=== PATIENT | male | born 1950 | race Caucasian/White ===

== ENCOUNTER 2016-05-22 19:35 | Inpatient (IN) | payer MEDICARE, MEDICAID ==
[~2016-05-22] VITALS: Ht 177.8 cm; Wt 96.6 kg
[~2016-05-22 19:35] MED LIST: ALBUTEROL8GMHFA PO; ASC500 PO; CIPR-198 PO; COU25 PO; COU5 PO; FEXO180T PO; MTP50TCR PO; MULT-1007 PO; NYST1POW29 MC; POTA20TA35 PO; TIOT18CA INH; TORS20TA PO; [UNRECOGNIZED DRUG - CODE] INH; [UNRECOGNIZED DRUG - CODE] PO
[2016-05-22 19:39] VITALS: BP 130/66; PULSE 149; RESP 27; O2SAT 94
--- NOTE | 2016-05-22 19:49 | ED.REPORT ---
HPI-General Illness Date of Service May 22, 2016 ED Provider: Joby Mcpherson MD Pt is a 65 y.o. male who presents to the ED via EMS from [facility] for increased agitation and confusion. Pt also presents with diarrhea. When pt is asked about HPI he responds with yes to every question and his nurse notes that he had previously responded with no to the exact same questions. Pt is currently on Coumadin. Pt is a poor historian due to mental status. Nursing Notes Stated Complaint: WEAKNESS,AGITATION Chief Complaint: General Complaint Nursing Notes Reviewed: Yes Allergies: Coded Allergies: No Known Allergies (Unverified , 05/21/15) Scheduled Albuterol-Expunged Drug, Do Not Renew! (Albuterol-Expunged Drug, Do Not Renew!) 90 Mcg Puff 2 PUFF PO Q4HP Ascorbic Acid-Expunged Drug, Do Not Renew! (Vitamin C-Expunged Drug, Do Not Renew!) 500 Mg Tablet 500 MG PO DAILY Ciprofloxacin Hcl (Ciprofloxacin 250 MG Tab) 500 Mg Tab 500 MG PO BID Fexofenadine-Expunged Drug, Do Not Renew! (Fexofenadine-Expunged Drug, Do Not Renew!) 180 Mg Tablet 180 MG PO DAILY Flutic/Salmet-Expunged Drug, Do Not Renew! (Advair 100/50-Expunged Drug, Do Not Renew!) 100 Mcg Puff 1 PUFF INH BID RINSE MOUTH AFTER USE Metolazone (Zaroxolyn) 2.5 Mg Tablet 2.5 MG PO every other day Metoprolol Suc-Expunged Drug, Do Not Renew! (Metoprolol Suc-Expunged Drug, Do Not Renew!) 50 Mg Tber 50 MG PO DAILY Tiotropium Br-Expunged Drug, Do Not Renew! (Spiriva-Expunged Drug, Do Not Renew! ) 18 Mcg/Puff Pack 1 PUFF INH DAILY INHALE 1 CAPSULE Torsemide-Expunged Drug, Do Not Renew! (Torsemide-Expunged Drug, Do Not Renew!) 20 Mg Tablet 40 MG PO DAILY Warfarin Inactive Drug Do Not Use (Coumadin Inactive Drug Do Not Use) 5 Mg Tablet 5 MG PO 17 1700 (5 PM) DAILY Warfarin Inactive Drug Do Not Use (Coumadin Inactive Drug Do Not Use) 2.5 Mg Tablet 2.5 MG PO 17 1700 (5 PM) DAILY Miscellaneous Medications Multivitamin (Multi-Vitamin Daily) 1 Each Tablet 1 EACH PO Nystatin (Nystatin) 1 Each Powder.ea. 1 EACH MC POTASSIUM CHL-Expunged Drug, Do Not Renew! (Q-OPZ-Dnoljbpw Drug, Do Not Renew!) 20 Meq Tab.er.prt 20 MEQ PO General Time Seen by MD: 19:45 Transferred From: [facility] Chief Complaint Altered mental status Hx Obtained From: EMS Unable to Obtain Hx: Patient condition, Mental status Arrived By: Ambulance Sudden in Onset?: No Onset Occurred: Onset unknown Recent Healthcare: No recent doctor visit, No recent hospitalization Past Medical History Past Medical History Chronic venous stasis changes. Sees wound clinic regularly for chronic wounds on his LLE. Emphysema (per pt) Smoking History Unknown if Ever Smoker Social History Other Social History: Lives in assisted Ambulatory Status Wheelchair Review of Systems Unable to Obtain ROS Patient condition, Mental status Full Review of Systems GI: Reports: Diarrhea Neurologic: Reports: Confusion Psychiatric: Reports: Agitation Complete sys rev & neg: except as marked. Physical Exam Vital Signs Vital Signs Date Time Temp Pulse Resp B/P Pulse Ox O2 Delivery O2 Flow Rate FiO2 05/22/16 21:34 120 26 71/23 98 Room Air 05/22/16 19:39 36.6 149 27 130/66 94 Room Air Initial VS: Reviewed Head / Eyes: Atraumatic, Normocephalic Abdomen / GI: Soft, Non-tender, No guarding, No rebound, No distention Skin: Warm General/Constitutional: Awake Behavior: Positive: Agitated Appearance / Presentation: Positive: Obese Pt is a poor historian. Upon examination he only responds with yes or no. Respiratory / Chest: Atraumatic, Breath sounds NL, Breath sounds = bilat, No respiratory distress Heart Rate / Rhythm: Positive: Tachycardia Afib with RVR Lower Extremity / Pelvis / MS: Non-tender Chronic lower extremity ulcers, bilaterally Mental Status: Positive: Confused Interpretation & Diagnostics Lab Results Interpretation Result Diagram: 05/22/16200905/22/16 2010 Test 05/22/16 20:10 05/22/16 20:14 05/22/16 21:29 White Blood Count 18.2th/mm3 (3.8-10.1) Red Blood Count 5.39mil/mm3 (4.40-5.80) Hemoglobin 17.6g/dL (13.8-17.2) Hematocrit 54.4% (41.0-50.0) Mean Corpuscular Volume 100.9fL (81-100) Mean Corpuscular Hemoglobin 32.7pg (27.0-35.0) Mean Corpuscular Hemoglobin Concent 32.4% (32.0-37.0) Red Cell Distribution Width 15.0% (12.3-15.4) Platelet Count 215bil/L (150-400) Neutrophils (%) (Auto) 78.3% (40-74) Lymphocytes (%) (Auto) 11.4% (14-46) Monocytes (%) (Auto) 8.8% (4-12) Eosinophils (%) (Auto) 0.2% (0-5) Basophils (%) (Auto) 0.6% (0-3) Prothrombin Time 39.4sec (8.1-12.5) Prothromb Time International Ratio 3.59ratio Activated Partial Thromboplast Time 40.2sec (22.8-33.0) D-Dimer < 0.5mg/L (<0.50) Sodium Level 145mEq/L (134-144) Potassium Level 3.9mEq/L (3.5-5.2) Chloride Level 97mEq/L (97-108) Carbon Dioxide Level 26mmol/L (18-29) Blood Urea Nitrogen 43mg/dL (8-27) Creatinine 2.00mg/dL (0.76-1.27) Estimat Glomerular Filtration Rate 36mL/min (>59) Glucose Level 118mg/dL (60-99) Lactic Acid Level 5.2mmol/L (0.4-2.0) Calcium Level 10.2mg/dL (8.5-10.1) Magnesium Level 2.2mg/dL (1.6-2.6) Total Bilirubin 1.4mg/dL (0.0-1.2) Aspartate Amino Transf (AST/SGOT) 55U/L (0-50) Alanine Aminotransferase (ALT/SGPT) 49U/L (0-44) Alkaline Phosphatase 83U/L (25-160) Troponin T 0.119ug/L (0.0-0.011) Pro-B-Type Natriuretic Peptide 3205pg/mL (0-376) Total Protein 8.0g/dL (6.4-8.4) Albumin 4.0g/dL (3.4-5.0) Hold Urine Received (Received) Point of Care Testing: Urinalysis abnormal, Troponin elevated General Lab Results Interp 2: Lactate level elevated ECG Interpretation Time: 19:51 Interpreted by: ED physician Rhythm / Conduction: Atrial fib with RVR (rate of 162) CT Chest Interpretation IMPRESSION: Mildly reduced inspiratory volume, no acute disease. Dictated by: Miller Machado M.D. on 05/22/2016 at 21:08 Approved by: Miller Machado M.D. on 05/22/2016 at 21:08 Procedures Central Line Placement Central Line Placement Note: Right ultrasound guided IJ Time: 22:15 Procedure Performed by: ED physician Consent / Setup / Site Prep: Informed consent provided, Time-out performed, Oxygen administered, Pulse oximeter applied, conveyor monitor applied, Hand hygiene observed, Standard surgical scrub, Max barrier precaution, Sterile drapes applied, Position Trendelenburg Local Anesthesia: Lidocaine 1% Side / Location / Ultrasound: Internal jugular right, Ultrasound assisted Post-Procedure / Complications: Dressing placed, Condition improved, Tolerated procedure well, Patient stable Re-Eval/Medical Decision Med Decision/Clinical Course 65-year-old male history of dementia, atrial fibrillation at [facility] assisted living setting for weakness. History is very difficult to obtain given patient unable to answer questions. On arrival his blood pressures with maps in the 40s. Heart rate atrial fibrillation 140s to 180s. Urine consistent with UTI. Lactate is 5.2. Troponins 0.1. Patient was started on Zosyn for urinary source. Blood cultures sent prior to antibiotics. I placed a right ultrasound-guided IJ central line as above. Patient was discussed with cardiology who recommended trending troponins and starting esmolol and phenylephrine drip for hypotension and atrial fibrillation rvr. Patient is full code per [facility]. Admitted to ICU. Critical care time billed as below. Source of Hx: Old records Time of Eval: 20:09 Re-Evaluation/Progress Note: Pt rechecked. Physical exam completed. Time of Eval: 22:15 Re-Evaluation/Progress Note: Pt rechecked. Central line placement, pt tolerated procedure well. Consultation #1: Referral / Consult Name: Nichole Pineda MD Consulted With: Cardiology Call Returned at: 21:43 Note: Consulted with Dr. Pineda. Recommends esmolol and phenylephrine drip. Consultation #2: Referral / Consult Name: Vinay Houser MD Consulted With: Hospitalist Call Returned at: 21:53 Supervisor Webbing: Accepts admit Note: Discussed pt condition and consult with Dr. Pineda. Accepts admit. Counseled Regarding: Diagnosis, Lab results, Need for follow-up, When/why to return to ED Discharge & Departure Primary Impression: Sepsis Additional Impressions: UTI (urinary tract infection) Diarrhea Elevated troponin Disposition: ADMITTED TO HOSPITAL Discharge Condition All VS Reviewed: Yes Condition: Stable Referrals: Heidi Gonzales MD (PCP) Crit Care Except Billable Proc Time Spent: 105-134 minutes Services Performed: Patient management by me, Time spent at bedside, Reviewing test results, Reviewing imaging, Discussing patient care, Documentation in record Scribe Attestation Portions of this note were transcribed by Teofilo Crowe. I, Dr. Mcpherson personally performed the history, physical exam and medical decision-making; I reviewed and confirmed the accuracy of the information in the transcribed note. Signed by: Jessica Taylor, 05/22/16 and [id number]. copies to: Heidi Gonzales MD, Ben M MD May 22, 2016 19:49 TEOFILO CROWE May 22, 2016 19:53
[2016-05-22] MEDS ORDERED: 0.9% Sodium Chloride 1,000 ML IV ONE ×2 (19:58→21:33)
[2016-05-22] MEDS ORDERED: Diltiazem 5 mg/mL 5 mL Inj IVPUSH ONE (20:00)
[2016-05-22] MEDS ORDERED: MeTOProlol 1 mg/mL 5 mL Inj IVPUSH PRN (20:05)
[2016-05-22] MEDS ORDERED: Esmolol 2,500 mg/250 mL NS 2,500,000 MCG in IV Premix 1 EACH IV SCH (20:15)
[2016-05-22 20:38] LABS: BASOPHILS % (AUTO) 0.6 % (0-3)
[2016-05-22 20:41] LABS: EOSINOPHILS % (AUTO) 0.2 % (0-5); MONOCYTES % (AUTO) 8.8 % (4-12); Mean Corpuscular Hemoglobin 32.7 pg (27.0-35.0); Mean Corpuscular Volume 100.9 fL (81-100); NEUTROPHILS % (AUTO) 78.3 % (40-74); Platelet Count 215 bil/L (150-400)
[2016-05-22 20:43] LABS: D-DIMER < 0.5 mg/L (<0.50); INR 3.59 ratio
[2016-05-22 21:01] LABS: Magnesium 2.2 mg/dL (1.6-2.6)
[2016-05-22 21:04] LABS: TROPONIN T 0.119 ug/L (0.0-0.011)
--- NOTE | 2016-05-22 21:10 | DRSVH ---
PROCEDURE: X-RAY CHEST ONE VIEW, PORTABLE ([id number]) INDICATIONS: tachycardia TECHNIQUE: One view of the chest was acquired. COMPARISON: None. FINDINGS: Surgical changes and devices: None. Lungs and pleura: No pleural effusions or pneumothorax. Lungs are clear. Mediastinum: Mediastinal contours appear normal. Heart size is normal. Bones and chest wall: No suspicious bony lesions. Overlying soft tissues appear unremarkable. IMPRESSION: Mildly reduced inspiratory volume, no acute disease. Dictated by: Miller Machado M.D. on 05/22/2016 at 21:08 Approved by: Miller Machado M.D. on 05/22/2016 at 21:08
[2016-05-22 21:34] VITALS: BP 71/23; PULSE 120; RESP 26; O2SAT 98
[2016-05-22] MEDS: Esmolol 2,500 mg/250 mL NS 2,500,000 MCG in IV Premix 1 EACH IV SCH (21:34)
[2016-05-22] MEDS ORDERED: Piperacillin-Tazo 3.375 Gm Inj 3.375 GM in Dextrose 5% Minibag Plus 50 ML IV ONE (21:35)
[2016-05-22 22:25] VITALS: BP 79/61; PULSE 129; RESP 31; O2SAT 92
[2016-05-22] MEDS ORDERED: 0.9% Sodium Chloride 1,000 ML IV SCH (22:39)
[2016-05-22] MEDS ORDERED: Alum-Mag Hydrox-Simeth 30 mL Suspension PO PRN (22:40)
[2016-05-22] MEDS ORDERED: Polyethylene Glycol (PEG) 17 Gm Powder PO PRN (22:40)
[2016-05-22] MEDS ORDERED: Ondansetron 2 mg/mL 2 mL Inj IVPUSH PRN (22:40)
--- NOTE | 2016-05-22 23:50 | PCM.HPMED ---
Subjective Date of Service May 22, 2016 Primary Provider: Admitting Physician: Vinay Houser MD Primary Care Physician: Heidi Gonzales MD Attending Physician: Vinay Houser MD Admit Status: From the Emergency Department, Critical Care Chief Complaint: agitation and confusion History of Present Illness: Patient is a 65 y.o. male with history significant for atrial fibrillation anticoagulated on warfarin, and dementia, who presents to the ED via EMS from [facility] for increased agitation and confusion. Patient also presents with diarrhea. In the ED, when patient is asked about HPI he responds with yes to every question and his nurse notes that he had previously responded with no to the exact same questions. Patient is a poor historian due to mental status. In the ED, patient septic with HR149, RR27, WBC 18.2. Lactic acid 4.0. Labs significant for BUN 43, creatinine 2.00, BNP 3205. Central line placed in ED. Patient admitted for further evaluation and treatment. Review of Systems: unable to be obtained due to confusion Allergies Coded Allergies: No Known Allergies (Unverified , 05/21/15) Home Medications Albuterol-Expunged Drug, Do Not Renew! (Albuterol-Expunged Drug, Do Not Renew!) 90 Mcg Puff 2 PUFF PO Q4HP Ascorbic Acid-Expunged Drug, Do Not Renew! (Vitamin C-Expunged Drug, Do Not Renew!) 500 Mg Tablet 500 MG PO DAILY Ciprofloxacin Hcl (Ciprofloxacin 250 MG Tab) 500 Mg Tab 500 MG PO BID Fexofenadine-Expunged Drug, Do Not Renew! (Fexofenadine-Expunged Drug, Do Not Renew!) 180 Mg Tablet 180 MG PO DAILY Flutic/Salmet-Expunged Drug, Do Not Renew! (Advair 100/50-Expunged Drug, Do Not Renew!) 100 Mcg Puff 1 PUFF INH BID RINSE MOUTH AFTER USE Metolazone (Zaroxolyn) 2.5 Mg Tablet 2.5 MG PO every other day Metoprolol Suc-Expunged Drug, Do Not Renew! (Metoprolol Suc-Expunged Drug, Do Not Renew!) 50 Mg Tber 50 MG PO DAILY Tiotropium Br-Expunged Drug, Do Not Renew! (Spiriva-Expunged Drug, Do Not Renew! ) 18 Mcg/Puff Pack 1 PUFF INH DAILY INHALE 1 CAPSULE Torsemide-Expunged Drug, Do Not Renew! (Torsemide-Expunged Drug, Do Not Renew!) 20 Mg Tablet 40 MG PO DAILY Warfarin Inactive Drug Do Not Use (Coumadin Inactive Drug Do Not Use) 5 Mg Tablet 5 MG PO 17 1700 (5 PM) DAILY Warfarin Inactive Drug Do Not Use (Coumadin Inactive Drug Do Not Use) 2.5 Mg Tablet 2.5 MG PO 17 1700 (5 PM) DAILY Miscellaneous Medications Multivitamin (Multi-Vitamin Daily) 1 Each Tablet 1 EACH PO Nystatin (Nystatin) 1 Each Powder.ea. 1 EACH MC POTASSIUM CHL-Expunged Drug, Do Not Renew! (X-EGC-Ffgnisfq Drug, Do Not Renew!) 20 Meq Tab.er.prt 20 MEQ PO PMH Chronic venous stasis changes - Sees wound clinic regularly for chronic wounds on his LLE. Atrial fibrillation with RVR on coumadin CHF COPD Neurofibromatosis Emphysema (per patient) Social History Smoking Status: Unknown if Ever Smoker Living Arrangement: Assisted Living ([place]) Exam Vital Signs Vital Sign - Last Date Time Temp Pulse Resp B/P Pulse Ox O2 Delivery O2 Flow Rate FiO2 05/22/16 22:25 129 31 79/61 92 Room Air 05/22/16 19:39 36.6 Exam GEN: Awake, not oriented to place or time. In mild distress. HEENT: NC/AT, EOMI, pupils sluggish to react, sclera anicteric, dry mucous membranes, poor dentition, malocclusion CV: Irregular irregular Lungs: CTAB, No use of accessory muscles noted ABD: Soft, obese, non-tender, hyperactive bowel tones Skin: Significant chronic bilateral lower leg venous stasis, Diffused nodular growth mostly on face and upper chest, back and arms, with one fluid filled fluctuant growth on left elbow [id number] cm appears to not be actively infected. One nodular growth on upper left back with ecchymosis slightly bleeding. normal skin turgor EXT: chronic appearing wounds with significant lower leg and feet venous stasis , cyanotic lower legs and feet, no apparent edema Psych: confused Lab and Diagnostics Result Diagram: 05/22/16200905/22/162009 X-Rays, CTs and MRIs Date of Service: 05/22/161957 PROCEDURE: X-RAY CHEST ONE VIEW, PORTABLE ([id number]) IMPRESSION: Mildly reduced inspiratory volume, no acute disease. Dictated by: Miller Machado M.D. on 05/22/2016 at 21:08 12-lead ECG Time: 19:51 Interpreted by: ED physician Rhythm / Conduction: Atrial fib with RVR (rate of 162) Assessment & Plan Patient is a 65 y.o. male poor historian, with history significant for atrial fibrillation anticoagulated on warfarin, CHF, COPD, and dementia, who presents to the ED from [facility] for increased agitation and confusion. Associated symptom of diarrhea. Severe Sepsis (WBC18.2, HR 149, RR27) with lactic acidosis (4.0) secondary to UTI - UA positive for UTI, UCx pending - Central line placed in ED - IVF - Repeat lactic acid till normal - BCx pending - Zosyn started in ED, Vancomycin added (qualify for Healthcare associated infection) UTI - UCx pending - Zosyn and Vanco as above Acute kidney injury - IVF as above - BMP in am Diarrhea, present on admission. Ongoing. - Stool PCR pending Chronic Atrial fibrillation with Rapid Ventricular response - telemetry - continue Coumadin for anticoagulation - esmolol and phenylephrine drip for hypotension and atrial fibrillation started per cardiology: Dr. Pineda Chronic CHF - BNP 3205 - home medications Torsemide and Metolazone held - strict I/O - standing weights if possible COPD - home medications albuterol, Advair, and Spiriva Elevated troponin levels - most likely due to demand ischemia - will continue to trend Chronic venous insufficiency - continue to monitor no active lesion identified on physical exam - wound care consult placed Neurofibromatosis, stable. - continue to monitor Chronic conditions: Dysphasia Depression Dementia Hx of MRSA - Acetaminophen as needed for mild pain/fever/headache - Bowel regimen as needed - Antiemetic as needed Patient admitted under inpatient status with expected length of stay > 2 midnights for severity of present symptoms, complexities of treatment plan and risk for adverse event DVT: on coumadin GI: not indicated CODE: FULL per [place] records GI Prophylaxis: Not indicated VTE Prophylaxis: Theraputic Anticoag with Warfarin Resuscitation Status: CPR: Attempt Resuscitation Time spent 1 hour critical care time spend Attending Statement The patient was seen and examined together with Dr. Webb on 05/22 and I agree with the history, exam and plan as outlined in the note above. Veto Webb DO May 22, 2016 22:31 Vinay Houser MD May 23, 2016 01:36 Veto Webb DO May 22, 2016 22:31 Vinay Houser MD May 23, 2016 01:36
[2016-05-22 23:56] VITALS: BP 85/51; PULSE 130; RESP 25; O2SAT 96
[2016-05-23] VITALS (9 sets, daily range): BP systolic 80–120; BP diastolic 49–84; PULSE 82–122; RESP 18–29; O2SAT 94–97
[2016-05-23] MEDS: Phenylephrine Inj 20,000 MCG in 0.9% Sodium Chloride 250 ML IV SCH ×5 (00:13→09:49)
[2016-05-23] MEDS: Esmolol 2,500 mg/250 mL NS 2,500,000 MCG in IV Premix 1 EACH IV SCH ×4 (00:27→17:47)
[2016-05-23] MEDS: Sodium Chloride LOK Flush 10 mL Syringe IVFLUSH SCH ×3 (00:28→16:37)
[2016-05-23 01:00] LABS: APPEARANCE,URINE CLOUDY (CLEAR,HAZY); COLOR,URINE DARK YELLOW (YELLOW); OCCULT BLOOD,URINE MODERATE (NEGATIVE); PH,URINE 8.5 (5.0-8.0)
[2016-05-23 01:01] LABS: UROBILINOGEN,URINE 2 mg/dL (NORMAL)
--- NOTE | 2016-05-23 02:06 | NUR ---
Admit Arrive from ER 2330. Alert, disoriented, restless. Picking at covers and lines. Inconsistent answers. Denies pain, nausea. Yes to mild dyspnea. Burnett in place. Tele Afib, 120-130s. SBP 80s when keeping arm still. Phenylephrine started and esmolol.
--- NOTE | 2016-05-23 04:49 | PCM.PHAPRO ---
Progress agitation and confusion VANCOMYCIN DOSING PER PHARMACY Indication: Empiric coverage, Hx of MRSA Trough goal: 10-15 mcg/mL Labs: SCr: 2.00 CrCl: 46 WBC: 18.2 Culture: Pending Other abx: zosyn Plan: - With current SCr, avoiding loading dose - Will give vancomycin 1250 mg IV q24 - Will drawn an early trough on 05/25/16 @ 0230 Anne Ignacio PharmD May 23, 2016 04:49
[2016-05-23 05:10] LABS: Mean Corpuscular Hemoglobin 32.4 pg (27.0-35.0); Mean Corpuscular Volume 101.6 fL (81-100); Platelet Count 175 bil/L (150-400)
[2016-05-23 05:41] LABS: BASOPHILS % (AUTO) 0 % (0-3); EOSINOPHILS % (AUTO) 0 % (0-5); MONOCYTES % (AUTO) 8 % (4-12); NEUTROPHILS % (AUTO) 78 % (40-74)
--- NOTE | 2016-05-23 06:45 | NUR ---
Dr Webb updated on phenylephrine at 3.5mcg (250ml+/hr) and SBP low 80s, DBP 40-50s, MAP > 60. Adjusting esmolol drip slowly down by 5mcg and HR remaining in the 90s, Afib. CVP 4-5. L arm BP better than R. Questioning if PVD affecting BP, CVP readings....525ml cloudy lida UOP. Pt drowsy, disoriented, impulsive. Moving BUEs frequently which also interferes w/ BP accuracy. Low K+ and K/mg repletion order will be placed by Dr Webb along w/ a MRSA cx which has been sent. Currently pt asleep for first time.
[2016-05-23] MEDS: Albuterol 2.5 mg/3 mL Inhalation Solution NEB SCH ×5 (07:00→23:00)
[2016-05-23] MEDS: Piperacillin-Tazo 3.375 Gm Inj 3.375 GM in Dextrose 5% Minibag Plus 50 ML IV SCH ×2 (08:29→20:51)
--- NOTE | 2016-05-23 08:50 | DRSVH ---
PROCEDURE: X-RAY CHEST ONE VIEW, PORTABLE ([id number]) INDICATIONS: CENTRAL LINE PLACEMENT TECHNIQUE: One view of the chest was acquired. COMPARISON: [facility], CR, XR CHEST 1VW (PORTABLE), 05/22/2016, 20:16. FINDINGS: Surgical changes and devices: Right IJ CVL is in place tip projected on a mid to lower SVC. Lungs and pleura: No pleural effusions or pneumothorax. Lungs are clear, interstitium is prominent. Mediastinum: Mediastinal contours appear normal. Heart size is normal. Bones and chest wall: No suspicious bony lesions. Overlying soft tissues appear unremarkable. IMPRESSION: 1. Placement right IJ CVL. 2. Prominence of the interstitium and mild early developing pulmonary edema or atypical pneumonia can not be excluded. Recommend clinical correlation. Dictated by: Kyle DAHL Interpreted: Ilda Moulton MD on 05/23/2016 at 8:48 Transcribed by: KOSTAS on 05/23/2016 at 8:49 Approved by: Ilda Moulton M.D. on 05/24/2016 at 16:18
[2016-05-23 09:07] LABS: INR 3.36 ratio
[2016-05-23] MEDS ORDERED: 0.9% Sodium Chloride 1,000 ML IV ONE (09:25)
[2016-05-23] MEDS ORDERED: 0.9% Sodium Chloride 1,000 ML IV SCH (09:25)
[2016-05-23] MEDS: Tiotropium 18mcg/Cap 5 Capsule Inhaler Kit INHALATION SCH (09:44)
[2016-05-23] MEDS: Vancomycin Dose per Pharmacist XX SCH ×2 (09:44)
[2016-05-23] MEDS: Fluticasone-Salmeterol 100-50 Inhaler INHALATION SCH ×3 (09:45→20:44)
[2016-05-23] MEDS: Norepineph 8,000 mCg/250 mL NS 8,000 MCG in IV Premix 1 EACH IV PRN ×3 (11:08→20:24)
--- NOTE | 2016-05-23 11:18 | CONS ---
[address] [address] CONSULTATION REPORT PATIENT: KELLY MELENDREZ : 1950 MR#: [id number] ADMIT: 05/22/2016 JOB ID: [id number] DATE OF SERVICE: 05/23/2016 INFECTIOUS DISEASE CONSULTATION: I thank Dr. Derrick Bullock for this timely consult. REASON FOR CONSULTATION: Septic shock. HISTORY OF PRESENT ILLNESS: The patient is a 65-year-old gentleman with neurofibromatosis. For the past several years, he has been living at a assisted facility in [place] because of a variety of problems including refractory bilateral lower extremity venous stasis ulcers, immobility, CHF and COPD. He has also been noted to have an evolving early dementia. He is usually wheelchair bound, but gets around a bit apparently at the assisted facility, and in talking with him today, the team has learned that he does not have a Burnett catheter routinely at that location. In reviewing the notes from the hospital here, he has not really been an inpatient at [facility] though he has been seen dozens of times in our wound management clinic over the last five years for refractory ulcerations of both lower extremities, which in the past months actually seem to be a bit better according to the notes. The patient was in his usual state of compensated health with the mobility issues and early dementia as noted at [facility] when he developed a fairly abrupt onset of change in mental status with confusion. He was also noted at that time to have some diarrheal stools and he was brought to the emergency department for evaluation. At that time, he was found to be confused with acute renal injury and a very elevated lactate. His first blood pressure in the ED was actually reasonable but within just an hour or so he became frankly hypotensive and was diagnosed with probable septic shock and admitted to the ICU where he has remained since yesterday evening. He has required extraordinarily high doses of a single vasopressor agent but has still not required even supplemental oxygen. He has required esmolol for a very rapid AFib and carries a previous history of AFib. The patient was discussed in great detail in the ICU rounds as well as in person with Dr. Bullock as well as the ICU nurse. As a historian he is not of much value this morning. The patient will open his eyes and answer questions but for the first several minutes we spoke to him all questions were answered yes whether they made any sense or not. He then started answering no and then later started repeating over and over that he was fine. He is clearly not oriented and his answers to questions are so unreliable that there is essentially no history. At one point he did say though that he is not short of breath. PAST MEDICAL HISTORY: 1. Early dementia. 2. Neurofibromatosis. 3. History of hydrocephalus documented by MRI scan. 4. Recurrent bilateral venous ulcers of the lower extremities which in the past have cultured MRSA, Pseudomonas aeruginosa and Klebsiella. 5. History of organic heart disease with CHF and atrial fibrillation. 6. COPD. 7. Obesity. 8. Immobility. SOCIAL HISTORY: The patient has lived at the assisted facility for at least five years that we can document in the records. He was reported in earlier notes to be a nondrinker, nonsmoker though we cannot asked him today, but it would be my assumption that continues since he lives in a assisted. He has not been apparently and has no children according to some earlier notes when he was more lucid in the [facility]. FAMILY HISTORY: Notable for coronary disease as well as hypertension and those are also from earlier notes in the [facility]. REVIEW OF SYSTEMS: Is not possible today as the patient is only giving one-word answers which do not seem to correlate with the questions. PHYSICAL EXAMINATION: Reveals an elderly gentleman lying supine in an ICU bed. His eyes are open and he tracks but is somewhat resistant to the exam and does not answer questions in a meaningful way. He would at most be oriented x1. His skin is obviously covered with small lesions typical of neurofibromatosis and these basically cover the surface of his body but are especially concentrated over the torso and the proximal extremities. His current temperature is 36.4. Pulse in the 90s and appears to be in AFib with periods perhaps of sinus rhythm interspersed. He is breathing in the low 20s, and saturating well on room air surprisingly. He is requiring high doses of phenylephrine to maintain a blood pressure of 85 systolic. Examination of the head reveals no evidence of trauma. His head has multiple neurofibromatosis lesions as well. His eyes are without scleral icterus or conjunctivitis. He is able to track appropriately. His nose appears normal. His oral cavity was difficult to examine as he refuses to open his mouth but I do not see anything on his anterior tongue and his lips appear normal. His neck is supple. His lungs are relatively clear though he does not inspire deeply when asked to, but perhaps there are diminished breath sounds at the bases but not much. Cardiac tones have periods of regularity and periods of irregularity. No significant murmur is heard. The abdomen is soft and nontender without organomegaly or ascites. The patient has a Burnett catheter which is newly placed. He does not have suprapubic tenderness. Does not have femoral adenopathy. The skin, as mentioned, is covered with probably thousands of neurofibromatosis, nodular lesions about 0.5 cm each. On the lower extremities, there are extensive venous stasis changes with almost a purplish hue between the knees and the ankles. These were carefully examined and there are no open lesions. He has significant edema of the lower extremities bilaterally, and especially involving the feet. Pulses in the feet are diminished and there are weak dorsal pedal pulses but no posterior tibial pulses. Capillary refill is very poor. His legs are stiff and almost contractured in that they cannot seem to flex or extend which may have something to do with his wheelchair bound status and being nonambulatory for long periods of time. The patient will not cooperate with a full neurologic examination. In rolling the patient over, he does not have any lesions on his back or back side except there is about a 2-3 cm violaceous shallow ulcer present between the scapulae. This does not appear terribly infected in terms of surrounding erythema but there is a foul odor suggesting anaerobic infection. LABORATORIES: Include white count 19,000 with left shift. Creatinine 1.62. Last night in the ED though it was 2 so it has improved a bit. LFTs are normal. Lactic acid was 5.2 when he hit the ED last night. It is now 1.5. Albumin is 3.2. Urinalysis packed with white blood cells. Few red cells are noted. Urine culture is growing a gram-negative milton. A MRSA screen is pending. Blood cultures negative so far and a stool multiplex PCR negative. Chest x-rays are actually read as clear. IMPRESSION: This unfortunate gentleman with underlying neurofibromatosis, dementia, chronic venous ulcers, coronary disease and COPD now presents with septic shock and confusion. Associated with his septic shock and confusion, there is some renal insufficiency and there was a metabolic acidosis which has already been corrected. Somewhat surprisingly, the patient has not required any supplemental oxygen and continues to have urine output. The most likely source of the sepsis, of course, is his urinary tract infection given that he has a heavy pyuria and is already growing gram-negative rods. He is also at risk obviously for skin and soft tissue related sepsis and he has well documented in his chart many positive cultures from lower extremity ulcers. At this point, I do not see any lower extremity ulcers but he does have the single ulcerated violaceous lesion between his scapulae, which may be infected and by the odor of it, if it is infected, likely involves some anaerobes. There is no evidence whatsoever for pneumonia and I think meningitis would be highly unlikely as well. RECOMMENDATIONS: 1. I agree with continuing the Zosyn that was initiated in the ED. Because of the remote possibility of a resistant gram-negative milton, I think it is prudent to add Cipro. In reviewing his prior records, almost all the gram-negative rods he has ever grown are sensitive to Cipro and I think that would be a reasonable addition overnight until we have clarity. In addition, I would drop the vanco he is receiving at this point, as the combination of vanco and Zosyn is known to be nephrotoxic, and instead substitute daptomycin as a safer and aircraft cabin cleaner agent in this situation. 2. Will discontinue the vanc. 3 Will start daptomycin 6 mg/kg q.24 hours. 4. Will start Cipro 400 IV q.12 hours. 5. We await the final cultures from the urine as well as the blood. 6 This case discussed extensively during ICU rounds. 7 Will continue to closely follow this patient with you. MINDY
[2016-05-23] MEDS ORDERED: 0.9% Sodium Chloride 250 ML ONE (11:26)
--- NOTE | 2016-05-23 11:27 | NUR ---
NUTRITION ASSESSMENT ASSESS: 65 YO male admitted w/ severe sepsis, UTI and JENNIFER. Pt had diarrhea present upon admission. Per notes, pt has dementia and is not an accurate historian. Currently NPO x 1 day. PMHX: Chronic venous stasis changes, Afib, CHF, COPD, Neurofibromatosis, Emphysema (per pt) LABS: Reviewed. Na 148, K 3.4, BUN 43, Public Relations Account Executive 1.62, Gluc 147, Troponin T 0.063, Alb 3.2 MEDS: Reviewed. GI: No BMs noted - diarrhea at admit. SKIN: Marco 15 - current [facility] pt w/ peripheral venous stasis ulcers on bilateral legs CURRENT WT: 96.2 kg BMI: 30.4 kg/m2 IBW: 75.4 kg DIET: NPO x 1 day EST. NEEDS: BMI 30-40, Wounds Kcals: 9887-3988 kcal/day (22-25 kcal/kg BW) Pro: 95-115 g/day (1.0-1.2 g/kg BW) Fluid: 2200 ml/day (~1 ml/kcal/day) NUTRITION DIAGNOSIS: 1.) Inadequate oral intake related to decreased ability to consume sufficient energy as evidenced by current NPO status. NUTRITION INTERVENTION: 1.) Due to history of dysphagia, recommend S/T evaluation when medically appropriate. MONITOR / EVAL: Diet advancement, labs, medications, GI, POC. Will continue to monitor pt per high nutritional risk guidelines. Addendum: 05/23/16 at [address] I have read and agree with above student documentation. Pretty Zuniga
[2016-05-23] MEDS: Ciprofloxacin Inj 400 MG in IV Premix 1 EACH IV SCH ×2 (11:37→20:43)
[2016-05-23] MEDS: DAPTOmycin Inj 600 MG in 0.9% Sodium Chloride 50 ML IV SCH (12:52)
--- NOTE | 2016-05-23 13:59 | PCM.PNMED ---
Subjective Date of Service May 23, 2016 Subjective The patient is very somnolent. He can be a aroused but can really not answer any specific questions. ROS and subjective are not obtainable. Exam Vital Signs Vital Sign - Last Date Time Temp Pulse Resp B/P Pulse Ox O2 Delivery O2 Flow Rate FiO2 05/23/16 12:40 94 18 97 Room Air 05/23/16 12:16 36.1 80/49 Intake and Output 05/22/16 05/22/16 05/23/16 Cumulative From/Thru 15:00 23:00 07:00 05/22/16 19:39 - 05/23/16 06:12 Intake Total 2000 ml 2000 ml Balance 2000 ml 2000 ml Intake IV Total 2000 ml 2000 ml Exam Patient is somnolent. He appears comfortable. He minimally arousable. Neck is supple Lungs are clear with normal left and right. Heart is regular without murmur gallop or rub. Abdomen soft. Extremities over for multiple neurofibromas several excoriations and bleeding. No obvious areas of infection. He has a large fibroma on the left elbow. He also has multiple fibromas in his back which are bleeding somewhat necrotic but not clearly infected. IVs and Medications Medications Reviewed: Medications were reviewed in detail Lab and Diagnostics Result Diagram: 05/23/16 0505 05/23/16 0505 X-Rays, CTs and MRIs Date of Service: 05/22/161957 PROCEDURE: X-RAY CHEST ONE VIEW, PORTABLE ([id number]) IMPRESSION: Mildly reduced inspiratory volume, no acute disease. Dictated by: Miller Machado M.D. on 05/22/2016 at 21:08 12-lead ECG Time: 19:51 Interpreted by: ED physician Rhythm / Conduction: Atrial fib with RVR (rate of 162) Assessment & Plan Patient is a 65 y.o. male poor historian, with history significant for atrial fibrillation anticoagulated on warfarin, CHF, COPD, and dementia, who presents to the ED from [facility] for increased agitation and confusion. Associated symptom of diarrhea. 1. Severe Sepsis (WBC18.2, HR 149, RR27) with lactic acidosis (4.0) secondary to UTI - UA positive for UTI, UCx pending - Central line placed in ED - IVF - Repeat lactic acid till normal - BCx pending - Zosyn started in ED, Vancomycin added (qualify for Healthcare associated infection) Septic shock has been treated with Cresencio-Synephrine. Will substitute norepinephrine and fluid resuscitated with 2 L of saline. Discussed with Dr. Blue and will substitute daptomycin for vancomycin given his chronic kidney disease. We will also add Cipro. He has had evidence of GNR septicemia. He does have a previous history of Pseudomonas and Klebsiella on his leg ulcers. 2. Pyelonephritis. - UCx pending - Zosyn and Vanco as above 3. Acute kidney injury - IVF as above - BMP in am, stop vancomycin and use daptomycin. Fluid resuscitation. Avoidance of nephrotoxic agents. 4. Diarrhea, present on admission. Ongoing. - Stool PCR pending 5. Chronic Atrial fibrillation with Rapid Ventricular response - telemetry - continue Coumadin for anticoagulation - esmolol and phenylephrine drip for hypotension and atrial fibrillation started per cardiology: Dr. Pineda was curbside. This point he cannot tolerate esmolol will stop this and will try norepinephrine. We will see how his rate control proceeds. His heart rate has been under 100 since this morning. 6. Chronic CHF - BNP 3205 - home medications Torsemide and Metolazone held - strict I/O - standing weights if possible. On chronic Coumadin, continue per pharmacy. 7. COPD, stable. POA - home medications albuterol, Advair, and Spiriva 8. Elevated troponin levels - most likely due to demand ischemia - will continue to trend Chronic venous insufficiency - continue to monitor no active lesion identified on physical exam - wound care consult placed Neurofibromatosis, stable. - continue to monitor Dysphasia Depression Dementia Hx of MRSA, chronic leg ulcers. Wound consultation. Contact isolation. - Acetaminophen as needed for mild pain/fever/headache - Bowel regimen as needed - Antiemetic as needed Patient admitted under inpatient status with expected length of stay > 2 midnights for severity of present symptoms, complexities of treatment plan and risk for adverse event DVT: on coumadin GI: not indicated CODE: FULL per [facility] records Pain Evaluation: Adequate Pain Control GI Prophylaxis: Not indicated VTE Prophylaxis: Theraputic Anticoag with Warfarin VTE Mechanical Devices: Intermittant Pneumatic CD Resuscitation Status: CPR: Attempt Resuscitation Derrick Bullock MD May 23, 2016 13:59
--- NOTE | 2016-05-23 14:19 | PCM.PHAPRO ---
Progress agitation and confusion Warfarin Dosing Indication: AFib Home dose 2.5mg/d C-V Score: 2 HASBLED: 1 Recent dosing: Admit dx: Sepsis RPh AK GSF Date May 23-May 24-May 25-May 26-May 27-May 28-May 29-May 30-Apr INR 3.59 3.36 INR change -0.23 Warf Dose HELD 0.5mg DI review rev a/ Mildly elevated INR on admit ? 2/2 sepsis or mild decompensation of HF p/ Small dose today to prevent rapid INR descent William Howard Pharm D May 23, 2016 14:19
[2016-05-23] MEDS ORDERED: Sodium Chloride LOK Flush 10 mL Syringe IVFLUSH PRN (14:55)
[2016-05-23] MEDS ORDERED: KCl 40 mEq/100 mL (CENTRAL) 40 MEQ in IV Premix 1 EACH IV ONE (15:15)
--- NOTE | 2016-05-23 19:59 | NUR ---
Mentation/Pain/Afib/Hypotension: Patient continues to be oriented to self only, restless and became very agitated this afternoon. Pt reported 8/10 generalized pain. MD was notified and ordered. Morphine 1-2mg Q1h. Morphine 1mg was administered and patient reported reassessed pain at 8/10. Patient was repositioned for comfort. Tele: Afib 802-90's with PVC's, Esmolol gtt @ 65mcg/kg/hr infusing, BP readings are difficult to assess due to patient being restless, agitated and combative at times MAP maintaining above 65, Norepinephrine gtt 0.4mcg/kg/min infusing.
[2016-05-24] VITALS (9 sets, daily range): BP systolic 94–142; BP diastolic 4–76; PULSE 84–119; RESP 17–26; O2SAT 93–100
[2016-05-24] MEDS: Sodium Chloride LOK Flush 10 mL Syringe IVFLUSH SCH ×4 (00:24→23:11)
[2016-05-24] MEDS: Norepineph 8,000 mCg/250 mL NS 8,000 MCG in IV Premix 1 EACH IV PRN ×2 (00:58→06:45)
[2016-05-24] MEDS: Esmolol 2,500 mg/250 mL NS 2,500,000 MCG in IV Premix 1 EACH IV SCH ×3 (01:37→23:10)
[2016-05-24 04:25] LABS: BASOPHILS % (AUTO) 0.7 % (0-3); EOSINOPHILS % (AUTO) 1.4 % (0-5); MONOCYTES % (AUTO) 10.1 % (4-12); Mean Corpuscular Hemoglobin 32.7 pg (27.0-35.0); Mean Corpuscular Volume 102.4 fL (81-100); NEUTROPHILS % (AUTO) 68.8 % (40-74); Platelet Count 152 bil/L (150-400)
[2016-05-24] MEDS: Albuterol 2.5 mg/3 mL Inhalation Solution NEB SCH ×2 (04:26→08:14)
[2016-05-24 04:45] LABS: INR 4.35 ratio
--- NOTE | 2016-05-24 06:11 | NUR ---
P: hypotension and A fib RVR I: levophed and esmolol drips E: Levophed titrate from 0.4mcg to 0.2mcg, SBP 90s, DBP 60s, MAP 65+. Esmolol titrate from 65mcg down to 30mcg, HR 80-90s, occasional 100s. CVP 8-9. UOP 70ml+/hr, lida w/ mucus shreds. Pt alert w/ less agitation. Does not like care given. c/o " I hurt", when ask where, "I itch". Restraints apply as pt very restless start of shift. Protect CVL and rodriguez. Pt sleeping for longer periods of time than prior night.
[2016-05-24] MEDS ORDERED: KCl 40 mEq/100 mL Premix (K 3 - 3.7 & Creat < 2) IV ONE ×2 (06:15→19:50)
--- NOTE | 2016-05-24 07:23 | PCM.PHAPRO ---
Progress agitation and confusion Warfarin Dosing Indication: AFib Home dose 2.5mg/d C-V Score: 2 HASBLED: 1 Recent dosing: Admit dx: Sepsis RPh AK GSF gs Date May 23-May 24-May 25-May 26-May 27-May 28-May 29-May 30-Apr INR 3.59 3.36 4.35 INR change -0.23 +.99 Warf Dose HELD 0.5mg HOLD DI review rev rev a/ Mildly elevated INR on admit ? 2/2 sepsis or mild decompensation of HF p/ Hold dose William Howard S Pharm D May 24, 2016 07:22
[2016-05-24] MEDS: Tiotropium 18mcg/Cap 5 Capsule Inhaler Kit INHALATION SCH (08:41)
[2016-05-24] MEDS: Piperacillin-Tazo 3.375 Gm Inj 3.375 GM in Dextrose 5% Minibag Plus 50 ML IV SCH ×2 (08:41→23:10)
[2016-05-24] MEDS: Fluticasone-Salmeterol 100-50 Inhaler INHALATION SCH ×2 (08:41→19:56)
[2016-05-24] MEDS: Ciprofloxacin Inj 400 MG in IV Premix 1 EACH IV SCH ×2 (08:41→19:57)
[2016-05-24] MEDS: DAPTOmycin Inj 600 MG in 0.9% Sodium Chloride 50 ML IV SCH (09:16)
--- NOTE | 2016-05-24 09:47 | NUR ---
Evaluation completed. Please go to "Notes" then click on "Assessments and Notes" (bottom left corner of screen). Then select appropriate discipline tab on top of screen.
[2016-05-24] MEDS ORDERED: Albuterol 2.5 mg/3 mL Inhalation Solution NEB PRN (11:00)
--- NOTE | 2016-05-24 12:02 | PCM.PNMED ---
Subjective Date of Service May 24, 2016 Subjective He feels better today. He is still somewhat somnolent. Slow. He denies any pain or shortness of breath.In the hospital. Exam Vital Signs Vital Sign - Last Date Time Temp Pulse Resp B/P Pulse Ox O2 Delivery O2 Flow Rate FiO2 05/24/16 11:01 36.7 108 24 142/4 98 Room Air Intake and Output 05/23/16 05/23/16 05/24/16 Cumulative From/Thru 15:00 23:00 07:00 05/22/16 19:39 - 05/24/16 05:32 Intake Total 3618 ml 1161 ml 6779 ml Output Total 1300 ml 900 ml 2200 ml Balance 2318 ml 261 ml 4579 ml Intake Oral 0 ml 0 ml IV Total 3618 ml 1161 ml 6779 ml Output Urine Total 1300 ml 900 ml 2200 ml # Bowel Movements 0 0 0 Exam Alert and oriented 2, place and person. No distress. Slow slurred speech. Anicteric sclera Neck supple. Lungs are clear normal effort and right heart is regularly irregular without murmur gallop or rub. Abdomen is soft Extremities are free of edema. Patient has numerous neurofibromas over his entire body including one fibroma which is very large and the left elbow. Both lower extremities are wrapped by wound today. He has some necrosis and 2 fibromas on his back. There is no redness of the skin. IVs and Medications Medications Reviewed: Medications were reviewed in detail Lab and Diagnostics Result Diagram: 05/24/165 05/24/16414 X-Rays, CTs and MRIs Date of Service: 05/22/161957 PROCEDURE: X-RAY CHEST ONE VIEW, PORTABLE ([id number]) IMPRESSION: Mildly reduced inspiratory volume, no acute disease. Dictated by: Miller Machado M.D. on 05/22/2016 at 21:08 12-lead ECG Time: 19:51 Interpreted by: ED physician Rhythm / Conduction: Atrial fib with RVR (rate of 162) Assessment & Plan Patient is a 65 y.o. male poor historian, with history significant for atrial fibrillation anticoagulated on warfarin, CHF, COPD, and dementia, who presents to the ED from [facility] for increased agitation and confusion. Associated symptom of diarrhea. Severe Sepsis (WBC18.2, HR 149, RR27) with lactic acidosis (4.0) secondary to UTI. Culture is currently indicating GNR in the urine with ID pending. - UA positive for UTI, UCx pending - Central line placed in ED - IVF - Repeat lactic acid did normalize. - BCx pending chemistries are negative currently. - Zosyn started in ED, daptomycin and Cipro were added by infectious disease. UTI - UCx pending Patient was initially on a Cresencio-Synephrine drip which was converted to norepinephrine. He has done well with this and this is currently being weaned. He was fluid resuscitated with saline rather aggressively yesterday and is maintaining a map over 65. Acute kidney injury, POA. This is improving with fluid resuscitation. - IVF as above - BMP every am Diarrhea, present on admission. Resolved. - Stool PCR negative Chronic Atrial fibrillation with Rapid Ventricular response - telemetry - continue Coumadin for anticoagulation - esmolol drip continues for rate control. When the patient is more lucid well again oral medications and wean the drip. Chronic CHF, POA. Unclear what ventricular function is. - BNP 3205 - home medications Torsemide and Metolazone held - strict I/O - standing weights if possible Will obtain 2-D echo to assess LV function. COPD, chronic. POA. Compensated. - home medications albuterol, Advair, and Spiriva Elevated troponin levels - most likely due to demand ischemia - will continue to trend He is progressively hypernatremic. We will supplement with D5W today to correct his water deficit. Chronic venous insufficiency - continue to monitor no active lesion identified on physical exam - wound care consult placed Neurofibromatosis, stable. - continue to monitor Chronic conditions: Dysphasia Depression Dementia Hx of MRSA, Klebsiella, and Pseudomonas on leg ulcers in the past. - Acetaminophen as needed for mild pain/fever/headache - Bowel regimen as needed - Antiemetic as needed Patient admitted under inpatient status with expected length of stay > 2 midnights for severity of present symptoms, complexities of treatment plan and risk for adverse event DVT: on coumadin GI: not indicated CODE: FULL [facility] records Pain Evaluation: Adequate Pain Control GI Prophylaxis: Not indicated VTE Prophylaxis: Theraputic Anticoag with Warfarin VTE Mechanical Devices: Intermittant Pneumatic CD Resuscitation Status: CPR: Attempt Resuscitation Time spent 35 minutes Derrick Bullock MD May 24, 2016 12:02
[2016-05-24] MEDS: Dextrose 5% 1,000 ML IV SCH (14:12)
--- NOTE | 2016-05-24 14:54 | NUR ---
spiritual care: routine pt known to order manager from [facility]. Pt a bit confused, agitated, repeated "i can always use help" several times.
--- NOTE | 2016-05-24 17:32 | DRSVH ---
[facility] [address] [place] [address] Echocardiogram Report Name: KELLY MELENDREZ MStudy Date : 05/24/2016 Height: 70 in Hospital Exam Location: [facility] Weight: 215 lb Gender: Male BSA: 2.2 m2 : 1950 Age: 65 yrs Reason For Study: HYPOTENSION Ordering Physician: HOSPITALIST [facility] Performed By: Adis Joseph Referring Physician: THELMA PENA Interpretation Summary 1. Normal left ventricular size, wall thickness with preserved LV systolic function and an estimated EF of 65 to 70% 2. Grossly normal right ventricular size and systolic function. 3. Mild to moderate aortic stenosis Procedure: A two-dimensional transthoracic echocardiogram with color flow and Doppler was performed. The study quality was technically difficult. A contrast injection of Definity was performed to improve assessment of LV function. There is no prior echocardiogram noted for this patient. Per ICU nurse, a reliable b/p could not be obtained. The patient was in atrial fibrillation with rapid ventricular response during the exam with a heart rate exceeding 100 bpm. Left Ventricle: The left ventricle is normal in size. Proximal septal thickening is noted. The LVOT diameter is 2.4 cm. The LVOT velocity is 0.8 m/s. Left ventricular wall thickness is at the upper limits of normal. The ejection fraction is estimated to be 65-70%. Even with definity contrast, identification of subtle wall motion abnormalities is difficult. Possible basal inferior/inferoseptal hypokinesis. Diastolic function could not be accurately assessed due to atrial fibrillation. Right Ventricle: The right ventricle grossly appears normal in size with probable normal systolic function. Atria: The left atrium is not well visualized. Right atrium not well visualized. No color doppler evidence for an ASD. Mitral Valve: The mitral valve leaflets appear mildly thickened, but open well. There is trace mitral regurgitation. Aortic Valve: The aortic valve is moderately calcified. The aortic valve is trileaflet. The peak aortic velocity is 2.3 m/sec. The aortic valve mean gradient is 12 mmHg. There is mild to moderate aortic stenosis. There is trace aortic regurgitation. Tricuspid Valve: The tricuspid valve is not well visualized, but is grossly normal. Pulmonary artery pressures cannot be estimated because of the lack of a measurable TR jet velocity. Pulmonic Valve: The pulmonic valve is not well visualized. Great Vessels: The aortic root is normal size. The ascending aorta could not be visualized. The IVC is dilated (diameter is greater than 2.1 cm) yet it collapses greater than 50% with a sniff. This suggests a right atrial pressure of 8 mm Hg. Pericardium/ Pleura There is no pericardial effusion. There is no pleural effusion. MMode/2D Measurements & Calculations LVIDd: 4.5 cm LA A4 area LVOT diam LV coleman. diameter/BSA LVIDs: 3.6 cm (cm/m^2): 2.1 FS: 20.0 % Ao root diam IVSd: 1.1 cm IVC diam LVPWd: 0.91 cm : 2.8 cm LV sys. diameter/BSA (cm/m^2): 1.7 Doppler Measurements & Calculations Ao V2 max MV E max kevin Med Peak E' Kevin Ao V2 mean : 233.3 cm/sec : 86.0 cm/sec : 165.9 cm/sec Ao max PG E/E' med: 14.3 Ao V2 VTI : 21.8 mmHg Lat Peak E' Kevin Ao mean PG : 12.4 mmHg E/E' lat: 10.5 LOLIS(V,D): 1.6 cm2 LVOT Max Kevin E/e' average : 82.0 cm/sec LOLIS(I,D): 1.7 cm sev ratio LV V1 max PG LOLIS indexed to BSA (cm^2/m^2): 0.80 LV V1 VTI: 13.8 cm Reading Physician:05:31 PM
--- NOTE | 2016-05-24 17:47 | NUR ---
Social Work Note: Initial Assessment Data& Assessment: EMR reviewed. SW met with pt at bedside to discuss discharge planning, SW role explained. Magdaleno Mendez is a 65 year old male admitted on 05/22/2016 for sepsis, UTI, diarrhea and elevated troponin. Pt has Medicare and [facility] supplemental insurance coverage. Pt sees Hipolito Gonzales MD for primary care. Pt lives at [facility] as a longterm care pt. Pt asked SW what year it was, pt is not oriented to place or time. SW spoke with [facility] play back operator for baseline information. Pt is a wheelchair at baseline with ruth lift transfers. Pt receives assistance with all ADL's accept for feeding. [facility] does not have any DPOA paperwork on file. Pt does not have LT insurance. Pt has brother Selwyn Mendez listed with phone number [phone], however this phone number seems to not be in service any longer. SW found a number listed for a Florence Lopez, however this was pt prior CM and she has not spoken with or worked with pt since pt began living at [facility] two years ago, she confirmed she does not have another number to reach pt brother. [facility] also does not have another number to reach pt brother. SW to continue efforts to try and locate pt family. SW to continue to follow. Plan: Pt is not ready for discharge at this time and remains critically ill. Anticipated return back to [facility] as a longterm care pt when pt is medically ready. SW to continue efforts to try and locate pt family. SW to continue to follow. KANDIS Alvarado Addendum: 05/24/16 at 1753 by KONG MILLS Amended: Links added.
--- NOTE | 2016-05-24 18:48 | NUR ---
P: Hemodynamics, Respiratory, Neuro. I,E: Pt was on norepi this am, but this was turned off at approx 1130hrs when I was getting readings of 150's sys. Since that time I have been having difficulty obtaining accurate BP's. Pt is alert and conversive, using call light, although he is disoriented to time and place. At times I will get readings in the 200's sys and then 2 mins later a sys of 70. I have changed the cuff placing multiple times without a change. is aware. I getting more consistent readings from the portable BP machine and those have been in the 120's sys. UOP was 1000cc this shift. Pt RR is at 20-24 and sats are high 90's currently 99% on room air. Pt is restless, and pulling at things, and has soft restraints on to protect his lines.
[2016-05-25] VITALS (7 sets, daily range): BP systolic 86–106; BP diastolic 9–80; PULSE 100–114; RESP 4–26; O2SAT 96–99
[2016-05-25] MEDS ORDERED: Vancomycin Serum Trough XX ONE (02:30)
[2016-05-25] MEDS: Esmolol 2,500 mg/250 mL NS 2,500,000 MCG in IV Premix 1 EACH IV SCH (03:26)
--- NOTE | 2016-05-25 05:15 | NUR ---
Cardiac/Resp/Mentation Patient HR 100-120's unable to get HR <100 with Esmolol gtt, Unable to get accurate BP, tried left and right FA and left upper arm, SBP ranged from 50-230 within a few minutes, patient alert and communicating with staff, saying "HI" when staff cam in room denied lightheadedness and dizziness, tremors in extremities, anxiety and stated he had generalized pain, Ativan and MS given with some relief, monitor would show BP 50/30 and then checked on other arm would read 200-140 a few minutes later, Esmolol titrated off to see what BP would read and patient is much calmer since gtt is off, HR 111 at this time, on RA and sats 98%, no resp distress or c/o SOB, will continue to monitor, no distress noted. Addendum: 05/25/16 at 0517 by BREANA TURPIN RN Amended: Links added.
[2016-05-25] MEDS: Dextrose 5% 1,000 ML IV SCH ×2 (05:20→15:01)
[2016-05-25 06:46] LABS: INR 3.29 ratio
[2016-05-25] MEDS: Fluticasone-Salmeterol 100-50 Inhaler INHALATION SCH ×2 (07:54→21:09)
[2016-05-25] MEDS: Tiotropium 18mcg/Cap 5 Capsule Inhaler Kit INHALATION SCH (07:54)
[2016-05-25] MEDS: Ciprofloxacin Inj 400 MG in IV Premix 1 EACH IV SCH (07:55)
[2016-05-25] MEDS: Piperacillin-Tazo 3.375 Gm Inj 3.375 GM in Dextrose 5% Minibag Plus 50 ML IV SCH (07:56)
[2016-05-25] MEDS: Sodium Chloride LOK Flush 10 mL Syringe IVFLUSH SCH ×2 (07:56→16:06)
[2016-05-25 07:58] LABS: Mean Corpuscular Hemoglobin 32.1 pg (27.0-35.0)
[2016-05-25] MEDS ORDERED: cefTRIAXone Inj 2 GM in IV Premix 1 EACH IV SCH (09:25)
--- NOTE | 2016-05-25 09:56 | PROG NOTE ---
[address] [address] PROGRESS NOTE PATIENT: KELLY MELENDREZ : 1950 MR#: [id number] ADMIT: 05/22/2016 JOB ID: [id number] DATE: 05/25/2016 INFECTIOUS DISEASE FOLLOWUP NOTE: REASON FOR FOLLOWUP: Complicated proteus urinary tract infection, associated with septic shock. INTERVAL HISTORY: Overnight, the patient has improved considerably. His vasopressor agents were just weaned off as of this morning and has been able to maintain his blood pressure without any additional support. Additionally, the patient is now improved with respect to his mental status and was able the eat some breakfast today. He is in an arousable mood this morning but basically denies fevers or chills. He states he is sleepy and would like to be left alone. He denies respiratory difficulty and states that he is both a bit tired and remains hungry despite having had breakfast earlier this morning. This case discussed at the bedside with the attending physician, as well as nursing staff. PHYSICAL EXAMINATION: Reveals an afebrile gentleman, temperature 36.5, pulse 103, respiratory rate 24, blood pressure 106/61. He is saturating well on room air. Eyes without conjunctivitis. Oral cavity benign appearing. Lungs relatively clear. Cardiac tones: Irregular rate and rhythm, with mild tachycardia to about 105. Abdomen soft and nontender. The patient continues to have the many neurofibromatosis lesions, which do not appear to be infected. LABORATORIES: Include white count which has completely normalized to 8100, platelet count has dropped to 115,000. Creatinine 1.12. LFT are normal except for a bilirubin, which has bumped to 1.6, albumin 2.6. Urinalysis packed with white cells, and the urine grew Proteus mirabilis, which is quite susceptible, except that it does have elevated MICs with respect to quinolones, which will likely not be reliable. In addition, it is resistant to nitrofurantoin but sensitive to all cephalosporins and ampicillin. IMAGING: No new imaging is available. IMPRESSION: This case is now coming into focus. It appears the patient suffered septic shock with mental status changes, associated with a complicated proteus urinary tract infection. We were concerned about the possibility of sepsis arising from a skin source such as his venous insufficiency related ulcers on his lower extremities but there is no evidence for that at this point, and we are left with the proteus from the urine as the cause. RECOMMENDATIONS: 1. Will go ahead and discontinue the daptomycin, Cipro and Zosyn he has been receiving. 2. Will substitute ceftriaxone 2 g once a day, with a probable transition to an oral cephalosporin or amoxicillin at the time of his discharge. 3. Will continue to watch this complex case with you.
--- NOTE | 2016-05-25 14:51 | PCM.PNMED ---
Subjective Date of Service May 25, 2016 Subjective Patient simply telling me "you are a fraud" so he does not have any complaints of chest pain, dyspnea, nausea and vomiting is not clear if she has any complaints. It is really not entirely clear to me whether he can make his needs known. What I can tell he is abstinent and does not want to participate in anything we have asked him to do this morning Exam Vital Signs Vital Sign - Last Date Time Temp Pulse Resp B/P Pulse Ox O2 Delivery O2 Flow Rate FiO2 05/25/16 12:12 36.8 102 26 93/9 99 Room Air Intake and Output 05/24/16 05/24/16 05/25/16 Cumulative From/Thru 15:00 23:00 07:00 05/22/16 19:39 - 05/25/16 05:05 Intake Total 1428 ml 1266 ml 9473 ml Output Total 1000 ml 400 ml 3600 ml Balance 428 ml 866 ml 5873 ml Intake Oral 340 ml 0 ml 340 ml IV Total 1088 ml 1266 ml 9133 ml Output Urine Total 1000 ml 400 ml 3600 ml # Bowel Movements 0 0 Exam Gen.- A+ responsive, no apparent distress. Eyes- open conjunctiva clear, pupils equal nonicteric Mouth- oral mucosa moist, no exudate ENT- ears normal, nose normal Neck- supple/trach midline CVS- RRR no murmur or gallop Lungs CTA GI- NABS/NT soft Musc- moving 4 no obvious deformity Neuro- cranial nerves II through XII intact to gross examination, nonfocal Skin- warm and dry, no rashes/patient is covered with neurofibromatosis lesions , one in particular his back looks almost like a necrotic skin tag Psych-unpleasant, uncooperative, obstinant, Lab and Diagnostics Result Diagram: 05/25/16 0550 05/25/16 0550 X-Rays, CTs and MRIs Date of Service: 05/22/161957 PROCEDURE: X-RAY CHEST ONE VIEW, PORTABLE ([id number]) IMPRESSION: Mildly reduced inspiratory volume, no acute disease. Dictated by: Miller Machado M.D. on 05/22/2016 at 21:08 12-lead ECG Time: 19:51 Interpreted by: ED physician Rhythm / Conduction: Atrial fib with RVR (rate of 162) Cardiac Echo Impressions 05/23 ECHO\\ Interpretation Summary 1. Normal left ventricular size, wall thickness with preserved LV systolic function and an estimated EF of 65 to 70% 2. Grossly normal right ventricular size and systolic function. 3. Mild to moderate aortic stenosis Assessment & Plan Patient is a 65 y.o. male admitted 05/22 poor historian, with history significant for atrial fibrillation anticoagulated on warfarin, CHF, COPD, and dementia, who presents to the ED from [facility] for increased agitation and confusion. Associated symptom of diarrhea. Severe Sepsis (WBC18.2, HR 149, RR27) with lactic acidosis (4.0) secondary to UTI. Is off pressors 05/25 Urine reveals ramos sensitive Proteus, patient does not appear septic at this time down grading to floor status. Central line placed in ED- IVF. Zosyn/Cipro/Dapto 05/22-05/25 d/c'd by ID, now on Rocephin thank you Dr. Mirza henning signed off.05/25 Acute kidney injury, POA. This is improving with fluid resuscitation. CR 1.12 05/25 Afib w/ RVR-rate control patient has great agsm-bi-ehid variation in blood pressure need to check manually, resume home medications continue warfarin per pharmacy Chronic CHF, POA. Unclear what ventricular function is. home medications Torsemide and Metolazone held due to JENNIFER 05/25, strict I/O, standing weights if possible. Echo WNL 05/23 COPD, chronic. POA. Compensated. home medications albuterol, Advair, and Spiriva Elevated troponin levels-- most likely due to demand ischemia follow-up in a.m. 05/26 hypernatremic. We will supplement with D5W today to correct his water deficit. Follow-up in a.m. 05/26 Chronic venous insufficiency- continue to monitor no active lesion identified on physical exam, wound care consult Neurofibromatosis, stable.- continue to monitor Back lesion in need of removal-it is an ischemic-looking skin tag. Needs a quick trim either with surgical scissors or scalpel and then cautery either electrical or silver nitrate as he is on warfarin and likely to bleed. Hx Dysphasia-stable no action Depression-stable no changes Dementia-stable no changes behavior has not been a major issue yet Hx of MRSA, Klebsiella, and Pseudomonas on leg ulcers in the past.-Continue isolation DVT: on coumadin GI: not indicated CODE: FULL per [place] records Medically complex patient high risk of complications being downgraded from ICU status, weaned off of esmolol/pressors which have been utilized to treat blood pressures that have been erratic/unreliably obtained from automatic cuffs. GI Prophylaxis: Not indicated VTE Prophylaxis: Theraputic Anticoag with Warfarin VTE Mechanical Devices: Intermittant Pneumatic CD Resuscitation Status: CPR: Attempt Resuscitation Woody Guan MD May 25, 2016 14:51 Neurofibromatosis, stable. - continue to monitor Chronic conditions: Dysphasia Depression Dementia Hx of MRSA, Klebsiella, and Pseudomonas on leg ulcers in the past. - Acetaminophen as needed for mild pain/fever/headache - Bowel regimen as needed - Antiemetic as needed Patient admitted under inpatient status with expected length of stay > 2 midnights for severity of present symptoms, complexities of treatment plan and risk for adverse event DVT: on coumadin GI: not indicated CODE: FULL [facility] records GI Prophylaxis: Not indicated VTE Prophylaxis: Theraputic Anticoag with Warfarin VTE Mechanical Devices: Intermittant Pneumatic CD Resuscitation Status: CPR: Attempt Resuscitation Woody Guan MD May 25, 2016 14:51
--- NOTE | 2016-05-25 14:58 | NUR ---
NUTRITION FOLLOW UP ASSESS: 65 YO male admitted w/ severe sepsis, UTI and JENNIFER. Per notes, pt is alert and oriented but remains confused and restless. ST evaluated pt 05/24, and advanced diet to pureed d/t confusion. ST plans to follow daily to assess advancing diet to baseline. PMHX: Chronic venous stasis changes, Afib, CHF, COPD, Neurofibromatosis, Emphysema (per pt) LABS: Reviewed. Na 151, Cl 115, Gluc 125, Alb 3.0 MEDS: Reviewed. Norepinephrine GI: No BMs noted - diarrhea at admit. SKIN: Marco 13 - current [facility] pt w/ peripheral venous stasis ulcers on bilateral legs CURRENT WT: 98.8 kg BMI: 31.3 kg/m2 IBW: 75.4 kg ADMIT WT: 96.2 kg DIET: Pureed w/ NTL diet adv per ST (05/24). No PO recorded yet. EST. NEEDS: BMI 30-40, Wounds Kcals: 2496-7897 kcal/day (22-25 kcal/kg BW) Pro: 95-115 g/day (1.0-1.2 g/kg BW) Fluid: 2200 ml/day (~1 ml/kcal/day) NUTRITION DIAGNOSIS: 1.) Inadequate oral intake related to decreased ability to consume sufficient energy as evidenced by current NPO status. --- IMPROVING. Diet advanced per ST 05/24 w/ no PO recorded yet. NUTRITION INTERVENTION: 1.) Will add supplements as needed. MONITOR / EVAL: Diet advancement, PO intake, labs, medications, GI, nutrition status, POC. Will continue to monitor pt per high nutritional risk guidelines. Addendum: 05/25/16 at [address] Student documentation reviewed and I agree with the above assessment. Guerrero Vail, MS, RDN, CD
--- NOTE | 2016-05-25 15:42 | NUR ---
P: Cardiac, Neuro, Nutrition I, E: Pt has been in A-fib in the 100's this shift. Esmolol was turned off on email administrator. BP is difficult to read on the monitor but has been checked manually today and is running 90-110's sys after norepi was titrated down and off this am. Pt remains confused to time, date and place but responds to questions and remembers he normally lives at [facility]. He is afebrile. He has denied pain today, but does grimace when we turn him, but then is able to rest. He has slept a lot today and this may be left over from his dose of ativan last night. He has taken his diet well today, although he does not like the puree'd food. He enjoys the fruit and then potatoes and gravy. I discussed this with student services rep and she agreed to put protein powder in the gravy to facilitate his protein intake. Pt is transferring to [facility] on remote tele this afternoon.
--- NOTE | 2016-05-25 16:00 | NUR ---
Restraints discontinued Pt is more awake and less restless, not picking at his lines as much this afternoon. Restraints discontinued.
--- NOTE | 2016-05-25 18:19 | NUR ---
Transfer Pt transferred to [facility] room 3009 from [facility] at approx 1450. Report received from EZEKIEL martino. Meds and belongings sent with patient. Pt awake and alert to self. Had large incontinent BM when moving to new bed. Pt cleaned and calmoseptine put on bottom. Burnett present and draining. D5 infusing at 80ml/hr through IJ. Bed alarm placed for pt safety. Frequent rounding in place.
[2016-05-26] VITALS (9 sets, daily range): BP systolic 87–132; BP diastolic 52–64; PULSE 70–107; RESP 22–26; O2SAT 88–97
[2016-05-26] MEDS: Sodium Chloride LOK Flush 10 mL Syringe IVFLUSH SCH ×3 (00:31→17:44)
--- NOTE | 2016-05-26 00:51 | NUR ---
VS Note sent to MD palacio VS. awaiting for further instructions, if any. Pt on 1L O2 via NC now. saturation 92%. pulse ox reading may be inaccurate d/t pts tremors. BP checked 2x by EZEKIEL. Addendum: 05/26/16 at 0053 by CHANG JON RN Amended: Links added. Addendum: 05/26/16 at [address] JON RN Dr Bruce called back, 5oomL NS bolus ordered. Administering now. Will recheck VS after completion. Addendum: 05/26/16 at 0143 by CHANG JON RN BP rechecked after bolus infusion = 90/60 R arm, manual cuff. Will continue with frequent rounding.
--- NOTE | 2016-05-26 01:11 | NUR ---
Pain/aggression Pt denied having pain. Appeared restless and moaning when trying to move his feet. Pt asked if in pain, denied again. Asked if he'd like morphine for this pain, pt replied with "yes". IV morphine administered. Pt appeared more restful and found to be sleeping. While providing cares with an aide, pt noted to be getting aggressive, refusing to be turned and later repositioned. Cares were completed, pt more compliant with male aide. Bed in low position, call light within reach.
[2016-05-26] MEDS ORDERED: 0.9% Sodium Chloride 500 ML ONE (01:15)
[2016-05-26] MEDS ORDERED: 0.9% Sodium Chloride 500 ML IV ONE (01:20)
[2016-05-26 06:31] LABS: INR 2.07 ratio
[2016-05-26] MEDS: Dextrose 5% 1,000 ML IV SCH ×2 (07:15→20:18)
[2016-05-26] MEDS: Fluticasone-Salmeterol 100-50 Inhaler INHALATION SCH ×2 (08:39→20:19)
[2016-05-26] MEDS: Tiotropium 18mcg/Cap 5 Capsule Inhaler Kit INHALATION SCH (08:39)
[2016-05-26] MEDS: cefTRIAXone Inj 2,000 MG in Dextrose 5% Minibag Plus 50 ML IV SCH (08:40)
[2016-05-26 08:47] LABS: EOSINOPHILS % (AUTO) 6.1 % (0-5); MONOCYTES % (AUTO) 8.2 % (4-12); Mean Corpuscular Hemoglobin 32.8 pg (27.0-35.0); Mean Corpuscular Volume 101.9 fL (81-100); NEUTROPHILS % (AUTO) 64.2 % (40-74); Platelet Count 109 bil/L (150-400)
[2016-05-26 09:10] LABS: Magnesium 1.6 mg/dL (1.6-2.6); Phosphorus 2.3 mg/dL (2.5-4.9)
--- NOTE | 2016-05-26 10:32 | NUR ---
NUTRITION FOLLOW UP ASSESS: 65 YO male admitted w/ severe sepsis, UTI and JENNIFER. Per notes, pt is alert and oriented but remains confused and restless. ST has placed pt on a Pureed diet + 1 dysphagia mechanical texture meat/protein item. ST has signed off as this is baseline. Per RN, pt does not like the pureed foods very much but he does like the pureed fruit and mashed potatoes PMHX: Chronic venous stasis changes, Afib, CHF, COPD, Neurofibromatosis, Emphysema (per pt) LABS: Reviewed. Na 149, Cl 116, Ca 8.3, T.bili 1.6, Alb 2.6 MEDS: Reviewed. Norepinephrine GI: BMx1 05/26 SKIN: Marco 13 - current Wound Clinic pt w/ peripheral venous stasis ulcers on bilateral legs CURRENT WT: 101.8 kg BMI: 32.2 kg/m2 IBW: 75.4 kg ADMIT WT: 96.2 kg DIET: Pureed w/ NTL diet + 1 dysphagia mechanical texture meat iteam, PO 50-100% x2 meals EST. NEEDS: BMI 30-40 Kcals: 6951-5820 kcal/day (22-25 kcal/kg BW) Pro: 95-115 g/day (1.0-1.2 g/kg BW) Fluid: 2200 ml/day (~1 ml/kcal/day) NUTRITION DIAGNOSIS: 1.) Inadequate oral intake related to decreased ability to consume sufficient energy as evidenced by current NPO status. --- IMPROVING. 2.) Chew/swallow difficulties related to AMS and ill fitting dentures as evidence by need for altered diet texture per ST NUTRITION INTERVENTION: 1.) Continue diet per ST 2.) Continue supplements of pureed fruit and mashed potatoes w/gravy mixed w/protein powder to help increase po intake and kcal/pro intake MONITOR / EVAL: PO intake, labs, medications, GI, nutrition status, POC. Will continue to monitor pt per high nutritional risk guidelines.
--- NOTE | 2016-05-26 10:47 | NUR ---
Social Work: Continued d/c planning Data: Pt is on day 4 of hospitalization. EMR reviewed, pt discussed in rounds. states pt will likely remain in hospital for at least 2 more days. ANATOMIC PATHOLOGY MANAGER called [facility] and spoke with Neyda who confirms they will accept pt back to their facility when he is ready for d/c. ANATOMIC PATHOLOGY MANAGER will continue to follow. Assessment: Pt from [facility]. Plan[facility] Gonzales to follow. Pt likely to discharge in 2 or more days. ANATOMIC PATHOLOGY MANAGER will continue to follow. KANDIS Gilbert
--- NOTE | 2016-05-26 12:07 | PCM.PNMED ---
Subjective Date of Service May 26, 2016 Subjective No overnight event, transfer from [facility] Esmolol and norepi drip stopped pt denied any pain, breathing comfortably Exam Vital Signs Vital Sign - Last Date Time Temp Pulse Resp B/P Pulse Ox O2 Delivery O2 Flow Rate FiO2 05/26/16 09:19 36.7 104 26 92/58 96 Room Air 05/26/16 04:32 2.00 Intake and Output 05/25/16 05/25/16 05/26/16 Cumulative From/Thru 15:00 23:00 07:00 05/22/16 19:39 - 05/26/16 06:28 Intake Total 2286 ml 743 ml 17779 ml Output Total 700 ml 4300 ml Balance 1586 ml 743 ml 8202 ml Intake Oral 636 ml 976 ml IV Total 1650 ml 743 ml 69873 ml Output Urine Total 700 ml 4300 ml # Bowel Movements 1 1 Exam Frail elderly male, AAO1 no JVD, MMM, no LAD RRR, nl s1, s2 no mrg CTAB, no w,c S,ND,NT,normoactive BS+ warm, no edema, pulses 2/2 IVs and Medications Medications Reviewed: Medications were reviewed in detail Lab and Diagnostics Result Diagram: 05/26/1630 05/26/16829 X-Rays, CTs and MRIs Date of Service: 05/22/161957 PROCEDURE: X-RAY CHEST ONE VIEW, PORTABLE ([id number]) IMPRESSION: Mildly reduced inspiratory volume, no acute disease. Dictated by: Miller Machado M.D. on 05/22/2016 at 21:08 12-lead ECG Time: 19:51 Interpreted by: ED physician Rhythm / Conduction: Atrial fib with RVR (rate of 162) Cardiac Echo Impressions 05/23 ECHO\ Interpretation Summary 1. Normal left ventricular size, wall thickness with preserved LV systolic function and an estimated EF of 65 to 70% 2. Grossly normal right ventricular size and systolic function. 3. Mild to moderate aortic stenosis Assessment & Plan Patient is a 65 y.o. male admitted 05/22 poor historian, with history significant for atrial fibrillation anticoagulated on warfarin, CHF, COPD, and dementia, who presents to the ED from [facility] for increased agitation and confusion. Associated symptom of diarrhea. acute, active Septic shock, (WBC18.2, HR 149, RR27) with lactic acidosis (4.0) secondary to UTI. Is off pressors 05/25 Urine reveals ramos sensitive Proteus, Central line placed in ED- IVF, Zosyn/Cipro/Dapto 05/22-05/25 d/c'd by ID, now on Rocephin as per Dr. Blue -Patient remained clinically and hemodynamically stable, remained afebrile, abx seemed appropriate, MAP 67-90 -MAP target>65, will try judicious bolus 250-500 if needed -continue Rocephin, appreciate ID input -keep CVC for now, if remains stable, then d/c tomorrow #Proteus UTI, POA, antibiotics as above #Afib w/ RVR, POA, s/p esmolol drip until 05/25, currently rate low 100s, -will resume BB when pt is more HD stable, likely metoprolol 12.5mg bid to tid for better control, then titrate up to home dose, hold SBP<100, HR<60 #Acute septic encephalopathy, POA, resolving with improvement of UTI, unclear baseline. -will monitor with frequent neuro checks, aggressive reorientation, chemical or physical restraints only if needed #JENNIFER, POA. This is improving with fluid resuscitation, monitor Cr, avoid renal toxin, renally adjust meds #hypernatremic. continue D5W, likely hypovolemic with dehydration, improved to 146, encourge oral hydration chronic, stable Chronic CHF, POA. Held home Torsemide and Metolazone held due to JENNIFER 05/25, strict I/O, standing weights if possible. Echo WNL 05/23 COPD, chronic. POA. Compensated. home medications albuterol, Advair, and Spiriva Elevated troponin levels-- most likely due to demand ischemia, trending down, no longer follow up unless pt develops active CP Chronic venous insufficiency- continue to monitor no active lesion identified on physical exam, wound care consult Neurofibromatosis, stable.- continue to monitor Back lesion in need of removal-it is an ischemic-looking skin tag. Needs a quick trim either with surgical scissors or scalpel and then cautery either electrical or silver nitrate as he is on warfarin and likely to bleed. Hx Dysphasia- advance diet as per s/s eval Depression-stable no changes Dementia-stable no changes behavior has not been a major issue yet Hx of MRSA, Klebsiella, and Pseudomonas on leg ulcers in the past.-Continue isolation DVT: on coumadin GI: not indicated CODE: FULL per [place] records Disposition: likely 2-3more days given initial severe clinical presentation, slow improvement, likely back to [place] [facility] Prophylaxis: Not indicated VTE Prophylaxis: Theraputic Anticoag with Warfarin VTE Mechanical Devices: Venous Foot Pump Resuscitation Status: CPR: Attempt Resuscitation Time spent 35 minutes Theo Rodriguez MD May 26, 2016 12:06
[2016-05-26 12:34] LABS: TROPONIN T 0.017 ug/L (0.0-0.011)
--- NOTE | 2016-05-26 16:10 | NUR ---
Wound Care Pt seen at bedside for take down of his leg wraps to assess effectiveness on his leg wounds. Left leg is without ulceration, right leg has 2 ulcers one is in pretibial area and is 2 cm x 2 cm x 0.2 cm the other is on the posterior calf and measures 2.5 cm x 2 cm x 0.2 cms. Neither ulceration tunnels or appears infected, cleaned these ulcers with saline and gauze to mechanically debride bioburden, then covered with 2 x 2 gauze, wrapped with kerlix and coban. Recommend these dressings be changed by nursing q 48 hours.
--- NOTE | 2016-05-26 18:12 | PROG NOTE ---
[address] [address] PROGRESS NOTE PATIENT: KELLY MELENDREZ : 1950 MR#: [id number] ADMIT: 05/22/2016 JOB ID: [id number] DATE: 05/26/2016 INFECTIOUS DISEASE FOLLOWUP NOTE: REASON FOR FOLLOWUP: Complicated Proteus urinary tract infection in a patient with underlying neurofibromatosis. INTERVAL HISTORY: The patient is improving steadily and has now been moved to a regular floor where he continues to make progress. Today he is more animated and interactive than he has been at any point during his hospital stay. He denies ongoing fevers or chills. Denies significant pulmonary complaints. He states he has no abdominal pain. No nausea, vomiting, or diarrhea. He has a Burnett catheter in place still, which he reports he has at the snf [facility], though we suspect that it is actually not correct. He states he is getting he is getting to eat though and is gradually feeling much better. PHYSICAL EXAMINATION: Temperature is currently 36.7, blood pressure 132/64, pulse 97, respiratory rate 22, he is saturating 97% at this point on just 1 L. He is alert and oriented today. Oral cavity negative. Lungs relatively clear. Abdomen soft and nontender. He still has a Burnett catheter present. His lower extremities have very impressive chronic venous stasis process which is darkly pigmented and looks very very chronic. There is no evidence for infection on the exposed left lower extremity while the right one is wrapped. LABORATORIES: Include a white count of 6300, platelet count 109 which is actually dropping a little bit as our therapy goes forward. His creatinine is 0.8, which is much much improved. LFTs normal. Procalcitonin down to 0.19. Micro studies include a urine culture which grew Proteus. It is resistant to tetracycline. It is also fairly resistant to Cipro and levofloxacin with an KERMIT of 1, so I would avoid these agents. IMPRESSION: This patient is doing well and I think he is getting close to the point where he could return to [place]. He clearly had septic shock due to a complicated Proteus urinary tract infection and has improved dramatically. At this point he is receiving only ceftriaxone, which I think is appropriate. RECOMMENDATIONS: 1. I would check and see whether this patient actually has a Burnett at the snf facility. If he does not, I would try and get it out, as it will remain a nidus for infection. 2. I would continue with ceftriaxone as long as he is here in the hospital. 3. When he is ready for discharge, which I suspect will be very soon, he could be sent out on cefuroxime 500 p.o. b.i.d. for perhaps one week to complete his total course of therapy. 4. ID will go ahead and sign off at this time as I see no active issues in this much improved gentleman.
--- NOTE | 2016-05-26 19:44 | NUR ---
assumed care/skin Received report from Melonie FALCON at 1140 and assumed care of pt. Via FELDT scale no s/sx of pain noted. Pt had XL soft BM today, skin cleansed and pt noted to have excoriation on buttocks, calmoseptine cream applied to excoriated areas. Pt also noted to have large skin tag on upper medial back reddened with dark discolored blister and draining sero-sang drainage, skin cleansed with NS and non-stick guaze telfa applied and covered with tegaderm. This RN called separator operator also as there were no documented notes about pt's lower legs wrapped. last trimmer came to assess pt's legs and rewrapped R leg and unwrapped left leg. elevating legs on pillows and floating heels, turn q2hrs. interlocking machine operator also would like MD to consult surgery re: skin tag on back, this RN notified hospitalist of pt's skin and separator operator's concern. Bed alarm for safety. Call light in reach. Care continues.
[2016-05-27] VITALS (10 sets, daily range): BP systolic 89–103; BP diastolic 57–67; PULSE 57–119; RESP 18–20; O2SAT 93–98
[2016-05-27] MEDS: Sodium Chloride LOK Flush 10 mL Syringe IVFLUSH SCH ×4 (01:27→21:15)
--- NOTE | 2016-05-27 02:51 | NUR ---
loose stools patient with 2 large loose stools this shift. incontinent. provided ata care, rodriguez cath care. patient tolerated. given emotional support
[2016-05-27] MEDS ORDERED: FEXO-106 PO (03:13)
[2016-05-27] MEDS ORDERED: TAMS0.4C98 PO (03:13)
[2016-05-27] MEDS ORDERED: ACLI400A2 IH (03:13)
[2016-05-27] MEDS ORDERED: MULT-1018 PO (03:13)
[2016-05-27] MEDS ORDERED: TORS20TA3 PO (03:13)
[2016-05-27] MEDS ORDERED: METO2.5T12 PO (03:13)
[2016-05-27] MEDS ORDERED: BUDE0.5A2 INHALATION (03:13)
[2016-05-27] MEDS ORDERED: SPIR25TA PO (03:13)
[2016-05-27] MEDS ORDERED: WARF6TAB6 PO (03:13)
[2016-05-27] MEDS ORDERED: VENL75CA PO (03:13)
[2016-05-27] MEDS ORDERED: DIGO125T73 PO (03:13)
[2016-05-27] MEDS ORDERED: POTA-64 PO (03:13)
[2016-05-27] MEDS ORDERED: ASCO500C6 PO (03:13)
--- NOTE | 2016-05-27 03:15 | NUR ---
med rec. revised. secondary to expunged medications used snf list for reference
[2016-05-27 04:10] LABS: INR 1.43 ratio
[2016-05-27] MEDS: Tiotropium 18mcg/Cap 5 Capsule Inhaler Kit INHALATION SCH (08:17)
[2016-05-27] MEDS: Fluticasone-Salmeterol 100-50 Inhaler INHALATION SCH ×2 (08:17→21:15)
[2016-05-27] MEDS: cefTRIAXone Inj 2,000 MG in Dextrose 5% Minibag Plus 50 ML IV SCH (08:17)
[2016-05-27 09:10] LABS: Mean Corpuscular Hemoglobin 31.9 pg (27.0-35.0); Mean Corpuscular Volume 99.7 fL (81-100)
[2016-05-27] MEDS: Dextrose 5% 1,000 ML IV SCH (12:06)
[2016-05-27] MEDS: Nystatin 100,000 Unit/mL 5 mL Suspension PO SCH ×3 (15:31→21:15)
--- NOTE | 2016-05-27 18:05 | PCM.PNMED ---
Subjective Date of Service May 27, 2016 Subjective Patient was examined at bedside today. Patient denies any chest pain, shortness of breath, nausea, vomiting, diarrhea. Patient currently only complains of lower extremity pain bilaterally reportedly unchanged from baseline. Exam Vital Signs Vital Sign - Last Date Time Temp Pulse Resp B/P Pulse Ox O2 Delivery O2 Flow Rate FiO2 05/27/16 15:20 36.6 97 18 103/67 96 Room Air 05/26/16 04:32 2.00 Intake and Output 05/26/16 05/26/16 05/27/16 Cumulative From/Thru 15:00 23:00 07:00 05/22/16 19:39 - 05/27/16 06:07 Intake Total 355 ml 1245 ml 660 ml 16661 ml Output Total 650 ml 1530 ml 1350 ml 7830 ml Balance -295 ml -285 ml -690 ml 6932 ml Intake Oral 355 ml 200 ml 0 ml 1531 ml IV Total 1045 ml 660 ml 69972 ml Output Urine Total 650 ml 1530 ml 1350 ml 7830 ml # Bowel Movements 1 2 4 Exam Physical Exam: GEN: Patient was awake, alert, responding appropriately to questions HEENT: PERRLA, EOMI, Neck soft supple, trachea midline, tongue or white plaques most likely consistent with oral thrush CV: +S1/S2, RRR, no murmurs auscultated Respiratory: CTAB, no wheezes, rales, rhonchi Skin: Multiple neurofibromatosis lesions throughout the head trunk and extremities GI: +bowel sounds x4, soft, compressible, non TTP EXT: Positive left elbow well circumscribed chronic in nature patient states that it has been present for many years and unchanged, bilateral lower extremities positive venous stasis, tender to palpation bilaterally positive edema Psych: mood and affect were agitated IVs and Medications Medications Reviewed: Medications were reviewed in detail Medications Current Medications Salmeterol Xinafoate/ Fluticasone 1 puff 1 puff BID INHALATION Last administered on 05/27/16 08:17; Admin Dose 1 PUFF; Start 05/25/16 at 20:30 Ceftriaxone Sodium/Dextrose/ Water 50 ml @ 100 mls/hr Q24 IV Last administered on 05/27/16 08:17; Admin Dose 100 MLS/HR; Start 05/26/16 at 08:30 Nystatin 500,000 unit PCHS PO Last administered on 05/27/16t 17:05; Admin Dose 500,000 UNIT; Start 05/27/16 at 13:00 Lab and Diagnostics Result Diagram: 05/27/16 0840 05/27/16 0840 X-Rays, CTs and MRIs Date of Service: 05/22/161957 PROCEDURE: X-RAY CHEST ONE VIEW, PORTABLE ([id number]) IMPRESSION: Mildly reduced inspiratory volume, no acute disease. Dictated by: Miller Machado M.D. on 05/22/2016 at 21:08 12-lead ECG Time: 19:51 Interpreted by: ED physician Rhythm / Conduction: Atrial fib with RVR (rate of 162) Cardiac Echo Impressions 05/23 ECHO\ Interpretation Summary 1. Normal left ventricular size, wall thickness with preserved LV systolic function and an estimated EF of 65 to 70% 2. Grossly normal right ventricular size and systolic function. 3. Mild to moderate aortic stenosis Assessment & Plan Patient is a 65 y.o. male admitted 05/22 poor historian, with history significant for atrial fibrillation anticoagulated on warfarin, CHF, COPD, and dementia, who presents to the ED from [facility] for increased agitation and confusion. Associated symptom of diarrhea. acute, active Septic shock, (WBC18.2, HR 149, RR27) with lactic acidosis (4.0) secondary to UTI. Is off pressors 05/25 Urine reveals ramos sensitive Proteus, Central line placed in ED- IVF, Zosyn/Cipro/Dapto 05/22-05/25 d/c'd by ID, now on Rocephin as per Dr. Blue -Patient remained clinically and hemodynamically stable, remained afebrile, abx seemed appropriate, -MAP target>65, will try judicious bolus 250-500 if needed -continue Rocephin, appreciate ID input #Proteus UTI, POA, -- Continue Rocephin #Afib w/ RVR, POA, s/p esmolol drip until 05/25, currently rate low 100s, -will resume BB when pt is more HD stable, likely metoprolol 12.5mg bid to tid for better control, then titrate up to home dose, hold SBP<100, HR<60 -Patient currently currently not hemodynamically stable as his blood pressure still remained low. Patient's heart rates are increasing will consider restarting metoprolol once patient's blood pressures become stable and non- hypotensive #Acute septic encephalopathy, POA, resolving with improvement of UTI, unclear baseline. -will monitor with frequent neuro checks, aggressive reorientation, chemical or physical restraints only if needed #JENNIFER, POA. This is improving with fluid resuscitation, monitor Cr, avoid renal toxin, renally adjust meds #hypernatremic. continue D5W, likely hypovolemic with dehydration, improved to 146, encourge oral hydration Oral thrush -Nystatin swish and swallow chronic, stable Chronic CHF, POA. Held home Torsemide and Metolazone held due to JENNIFER 05/25, strict I/O, standing weights if possible. Echo WNL 05/23 COPD, chronic. POA. Compensated. home medications albuterol, Advair, and Spiriva Elevated troponin levels-- most likely due to demand ischemia, trending down, no longer follow up unless pt develops active CP Chronic venous insufficiency- continue to monitor no active lesion identified on physical exam, wound care consult Neurofibromatosis, stable.- continue to monitor Back lesion in need of removal-it is an ischemic-looking skin tag. Needs a quick trim either with surgical scissors or scalpel and then cautery either electrical or silver nitrate as he is on warfarin and likely to bleed. Hx Dysphasia- advance diet as per s/s eval Depression-stable no changes Dementia-stable no changes behavior has not been a major issue yet Hx of MRSA, Klebsiella, and Pseudomonas on leg ulcers in the past.-Continue isolation DVT: on coumadin GI: not indicated CODE: FULL per [place] records Disposition: Patient is improving slowly, once patient is medically stable he will most likely return back to [place] [facility] Prophylaxis: Not indicated VTE Prophylaxis: Theraputic Anticoag with Warfarin VTE Mechanical Devices: Venous Foot Pump Resuscitation Status: CPR: Attempt Resuscitation Lucero Cabral DO May 27, 2016 18:05
--- NOTE | 2016-05-27 19:31 | NUR ---
shift report Pt alert to self, uses call light appropriately. On several occasions pt had screamed at female staff. When male staff present, pt is more compliant and willing to cooperate with cares. Pt denied pain then noticed to be moaning. asked if in pain, pt stated that everything hurt. Medicated with IV morphine. d/t venous stasis, R calf wrapped with coban, L side open to air. bilateral LE darker in color, skin intact and blanchable. Burnett patent, draining yellow/bloody urine with clots. Bed in low position, call light in reach.
[2016-05-28] VITALS (10 sets, daily range): BP systolic 96–129; BP diastolic 43–68; PULSE 64–124; RESP 18–20; O2SAT 93–98
[2016-05-28] MEDS: Dextrose 5% 1,000 ML IV SCH ×2 (02:19→14:40)
--- NOTE | 2016-05-28 03:02 | NUR ---
Telemetry Pt gets agitated at times during care. He has tendency to hit patient during turns. Oriented to self and place but forgetful at times. Telemetry Afib with HR in low 100s. Heart rate up to 130s with activity as reported by Asphalt Plant Operator. No c/o pain at this time. Turn q2h. Dressing on Right calf CDI.
[2016-05-28] MEDS: Sodium Chloride LOK Flush 10 mL Syringe IVFLUSH PRN ×2 (03:59→20:59)
[2016-05-28 05:21] LABS: Mean Corpuscular Hemoglobin 32.1 pg (27.0-35.0); Mean Corpuscular Volume 100.8 fL (81-100)
[2016-05-28 05:34] LABS: INR 1.16 ratio
--- NOTE | 2016-05-28 07:59 | PCM.PHAPRO ---
Progress agitation and confusion [place] [facility] RWP RTM DFF DFF -May 23-May 24-May 25-May 26-May 27-May 28-Apr 3.59 3.36 4.35 3.29 2.07 1.43 1.16 -0.23 0.99 -1.06 -1.22 -0.64 -0.27 HELD 0.5 HOLD HOLD 0.5 1 5 Updated med rec shows pt's SNF warfarin dose at 6.5 mg daily (not 2.5 mg daily) . Will increase dose to 5 mg today and monitor trend. Augustine Lombardi, PharmD Augustine Lombardi May 28, 2016 07:59
[2016-05-28] MEDS: Nystatin 100,000 Unit/mL 5 mL Suspension PO SCH ×6 (08:30→21:01)
[2016-05-28] MEDS: Tiotropium 18mcg/Cap 5 Capsule Inhaler Kit INHALATION SCH ×3 (08:30→16:02)
[2016-05-28] MEDS: Fluticasone-Salmeterol 100-50 Inhaler INHALATION SCH ×4 (08:30→20:55)
[2016-05-28] MEDS: cefTRIAXone Inj 2,000 MG in Dextrose 5% Minibag Plus 50 ML IV SCH (08:33)
[2016-05-28] MEDS: Sodium Chloride LOK Flush 10 mL Syringe IVFLUSH SCH ×2 (08:33→14:40)
--- NOTE | 2016-05-28 09:04 | NUR ---
ARIANE signed. KANDIS Proctor
[2016-05-28] MEDS ORDERED: Furosemide 10 mg/mL 2 mL Inj IVPUSH ONE (11:50)
--- NOTE | 2016-05-28 14:06 | NUR ---
Social Work-readiness for discharge: Data: EMR reviewed. Pt is on day 6 of hospitalization for sepsis per H&P. Pt will likely require 1-2 more days of hospitalization [facility] agreeable to accept pt back when medically stable. Paperwork in the chart. SW will continue to follow. Assessment: Pt from [facility]. Plan: Pt to discharge back to [facility]-technician terminal and repeater Care with Dr. Gonzales to follow. Paperwork in the chart. SW will continue to follow. KANDIS Proctor
--- NOTE | 2016-05-28 16:05 | PCM.PNMED ---
Subjective Date of Service May 28, 2016 Subjective Patient was examined at bedside today. Patient denies any chest pain, shortness of breath, nausea, vomiting, diarrhea. Exam Vital Signs Vital Sign - Last Date Time Temp Pulse Resp B/P Pulse Ox O2 Delivery O2 Flow Rate FiO2 05/28/16 13:42 36.4 99 20 106/66 98 Nasal Cannula 2.00 Intake and Output 05/27/16 05/27/16 05/28/16 Cumulative From/Thru 15:00 23:00 07:00 05/22/16 19:39 - 05/28/16 05:13 Intake Total 483 ml 1106 ml 823 ml 78295 ml Output Total 1350 ml 1700 ml 43823 ml Balance 483 ml -244 ml -877 ml 6294 ml Intake Oral 736 ml 0 ml 2267 ml IV Total 483 ml 370 ml 823 ml 05386 ml Output Urine Total 1350 ml 1700 ml 34800 ml # Bowel Movements 1 5 Exam Physical Exam: GEN: Patient was awake, alert, responding appropriately to questions HEENT: PERRLA, EOMI, Neck soft supple, trachea midline, tongue or white plaques most likely consistent with oral thrush CV: +S1/S2, irregular, systolic murmurs auscultated Respiratory: CTAB, no wheezes, rales, rhonchi Skin: Multiple neurofibromatosis lesions throughout the head trunk and extremities, multiple scaling lesions in the bilateral lateral lower extremities GI: +bowel sounds x4, soft, compressible, non TTP EXT: Positive left elbow well circumscribed chronic in nature patient states that it has been present for many years and unchanged, bilateral lower extremities positive venous stasis, tender to palpation bilaterally positive edema improved from yesterday Psych: mood and affect were agitated IVs and Medications Medications Reviewed: Medications were reviewed in detail Medications Current Medications Nystatin 500,000 unit PCHS PO Last administered on 05/27/16t 21:15; Admin Dose 500,000 UNIT; Start 05/27/16 at 13:00 Lab and Diagnostics Result Diagram: 05/28/16 0505 05/28/16 0505 X-Rays, CTs and MRIs Date of Service: 05/22/161957 PROCEDURE: X-RAY CHEST ONE VIEW, PORTABLE ([id number]) IMPRESSION: Mildly reduced inspiratory volume, no acute disease. Dictated by: Miller Machado M.D. on 05/22/2016 at 21:08 12-lead ECG Time: 19:51 Interpreted by: ED physician Rhythm / Conduction: Atrial fib with RVR (rate of 162) Cardiac Echo Impressions 05/23 ECHO\ Interpretation Summary 1. Normal left ventricular size, wall thickness with preserved LV systolic function and an estimated EF of 65 to 70% 2. Grossly normal right ventricular size and systolic function. 3. Mild to moderate aortic stenosis Assessment & Plan Patient is a 65 y.o. male admitted 05/22 poor historian, with history significant for atrial fibrillation anticoagulated on warfarin, CHF, COPD, and dementia, who presents to the ED from [facility] for increased agitation and confusion. Associated symptom of diarrhea. acute, active Septic shock, (WBC18.2, HR 149, RR27) with lactic acidosis (4.0) secondary to UTI. Is off pressors 05/25 Urine reveals ramos sensitive Proteus, Central line placed in ED- IVF, Zosyn/Cipro/Dapto 05/22-05/25 d/c'd by ID, now on Rocephin as per Dr. Blue -Patient remained clinically and hemodynamically stable, remained afebrile, abx seemed appropriate, -MAP target>65, will try judicious bolus as needed -continue Rocephin, appreciate ID input #Proteus UTI, POA, -- Continue Rocephin #Afib w/ RVR, POA, s/p esmolol drip until 05/25, currently rate low 100s, -will resume BB when pt is more HD stable, likely metoprolol 12.5mg bid to tid for better control, then titrate up to home dose, hold SBP<100, HR<60 -Patient currently currently not hemodynamically stable as his blood pressure still remained low. Patient's heart rates are increasing will consider restarting metoprolol once patient's blood pressures become stable and non- hypotensive #Acute septic encephalopathy, POA, resolving with improvement of UTI, unclear baseline. -will monitor with frequent neuro checks, aggressive reorientation, chemical or physical restraints only if needed #JENNIFER, POA. This is improving with fluid resuscitation, monitor Cr, avoid renal toxin, renally adjust meds #hypernatremic. continue D5W, likely hypovolemic with dehydration, improved to 146, encourge oral hydration Oral thrush -Nystatin swish and swallow chronic, stable Chronic CHF, POA. Held home Torsemide and Metolazone held due to JENNIFER 05/25, strict I/O, standing weights if possible. Echo WNL 05/23 COPD, chronic. POA. Compensated. home medications albuterol, Advair, and Spiriva Elevated troponin levels-- most likely due to demand ischemia, trending down, no longer follow up unless pt develops active CP Chronic venous insufficiency- continue to monitor no active lesion identified on physical exam, wound care consult Neurofibromatosis, stable.- continue to monitor Back lesion in need of removal-it is an ischemic-looking skin tag. Needs a quick trim either with surgical scissors or scalpel and then cautery either electrical or silver nitrate as he is on warfarin and likely to bleed. Hx Dysphasia- advance diet as per s/s eval Depression-stable no changes Dementia-stable no changes behavior has not been a major issue yet Hx of MRSA, Klebsiella, and Pseudomonas on leg ulcers in the past.-Continue isolation DVT: on coumadin GI: not indicated CODE: FULL per [place] records Disposition: Patient is clinically improving however his blood pressure still seems to be running hypotensive. The patient is being bolused with fluids daily in order to maintain current blood pressures. Patient's heart rate is currently 99 which has been stable for the patient. We will continue to monitor the patient with daily weights to ensure the patient is not being fluid overloaded. Once patient's blood pressures are stable the patient should be able to be discharged back to [place]. We will continue to monitor. GI Prophylaxis: Not indicated VTE Prophylaxis: Theraputic Anticoag with Warfarin VTE Mechanical Devices: Venous Foot Pump Resuscitation Status: CPR: Attempt Resuscitation Lucero Cabral DO May 28, 2016 16:05
--- NOTE | 2016-05-28 16:57 | NUR ---
Activity and Burnett Q2 Turns in place at this time. Pain in legs with turning. Morphine admin prior activity PRN. Burnett placed on admission, d/cd per provider order. Incontinent of urine. Frequent brief changing.
--- NOTE | 2016-05-28 18:36 | NUR ---
Ashleyeanor Pt exhibiting grossly unpleasant behavior. Negatively shouting "No" "I can't" "That hurts" "I tried that". Reinforced teaching on why things are done and responses are just repeated and mocking. Declining anything that is offered.
[2016-05-29] VITALS (8 sets, daily range): BP systolic 100–107; BP diastolic 61–70; PULSE 99–106; RESP 18; O2SAT 96–98
[2016-05-29] MEDS: Sodium Chloride LOK Flush 10 mL Syringe IVFLUSH SCH ×4 (01:18→17:09)
[2016-05-29] MEDS: Dextrose 5% 1,000 ML IV SCH ×2 (01:18→12:13)
[2016-05-29 05:28] LABS: Mean Corpuscular Hemoglobin 34.4 pg (27.0-35.0); Mean Corpuscular Volume 99.4 fL (81-100)
[2016-05-29 05:51] LABS: INR 1.25 ratio
--- NOTE | 2016-05-29 06:35 | NUR ---
NOC/BP/Pain Pt complains of hurting everywhere around his body. Pt is alert only to self and has been refusing care. BP has been running on 100 SBP and has been stable. Telemetry A-fib per monitor gopi. Hourly rounding done, q2 turns provided and call light within reach. Will continue to monitor.
[2016-05-29] MEDS: Fluticasone-Salmeterol 100-50 Inhaler INHALATION SCH ×2 (07:51→21:22)
[2016-05-29] MEDS: cefTRIAXone Inj 2,000 MG in Dextrose 5% Minibag Plus 50 ML IV SCH (07:51)
[2016-05-29] MEDS: Tiotropium 18mcg/Cap 5 Capsule Inhaler Kit INHALATION SCH (07:52)
[2016-05-29] MEDS: Nystatin 100,000 Unit/mL 5 mL Suspension PO SCH ×4 (07:53→21:22)
[2016-05-29] MEDS ORDERED: Calcium GLUCO 10% (Gm) 1 Gm/10 mL 50 mL Inj IV ONE (08:05)
[2016-05-29] MEDS ORDERED: Calcium GLUCOnate 10% 1 Gm/50 mL NS IV ONE ×2 (08:20)
--- NOTE | 2016-05-29 10:29 | PCM.PHAPRO ---
Progress agitation and confusion DATE May 28-May 29-Apr INR 1.43 1.16 1.25 CHANGE -0.64 -0.27 0.09 DOSE 1 5 5 Akil Florentino May 29, 2016 10:29
--- NOTE | 2016-05-29 16:03 | NUR ---
Activity Frequent turning and changing. PRN Morphine prior to activity. Pt more agreeable with care and dressing change on RLE performed.
--- NOTE | 2016-05-29 18:04 | PCM.PNMED ---
Subjective Date of Service May 29, 2016 Subjective Patient was examined at bedside today. Patient denies any chest pain, shortness of breath, nausea, vomiting, diarrhea. Patient only complains of lower extremity leg pain which is his baseline. Exam Vital Signs Vital Sign - Last Date Time Temp Pulse Resp B/P Pulse Ox O2 Delivery O2 Flow Rate FiO2 05/29/16 11:49 36.2 106 18 101/61 98 Room Air 05/28/16 13:42 2.00 Intake and Output 05/28/16 05/28/16 05/29/16 Cumulative From/Thru 15:00 23:00 07:00 05/22/16 19:39 - 05/29/16 06:27 Intake Total 1989 ml 1071 ml 11118 ml Output Total 600 ml 02555 ml Balance 1389 ml 1071 ml 8754 ml Intake Oral 800 ml 0 ml 3067 ml IV Total 1189 ml 1071 ml 45456 ml Output Urine Total 600 ml 85781 ml # Voids 1 3 4 # Bowel Movements 5 Exam GEN: Patient was awake, alert, responding appropriately to questions HEENT: PERRLA, EOMI, Neck soft supple, trachea midline, tongue or white plaques most likely consistent with oral thrush CV: +S1/S2, irregular, systolic murmurs auscultated Respiratory: CTAB, no wheezes, rales, rhonchi Skin: Multiple neurofibromatosis lesions throughout the head trunk and extremities, multiple scaling lesions in the bilateral lateral lower extremities GI: +bowel sounds x4, soft, compressible, non TTP EXT: Positive left elbow well circumscribed chronic in nature patient states that it has been present for many years and unchanged, bilateral lower extremities positive venous stasis, tender to palpation bilaterally positive edema improved from yesterday Psych: mood and affect were appropriate IVs and Medications Medications Reviewed: Medications were reviewed in detail Medications Current Medications Calcium Carbonate 500 mg TIDWM PO Last administered on 05/29/16t 17:40; Admin Dose 500 MG; Start 05/29/16 at 12:00 Lab and Diagnostics Result Diagram: 05/29/16 0505 05/29/16 0615 X-Rays, CTs and MRIs Date of Service: 05/22/161957 PROCEDURE: X-RAY CHEST ONE VIEW, PORTABLE ([id number]) IMPRESSION: Mildly reduced inspiratory volume, no acute disease. Dictated by: Miller Machado M.D. on 05/22/2016 at 21:08 12-lead ECG Time: 19:51 Interpreted by: ED physician Rhythm / Conduction: Atrial fib with RVR (rate of 162) Cardiac Echo Impressions 05/23 ECHO\ Interpretation Summary 1. Normal left ventricular size, wall thickness with preserved LV systolic function and an estimated EF of 65 to 70% 2. Grossly normal right ventricular size and systolic function. 3. Mild to moderate aortic stenosis Assessment & Plan Patient is a 65 y.o. male admitted 05/22 poor historian, with history significant for atrial fibrillation anticoagulated on warfarin, CHF, COPD, and dementia, who presents to the ED from [facility] for increased agitation and confusion. Associated symptom of diarrhea. acute, active Septic shock, (WBC18.2, HR 149, RR27) with lactic acidosis (4.0) secondary to UTI. Is off pressors 05/25 Urine reveals ramos sensitive Proteus, Central line placed in ED- IVF, Zosyn/Cipro/Dapto 05/22-05/25 d/c'd by ID, now on Rocephin as per Dr. Blue -Patient remained clinically and hemodynamically stable, remained afebrile, abx seemed appropriate, -MAP target>65, will try judicious bolus as needed -continue Rocephin, appreciate ID input Proteus UTI, POA, - Continue Rocephin Afib w/ RVR, POA, s/p esmolol drip until 05/25, currently rate low 100s, -will resume BB when pt is more HD stable, likely metoprolol 12.5mg bid to tid for better control, then titrate up to home dose, hold SBP<100, HR<60 -Patient currently currently not hemodynamically stable as his blood pressure still remained low. Patient's heart rates are increasing will consider restarting metoprolol once patient's blood pressures become stable and non- hypotensive -Patient has hypotension seems to be resolving/stabilizing Acute septic encephalopathy -Currently improved patient seems to be back to his baseline mentation -UTI was treated -will monitor with frequent neuro checks, aggressive reorientation, chemical or physical restraints only if needed AK I -Improved with fluid resuscitation - We will continue to monitor and avoid renally toxic medications Hypernatremia (resolving) -D5W has been stopped -Patient's sodium today was 144 -We will continue to monitor Hypocalcemia -Patient's calcium was 6.4 today -Calcium carbonate 3 times a day -We will continue to monitor Oral thrush -Nystatin swish and swallow chronic, stable Chronic CHF, POA. Held home Torsemide and Metolazone held due to JENNIFER 05/25, strict I/O, standing weights if possible. Echo WNL 05/23 COPD, chronic. POA. Compensated. home medications albuterol, Advair, and Spiriva Elevated troponin levels-- most likely due to demand ischemia, trending down, no longer follow up unless pt develops active CP Chronic venous insufficiency- continue to monitor no active lesion identified on physical exam, wound care consult Neurofibromatosis, stable.- continue to monitor Back lesion in need of removal-it is an ischemic-looking skin tag. Needs a quick trim either with surgical scissors or scalpel and then cautery either electrical or silver nitrate as he is on warfarin and likely to bleed. Hx Dysphasia- advance diet as per s/s eval Depression-stable no changes Dementia-stable no changes behavior has not been a major issue yet Hx of MRSA, Klebsiella, and Pseudomonas on leg ulcers in the past.-Continue isolation DVT: on coumadin GI: not indicated CODE: FULL per [facility] records Disposition: The patient seems to be improving. His hypotension seems to be stabilizing once we are able to stabilize his blood pressure and possibly restart his metoprolol he should be ready for discharge back to [facility]. GI Prophylaxis: Not indicated VTE Prophylaxis: Theraputic Anticoag with Warfarin VTE Mechanical Devices: Venous Foot Pump Resuscitation Status: CPR: Attempt Resuscitation Lucero Cabral DO May 29, 2016 18:04
[2016-05-30] VITALS (8 sets, daily range): BP systolic 92–112; BP diastolic 58–73; PULSE 106–128; RESP 18–22; O2SAT 93–96
--- NOTE | 2016-05-30 05:20 | NUR ---
NOC/Pain/Activity Pt denies chest pain, but states that he's hurting all over. Administered PRN morphine for comfort and no complaints after. Denies SOB and is currently on RA. Brief change and q2 turning to prevent pressure ulcer. AM labs drawn on pt's IJ 3 Lumen picc. Bed alarm on, bed is in lowest position. Will continue to monitor.
[2016-05-30 05:52] LABS: Mean Corpuscular Volume 100.3 fL (81-100)
[2016-05-30 06:02] LABS: INR 1.38 ratio
[2016-05-30] MEDS: Nystatin 100,000 Unit/mL 5 mL Suspension PO SCH ×4 (08:44→22:44)
[2016-05-30] MEDS: cefTRIAXone Inj 2,000 MG in Dextrose 5% Minibag Plus 50 ML IV SCH (08:44)
[2016-05-30] MEDS: Fluticasone-Salmeterol 100-50 Inhaler INHALATION SCH ×2 (08:45→22:45)
[2016-05-30] MEDS: Tiotropium 18mcg/Cap 5 Capsule Inhaler Kit INHALATION SCH (08:45)
[2016-05-30] MEDS: Sodium Chloride LOK Flush 10 mL Syringe IVFLUSH SCH ×3 (08:46→23:47)
[2016-05-30] MEDS ORDERED: Magnesium Sulf 2 Gm/50mL Water 2 GM in IV Premix 1 EACH IV ONE (09:07)
--- NOTE | 2016-05-30 13:42 | PCM.PHAPRO ---
Progress agitation and confusion WARFARIN MANAGEMENT PER PHARMACY AK GSF gsf RWP RTM DFF DFF RTM DFF -May 23-May 24-May 25-May 26-May 27-May 28-May 29-May 30-Apr 3.59 3.36 4.35 3.29 2.07 1.43 1.16 1.25 1.38 -0.23 0.99 -1.06 -1.22 -0.64 -0.27 0.09 0.13 HELD 0.5 HOLD HOLD 0.5 1 5 5 5 Sub-therapeutic INR with prior held doses. Will give warfarin 5 mg tonight. If trend is not significant, will increase the dose tomorrow. Pharmacy will continue to monitor. Augustine Lombardi, PharmD Augustine Lombardi May 30, 2016 13:42
--- NOTE | 2016-05-30 15:05 | NUR ---
refusing vitals pt is refusing the [employer] when asked to check vitals. pt states that it hurts.
--- NOTE | 2016-05-30 15:42 | NUR ---
NUTRITION FOLLOW UP ASSESS: 65 YO male admitted w/ severe sepsis, UTI and JENNIFER. ST has placed pt on a Pureed diet + 1 dysphagia mechanical texture meat/protein item. Per RN, pt does not like the pureed foods very much but he does like the pureed fruit and mashed potatoes. Pt with poor to fair po intake with pt usually eating 25-50% of meals. PMHX: Chronic venous stasis changes, Afib, CHF, COPD, Neurofibromatosis, Emphysema (per pt) LABS: Reviewed. Cr .59, Ca 8.0, Mg 1.4, Alb 2.7. MEDS: Reviewed. GI: BM x 2 (05/29) SKIN: Marco 13 - current [facility] pt w/ peripheral venous stasis ulcers on bilateral legs CURRENT WT: 99.2 kg IBW: 75.4 kg ADMIT WT: 96.2 kg DIET: Pureed w/ NTL diet + 1 dysphagia mechanical texture meat item, PO 25-50% EST. NEEDS (BMI 30-40): Kcals: 0522-3585 kcal/day (22-25 kcal/kg BW) Pro: 95-115 g/day (1.0-1.2 g/kg BW) Fluid: 2200 ml/day (~1 ml/kcal/day) NUTRITION DIAGNOSIS: 1.) Inadequate oral intake related to decreased ability to consume sufficient energy as evidenced by PO intake of 25-50% most meals--PERSISTS. 2.) Chew/swallow difficulties related to AMS and ill fitting dentures as evidence by need for altered diet texture per ST. NUTRITION INTERVENTION: 1.) Continue diet per ST recommendation. 2.) Continue supplements of pureed fruit and mashed potatoes w/gravy mixed w/protein powder to help increase po intake and kcal/pro intake 3) Will add NT ensure all trays. MONITOR / EVAL: PO intake, labs, medications, GI, nutrition status, POC. Continue to monitor per high nutritional risk guidelines.
--- NOTE | 2016-05-30 15:43 | PCM.PNMED ---
Subjective Date of Service May 30, 2016 Subjective Patient was examined at bedside today. Patient denies any chest pain, shortness of breath, nausea, vomiting, diarrhea. Patient only complains of lower extremity pain chronic in nature. Exam Vital Signs Vital Sign - Last Date Time Temp Pulse Resp B/P Pulse Ox O2 Delivery O2 Flow Rate FiO2 05/30/16 11:10 36.3 108 18 112/73 93 Room Air 05/28/16 13:42 2.00 Intake and Output 05/29/16 05/29/16 05/30/16 Cumulative From/Thru 15:00 23:00 07:00 05/22/16 19:39 - 05/30/16 06:55 Intake Total 2635 ml 209 ml 50846 ml Output Total 3 ml 83416 ml Balance 2632 ml 209 ml 24784 ml Intake Oral 1516 ml 0 ml 4583 ml IV Total 1119 ml 209 ml 71190 ml Output Urine Total 3 ml 26432 ml # Voids 3 7 # Bowel Movements 2 7 Exam GEN: Patient was awake, alert, responding appropriately to questions HEENT: PERRLA, EOMI, Neck soft supple, trachea midline, tongue or white plaques most likely consistent with oral thrush CV: +S1/S2, irregular, systolic murmurs auscultated Respiratory: CTAB, no wheezes, rales, rhonchi Skin: Multiple neurofibromatosis lesions throughout the head trunk and extremities, multiple scaling lesions in the bilateral lateral lower extremities GI: +bowel sounds x4, soft, compressible, non TTP EXT: Positive left elbow well circumscribed chronic in nature patient states that it has been present for many years and unchanged, bilateral lower extremities positive venous stasis, tender to palpation bilaterally positive edema improved from yesterday Psych: mood and affect were appropriate IVs and Medications Medications Reviewed: Medications were reviewed in detail Medications Current Medications Calcium Carbonate 500 mg TIDWM PO Last administered on 05/30/16t 11:53; Admin Dose 500 MG; Start 05/29/16 at 12:00 Lab and Diagnostics Result Diagram: 05/30/16 0455 05/30/16 0455 X-Rays, CTs and MRIs Date of Service: 05/22/161957 PROCEDURE: X-RAY CHEST ONE VIEW, PORTABLE ([id number]) IMPRESSION: Mildly reduced inspiratory volume, no acute disease. Dictated by: Miller Machado M.D. on 05/22/2016 at 21:08 12-lead ECG Time: 19:51 Interpreted by: ED physician Rhythm / Conduction: Atrial fib with RVR (rate of 162) Cardiac Echo Impressions 05/23 ECHO\ Interpretation Summary 1. Normal left ventricular size, wall thickness with preserved LV systolic function and an estimated EF of 65 to 70% 2. Grossly normal right ventricular size and systolic function. 3. Mild to moderate aortic stenosis Assessment & Plan Patient is a 65 y.o. male admitted 05/22 poor historian, with history significant for atrial fibrillation anticoagulated on warfarin, CHF, COPD, and dementia, who presents to the ED from [facility] for increased agitation and confusion. Associated symptom of diarrhea. acute, active Septic shock, (WBC18.2, HR 149, RR27) with lactic acidosis (4.0) secondary to UTI. Is off pressors 05/25 Urine reveals ramos sensitive Proteus, Central line placed in ED- IVF, Zosyn/Cipro/Dapto 05/22-05/25 d/c'd by ID, now on Rocephin as per Dr. Blue -Patient remained clinically and hemodynamically stable, remained afebrile, abx seemed appropriate, -MAP target>65, will try judicious bolus as needed -continue Rocephin, upon discharge continue cefuroxime 500 p.o. b.i.d for 1 week as per ID recommendations Proteus UTI, POA, - Continue Rocephin Afib w/ RVR, POA, s/p esmolol drip until 05/25, currently rate low 100s, -will resume BB when pt is more HD stable, likely metoprolol 12.5mg bid to tid for better control, then titrate up to home dose, hold SBP<100, HR<60 -Patient currently currently not hemodynamically stable as his blood pressure still remained low. Patient's heart rates are increasing will consider restarting metoprolol once patient's blood pressures become stable and non- hypotensive -Patient has hypotension seems to be resolving/stabilizing Acute septic encephalopathy -Currently improved patient seems to be back to his baseline mentation -UTI was treated -will monitor with frequent neuro checks, aggressive reorientation, chemical or physical restraints only if needed AK I -Improved with fluid resuscitation - We will continue to monitor and avoid renally toxic medications Hypernatremia (resolving) -D5W has been stopped -Patient's sodium was 144 yesterday and 141 today -We will continue to monitor Hypocalcemia -Patient's calcium was 6.4 yesterday and today at 8.0 -Calcium carbonate 3 times a day -We will continue to monitor Hypomagnesemia -Patient's magnesium was 1.4 today replete today with 2 g Oral thrush -Nystatin swish and swallow chronic, stable Chronic CHF, POA. Held home Torsemide and Metolazone held due to JENNIFER 05/25, strict I/O, standing weights if possible. Echo WNL 05/23 COPD, chronic. POA. Compensated. home medications albuterol, Advair, and Spiriva Elevated troponin levels-- most likely due to demand ischemia, trending down, no longer follow up unless pt develops active CP Chronic venous insufficiency- continue to monitor no active lesion identified on physical exam, wound care consult Neurofibromatosis, stable.- continue to monitor Back lesion in need of removal-it is an ischemic-looking skin tag. Needs a quick trim either with surgical scissors or scalpel and then cautery either electrical or silver nitrate as he is on warfarin and likely to bleed. Hx Dysphasia- advance diet as per s/s eval Depression-stable no changes Dementia-stable no changes behavior has not been a major issue yet Hx of MRSA, Klebsiella, and Pseudomonas on leg ulcers in the past.-Continue isolation DVT: on coumadin GI: not indicated CODE: FULL per [facility] records Disposition: The patient seems to be improving. The patient's hypotension is currently resolving. We will most likely restart his metoprolol tomorrow. If the patient is stable tomorrow then we will consider discharge back to [facility]. GI Prophylaxis: Not indicated VTE Prophylaxis: Theraputic Anticoag with Warfarin VTE Mechanical Devices: Venous Foot Pump Resuscitation Status: CPR: Attempt Resuscitation Time spent Greater than 35 minutes Lucero Cabral DO May 30, 2016 15:43
[2016-05-31 00:30] VITALS: BP 113/67; PULSE 84; RESP 20; O2SAT 100
[2016-05-31 04:47] VITALS: BP 107/63; PULSE 103; RESP 18; O2SAT 96
--- NOTE | 2016-05-31 05:15 | NUR ---
NOC BP Trends Pt is alert to self. Would complain of hurting everywhere. Administered PRN Morphine. q2 turns provided. Pt denies chest pain, sob, n/v or abd discomfort. SBP trends on 100's. Currently on telemetry running on [employer] per monitor gopi. Will continue to monitor.
[2016-05-31 05:50] LABS: Mean Corpuscular Hemoglobin 32.3 pg (27.0-35.0)
[2016-05-31 06:02] LABS: INR 1.39 ratio
[2016-05-31] MEDS: cefTRIAXone Inj 2,000 MG in Dextrose 5% Minibag Plus 50 ML IV SCH (08:18)
[2016-05-31] MEDS: Tiotropium 18mcg/Cap 5 Capsule Inhaler Kit INHALATION SCH (08:19)
[2016-05-31] MEDS: Nystatin 100,000 Unit/mL 5 mL Suspension PO SCH ×4 (08:19→20:40)
[2016-05-31] MEDS: Fluticasone-Salmeterol 100-50 Inhaler INHALATION SCH ×2 (08:19→20:41)
--- NOTE | 2016-05-31 09:10 | NUR ---
pt continues to refuse vitals
[2016-05-31] MEDS: Sodium Chloride LOK Flush 10 mL Syringe IVFLUSH SCH ×2 (09:18→15:41)
--- NOTE | 2016-05-31 11:10 | NUR ---
Social Work-readiness for discharge: Data:EMR Reviewed. Pt is on day 9 of hospitalization for sepsis per H&P. Pt is not medically stable, but anticipates tomorrow. SW followed up with pt and he is agreeable to return to [facility] at discharge. AUBREE called and spoke with Sabi Burroughs, admissions at [facility] [phone] and provided update. Sabi states they are ready to accept pt back when medically stable. Paperwork in the chart. SW will continue to follow. 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 Plan:Pt to discharge back to [facility] when medically stable with Dr. Gonzales to follow. Paperwork in the chart. SW will continue to follow. KANDIS Proctor
[2016-05-31 12:22] VITALS: BP 103/59; PULSE 93; RESP 21; O2SAT 95
--- NOTE | 2016-05-31 13:15 | NUR ---
pain pt continues to complain of leg pain 01/07 2mg morphine given will re-assess in 30 minutes
--- NOTE | 2016-05-31 13:31 | PCM.PNMED ---
Subjective Date of Service May 31, 2016 Subjective Patient was examined at bedside today. Patient denies any chest pain, shortness of breath, nausea, vomiting, diarrhea. Patient complained of lower extremity pain chronic in nature. Patient is extremely Ornery today. Exam Vital Signs Vital Sign - Last Date Time Temp Pulse Resp B/P Pulse Ox O2 Delivery O2 Flow Rate FiO2 05/31/16 12:22 36.6 93 21 103/59 95 Room Air 05/28/16 13:42 2.00 Intake and Output 05/30/16 05/30/16 05/31/16 Cumulative From/Thru 15:00 23:00 07:00 05/22/16 19:39 - 05/31/16 06:01 Intake Total 1006 ml 134 ml 36877 ml Output Total 88081 ml Balance 1006 ml 134 ml 50195 ml Intake Oral 826 ml 0 ml 5409 ml IV Total 180 ml 134 ml 94606 ml Output Urine Total 50676 ml # Voids 1 2 10 # Bowel Movements 7 Exam Physical Exam: GEN: Patient was awake, alert, responding appropriately to questions HEENT: PERRLA, EOMI, Neck soft supple, trachea midline, oral thrush improved from yesterday CV: +S1/S2, tachycardia, no murmurs auscultated Respiratory: CTAB, no wheezes, rales, rhonchi GI: +bowel sounds x4, soft, compressible, non TTP Skin: Multiple neurofibroma skin tag lesions throughout the body EXT: Bilateral lower extremity edema, chronic venous stasis, with multiple scaly lesions, tender unchanged from baseline Neuro: CN II-XII grossly intact Psych: mood and affect were appropriate IVs and Medications Medications Reviewed: Medications were reviewed in detail Medications Current Medications Metoprolol Tartrate 12.5 mg BID PO Last administered on 05/31/16t 09:18; Admin Dose 12.5 MG; Start 05/31/16 at 08:30 Lab and Diagnostics Result Diagram: 05/31/1644905/31/16449 X-Rays, CTs and MRIs Date of Service: 05/22/161957 PROCEDURE: X-RAY CHEST ONE VIEW, PORTABLE ([id number]) IMPRESSION: Mildly reduced inspiratory volume, no acute disease. Dictated by: Miller Machado M.D. on 05/22/2016 at 21:08 12-lead ECG Time: 19:51 Interpreted by: ED physician Rhythm / Conduction: Atrial fib with RVR (rate of 162) Cardiac Echo Impressions 05/23 ECHO\ Interpretation Summary 1. Normal left ventricular size, wall thickness with preserved LV systolic function and an estimated EF of 65 to 70% 2. Grossly normal right ventricular size and systolic function. 3. Mild to moderate aortic stenosis Assessment & Plan Patient is a 65 y.o. male admitted 05/22 poor historian, with history significant for atrial fibrillation anticoagulated on warfarin, CHF, COPD, and dementia, who presents to the ED from [facility] for increased agitation and confusion. Associated symptom of diarrhea. acute, active Septic shock, (WBC18.2, HR 149, RR27) with lactic acidosis (4.0) secondary to UTI. Is off pressors 05/25 Urine reveals ramos sensitive Proteus, Central line placed in ED- IVF, Zosyn/Cipro/Dapto 05/22-05/25 d/c'd by ID, now on Rocephin as per Dr. Blue -Patient remained clinically and hemodynamically stable, remained afebrile, abx seemed appropriate, -MAP target>65, will try judicious bolus as needed -continue Rocephin, upon discharge continue cefuroxime 500 p.o. b.i.d for 1 week as per ID recommendations Proteus UTI, POA, - Continue Rocephin Afib w/ RVR, POA, s/p esmolol drip until 05/25, currently rate low 100s, -Start metoprolol 12.5mg bid for better control, then titrate up to home dose, hold if SBP<100, HR<60 -Patient currently hemodynamically stable -Patient's hypotension seems to be stabilized Acute septic encephalopathy -Patient currently back to baseline mentation -UTI was treated -will monitor with frequent neuro checks, aggressive reorientation, chemical or physical restraints only if needed AK I -Improved with fluid resuscitation - We will continue to monitor and avoid renally toxic medications Hypernatremia (resolved) -D5W has been stopped -Patient's sodium was 141 yesterday and 142 today -We will continue to monitor Hypocalcemia (resolving) -Patient's calcium was 8.0 yesterday and today at 8.0 stabilizing -Continue Calcium carbonate 3 times a day -We will continue to monitor Hypomagnesemia -Patient's magnesium was 1.4 yesterday replete today with 2 g -Recheck tomorrow Oral thrush -Nystatin swish and swallow chronic, stable Chronic CHF, POA. Held home Torsemide and Metolazone held due to JENNIFER 05/25, strict I/O, standing weights if possible. Echo WNL 05/23 COPD, chronic. POA. Compensated. home medications albuterol, Advair, and Spiriva Elevated troponin levels-- most likely due to demand ischemia, trending down, no longer follow up unless pt develops active CP Chronic venous insufficiency- continue to monitor no active lesion identified on physical exam, wound care consult Neurofibromatosis, stable.- continue to monitor Back lesion in need of removal-it is an ischemic-looking skin tag. Needs a quick trim either with surgical scissors or scalpel and then cautery either electrical or silver nitrate as he is on warfarin and likely to bleed. Hx Dysphasia- advance diet as per s/s eval Depression-stable no changes Dementia-stable no changes behavior has not been a major issue yet Hx of MRSA, Klebsiella, and Pseudomonas on leg ulcers in the past.-Continue isolation DVT: on coumadin GI: not indicated CODE: FULL per [facility] records Disposition: The patient seems to be improving. The patient's hypotension seems to be stabilized patient was started on his metoprolol 12.5 mg twice a day. If the patient remains stable he will be discharged back to [facility] tomorrow. GI Prophylaxis: Not indicated VTE Prophylaxis: Theraputic Anticoag with Warfarin VTE Mechanical Devices: Venous Foot Pump Resuscitation Status: CPR: Attempt Resuscitation Time spent Greater than 35 minutes Lucero Cabral DO May 31, 2016 13:30
--- NOTE | 2016-05-31 15:49 | NUR ---
pain pt continues to complain of severe leg pain. medication given and repositioned.
[2016-05-31 16:49] VITALS: PULSE 119
[2016-05-31 16:50] VITALS: BP 97/63; PULSE 107; RESP 19; O2SAT 94
[2016-05-31] MEDS ORDERED: Warfarin 5 MG, Warfarin 2.5 MG PO ONE ×2 (17:00)
[2016-05-31 20:07] VITALS: BP 100/61; PULSE 105; RESP 22; O2SAT 95
[2016-06-01] VITALS (8 sets, daily range): BP systolic 103–114; BP diastolic 64–73; PULSE 93–133; RESP 20–22; O2SAT 96–98
[2016-06-01] MEDS: Sodium Chloride LOK Flush 10 mL Syringe IVFLUSH SCH ×3 (00:30→16:30)
[2016-06-01 06:16] LABS: Mean Corpuscular Hemoglobin 32.1 pg (27.0-35.0); Mean Corpuscular Volume 99.7 fL (81-100)
[2016-06-01 06:27] LABS: Magnesium 2.1 mg/dL (1.6-2.6)
[2016-06-01 06:31] LABS: INR 2.47 ratio
[2016-06-01] MEDS: Fluticasone-Salmeterol 100-50 Inhaler INHALATION SCH ×2 (07:57→21:13)
[2016-06-01] MEDS: Tiotropium 18mcg/Cap 5 Capsule Inhaler Kit INHALATION SCH (07:57)
[2016-06-01] MEDS: Nystatin 100,000 Unit/mL 5 mL Suspension PO SCH ×4 (07:57→21:13)
[2016-06-01] MEDS: cefTRIAXone Inj 2,000 MG in Dextrose 5% Minibag Plus 50 ML IV SCH (07:58)
--- NOTE | 2016-06-01 14:36 | PCM.PNMED ---
Subjective Date of Service Jun 01, 2016 Subjective Patient was examined at bedside today. Patient denies any chest pain, shortness of breath, nausea, vomiting, diarrhea. Patient also complains of lower extremity pain. Patient was not as agitated and coronary as she usually is and was more cooperative with today's exam. Exam Vital Signs Vital Sign - Last Date Time Temp Pulse Resp B/P Pulse Ox O2 Delivery O2 Flow Rate FiO2 06/01/16 13:22 36.2 93 22 103/68 98 Room Air 05/28/16 13:42 2.00 Intake and Output 05/31/16 05/31/16 06/01/16 Cumulative From/Thru 15:00 23:00 07:00 05/22/16 19:39 - 05/31/16 18:23 Intake Total 0 ml 06548 ml Output Total 28511 ml Balance 0 ml 61022 ml Intake Oral 0 ml 5409 ml IV Total 65223 ml Output Urine Total 32641 ml # Voids 3 13 # Bowel Movements 7 Exam Physical Exam: GEN: Patient was awake, alert, responding appropriately to questions HEENT: PERRLA, EOMI, Neck soft supple, trachea midline, nomocephalic/atraumatic CV: +S1/S2, RRR, no murmurs auscultated Respiratory: CTAB, no wheezes, rales, rhonchi GI: +bowel sounds x4, soft, compressible, non TTP EXT: no c/c/e Neuro: CN II-XII grossly intact Psych: mood and affect were appropriate IVs and Medications Medications Reviewed: Medications were reviewed in detail Medications Current Medications Metoprolol Tartrate 12.5 mg BID PO Last administered on 06/01/16 07:57; Admin Dose 12.5 MG; Start 05/31/16 at 08:30 Benzonatate 100 mg TID PRN PO Last administered on 05/31/16 20:51; Admin Dose 100 MG; Start 05/31/16 at 13:35 Lab and Diagnostics Result Diagram: 06/01/1640 06/01/1640 X-Rays, CTs and MRIs Date of Service: 05/22/161957 PROCEDURE: X-RAY CHEST ONE VIEW, PORTABLE ([id number]) IMPRESSION: Mildly reduced inspiratory volume, no acute disease. Dictated by: Miller Machado M.D. on 05/22/2016 at 21:08 12-lead ECG Time: 19:51 Interpreted by: ED physician Rhythm / Conduction: Atrial fib with RVR (rate of 162) Cardiac Echo Impressions 05/23 ECHO\ Interpretation Summary 1. Normal left ventricular size, wall thickness with preserved LV systolic function and an estimated EF of 65 to 70% 2. Grossly normal right ventricular size and systolic function. 3. Mild to moderate aortic stenosis Assessment & Plan Patient is a 65 y.o. male admitted 05/22 poor historian, with history significant for atrial fibrillation anticoagulated on warfarin, CHF, COPD, and dementia, who presents to the ED from [facility] for increased agitation and confusion. Associated symptom of diarrhea. acute, active Septic shock, (WBC18.2, HR 149, RR27) with lactic acidosis (4.0) secondary to UTI. Is off pressors 05/25 Urine reveals ramos sensitive Proteus, Central line placed in ED- IVF, Zosyn/Cipro/Dapto 05/22-05/25 d/c'd by ID, now on Rocephin as per Dr. Blue -Patient remained clinically and hemodynamically stable, remained afebrile, abx seemed appropriate, -MAP target>65, will try judicious bolus as needed -continue Rocephin, upon discharge continue cefuroxime 500 p.o. b.i.d for 1 week as per ID recommendations Proteus UTI, POA, - Continue Rocephin Afib w/ RVR, POA, s/p esmolol drip until 05/25, currently rate low 100s, -change medication to metoprolol 25mg in the morning 12.5mg at night for better control, then titrate up to home dose, hold if SBP<100, HR<60 -Patient currently hemodynamically stable -Patient's hypotension seems to be stabilized Acute septic encephalopathy -Patient currently back to baseline mentation -UTI was treated -will monitor with frequent neuro checks, aggressive reorientation, chemical or physical restraints only if needed AK I -Improved with fluid resuscitation - We will continue to monitor and avoid renally toxic medications Hypernatremia (resolved) -D5W has been stopped -Patient's sodium was 141 yesterday and 142 today -We will continue to monitor Hypocalcemia (resolving) -Patient's calcium was 8.0 yesterday and today at 8.0 stabilizing -Continue Calcium carbonate 3 times a day -We will continue to monitor Hypomagnesemia -Patient's magnesium was 1.4 yesterday replete today with 2 g -Recheck tomorrow Oral thrush -Nystatin swish and swallow chronic, stable Chronic CHF, POA. Held home Torsemide and Metolazone held due to JENNIFER 05/25, strict I/O, standing weights if possible. Echo WNL 05/23 COPD, chronic. POA. Compensated. home medications albuterol, Advair, and Spiriva Elevated troponin levels-- most likely due to demand ischemia, trending down, no longer follow up unless pt develops active CP Chronic venous insufficiency- continue to monitor no active lesion identified on physical exam, wound care consult Neurofibromatosis, stable.- continue to monitor Back lesion in need of removal-it is an ischemic-looking skin tag. Needs a quick trim either with surgical scissors or scalpel and then cautery either electrical or silver nitrate as he is on warfarin and likely to bleed. Hx Dysphasia- advance diet as per s/s eval Depression-stable no changes Dementia-stable no changes behavior has not been a major issue yet Hx of MRSA, Klebsiella, and Pseudomonas on leg ulcers in the past.-Continue isolation DVT: on coumadin GI: not indicated CODE: FULL per [facility] records Disposition: The plan was to discharge the patient back to [facility] today. However the patient heart rate started to increase. The patient is currently stable on his his 12.5 mg of metoprolol twice a day. Patient had a second dose of metoprolol today and we will continue to monitor his blood pressures. The patient may need to be changed to a 25 mg dose of metoprolol in the morning and 12.5 mg in the evening. We will continue to monitor the patient today and hopefully he will be discharged back to his [facility] tomorrow. GI Prophylaxis: Not indicated VTE Prophylaxis: Theraputic Anticoag with Warfarin VTE Mechanical Devices: Venous Foot Pump Resuscitation Status: CPR: Attempt Resuscitation Lucero Cabral DO Jun 01, 2016 14:31
--- NOTE | 2016-06-01 18:03 | NUR ---
Wound Care Pt seen for re-evaluation of leg ulcers and dressing change, today pt presents with abrasion on dorsum of his left foot 3 cm x 2 cm x 0.1 cm, cleaned with saline and redressed with adhesive foam and wrapped entire leg with kerlix and loki wrap for edema control. Right leg, pt still has 3 small ulcers at the pretibial area 2 cm in diameter at the medial calf 1.5 cm in maryanne and lateral calf 2 cm in diameter, all ulcers cleaned with saline moist gauze and covered with mepilex and then wrapped with kerlix and then coban. Recommend these dressings be changed q 48 hrs by nursing.. Expect pt to be discharged to SNF tomorrow, same dressing regiment recommended there.
--- NOTE | 2016-06-01 18:40 | NUR ---
pt removed IV IV intact and sitting on the floor pt states that he "is not enjoying the IV and it hurts"
[2016-06-02] VITALS (12 sets, daily range): BP systolic 96–127; BP diastolic 61–74; PULSE 106–130; RESP 16–28; O2SAT 96–99
[2016-06-02] MEDS: Sodium Chloride LOK Flush 10 mL Syringe IVFLUSH SCH ×3 (01:09→18:21)
[2016-06-02] MEDS ORDERED: MeTOProlol 1 mg/mL 5 mL Inj IVPUSH ONE (02:30)
[2016-06-02] MEDS ORDERED: MeTOProlol 1 mg/mL 5 mL Inj IV ONE (04:05)
--- NOTE | 2016-06-02 06:15 | NUR ---
A-fib RVR A-fib RVR HR 100s-130,SOB. MD Willams notified at: 2237: no order given. 0125: Tele ordered and applied. 0215: Order:Metoprol 5mg IV,up to 2 doses. HR down to 110s after [address] st dose given. 0416:2nd dose hold per due to BP down to 96/64. Dr. Willams said call her if HR>120 sustain. Currently a-fib 110s.
[2016-06-02 06:28] LABS: INR 2.32 ratio
[2016-06-02] MEDS: Tiotropium 18mcg/Cap 5 Capsule Inhaler Kit INHALATION SCH (08:30)
[2016-06-02] MEDS: Fluticasone-Salmeterol 100-50 Inhaler INHALATION SCH ×2 (08:30→21:09)
[2016-06-02] MEDS: cefTRIAXone Inj 2,000 MG in Dextrose 5% Minibag Plus 50 ML IV SCH (09:15)
--- NOTE | 2016-06-02 09:15 | NUR ---
Behavior/medication Pt was reluctant to respond to questions regarding initial assessment. Pt refused inhalers, was given PO HTN medication. Pt attempted to decline, was instructed by this RN the MD was very insistent medication was given due to tachycardia. Inquired if pt wanted to take PO tums, pt very agreeable. Once medication was in mouth, pt spit medication back at this RN. Pt was advised that behavior was not acceptable and if he does not want to take his medication he can politely decline. to which the pt responded "okay"' Frequent rounding in place, will continue to monitor,
[2016-06-02] MEDS: Nystatin 100,000 Unit/mL 5 mL Suspension PO SCH ×5 (09:19→21:09)
--- NOTE | 2016-06-02 13:50 | NUR ---
NUTRITION FOLLOW UP ASSESS: 65 YO male admitted w/ severe sepsis, UTI and JENNIFER. Pt continues on a Pureed diet + 1 dysphagia mechanical texture meat/protein item. Per RN, pt does not like pureed foods very much but he does like the pureed fruit and mashed potatoes. PO intake ~25-50% of meals. Mentation varies. PMHX: Chronic venous stasis changes, Afib, CHF, COPD, Neurofibromatosis, Emphysema (per pt) LABS: Reviewed. Cr .67, Ca 8.3, Alb 2.7 MEDS: Reviewed. GI: BM x 2 (2/3) SKIN: Marco 13 - current [facility] pt w/ peripheral venous stasis ulcers on bilateral legs CURRENT WT: 98.5 kg, BMI 31.3kg/m2 IBW: 75.4 kg ADMIT WT: 96.2 kg DIET: Pureed w/ NTL diet + 1 dysphagia mechanical texture meat item, PO 25-50% EST. NEEDS (BMI 30-40): Kcals: 9728-7476 kcal/day (22-25 kcal/kg BW) Pro: 95-115 g/day (1.0-1.2 g/kg BW) Fluid: 2200 ml/day (~1 ml/kcal/day) NUTRITION DIAGNOSIS: 1.) Inadequate oral intake related to decreased ability to consume sufficient energy as evidenced by PO intake of 25-50% most meals--PERSISTS. 2.) Chew/swallow difficulties related to AMS and ill fitting dentures as evidence by need for altered diet texture per ST.--PERSISTS NUTRITION INTERVENTION: 1.) Continue diet per ST recommendation. 2.) Continue supplements of pureed fruit and mashed potatoes w/gravy mixed w/protein powder to help increase po intake and kcal/pro intake and NT Ensure. MONITOR / EVAL: PO intake, labs, medications, GI, nutrition status, POC. Continue to monitor per high nutritional risk guidelines.
--- NOTE | 2016-06-02 15:25 | PCM.PNMED ---
Subjective Date of Service Jun 02, 2016 Subjective Patient was examined at bedside today. Patient denies any chest pain, shortness of breath, nausea, vomiting, diarrhea. Patient only complains of lower extremity leg pain which is chronic. Exam Vital Signs Vital Sign - Last Date Time Temp Pulse Resp B/P Pulse Ox O2 Delivery O2 Flow Rate FiO2 06/02/16 14:23 116 16 96 Nasal Cannula 2.00 06/02/16 13:31 36.9 117/65 Intake and Output 06/01/16 06/01/16 06/02/16 Cumulative From/Thru 15:00 23:00 07:00 05/22/16 19:39 - 06/02/16 06:24 Intake Total 200 ml 200 ml 0 ml 34968 ml Output Total 72748 ml Balance 200 ml 200 ml 0 ml 25670 ml Intake Oral 200 ml 200 ml 0 ml 5809 ml IV Total 08037 ml Output Urine Total 73538 ml # Voids 2 3 4 22 # Bowel Movements 2 9 Exam GEN: Patient was awake, alert, responding appropriately to questions HEENT: PERRLA, EOMI, Neck soft supple, trachea midline, nomocephalic/atraumatic CV: +S1/S2, tachycardia, no murmurs auscultated Respiratory: CTAB, no wheezes, rales, rhonchi GI: +bowel sounds x4, soft, compressible, non TTP Skin: Multiple neurofibromatosis lesions EXT: significant edema in the lower extremities with venous stasis lesions, and scaling lesions in the lower extremities currently wrapped dressings are clean dry and intact Neuro: CN II-XII grossly intact Psych: mood and affect were agitated IVs and Medications Medications Reviewed: Medications were reviewed in detail Medications Current Medications Metoprolol Tartrate 12.5 mg DAILYWD PO; Start 06/02/16 at 17:30; Stop 06/02/16 at 17:30; Status DC Metoprolol Tartrate 25 mg MORNING PO Last administered on 06/02/16t 09:18; Admin Dose 25 MG; Start 06/02/16 at 08:30; Stop 06/02/16 at 14:32; Status DC Metoprolol Tartrate 25 mg BID PO; Start 06/02/16 at 20:30 Lab and Diagnostics Result Diagram: 06/01/16 0540 06/01/16 0540 X-Rays, CTs and MRIs Date of Service: 05/22/161957 PROCEDURE: X-RAY CHEST ONE VIEW, PORTABLE ([id number]) IMPRESSION: Mildly reduced inspiratory volume, no acute disease. Dictated by: Miller Machado M.D. on 05/22/2016 at 21:08 12-lead ECG Time: 19:51 Interpreted by: ED physician Rhythm / Conduction: Atrial fib with RVR (rate of 162) Cardiac Echo Impressions 05/23 ECHO\ Interpretation Summary 1. Normal left ventricular size, wall thickness with preserved LV systolic function and an estimated EF of 65 to 70% 2. Grossly normal right ventricular size and systolic function. 3. Mild to moderate aortic stenosis Assessment & Plan Patient is a 65 y.o. male admitted 05/22 poor historian, with history significant for atrial fibrillation anticoagulated on warfarin, CHF, COPD, and dementia, who presents to the ED from [facility] for increased agitation and confusion. Associated symptom of diarrhea. acute, active Septic shock, (WBC18.2, HR 149, RR27) with lactic acidosis (4.0) secondary to UTI. Is off pressors 05/25 Urine reveals ramos sensitive Proteus, Central line placed in ED- IVF, Zosyn/Cipro/Dapto 05/22-05/25 d/c'd by ID, now on Rocephin as per Dr. Blue -Patient remained clinically and hemodynamically stable, remained afebrile, abx seemed appropriate, -MAP target>65, will try judicious bolus as needed -continue Rocephin, upon discharge continue cefuroxime 500 p.o. b.i.d for 1 week as per ID recommendations Proteus UTI, POA, - Continue Rocephin Afib w/ RVR, POA, s/p esmolol drip until 05/25, currently rate low 100s, -Patient has been titrated up to his home dose of 12.5 mg of metoprolol twice a day however the patient still remains tachycardia. We will increase the patient 's medication of metoprolol to 25 mg twice a day for better rate control hold if SBP<100, HR<60 -Patient currently hemodynamically stable -Patient's hypotension seems to be stabilized -Consult cardiology Acute septic encephalopathy -Patient currently back to baseline mentation -UTI was treated -will monitor with frequent neuro checks, aggressive reorientation, chemical or physical restraints only if needed AK I -Improved with fluid resuscitation - We will continue to monitor and avoid renally toxic medications Hypernatremia (resolved) -D5W has been stopped -Patient's sodium was 141 yesterday and 142 today -We will continue to monitor Hypocalcemia (resolving) -Patient's calcium was 8.0 yesterday and today at 8.0 stabilizing -Continue Calcium carbonate 3 times a day -We will continue to monitor Hypomagnesemia -Patient's magnesium was 1.4 yesterday replete today with 2 g -Recheck tomorrow Oral thrush -Nystatin swish and swallow chronic, stable Chronic CHF, POA. Held home Torsemide and Metolazone held due to JENNIFER 05/25, strict I/O, standing weights if possible. Echo WNL 05/23 COPD, chronic. POA. Compensated. home medications albuterol, Advair, and Spiriva Elevated troponin levels-- most likely due to demand ischemia, trending down, no longer follow up unless pt develops active CP Chronic venous insufficiency- continue to monitor no active lesion identified on physical exam, wound care consult Neurofibromatosis, stable.- continue to monitor Back lesion in need of removal-it is an ischemic-looking skin tag. Needs a quick trim either with surgical scissors or scalpel and then cautery either electrical or silver nitrate as he is on warfarin and likely to bleed. Hx Dysphasia- advance diet as per s/s eval Depression-stable no changes Dementia-stable no changes behavior has not been a major issue yet Hx of MRSA, Klebsiella, and Pseudomonas on leg ulcers in the past.-Continue isolation DVT: on coumadin GI: not indicated CODE: FULL per [facility] records Disposition: The plan was to discharge the patient back to [facility] today. However the patient heart rate started to increase and the patient went into A. fib with RVR overnight. Patient was given 1 dose of metoprolol IV 5 mg and seemed to respond well. The patient remains to be tachycardic. Patient's medications have been changed to metoprolol 25 mg twice a day however the patient does tend to run hypotensive we will continue to monitor this. Cardiology has been consulted to give their input on this particular patient. The patient's heart rates are stable the patient can return to [facility]. GI Prophylaxis: Not indicated VTE Prophylaxis: Theraputic Anticoag with Warfarin VTE Mechanical Devices: Intermittant Pneumatic CD, Venous Foot Pump Resuscitation Status: CPR: Attempt Resuscitation Time spent Greater than 35 minutes Lucero Cabral DO Jun 02, 2016 15:25
--- NOTE | 2016-06-02 19:08 | CONS ---
[address] [address] CONSULTATION REPORT PATIENT: KELLY MELENDREZ : 1950 MR#: [id number] ADMIT: 05/22/2016 JOB ID: [id number] DATE OF SERVICE: 06/02/2016 CARDIOLOGY CONSULTATION: CHIEF COMPLAINT: Atrial fibrillation with rapid ventricular response. REQUESTING PHYSICIAN: Consultation was requested by Dr. Cabral. CHIEF COMPLAINT: Tachycardia. HISTORY OF PRESENT ILLNESS: The patient is a 65-year-old man with chronic AFIB who was admitted to [facility] May 22 for agitation and confusion as well as diarrhea. On admission he met criteria for sepsis and septic shock. The source of sepsis was attributed to urinary tract infection in the setting of heavy pyuria and gram-negative rods. He completed a course of Zosyn and ciprofloxacin. His urine culture showed Proteus mirabilis and blood culture was negative x2. His current medications included ceftriaxone, warfarin dosed by pharmacy, metoprolol tartrate 25 mg twice a day. The patient has no complaints at this time. PAST MEDICAL HISTORY: 1. Chronic AFIB treated with oral anticoagulation and rate control. 2. Neurofibromatosis. 3. Emphysema. 4. Venous stasis change. SOCIAL HISTORY: He lives in [place]. He is a lifetime nonsmoker. FAMILY HISTORY: No family history of coronary artery disease, but he has some family members with AFIB. REVIEW OF SYSTEMS: He denies any bright red blood per rectum, hematuria, or shortness of breath; otherwise, a 10-point review of systems is negative. PHYSICAL EXAMINATION: Vital signs: Temperature 36.9, his most recent. He has not had a fever in the past five days. Blood pressure 96/64 up to 127/71, pulse 112 up to 130 beats per minute. He is satting 99% on 2 liters. I's and O's today are not available for review, and I's and O's have not been recorded yesterday. His weight on the built-in bed scale is 98.9 kg and it is down 1.6 kg since May 28. PHYSICAL EXAMINATION: Very pleasant, well-nourished man in no apparent distress. Eyes: No scleral icterus. Heart: Normal S1, S2. Irregularly irregular. No murmurs. Lungs: Clear to auscultation anteriorly. Abdomen: Soft, positive bowel sounds. No hepatosplenomegaly. Extremities: With bilateral venous stasis change. Nodular growths on the face and upper back. Fluid-filled fluctuant growth on the left elbow. Upper back with ecchymosis. LABORATORIES: Telemetry reviewed. He is in atrial fibrillation. Labs showed that white count is down from 18,000 to 7,000. Platelet count is up from 121 to 201. Creatinine 0.7. Calcium is a bit low, with ionized calcium low at 1.16. Transaminases are normal. Magnesium most recently 2.1. INR is 2.3. ASSESSMENT AND PLAN: This is a 65-year-old man with chronic atrial fibrillation. He is just on sub par rate control which is why he is tachycardiac. He has already been treated for 12 days for urinary tract infection. He no longer has evidence of sepsis. I agree with warfarin. I think it is reasonable to increase his metoprolol tartrate from 25 mg twice a day to 50 mg twice a day and see how he does. I think he is very close to being discharged. Thank you for the opportunity to evaluate him. MINDY
[2016-06-03] VITALS (7 sets, daily range): BP systolic 96–106; BP diastolic 61–81; PULSE 64–118; RESP 20–22; O2SAT 93–96
[2016-06-03] MEDS: Sodium Chloride LOK Flush 10 mL Syringe IVFLUSH SCH ×3 (00:21→15:40)
--- NOTE | 2016-06-03 05:59 | NUR ---
Behavior Patient was compliant with medications at HS. With every brief change, patient was resistant and weakly combative with swatting his arms at staff, sometimes swearing. Attempted to reorient patient, but he did not seem to pay attention. Repeated questions and demands, like "How big is the pot?" and "Give me padding!" which we figured out was an additional blanket. Patient seemed frustrated when we could not understand his communication. Medicated three times overnight with 1mg Morphine for generalized pain, seemed to be effective. Bed alarm is on with no attempts to get up, patient turned about Q4 as tolerated and with brief changes. Intentional rounding in place.
[2016-06-03 06:23] LABS: INR 2.78 ratio
--- NOTE | 2016-06-03 07:41 | PCM.PHAPRO ---
Progress Date of Service: Jun 03, 2016 Warfarin dosing A/ INR is therapeutic at 2.78 today, but increased sharply from yesterday. P/ Giving a reduced dose of 2mg today to avoid reaching supratherapeutic INRs. Jose De Jesus Osorio Jun 03, 2016 07:41
[2016-06-03] MEDS: Tiotropium 18mcg/Cap 5 Capsule Inhaler Kit INHALATION SCH (08:30)
[2016-06-03] MEDS: Nystatin 100,000 Unit/mL 5 mL Suspension PO SCH ×4 (08:30→22:00)
[2016-06-03] MEDS: Fluticasone-Salmeterol 100-50 Inhaler INHALATION SCH ×2 (08:30→21:40)
--- NOTE | 2016-06-03 09:22 | NUR ---
ARIANE signed 9:09AM KANDIS Gilbert
--- NOTE | 2016-06-03 10:00 | NUR ---
Meds Pt spitting out medications this AM, refusing to do inhalers or Nystatin stating, "No, don't do that, don't do it, don't do it."
--- NOTE | 2016-06-03 10:33 | NUR ---
Social Work: Readiness for d/c Data: Pt is on day 12 of hospitalization. EMR reviewed, pt discussed in rounds. states pt likely to be ready for d/c tomorrow, pending his response to cardiology medication. FINANCIAL SERVICES AUDITOR called [facility] and notified them that pt will likely d/c tomorrow. FINANCIAL SERVICES AUDITOR will continue to follow. Assessment: Pt who is independent at baseline. Plan: Pt will d/c back to [facility] when medically stable, likely tomorrow. FINANCIAL SERVICES AUDITOR will continue to follow. KANDIS Gilbert
--- NOTE | 2016-06-03 13:42 | PCM.PNMED ---
Subjective Date of Service Jun 03, 2016 Subjective Patient was examined at bedside today. Patient denies any chest pain, shortness of breath, nausea, vomiting, diarrhea. Patient only complains of lower extremity pain chronic. Exam Vital Signs Vital Sign - Last Date Time Temp Pulse Resp B/P Pulse Ox O2 Delivery O2 Flow Rate FiO2 06/03/16 10:31 106 06/03/16 09:27 36.4 20 96/61 96 Nasal Cannula 2.00 Intake and Output 06/02/16 06/02/16 06/03/16 Cumulative From/Thru 15:00 23:00 07:00 05/22/16 19:39 - 06/03/16 06:21 Intake Total 240 ml 0 ml 79954 ml Output Total 96418 ml Balance 240 ml 0 ml 62828 ml Intake Oral 240 ml 0 ml 6049 ml IV Total 01923 ml Output Urine Total 60031 ml # Voids 2 3 27 # Bowel Movements 9 Exam GEN: Patient was awake, alert, responding appropriately to questions HEENT: PERRLA, EOMI, Neck soft supple, trachea midline, nomocephalic/atraumatic CV: tachycardia, irregular, no murmurs auscultated Respiratory: CTAB, no wheezes, rales, rhonchi GI: +bowel sounds x4, soft, compressible, non TTP Skin: Multiple neurofibromatosis lesions EXT: significant edema in the lower extremities with venous stasis lesions, and scaling lesions in the lower extremities currently wrapped dressings are clean dry and intact Neuro: CN II-XII grossly intact Psych: mood and affect were appropriate IVs and Medications Medications Reviewed: Medications were reviewed in detail Medications Current Medications Metoprolol Tartrate 12.5 mg DAILYWD PO; Start 06/02/16 at 17:30; Stop 06/02/16 at 17:30; Status DC Metoprolol Tartrate 25 mg MORNING PO Last administered on 06/02/16 09:18; Admin Dose 25 MG; Start 06/02/16 at 08:30; Stop 06/02/16 at 14:32; Status DC Metoprolol Tartrate 25 mg BID PO; Start 06/02/16 at 20:30; Stop 06/02/16 at 20:30 ; Status DC Metoprolol Tartrate 50 mg BID PO Last administered on 06/03/16 09:15; Admin Dose 50 MG; Start 06/02/16 at 20:30 Lab and Diagnostics Result Diagram: 06/01/16 0540 06/01/16 0540 X-Rays, CTs and MRIs Date of Service: 05/22/161957 PROCEDURE: X-RAY CHEST ONE VIEW, PORTABLE ([id number]) IMPRESSION: Mildly reduced inspiratory volume, no acute disease. Dictated by: Miller Machado M.D. on 05/22/2016 at 21:08 12-lead ECG Time: 19:51 Interpreted by: ED physician Rhythm / Conduction: Atrial fib with RVR (rate of 162) Cardiac Echo Impressions 05/23 ECHO\ Interpretation Summary 1. Normal left ventricular size, wall thickness with preserved LV systolic function and an estimated EF of 65 to 70% 2. Grossly normal right ventricular size and systolic function. 3. Mild to moderate aortic stenosis Assessment & Plan Patient is a 65 y.o. male admitted 05/22 poor historian, with history significant for atrial fibrillation anticoagulated on warfarin, CHF, COPD, and dementia, who presents to the ED from [facility] for increased agitation and confusion. Associated symptom of diarrhea. acute, active Septic shock, (WBC18.2, HR 149, RR27) with lactic acidosis (4.0) secondary to UTI. Is off pressors 05/25 Urine reveals ramos sensitive Proteus, Central line placed in ED- IVF, Zosyn/Cipro/Dapto 05/22-05/25 d/c'd by ID, Rocephin until 06/05 in order to complete a full 10 day course of antibiotics -Patient remained clinically and hemodynamically stable, remained afebrile, abx seemed appropriate, -MAP target>65, will try judicious bolus as needed -continue Rocephin, upon discharge continue cefuroxime 500 p.o. b.i.d in order to complete the full 10 day course of antibiotics as per ID Proteus UTI, POA, -Continue Rocephin daily until 06/05/2016 Afib w/ RVR, POA, s/p esmolol drip until 05/25, currently rate low 100s, -Patient's metoprolol was increased from 25 mg twice a day to 50 mg twice a day per cardiology for better rate control hold if SBP<100, HR<60 -Patient currently hemodynamically stable -Patient's hypotension seems to be stabilized -Consult cardiology Acute septic encephalopathy -Patient currently back to baseline mentation -UTI treated -will monitor with frequent neuro checks, aggressive reorientation, chemical or physical restraints only if needed AK I -Improved with fluid resuscitation - We will continue to monitor and avoid renally toxic medications Hypernatremia (resolved) -D5W has been stopped -Patient's sodium was 141 yesterday and 142 today -We will continue to monitor Hypocalcemia (resolving) -Patient's calcium was 8.0 yesterday and today at 8.0 stabilizing -Continue Calcium carbonate 3 times a day -We will continue to monitor Hypomagnesemia -Patient's magnesium was 1.4 yesterday replete today with 2 g -Recheck tomorrow Oral thrush -Nystatin swish and swallow chronic, stable Chronic CHF, POA. Held home Torsemide and Metolazone held due to JENNIFER 05/25, strict I/O, standing weights if possible. Echo WNL 05/23 COPD, chronic. POA. Compensated. home medications albuterol, Advair, and Spiriva Elevated troponin levels-- most likely due to demand ischemia, trending down, no longer follow up unless pt develops active CP Chronic venous insufficiency- continue to monitor no active lesion identified on physical exam, wound care consult Neurofibromatosis, stable.- continue to monitor Back lesion in need of removal-it is an ischemic-looking skin tag. Needs a quick trim either with surgical scissors or scalpel and then cautery either electrical or silver nitrate as he is on warfarin and likely to bleed. Hx Dysphasia- advance diet as per s/s eval Depression-stable no changes Dementia-stable no changes behavior has not been a major issue yet Hx of MRSA, Klebsiella, and Pseudomonas on leg ulcers in the past.-Continue isolation DVT: on coumadin GI: not indicated CODE: FULL per [place] records Disposition: The plan was to discharge the patient back to [place] once the patient's heart rate has been controlled. Cardiology has seen the patient and increased his metoprolol from 25 mg twice a day to 50 mg twice a day. The patient does have a tendency to run hypotensive however his blood pressures have been stable. The patient has had a blood pressure with systolics in the 90s however the patient has remained asymptomatic and easily rebounds to a higher blood pressure. Once the patient's heart rates are under controlled the patient is stable to be discharged back to [place]. The patient presented with sepsis secondary to a UTI. The patient was seen and started on Cipro and daptomycin for infection. Infectious disease was consulted and stated that the patient only needs to be on Rocephin 2 g daily. On 05/26/2016 the patient was placed on Rocephin and seemed to respond well to this antibiotic. The patient was then downgraded from [facility] status. The patient remained stable however his blood pressures have been running low therefore they did not restart his metoprolol 12.5 mg twice a day for his history of A. fib secondary to his hypotension. The patient seems to be chronically running hypotensive and his total 0.5 mg twice a day dose was restarted. The patient then started going into A. fib with RVR and responded well to a one-time dose of 5 mg IV of Lopressor. The patient was then increased to 25 mg twice a day but his pressures remained uncontrolled. Cardiology was consulted and felt that the patient's blood pressure can handle another increase of 50 mg of metoprolol twice a day. At this time we are monitoring the patient's heart rate and once they are stable the patient can be discharged back to [place]. The patient should be on an antibiotic course until 06/06/2016. GI Prophylaxis: Not indicated VTE Prophylaxis: Theraputic Anticoag with Warfarin VTE Mechanical Devices: Intermittant Pneumatic CD, Venous Foot Pump Resuscitation Status: CPR: Attempt Resuscitation Lucero Cabral DO Jun 03, 2016 13:42
[2016-06-03] MEDS ORDERED: 0.9% Sodium Chloride 250 ML ONE (15:25)
[2016-06-03] MEDS: cefTRIAXone Inj 2,000 MG in Dextrose 5% Minibag Plus 50 ML IV SCH (15:28)
--- NOTE | 2016-06-03 18:02 | NUR ---
Meds/behavior/drsg Pt continues to spit out medications despite reapproach and education re: meds/purpose. Pt stating, "Get that shit out of my face!" and attempting to push staff away. Pt resistant with positioning, refusing basic care attempted by staff. Drsgs to R LE changed per order. LLE also cleansed, lotioned and new wraps placed. Pt tolerated well. Currently resting, bed in lowest, locked position and call light in reach.
[2016-06-04] VITALS (11 sets, daily range): BP systolic 97–115; BP diastolic 62–82; PULSE 81–135; RESP 20–24; O2SAT 94–98
[2016-06-04] MEDS: Sodium Chloride LOK Flush 10 mL Syringe IVFLUSH SCH ×3 (00:30→17:19)
--- NOTE | 2016-06-04 03:01 | NUR ---
Blood pressure Patient's 2100 and 0100 SBP's 97. HS dose of Metoprolol held for SBP<100. Heart rate 110's per lisa franco. Continuing to monitor. Addendum: 06/04/16 at 0532 by KAREN HENLEY RN master hearth technician reported at about 0345 that HR is trending up, now 130-140's, A-fib. BP at this time, 107/62. MD monge, new order received for OT IV Metoprolol, 5 mg. Administered, HR decreased to 100-110's.
[2016-06-04] MEDS ORDERED: MeTOProlol 1 mg/mL 5 mL Inj IVPUSH ONE (04:25)
[2016-06-04 06:11] LABS: INR 2.04 ratio
--- NOTE | 2016-06-04 08:00 | PCM.PHAPRO ---
Progress Date of Service: Jun 04, 2016 Warfarin dosing A/ INR is therapeutic at 2.04, but dropped from yesterday (2.78) P/ Give 5mg of warfarin today and follow. Jose De Jesus Osorio Jun 04, 2016 08:00
[2016-06-04] MEDS: Fluticasone-Salmeterol 100-50 Inhaler INHALATION SCH ×2 (08:09→20:30)
[2016-06-04] MEDS: Nystatin 100,000 Unit/mL 5 mL Suspension PO SCH ×4 (08:10→21:47)
[2016-06-04] MEDS: Tiotropium 18mcg/Cap 5 Capsule Inhaler Kit INHALATION SCH (08:10)
[2016-06-04] MEDS: cefTRIAXone Inj 2,000 MG in Dextrose 5% Minibag Plus 50 ML IV SCH (12:30)
--- NOTE | 2016-06-04 15:14 | PCM.PNMED ---
Subjective Date of Service Jun 04, 2016 Subjective reports some upper abd pain with cough. otherwise denies any other new issues/ complaints Exam Vital Signs Vital Sign - Last Date Time Temp Pulse Resp B/P Pulse Ox O2 Delivery O2 Flow Rate FiO2 06/04/16 13:36 36.9 110 24 110/63 94 Nasal Cannula 2.00 Intake and Output 06/03/16 06/03/16 06/04/16 Cumulative From/Thru 15:00 23:00 07:00 05/22/16 19:39 - 06/04/16 06:39 Intake Total 1072 ml 0 ml 50780 ml Output Total 41921 ml Balance 1072 ml 0 ml 87590 ml Intake Oral 1072 ml 0 ml 7121 ml IV Total 62447 ml Output Urine Total 52208 ml # Voids 2 2 31 # Bowel Movements 0 0 9 Exam GEN: Patient was awake, alert, responding appropriately to questions HEENT: PERRLA, EOMI, Neck soft supple, trachea midline CV: tachycardia, irregular, no murmurs auscultated Respiratory: CTAB, no wheezes, rales, rhonchi GI: +bowel sounds x4, soft, compressible, non TTP Skin: Multiple neurofibromatosis lesions EXT: significant edema in the lower extremities with venous stasis lesions, and scaling lesions in the lower extremities currently wrapped dressings are clean dry and intact Neuro: CN II-XII grossly intact Psych: mood and affect were appropriate IVs and Medications Medications Reviewed: Medications were reviewed in detail Lab and Diagnostics Result Diagram: 06/01/16 0540 06/01/1640 X-Rays, CTs and MRIs Date of Service: 05/22/161957 PROCEDURE: X-RAY CHEST ONE VIEW, PORTABLE ([id number]) IMPRESSION: Mildly reduced inspiratory volume, no acute disease. Dictated by: Miller Machado M.D. on 05/22/2016 at 21:08 12-lead ECG Time: 19:51 Interpreted by: ED physician Rhythm / Conduction: Atrial fib with RVR (rate of 162) Cardiac Echo Impressions 05/23 ECHO\ Interpretation Summary 1. Normal left ventricular size, wall thickness with preserved LV systolic function and an estimated EF of 65 to 70% 2. Grossly normal right ventricular size and systolic function. 3. Mild to moderate aortic stenosis Assessment & Plan 65 y.o. male admitted 05/22 poor historian, with history significant for atrial fibrillation anticoagulated on warfarin, CHF, COPD, and dementia, who presents to the ED from [facility] for increased agitation and confusion. Associated symptom of diarrhea. # Acute septic shock, (WBC18.2, HR 149, RR27) with lactic acidosis (4.0) secondary to UTI. poa. clinically resolving - off pressors 05/25 - Urine reveals ramos sensitive Proteus, - Central line placed in ED- IVF, Zosyn/Cipro/Dapto 05/22-05/25 d/c'd by ID, Rocephin until 06/05/2016 in order to complete a full 10 day course of antibiotics - upon discharge continue cefuroxime 500 p.o. b.i.d in order to complete the full 10 day course of antibiotics as per ID # Acute Proteus UTI. present on admission. - Continue Rocephin daily until 06/05/2016 # Afib w/ RVR, POA, s/p esmolol drip until 05/25, currently rate better controlled - appreciate cardiology consult. will f/u w/ recs - Patient's metoprolol was increased from 25 mg twice a day to 50 mg twice a day per cardiology (hold if SBP<100, HR<60) - c/w Digoxin per cardiology recs - Patient's hypotension seems to be stabilized - c/w Coumadin and f/u daily INR # Acute septic encephalopathy - Patient currently back to baseline mentation # Acute kidney injury, present on admission - Resolved with IVF - avoid renally toxic medications # Acute Hypernatremia. poa - Resolved # Acute Hypocalcemia. poa (resolving) - Calcium carbonate - We will continue to monitor # Acute Hypomagnesemia. - Resolved # Oral thrush - c/w Nystatin swish and swallow (started on 05/27) # Chronic diastolic CHF, POA. - Home Torsemide and Metolazone held due to JENNIFER 05/25, - strict I/O - Echo WNL 05/23 - Resume home diuretic when ready for d/c # COPD, chronic. stable. - home medications albuterol, Advair, and Spiriva # Elevated troponin levels - most likely due to demand ischemia from presenting sepsis - Echo unremarkable - no further workup for now # Chronic venous insufficiency - continue to monitor and f/u w/ wound care consult # Neurofibromatosis, chronic. stable. # Back lesion in need of removal - further f/u as outpatient # Hx Dysphasia - diet as per s/s eval # Depression -stable no changes # Dementia -stable no changes behavior has not been a major issue yet # Hx of MRSA, Klebsiella, and Pseudomonas on leg ulcers in the past. -Continue isolation Dispo: [place] back to [place] once heart rate has been controlled. GI Prophylaxis: Not indicated VTE Prophylaxis: Theraputic Anticoag with Warfarin VTE Mechanical Devices: Intermittant Pneumatic CD, Venous Foot Pump Resuscitation Status: CPR: Attempt Resuscitation Time spent 35 min Rakan Weems Jun 04, 2016 15:14
--- NOTE | 2016-06-04 17:43 | NUR ---
HR Per athletic monitor, Pt's HR back up to 120-130's, afib. Pt denies any CP/discomfort at this time. BP 124/80, HR 123. cookpaged with above information.
--- NOTE | 2016-06-04 19:21 | NUR ---
Meds Pt compliant with meds this AM. For noon and dinnertime meds, pt refused Nystatin PO and Tums, spitting them out.
[2016-06-05] VITALS (9 sets, daily range): BP systolic 99–115; BP diastolic 65–78; PULSE 101–135; RESP 20–24; O2SAT 94–98
[2016-06-05] MEDS: Sodium Chloride LOK Flush 10 mL Syringe IVFLUSH SCH ×3 (00:30→17:15)
--- NOTE | 2016-06-05 05:09 | NUR ---
Med Refusal / Pulse Pt refused evening meds, BP was 98/65 so metoprolol would've been held anyways. Around 0300 pt became more agitated, nurse monitoring informed me that pulse was in 130s-150s. Given morphine for pain, pt calmed down and rate back to baseline 110s.
[2016-06-05] MEDS: Fluticasone-Salmeterol 100-50 Inhaler INHALATION SCH ×2 (10:48→20:30)
[2016-06-05] MEDS: Nystatin 100,000 Unit/mL 5 mL Suspension PO SCH ×4 (10:49→22:00)
[2016-06-05] MEDS: Tiotropium 18mcg/Cap 5 Capsule Inhaler Kit INHALATION SCH (10:49)
--- NOTE | 2016-06-05 11:02 | NUR ---
Med refusal Pt refused Tums but accepted all other meds, after receiving meds refused any more care. Will continue to monitor. Addendum: 06/05/16 at 1338 by JEZ LAWS RN refused Nystmessi García, pt yelled, "I just want to sleep, leave me alone."
[2016-06-05 11:10] LABS: INR 1.76 ratio
[2016-06-05] MEDS: Sodium Chloride LOK Flush 10 mL Syringe IVFLUSH PRN (13:28)
[2016-06-05] MEDS: cefTRIAXone Inj 2,000 MG in Dextrose 5% Minibag Plus 50 ML IV SCH (13:28)
--- NOTE | 2016-06-05 14:40 | NUR ---
Wound Pt seen at bedside for revaluation of leg ulcers and dressing change. Dressings removed and legs washed with Hibiclens, hydrogen peroxide, betadine and H2O solution. Stasis wounds at legs are not improving, in fact left leg has gotten worse with ulceration forming at the left medial calf near the knee that measure 8 cm L x 8 cm W and is flush at this time, he now has 2 pretibial ulcers on the left that are both approx 2.5 cm L x 1.5 cm W x 0.1 cm D, dorsal foot ulcer on left is improved at 1.5 cm L x 1.5 cm W x 0.1 cm D. Right ant montague ulcer is improved at 1 cm L x 1 cm W x 0.1 cm D. Vaseline gauze was applied to all open areas, legs were then wrapped with Unna wraps and then loosely wrapped with loki wrap. Will recheck wounds and change dressings in 2 days.
--- NOTE | 2016-06-05 15:11 | PCM.PHAPRO ---
Progress Date of Service: Jun 05, 2016 Warfarin dosing A/ INR is subtherapeutic at 1.76. P/ Give warfarin dose of 5mg today. Jose De Jesus Osorio Jun 05, 2016 15:10
--- NOTE | 2016-06-05 15:23 | PCM.PNMED ---
Subjective Date of Service Jun 05, 2016 Subjective denies any pain or discomfort. Exam Vital Signs Vital Sign - Last Date Time Temp Pulse Resp B/P Pulse Ox O2 Delivery O2 Flow Rate FiO2 06/05/16 11:48 133 06/05/16 09:22 Supplement Oxygen 06/05/16 09:07 36.6 22 110/76 98 06/05/16 01:27 2.00 Intake and Output 06/04/16 06/04/16 06/05/16 Cumulative From/Thru 15:00 23:00 07:00 05/22/16 19:39 - 06/04/16 18:44 Intake Total 552 ml 38052 ml Output Total 60394 ml Balance 552 ml 84848 ml Intake Oral 472 ml 7593 ml IV Total 80 ml 98234 ml Output Urine Total 89519 ml # Voids 3 34 # Bowel Movements 9 Exam Full exam limited 2ndry to patient refusing to answer some questions and refusing to follow all commands and refusing part of the physical exam GEN: awake, alert HEENT: PERRLA, EOMI, Neck soft supple CV: tachycardia, irregular, no murmurs auscultated Respiratory: CTAB anteriorly. pt refuses to sit up or turn to his side GI: +bowel sounds x4, soft, compressible, non TTP Skin: Multiple neurofibromatosis lesions EXT: 1+ edema in the lower extremities bilaterally with venous stasis lesions, and scaling lesions in the lower extremities currently wrapped dressings are clean dry and intact Neuro: CN II-XII grossly intact Psych: appears somewhat agitated and is non-compliant with some of the questions and exam IVs and Medications Medications Reviewed: Medications were reviewed in detail Lab and Diagnostics Result Diagram: 06/01/16 0540 06/01/16 0540 X-Rays, CTs and MRIs Date of Service: 05/22/161957 PROCEDURE: X-RAY CHEST ONE VIEW, PORTABLE ([id number]) IMPRESSION: Mildly reduced inspiratory volume, no acute disease. Dictated by: Miller Machado M.D. on 05/22/2016 at 21:08 12-lead ECG Time: 19:51 Interpreted by: ED physician Rhythm / Conduction: Atrial fib with RVR (rate of 162) Cardiac Echo Impressions 05/23 ECHO\ Interpretation Summary 1. Normal left ventricular size, wall thickness with preserved LV systolic function and an estimated EF of 65 to 70% 2. Grossly normal right ventricular size and systolic function. 3. Mild to moderate aortic stenosis Assessment & Plan 65 y.o. male admitted 05/22 poor historian, with history significant for atrial fibrillation anticoagulated on warfarin, CHF, COPD, and dementia, who presents to the ED from [facility] for increased agitation and confusion. Associated symptom of diarrhea. # Acute septic shock, (WBC18.2, HR 149, RR27) with lactic acidosis (4.0) secondary to UTI. poa. clinically resolving - off pressors 05/25 - Urine reveals ramos sensitive Proteus, - Central line placed in ED- IVF, Zosyn/Cipro/Dapto 05/22-05/25 d/c'd by ID, Rocephin until 06/05/2016 in order to complete a full 10 day course of antibiotics # Acute Proteus UTI. present on admission. - Rocephin daily until 06/05/2016 # Afib w/ RVR, POA, s/p esmolol drip until 05/25, currently rate better controlled - appreciate cardiology consult. will f/u w/ recs - Patient's metoprolol was increased from 25 mg twice a day to 50 mg twice a day per cardiology - will increase Metoprolol to tid given ongoing RVR - c/w Digoxin per cardiology recs - Patient's hypotension seems to be stabilized - c/w Coumadin and f/u daily INR (currently subtherapeutic) # Acute septic encephalopathy - Patient currently back to baseline mentation # Acute kidney injury, present on admission - Resolved with IVF - avoid renally toxic medications # Acute Hypernatremia. poa - Resolved # Acute Hypocalcemia. poa (resolving) - Calcium carbonate - We will continue to monitor # Acute Hypomagnesemia. - Resolved # Oral thrush - c/w Nystatin swish and swallow (started on 05/27) # Chronic diastolic CHF, POA. - Home Torsemide and Metolazone held due to JENNIFER 05/25, - strict I/O - Echo WNL 05/23 - Resume home diuretic when ready for d/c # COPD, chronic. stable. - home medications albuterol, Advair, and Spiriva # Elevated troponin levels - most likely due to demand ischemia from presenting sepsis - Echo unremarkable - no further workup for now # Chronic venous insufficiency - continue to monitor and f/u w/ wound care consult # Neurofibromatosis, chronic. stable. # Back lesion in need of removal - further f/u as outpatient # Hx Dysphasia - diet as per s/s eval # Depression -stable no changes # Dementia -stable no changes behavior has not been a major issue yet # Hx of MRSA, Klebsiella, and Pseudomonas on leg ulcers in the past. -Continue isolation Dispo: [place] back to [place] once heart rate has been controlled. GI Prophylaxis: Not indicated VTE Prophylaxis: Theraputic Anticoag with Warfarin VTE Mechanical Devices: Intermittant Pneumatic CD, Venous Foot Pump Resuscitation Status: CPR: Attempt Resuscitation Time spent 30 min Rakan Weems Jun 05, 2016 15:23
--- NOTE | 2016-06-05 17:38 | NUR ---
MEDS Called pharmacy for Metoprolol 12.5 and warfarin, per pharmacy short handed r/t running code in progress.
--- NOTE | 2016-06-05 17:44 | NUR ---
Pain Pt c/o of 10 pain in jayda LE, given Morphine 2 mg IVP x 2, with good relief pt able to relax and get some sleep. Will continue to monitor pt.
--- NOTE | 2016-06-05 21:47 | NUR ---
MEDS Metoprolol held r/t BP 105/65, will continue to monitor pt.
[2016-06-06] MEDS: Sodium Chloride LOK Flush 10 mL Syringe IVFLUSH SCH ×2 (00:30→08:49)
[2016-06-06 01:10] VITALS: BP 108/68; PULSE 109; RESP 22; O2SAT 96
[2016-06-06 05:41] VITALS: BP 116/60; PULSE 104; RESP 20; O2SAT 97
[2016-06-06 06:29] LABS: Mean Corpuscular Hemoglobin 32.3 pg (27.0-35.0)
[2016-06-06 06:46] LABS: INR 1.79 ratio
--- NOTE | 2016-06-06 06:46 | NUR ---
Pain Pt complained of 8/10 pain in jayda LE. Administered Morphine 2 mg IVP x 2 during the night, effective. Will continue to monitor pt.
[2016-06-06] MEDS: Tiotropium 18mcg/Cap 5 Capsule Inhaler Kit INHALATION SCH (08:39)
[2016-06-06] MEDS: Nystatin 100,000 Unit/mL 5 mL Suspension PO SCH (08:39)
[2016-06-06] MEDS: Fluticasone-Salmeterol 100-50 Inhaler INHALATION SCH (08:39)
[2016-06-06 09:37] VITALS: BP 108/68; PULSE 69; RESP 20; O2SAT 100
[2016-06-06 10:58] VITALS: PULSE 98
[2016-06-06] MEDS ORDERED: METO50TA3 PO (11:37)
--- NOTE | 2016-06-06 12:03 | PCM.DIMED ---
Lucero Cabral DO 05/31/16 1621: Discharge Instructions Date of Service Jun 01, 2016 Dates of Hospitalization May 22, 2016 at 22:06 Discharge Diagnosis Discharge Diagnosis Septic Shock UTI secondary to proteus infection (resolved) Afib with RVR Acute septic encephalopathy (resolved) JENNIFER (resolved) Hypernatremia (Resolved) Hypocalcemia (resolving) Hypomagnesemia (resolved) Oral Thrush (resolving) Diet Other (Pureed diet ) Activity Other (Gradually increase back to your normal daily activities) Call your provider Fever or Chills, Shortness of breath, Bleeding, Vomitting, Excessive diarrhea Patient Instructions Follow-up Provider: Heidi Gonzales MD Follow-up with PCP in: 1 week (If an appointment has not been made then please call for an appointment) Follow-up in: 2 weeks Rakan Weems 06/06/16 1203: Lucero Cabral DO May 31, 2016 16:21 Rakan Weems Jun 06, 2016 12:03
--- NOTE | 2016-06-06 12:12 | PCM.DIMED ---
Discharge Instructions Date of Service Jun 06, 2016 Dates of Hospitalization May 22, 2016 at 22:06 Discharge Diagnosis Discharge Diagnosis # Acute septic shock, (WBC18.2, HR 149, RR27) with lactic acidosis (4.0) secondary to acute urinary tract infection (UTI). present on admission. Resolved. # Acute Proteus UTI. present on admission. Post treatment with antibiotics. # A-fib w/ RVR, present on admission. Rate controlled. # Chronic anticoagulation with Coumadin. - INR currently sub-therapeutic at 1.79 # Back lesion in need of removal - refusing further exam during this hospital and will need close followup with primary care provider as outpatient. # Acute septic encephalopathy. present on admission. Improved and back to baseline # Acute kidney injury, present on admission. Resolved with IV fluids. # Acute Hypernatremia. Present on admission. ongoing # Acute Hypocalcemia. present on admission. Improved # Acute Hypomagnesemia. - Resolved # Oral thrush. resolved. # Chronic diastolic CHF, present on admission. Stable. # COPD, chronic. stable. # Elevated troponin levels - most likely due to demand ischemia from presenting sepsis and amplified by acute kidney injury. - no chest pain reported - Echo cardiogram without wall motion abnormality. # Chronic venous insufficiency - continue to monitor and f/u w/ wound care consult # Neurofibromatosis, chronic. stable. # History of Dysphasia # Depression - stable no changes # Dementia - stable no changes behavior has not been a major issue # History of MRSA, Klebsiella, and Pseudomonas on leg ulcers in the past. Medication Instructions Check INR in 1-2 days and adjust Coumadin dose as needed (Goal INR 2-3) Primary care provider to titrate up Metoprolol or resume more diuretics as needed and as blood pressure tolerates. Diet Low fat, Low Sodium, Heart Healthy Activity Other (as tolerated and per physical therapy) Patient Instructions 1. Check INR in 1-2 days and adjust Coumadin dose as needed (Goal INR 2-3) 2. Followup with primary care provider as soon as possible to evaluate the lesion on the back 3. Primary care provider to titrate up Metoprolol or resume more diuretics as needed and as blood pressure tolerates. Follow-up plan 1. Followup with primary care provider (Dr. Gonzales) in 1-2 days Follow-up Provider: Heidi Gonzales MD, Masoud Jun 06, 2016 12:12
[2016-06-06 12:15] VITALS: PULSE 108
--- NOTE | 2016-06-06 13:01 | NUR ---
Faxed orders to [facility] and arranged BLS transport via [facility] for 1500. Updated RN and F[employer]IT[employer]ES CONSULTANT
--- NOTE | 2016-06-06 13:26 | NUR ---
Social Work-discharge: Data:EMR Reviewed. Pt is on day 15 of hospitalization for sepsis and UTI per H&P. Pt is medically stable for discharge. Pt resides at [facility] and is medically stable to discharge back there today. UR specialist and SW reviewed chart and feel that pt meets criteria to transport BLS. SW updated pt at bedside, no family to call. UR specialist arranged BLS for 1500. UR specialist faxed orders and created packet. UR specialist informed [facility] of discharge time. RN,UC,pt/family, and [facility] all updated and agreeable to plan. Assessment:Pt who resides at [facility]. Plan:Pt to discharge to [facility] today via BLS at 1500. RN,UC,pt/family, and [facility] all updated and agreeable to plan. KANDIS Proctor
--- NOTE | 2016-06-06 13:37 | PCM.PHAPRO ---
Progress Warfarin dosing WARFARIN MANAGEMENT [facility]ARMACY [facility] 30-May 2-May 3-May 4-May 5-b 6-b 7-Feb 1.38 1.39 2.47 2.32 2.78 2.04 1.7 1.79 0.13 0.01 1.08 -0.15 0.46 -0.74 -0.34 0.09 5 7.5 2 5 2 5 5 5 Will continue warfarin 5 mg this evening. MAy still be seeing effects of lower doses on 2/2 and 2/4. Will consider slight dose increase tomorrow if upward trend not significant. Pharmacy will continue to monitor. Augustine Lombardi, PharmD Augustine Lombardi Jun 06, 2016 13:37
--- NOTE | 2016-06-06 14:54 | PCM.DC.MED ---
Discharge Summary Date of Service Jun 06, 2016 Dates of Hospitalization Date of Hospital Admission May 22, 2016 at 22:06 Date of Discharge: Jun 06, 2016 Providers: Admitting Physician: Vinay Houser MD Primary Care Physician: Heidi Gonzales MD Attending Physician: Vinay Houser MD Diagnosis at Time of Discharge Diagnosis at Time of Discharge # Acute septic shock, (WBC18.2, HR 149, RR27) with lactic acidosis (4.0) secondary to acute urinary tract infection (UTI). present on admission. Resolved. # Acute Proteus UTI. present on admission. Post treatment with antibiotics. # A-fib w/ RVR, present on admission. Rate controlled. # Chronic anticoagulation with Coumadin. - INR currently sub-therapeutic at 1.79 # Back lesion in need of removal - refusing further exam during this hospital and will need close followup with primary care provider as outpatient. # Acute septic encephalopathy. present on admission. Improved and back to baseline # Acute kidney injury, present on admission. Resolved with IV fluids. # Acute Hypernatremia. Present on admission. ongoing # Acute Hypocalcemia. present on admission. Improved # Acute Hypomagnesemia. - Resolved # Oral thrush. resolved. # Chronic diastolic CHF, present on admission. Stable. # COPD, chronic. stable. # Elevated troponin levels - most likely due to demand ischemia from presenting sepsis and amplified by acute kidney injury. - no chest pain reported - Echo cardiogram without wall motion abnormality. # Chronic venous insufficiency - continue to monitor and f/u w/ wound care consult # Neurofibromatosis, chronic. stable. # History of Dysphasia # Depression - stable no changes # Dementia - stable no changes behavior has not been a major issue # History of MRSA, Klebsiella, and Pseudomonas on leg ulcers in the past. Consultations 1. Cardiology 2. ID Procedures XRay, CTs & MRIs Date of Service: 05/22/161957 PROCEDURE: X-RAY CHEST ONE VIEW, PORTABLE ([id number]) IMPRESSION: Mildly reduced inspiratory volume, no acute disease. Dictated by: Miller Machado M.D. on 05/22/2016 at 21:08 Cardiac Echo Impression Date of Service: 05/24/16 9213 Echocardiogram Report Interpretation Summary 1. Normal left ventricular size, wall thickness with preserved LV systolic function and an estimated EF of 65 to 70% 2. Grossly normal right ventricular size and systolic function. 3. Mild to moderate aortic stenosis Reading Physician:05:31 PM Brief History As noted in H &P by Dr. Webb: Patient is a 65 y.o. male with history significant for atrial fibrillation anticoagulated on warfarin, and dementia, who presents to the ED via EMS from [facility] for increased agitation and confusion. Patient also presents with diarrhea. In the ED, when patient is asked about HPI he responds with yes to every question and his nurse notes that he had previously responded with no to the exact same questions. Patient is a poor historian due to mental status. In the ED, patient septic with HR149, RR27, WBC 18.2. Lactic acid 4.0. Labs significant for BUN 43, creatinine 2.00, BNP 3205. Central line placed in ED. Patient admitted for further evaluation and treatment. Hospital Course # Acute septic shock, (WBC18.2, HR 149, RR27) with lactic acidosis (4.0) secondary to UTI. poa. clinically resolving - off pressors 05/25 - Urine reveals ramos sensitive Proteus, - Central line placed in ED- IVF, Zosyn/Cipro/Dapto 05/22-05/25 d/c'd by ID, Rocephin until 06/05/2016 in order to complete a full 10 day course of antibiotics # Acute Proteus UTI. present on admission. - Rocephin daily until 06/05/2016 # Afib w/ RVR, POA, s/p esmolol drip until 05/25, currently rate better controlled - appreciate cardiology consult. will f/u w/ recs - Patient's metoprolol was increased from 25 mg twice a day to 50 mg twice a day per cardiology - c/w Digoxin per cardiology recs - Patient's hypotension seems to be stabilized - c/w Coumadin and f/u daily INR (currently subtherapeutic) # Acute septic encephalopathy - Patient currently back to baseline mentation # Acute kidney injury, present on admission - Resolved with IVF - avoid renally toxic medications # Acute Hypernatremia. poa. improved but reoccurring # Acute Hypocalcemia. poa (resolving) - Calcium carbonate given during this hospital # Acute Hypomagnesemia. - Resolved # Oral thrush - treated with Nystatin swish and swallow # Chronic diastolic CHF, POA. - Home Torsemide and Metolazone held due to JENNIFER and hypotension on 05/25, - Echo WNL 05/23 - Resume some diuretic upon d/c. addition of further diuretics per PCP as outpatient as BP tolerates # COPD, chronic. stable. - home medications albuterol, Advair, and Spiriva # Elevated troponin levels - most likely due to demand ischemia from presenting sepsis - Echo unremarkable - no further workup for now # Chronic venous insufficiency - continue to monitor and f/u w/ wound care consult # Neurofibromatosis, chronic. stable. # Back lesion in need of removal - further f/u as outpatient - pt refused full exam of this during this hospital # Hx Dysphasia - diet as per s/s eval # Depression -stable no changes # Dementia -stable no changes behavior has not been a major issue yet # Hx of MRSA, Klebsiella, and Pseudomonas on leg ulcers in the past. -Continue isolation by day of d/c lungs CTA bilat. Exam Vital Signs (Last) Date Time Temp Pulse Resp B/P Pulse Ox O2 Delivery O2 Flow Rate FiO2 06/06/16 12:15 108 06/06/16 11:37 Supplement Oxygen 06/06/16 09:37 37.1 20 108/68 100 06/05/16 01:27 2.00 Test 05/22/16 20:10 05/22/16 20:14 05/22/16 21:29 05/22/16 23:29 Activated Partial Thromboplast Time 40.2sec (22.8-33.0) D-Dimer < 0.5mg/L (<0.50) Pro-B-Type Natriuretic Peptide 3205pg/mL (0-376) Hemoglobin A1c 5.3% (4.8-5.6) Hold Urine Received (Received) Urine Color Dark yellow (YELLOW) Urine Appearance Cloudy (CLEAR,HAZY) Urine pH 8.5 (5.0-8.0) Urine Specific [place] 1.015 (1.003-1.035) Urine Protein 30mg/dL (NEG,TRACE) Urine Glucose (UA) Negativemg/dL (NEGATIVE) Urine Ketones Negativemg/dL (NEGATIVE) Urine Occult Blood Moderate (NEGATIVE) Urine Nitrite Positive (NEGATIVE) Urine Bilirubin Negative (NEGATIVE) Urine Urobilinogen 2mg/dL (NORMAL) Urine Leukocyte Esterase Large (NEGATIVE) Urine RBC 3-10/hpf (0-2) Urine WBC Packed/hpf (0-5) Urine Epithelial Cells Few/hpf (NONE-MOD) Urine Crystals None seen (NONE SEEN) Urine Bacteria Many/hpf (NONE-FEW) Urine Hyaline Casts None/lpf (NONE) Urine Granular Casts None seen (NONE SEEN) Urine Waxy Casts None seen (NONE SEEN) Urine Red Blood Cell Casts None seen (NONE SEEN) Urine White Blood Cell Casts None seen (NONE SEEN) Urine Mucus Present (None Seen) Urine Trichomonas None seen (NONE SEEN) Urine Yeast None (NONE SEEN) Urinalysis Comment None Urine Culture Reflexed Indicated Test 05/23/16 03:20 05/23/16 05:05 05/26/16 08:30 05/26/16 12:52 Lactic Acid Level 1.5mmol/L (0.4-2.0) Band Neutrophils % 2% (1-5) Neutrophils (%) (Auto) 64.2% (40-74) Lymphocytes (%) (Auto) 20.2% (14-46) Monocytes (%) (Auto) 8.2% (4-12) Eosinophils (%) (Auto) 6.1% (0-5) Basophils (%) (Auto) 1.0% (0-3) Phosphorus Level 2.3mg/dL (2.5-4.9) Total Creatine Kinase 298U/L (21-232) Creatine Kinase MB 6.8ng/mL (0.0-10.4) Creatine Kinase MB % 2.3% (0.0-5.0) Troponin T 0.017ug/L (0.0-0.011) Procalcitonin 0.19ng/mL (See Comment) Hold [place] Top Tube Received (Received) Test 05/31/16 04:50 06/01/16 05:40 06/06/16 05:37 Total Bilirubin 0.6mg/dL (0.0-1.2) Aspartate Amino Transf (AST/SGOT) 18U/L (0-50) Alanine Aminotransferase (ALT/SGPT) 14U/L (0-44) Alkaline Phosphatase 82U/L (25-160) Total Protein 5.7g/dL (6.4-8.4) Albumin 2.7g/dL (3.4-5.0) Ionized Calcium 1.16mmol/L (1.17-1.32) Magnesium Level 2.1mg/dL (1.6-2.6) White Blood Count 7.3th/mm3 (3.8-10.1) Red Blood Count 3.99mil/mm3 (4.40-5.80) Hemoglobin 12.9g/dL (13.8-17.2) Hematocrit 39.9% (41.0-50.0) Mean Corpuscular Volume 100.0fL (81-100) Mean Corpuscular Hemoglobin 32.3pg (27.0-35.0) Mean Corpuscular Hemoglobin Concent 32.3% (32.0-37.0) Red Cell Distribution Width 13.9% (12.3-15.4) Platelet Count 229bil/L (150-400) Prothrombin Time 19.4sec (8.1-12.5) Prothromb Time International Ratio 1.79ratio Sodium Level 151mEq/L (134-144) Potassium Level 4.4mEq/L (3.5-5.2) Chloride Level 111mEq/L (97-108) Carbon Dioxide Level 29mmol/L (18-29) Blood Urea Nitrogen 16mg/dL (8-27) Creatinine 0.63mg/dL (0.76-1.27) Estimat Glomerular Filtration Rate 136mL/min (>59) Glucose Level 91mg/dL (60-99) Calcium Level 8.7mg/dL (8.5-10.1) Discharge Medications Discharge Medications Aclidinium [place] (Tudorza Pressair) 400 Mcg Aer.pow.ba 400 MCG IH DAILY ( Reported) Ascorbic Acid (Vitamin C) 500 Mg Capsule.er 500 MG PO DAILY (Reported) Budesonide Neb Soln (Budesonide Neb Soln) 0.5 Mg/2 Ml Neb 0.5 MG INHALATION DAILY (Reported) Digoxin (Digoxin) 125 Mcg Tablet 125 MCG PO DAILY (Reported) Fexofenadine (Fexofenadine) 180 Mg Tablet 180 MG PO DAILY (Reported) Metoprolol Tartrate (Metoprolol Tartrate) 50 Mg Tablet 50 MG PO BID Prescribed by: CHAVEZ AGUILAR MD Multivitamin (Multi Vitamin Daily) 1 Each Tablet 1 EACH PO DAILY (Reported) Tamsulosin (Flomax) 0.4 Mg Capsule 0.4 MG PO DAILY (Reported) Torsemide (Torsemide) 20 Mg Tablet 40 MG PO DAILY (Reported) Venlafaxine ER (Effexor XR) 75 Mg Capsule 75 MG PO DAILY (Reported) Warfarin Sodium (Warfarin Sodium) 6 Mg Tablet 6.5 MG PO DAILY (Reported) Additional med instructions Check INR in 1-2 days and adjust Coumadin dose as needed (Goal INR 2-3) Primary care provider to titrate up Metoprolol or resume more diuretics as needed and as blood pressure tolerates. Followup Plan Disposition: SNF Follow-up plan 1. Followup with primary care provider (Dr. Gonzales) in 1-2 days Discharge Diet: Low fat, Low Sodium, Heart Healthy Discharge Activity: Other (as tolerated and per physical therapy) Patient Instructions 1. Check INR in 1-2 days and adjust Coumadin dose as needed (Goal INR 2-3) 2. Followup with primary care provider as soon as possible to evaluate the lesion on the back 3. Primary care provider to titrate up Metoprolol or resume more diuretics as needed and as blood pressure tolerates. Follow-up Provider: Heidi Gonzales MD Time spent 35 min copies to: Heidi Gonzales MD, Masoud Jun 06, 2016 14:54
--- NOTE | 2016-06-06 15:10 | NUR ---
discharge ambulance here to transfer patient back to [facility] at 1500. saline lock dc'd per maycol king rn. tele dc'd. report called to [facility] per day reynaldo mccauley. patient dc'd in stable condition via emt's to [facility] at 1500.
== END 2016-06-06 14:49 | DRG 871 ==
LOC: SED 19:35 → CCU 22:06 → PCC 05-25 15:07 → MPC 05-25 16:32
PROVIDERS: ADMIT Hospitalist; ATTEND Hospitalist
PROC: 02HV33Z Insertion of Infusion Device into Superior Vena Cava, Percutaneous Approach (ICD-10-PCS; principal; 2016-05-22)
DX: A41.9 Sepsis, unspecified organism (principal); R65.21 Severe sepsis with septic shock; G93.41 Metabolic encephalopathy; E87.2 Acidosis; N39.0 Urinary tract infection, site not specified; B37.0 Candidal stomatitis; N17.9 Acute kidney failure, unspecified; E87.0 Hyperosmolality and hypernatremia; I50.32 Chronic diastolic (congestive) heart failure; I24.8 Other forms of acute ischemic heart disease; Q85.00 Neurofibromatosis, unspecified; I48.2 Chronic atrial fibrillation; Z79.01 Long term (current) use of anticoagulants; F03.90 Unspecified dementia, unspecified severity, without behavioral disturbance, psychotic disturbance, mood disturbance, and anxiety; R19.7 Diarrhea, unspecified; J44.9 Chronic obstructive pulmonary disease, unspecified; I87.2 Venous insufficiency (chronic) (peripheral); B96.4 Proteus (mirabilis) (morganii) as the cause of diseases classified elsewhere; Z86.14 Personal history of Methicillin resistant Staphylococcus aureus infection; E83.42 Hypomagnesemia

== ENCOUNTER 2016-06-14 20:26 | Inpatient (IN) | payer MEDICARE, MEDICAID ==
[~2016-06-14] VITALS: Ht 167.6 cm; Wt 101.1 kg
[~2016-06-14 20:26] MED LIST changes: +ACLI400A2 IH; -ALBUTEROL8GMHFA PO; -ASC500 PO; +ASCO500C6 PO; +BUDE0.5A2 INHALATION; -CIPR-198 PO; -COU25 PO; -COU5 PO; +DIGO125T73 PO; +FEXO-106 PO; -FEXO180T PO; +METO50TA3 PO; -MTP50TCR PO; -MULT-1007 PO; +MULT-1018 PO; -NYST1POW29 MC; -POTA20TA35 PO; +TAMS0.4C98 PO; -TIOT18CA INH; -TORS20TA PO; +TORS20TA3 PO; +VENL75CA PO; +WARF6TAB6 PO; -[UNRECOGNIZED DRUG - CODE] INH; -[UNRECOGNIZED DRUG - CODE] PO
[2016-06-14 20:48] VITALS: BP 112/79; PULSE 132; RESP 28; O2SAT 95
--- NOTE | 2016-06-14 21:05 | ED.REPORT ---
HPI-General Illness Date of Service Jun 14, 2016 ED Provider: MD Jamison This is a 65 year old male with a history of chronic venous stasis changes, septic shock, atrial fibrillation, anticoagulated on Coumadin, emphysema, nd chronic wounds to left lower extremity presenting to the emergency department via EMS from [facility] due to bleeding wound on upper back as reported by staff. In the ED, pt responds to interview with, "everything hurts. " Interview and history is limited to due patient condition. Recent admission from 05/22-06/06/2016 for AMS. Nursing Notes Stated Complaint: ELEVATED I&R Chief Complaint: General Complaint Nursing Notes Reviewed: Yes Allergies: Coded Allergies: No Known Allergies (Unverified , 06/14/16) Scheduled Aclidinium [place] (Tudorza Pressair) 400 Mcg Aer.pow.ba 400 MCG IH DAILY Ascorbic Acid (Vitamin C) 500 Mg Capsule.er 500 MG PO DAILY Budesonide Neb Soln (Budesonide Neb Soln) 0.5 Mg/2 Ml Neb 0.5 MG INHALATION DAILY Digoxin (Digoxin) 125 Mcg Tablet 125 MCG PO DAILY Fexofenadine (Fexofenadine) 180 Mg Tablet 180 MG PO DAILY Metoprolol Tartrate (Metoprolol Tartrate) 50 Mg Tablet 50 MG PO BID Multivitamin (Multi Vitamin Daily) 1 Each Tablet 1 EACH PO DAILY Nystatin (Nystatin) 100,000 Unit/1 Ml Oral.susp 100,000 UNIT PO TID Prednisone (PredniSONE) 20 Mg Tablet 20 MG PO BID Tamsulosin (Flomax) 0.4 Mg Capsule 0.4 MG PO DAILY Torsemide (Torsemide) 20 Mg Tablet 40 MG PO DAILY Venlafaxine ER (Effexor XR) 75 Mg Capsule 75 MG PO DAILY Warfarin Sodium (Warfarin Sodium) 6 Mg Tablet 6.5 MG PO DAILY Scheduled PRN Acetaminophen (Acetaminophen) 325 Mg Tablet 650 MG PO Q4H PRN PRN For Pain oxyCODONE (oxyCODONE) 5 Mg Tablet 5 MG PO Q4H PRN PRN For Pain General Time Seen by : 21:05 Chief Complaint Other Hx Obtained From: Patient Arrived By: Walk-in Severity: Current: Mild Pertinent Negative: Pt denies other symptoms Recent Healthcare: No recent doctor visit, No recent hospitalization Similar Sx Previous: No Past Medical History Past Medical History Chronic venous stasis changes. Sees wound clinic regularly for chronic wounds on his LLE. Emphysema (per pt) Smoking History Never Smoker Social History Other Social History: Lives in correction Ambulatory Status Wheelchair Review of Systems Unable to Obtain ROS Mental status Full Review of Systems Constitutional: Denies: Chills, Fever Skin: Reports Rash Physical Exam Vital Signs Vital Signs Date Time Temp Pulse Resp B/P Pulse Ox O2 Delivery O2 Flow Rate FiO2 06/14/16 22:58 125 28 87/47 99 Nasal Cannula 2 06/14/16 22:45 138 18 90/55 98 Nasal Cannula 2 06/14/16 22:29 145 18 98/57 98 Nasal Cannula 2 06/14/16 21:14 132 26 106/72 95 Nasal Cannula 2 06/14/16 20:48 37.0 132 28 112/79 95 Room Air Initial VS: Reviewed Head / Eyes: Atraumatic, Normocephalic, PERRL ENT: Mucous membranes moist, Conjunctiva normal, No scleral icterus Neck: Supple, Non-tender, Full range of motion Respiratory: Breath sounds normal, Clear to auscultation, No respiratory distress Abdomen / GI: Soft, Non-tender, No guarding, No rebound, No distention General/Constitutional: Awake Disoriented, unable to answer questions. Mouth: Positive: Mucous membranes dry Cardiovascular: No murmurs Heart Rate / Rhythm: Positive: Irregular rhythm Lower Extremity / Pelvis / MS: Neurologic intact Vaseline gauze on bilateral legs with multiple lesions and scabs that are erythematous, edematous, indurated, multiple brawny lesions Skin: Warm Bleeding wound on back, bleeding through pads Interpretation & Diagnostics Lab Results Interpretation Result Diagram: 06/14/16204406/14/162044 Test 06/14/16 20:43 06/14/16 20:45 06/14/16 21:19 06/14/16 22:04 Hold Blue Top Tube Received (Received) Hold Red Top Tube Received (Received) Hold [place] Top Tube Received (Received) White Blood Count 13.6th/mm3 (3.8-10.1) Red Blood Count 4.22mil/mm3 (4.40-5.80) Hemoglobin 13.3g/dL (13.8-17.2) Hematocrit 43.1% (41.0-50.0) Mean Corpuscular Volume 102.1fL (81-100) Mean Corpuscular Hemoglobin 31.5pg (27.0-35.0) Mean Corpuscular Hemoglobin Concent 30.9% (32.0-37.0) Red Cell Distribution Width 14.9% (12.3-15.4) Platelet Count 246bil/L (150-400) Neutrophils (%) (Auto) 72.3% (40-74) Lymphocytes (%) (Auto) 16.3% (14-46) Monocytes (%) (Auto) 9.6% (4-12) Eosinophils (%) (Auto) 1.0% (0-5) Basophils (%) (Auto) 0.4% (0-3) Prothrombin Time 108.4sec (8.1-12.5) Prothromb Time International Ratio 9.67ratio Sodium Level 152mEq/L (134-144) Potassium Level 4.8mEq/L (3.5-5.2) Chloride Level 106mEq/L (97-108) Carbon Dioxide Level 32mmol/L (18-29) Blood Urea Nitrogen 22mg/dL (8-27) Creatinine 0.98mg/dL (0.76-1.27) Estimat Glomerular Filtration Rate 82mL/min (>59) Glucose Level 115mg/dL (60-99) Calcium Level 8.6mg/dL (8.5-10.1) Magnesium Level 2.2mg/dL (1.6-2.6) Total Bilirubin 0.9mg/dL (0.0-1.2) Aspartate Amino Transf (AST/SGOT) 82U/L (0-50) Alanine Aminotransferase (ALT/SGPT) 32U/L (0-44) Alkaline Phosphatase 119U/L (25-160) Troponin T 0.117ug/L (0.0-0.011) Total Protein 7.2g/dL (6.4-8.4) Albumin 2.5g/dL (3.4-5.0) Procalcitonin 0.47ng/mL (0.00-0.08) Hold Purple Top Tube Received (Received) Hold [place] Top Tube Received (Received) Urine Color Dark yellow (YELLOW) Urine Appearance Hazy (CLEAR,HAZY) Urine pH 5.0 (5.0-8.0) Urine Specific [place] 1.015 (1.003-1.035) Urine Protein Negativemg/dL (NEG,TRACE) Urine Glucose (UA) Negativemg/dL (NEGATIVE) Urine Ketones Negativemg/dL (NEGATIVE) Urine Occult Blood Negative (NEGATIVE) Urine Nitrite Negative (NEGATIVE) Urine Bilirubin Negative (NEGATIVE) Urine Urobilinogen 1.0mg/dL (NORMAL) Urine Leukocyte Esterase Negative (NEGATIVE) Urine RBC 3-10/hpf (0-2) Urine WBC 0-5/hpf (0-5) Urine Epithelial Cells Moderate/hpf (NONE-MOD) Urine Crystals None seen (NONE SEEN) Urine Bacteria Few/hpf (NONE-FEW) Urine Hyaline Casts 5/20/lpf (NONE) Urine Granular Casts None seen (NONE SEEN) Urine Waxy Casts None seen (NONE SEEN) Urine Red Blood Cell Casts None seen (NONE SEEN) Urine White Blood Cell Casts None seen (NONE SEEN) Urine Mucus Present (None Seen) Urine Trichomonas None seen (NONE SEEN) Urine Yeast None (NONE SEEN) Urinalysis Comment None Urine Culture Reflexed Not indicated ECG Interpretation ECG Interpretation: A-fib at a rate of 141 Inferior infarct, old Time: 21:11 Interpreted by: ED physician X-Ray Chest Interpretation Chest Xray Interpretation: IMPRESSION: Bilateral pneumonia. Dictated by: Ninoska Caal M.D. on 06/14/2016 at 21:33 Approved by: Ninoska Caal M.D. on 06/14/2016 at 21:36 Re-Eval/Medical Decision Med Decision/Clinical Course 65-year-old man referred from [facility] with bleeding persistently from a skin lesion on his back. His INR proves to be 9.67. However, multiple other issues present as he arrives. He is completely encephalopathic and unable to give any history. He just states that he hurts everywhere. He is moderately tachycardic, dry, and appears potentially septic. He is x-ray of his chest shows patchy perihilar infiltrates bilaterally without shadow sign to indicate lobar infiltrate. Troponin is markedly elevated at 0.117, while previous determinations have been 0.014. EKG is nonacute. He is begun with Zosyn and vancomycin for presumptive aspiration pneumonia, and especially with background of colonization and infection with MRSA. Rule out protocol and consider cardiac echo to establish etiology of his troponin elevation. Phytonadione given IV for his prolonged INR. Transported now in guarded condition. Consultation : Referral / Consult Name: Pretty Villa MD Consulted With: Hospitalist Call Returned at: 23:30 Optical Element Coater: Accepts admit Counseled Regarding: Diagnosis, Lab results, Need for follow-up, Need for admission Discharge & Departure Primary Impression: Elevated troponin Additional Impressions: Pneumonia Pneumonia type: due to unspecified organism Laterality: bilateral Lung location: unspecified part of lung Qualified Code: J18.9 - Pneumonia, unspecified organism Sepsis Sepsis type: sepsis due to unspecified organism Qualified Code: A41.9 - Sepsis, unspecified organism Dehydration Disposition: ADMITTED TO HOSPITAL Discharge Condition All VS Reviewed: Yes Condition: Stable Referrals: Heidi Gonzales MD (PCP) Scribe Attestation Portions of this note were transcribed by Selena Alaniz. I, Dr. Swift personally performed the history, physical exam and medical decision-making; I reviewed and confirmed the accuracy of the information in the transcribed note. Signed by: ailyn King. 06/14/2016, 23:00. Lito Swift MD Jun 14, 2016 21:05 SELENA ALANIZ Jun 14, 2016 21:11
[2016-06-14 21:12] LABS: BASOPHILS % (AUTO) 0.4 % (0-3)
[2016-06-14 21:14] VITALS: BP 106/72; PULSE 132; RESP 26; O2SAT 95
[2016-06-14 21:14] LABS: MONOCYTES % (AUTO) 9.6 % (4-12); Mean Corpuscular Hemoglobin 31.5 pg (27.0-35.0); Mean Corpuscular Volume 102.1 fL (81-100); NEUTROPHILS % (AUTO) 72.3 % (40-74); Platelet Count 246 bil/L (150-400)
[2016-06-14] MEDS ORDERED: 0.9% Sodium Chloride 1,000 ML IV SCH (21:25)
[2016-06-14] MEDS ORDERED: oxyCODONE-Acetamin 5-325 mg Tablet PO ONE (21:25)
[2016-06-14 21:33] LABS: INR 9.67 ratio
[2016-06-14 21:37] LABS: Magnesium 2.2 mg/dL (1.6-2.6)
--- NOTE | 2016-06-14 21:38 | DRSVH ---
PROCEDURE: X-RAY CHEST ONE VIEW, PORTABLE ([id number]) INDICATIONS: possible sepsis TECHNIQUE: One view of the chest was acquired. COMPARISON: [facility], CR, XR CHEST 1VW (PORTABLE), 05/22/2016, 20:16. [facility], CR, XR CHEST 1VW (PORTABLE), 05/22/2016, 22:38. FINDINGS: Surgical changes and devices: None. Lungs and pleura: Bilateral perihilar infiltrates suspicious for pneumonia. No pleural effusions or pneumothorax. Mediastinum: Mediastinal contours appear normal. Heart size is normal. Bones and chest wall: No suspicious bony lesions. Overlying soft tissues appear unremarkable. IMPRESSION: Bilateral pneumonia. Dictated by: Ninoska Caal M.D. on 06/14/2016 at 21:33 Approved by: Ninoska Caal M.D. on 06/14/2016 at 21:36
[2016-06-14 21:42] LABS: TROPONIN T 0.117 ug/L (0.0-0.011)
[2016-06-14 22:11] LABS: APPEARANCE,URINE HAZY (CLEAR,HAZY); COLOR,URINE DARK YELLOW (YELLOW); OCCULT BLOOD,URINE NEGATIVE (NEGATIVE)
[2016-06-14 22:29] VITALS: BP 98/57; PULSE 145; RESP 18; O2SAT 98
[2016-06-14] MEDS ORDERED: Phytonadione (Adult) 10 MG in Dextrose 5%-Pha MIX 50 ML IV ONE (22:30)
[2016-06-14 22:45] VITALS: BP 90/55; PULSE 138; RESP 18; O2SAT 98
[2016-06-14] MEDS: 0.9% Sodium Chloride 1,000 ML IV SCH ×2 (22:53→23:45)
[2016-06-14 22:58] VITALS: BP 87/47; PULSE 125; RESP 28; O2SAT 99
[2016-06-14] MEDS ORDERED: Piperacillin-Tazo 3.375 Gm Inj 3.375 GM in Dextrose 5% Minibag Plus 50 ML IV ONE (23:30)
[2016-06-15] VITALS (8 sets, daily range): BP systolic 89–97; BP diastolic 43–64; PULSE 97–137; RESP 24–30; O2SAT 91–98
[2016-06-15] MEDS ORDERED: 0.9% Sodium Chloride 1,000 ML IV SCH (00:05)
[2016-06-15] MEDS ORDERED: Alum-Mag Hydrox-Simeth 30 mL Suspension PO PRN ×2 (00:05→01:20)
[2016-06-15] MEDS ORDERED: Ondansetron 2 mg/mL 2 mL Inj IVPUSH PRN ×2 (00:05→01:20)
[2016-06-15] MEDS ORDERED: NYST1000 PO (01:11)
[2016-06-15] MEDS ORDERED: OXYC5TAB72 PO (01:17)
[2016-06-15] MEDS ORDERED: ACET325T51 PO (01:17)
[2016-06-15] MEDS ORDERED: PRE20 PO (01:17)
[2016-06-15] MEDS ORDERED: Vancomycin Dose per Pharmacist XX SCH (01:20)
[2016-06-15] MEDS ORDERED: Polyethylene Glycol (PEG) 17 Gm Powder PO PRN (01:20)
[2016-06-15] MEDS ORDERED: 0.9% Sodium Chloride 1,000 ML IV ONE (01:30)
[2016-06-15] MEDS: 0.9% Sodium Chloride 1,000 ML IV SCH ×3 (01:30→13:14)
--- NOTE | 2016-06-15 02:28 | PCM.HPMED ---
Subjective Date of Service Jun 15, 2016 Primary Provider: Admitting Physician: Pretty Villa MD Primary Care Physician: Heidi Gonzales MD Attending Physician: Pretty Villa MD Chief Complaint: Elevated INR, bleeding wound on back History of Present Illness: This is a 65 Y/O M with a complex medical history of chronic venous stasis changes, septic shock, atrial fibrillation (anticoagulated on Coumadin), emphysema, chronic wounds to left lower extremity presenting to the emergency department via EMS from [facility] due to bleeding wound on upper back as reported by staff. In the ED, patient responded to interview with , "everything hurts." Interview and history is limited to due patient condition. Recent admission from 05/22-06/06/2016 for AMS. Vital signs in ED: Temperature 37.0, pulse 137, respiratory rate 28, blood pressure 90/57 with a low of 87/47, O2 97% on room air. Hemogram are blood cell count 13.6, hemoglobin 13.3, hematocrit 43.1, MCV 102.1 , neutrophil percent 72.3 Chemistry panel: Sodium 152, potassium 4.8, chloride 106, carbon dioxide 32H, BUN 22, creatinine 0.98, glucose 1:15, lactic acid 3.6, AST 82, troponin 0.117, albumin 2.7. PT/INR, 108.4/9.67 UA: Dark yellow, hazy, few bacteria, hyaline casts, mucus present area. Chest x-ray showed bilateral pneumonias Review of Systems: Review of systems was difficult given patient condition. Allergies Coded Allergies: No Known Allergies (Unverified , 06/14/16) Home Medications Aclidinium [place] (Tudorza Pressair) 400 Mcg Aer.pow.ba 400 MCG IH DAILY Ascorbic Acid (Vitamin C) 500 Mg Capsule.er 500 MG PO DAILY Budesonide Neb Soln (Budesonide Neb Soln) 0.5 Mg/2 Ml Neb 0.5 MG INHALATION DAILY Digoxin (Digoxin) 125 Mcg Tablet 125 MCG PO DAILY Fexofenadine (Fexofenadine) 180 Mg Tablet 180 MG PO DAILY Metoprolol Tartrate (Metoprolol Tartrate) 50 Mg Tablet 50 MG PO BID Multivitamin (Multi Vitamin Daily) 1 Each Tablet 1 EACH PO DAILY Tamsulosin (Flomax) 0.4 Mg Capsule 0.4 MG PO DAILY Torsemide (Torsemide) 20 Mg Tablet 40 MG PO DAILY Venlafaxine ER (Effexor XR) 75 Mg Capsule 75 MG PO DAILY Warfarin Sodium (Warfarin Sodium) 6 Mg Tablet 6.5 MG PO DAILY PMH Chronic venous stasis changes. Sees wound clinic regularly for chronic wounds on his LLE. Emphysema (per pt) Surgical History Limited history given patient condition Family History Limited history given patient condition Social History Hx Alcohol Use: No Hx Substance Use: No Smoking Status: Never Smoker Living Arrangement: Nursing Home Facility ([facility]) Exam Vital Signs Vital Sign - Last Date Time Temp Pulse Resp B/P Pulse Ox O2 Delivery O2 Flow Rate FiO2 06/15/16 00:09 137 26 90/57 97 Room Air 2 06/14/16 20:48 37.0 Intake and Output 06/14/16 06/14/16 06/15/16 Cumulative From/Thru 15:00 23:00 07:00 06/14/16 20:48 - 06/14/16 23:12 Intake Total 3000 ml 3000 ml Output Total 400 ml 400 ml Balance 3000 ml -400 ml 2600 ml Intake IV Total 3000 ml 3000 ml Output Urine Total 400 ml 400 ml Exam General: Patient was not alert to place or time, resting in bed with his eyes closed, responding to questions in 1 or 2 word sentences, complaining of pain, was uncooperative with physical exam and history is well given his condition HEENT: Head/face with multiple neurofibromas, otherwise nontraumatic, eyes equally round, noninjected, sclerae is yellow, neck nontender, no masses, oropharynx with white material on tongue. Lungs: Difficult to auscultate given patient's body habitus and his unwillingness to cooperate with the physical exam Heart: Irregular rate and rhythm consistent with A. fib, no murmur Abdomen: Massively obese, bowel sounds active, nontender, nondistended no rebound no guarding Genitourinary: Burnett catheter in place draining yellow urine Extremities: Lower extremities with severe skin maceration, multiple wounds and edema nonpitting, skin looks skinny below the knee bilaterally, lower extremity pulses were not palpable however extremities were warm to the touch. 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 Neurologic: Patient responds to questioning in 2-3 word sentences otherwise seems grossly neurologically intact Skin: Multiple neurofibromas scattered all over patient's skin, lower extremity legs with multiple wounds and macerated skin, as previously stated skin appears dusky, however does not appear to be erythematous. Psychiatric: Patient is uncooperative Lab and Diagnostics Result Diagram: 06/14/16204406/14/[id number] X-Rays, CTs and MRIs Date of Service: 06/14/162057 PROCEDURE: X-RAY CHEST ONE VIEW, PORTABLE ([id number]) INDICATIONS: possible sepsis TECHNIQUE: One view of the chest was acquired. COMPARISON: [facility], CR, XR CHEST 1VW (PORTABLE), 05/22/2016, 20: 16. [facility], CR, XR CHEST 1VW (PORTABLE), 05/22/2016, 22:38. FINDINGS: Surgical changes and devices: None. Lungs and pleura: Bilateral perihilar infiltrates suspicious for pneumonia. No pleural effusions or pneumothorax. Mediastinum: Mediastinal contours appear normal. Heart size is normal. Bones and chest wall: No suspicious bony lesions. Overlying soft tissues appear unremarkable. IMPRESSION: Bilateral pneumonia. Dictated by: Ninoska Caal M.D. on 06/14/2016 at 21:33 Approved by: Ninoska Caal M.D. on 06/14/2016 at 21:36 Assessment & Plan # Acute sepsis, present on admission, active - Likely source is leg wounds, patient has history of MRSA colonization on 05/25. As well as pseudomonal colonization on culture of wounds on 05/25/2015. - Patient was recently hospitalized in April 2016 and had urine culture that grew Proteus - Patient's MRSA swab in April 2016 was negative - Vital signs in ED: Temperature 37.0, pulse 137, respiratory rate 28, blood pressure 90/57 with a low of 87/47, O2 97% on room air. - Lactic acid 3.6 - Patient received 2 L bolus of IV saline in the ED, as well as 250mls/hr rate thereafter - Patient was still hypotensive on floor at 87/47 - We will start IV saline bolus 500 milliliters as blood pressure is still low - We will continues IV saline at 200 ml's per hour - Continue vancomycin pharmacy to dose - We will continue Zosyn - Blood cultures 2 ordered and pending - Contact precautions - Wound consult in the morning - Advised for infectious disease consult in the morning - MRSA swab # Active bleeding wound on back in the context of supratherapeutic INR, present on admission, active - INR is greater than 9 - We will hold warfarin - We will monitor serial INRs # Bilateral pneumonia (HCAP) as seen on chest x-ray, present on admission, active - Also possible source for sepsis - Continue IV antibiotics as stated previously # Acute leukocytosis, present on admission, active - Wbc's count 13.6, percent neutrophils 72.3 - Continue antibiotics as stated previously # Dehydration, present on admission, active - IV Fluids as stated above # Multiple lower extremity leg wounds, present on admission, active - Wound care to consult - Also possible source of sepsis - Patient had culture done on 125 6 - Continue IV antibiotics as stated above # Elevated troponin, present on admission, active - Troponin 0.117 - Likely related to demand secondary to hypertension and tachycardia - EKG now - We will trend troponin - Continuous cardiac monitoring with telemetry #Lactic acidosis, present on admission, active - Lactic acid 3.6 - IV fluids as above - Ordered and pending lactic acid's every 2H # Afib with RVR, present on admission, active - Patient has history of A. fib however I do not think this is RVR as patient is septic and is likely only tachycardic given his acute sepsis. - Patient is sleeping in bed - We will wait on treating his tachycardia given his current hypotensive state. - Patient on telemetry - Secondary to sepsis - Pulse 115 - Digoxin level # Hypertension, present remission, active - Likely secondary to sepsis - Patient received 2 L IV bolus in the ED - Continue IV fluids as above - Consider pressors if needed Chronic problems #A-fib - Continuous cardiac monitoring - We will order digoxin level - We will hold home metoprolol 50 mg twice a day now given hypotension - We will hold torsemide 40 mg daily # Urinary retention - We will hold tamsulosin 0.4 mg secondary to hypotension - Patient currently has Burnett placed #Chronic venous stasis changes. - Sees wound clinic regularly for chronic wounds on his LLE. - We will consult wound care #Emphysema #Neurofibromatosis, chronic stable #History of MRSA colonization - MRSA screen ordered and pending - Contact precautions #Chronic pain -Patient takes oxycodone 5 mg every 4 hours when necessary as outpatient -Patient received 2 X 5/325 mg Percocet in the ED # Depression - Patient takes venlafaxine, will continue this medication Disposition: Admitted to in patient service with expected length of stay greater than 2 days, secondary to severity of presenting symptoms, treatment plan, complexity of clinical work up, and risk of adverse events. CODE STATUS: Full code Contact information: DVT prophylaxis: Patient currently anticoagulated on warfarin, patient currently supratherapeutic therapeutic with INR of 9.6 Vital signs in ED: Temperature 37.0, pulse 137, respiratory rate 28, blood pressure 90/57 with a low of 87/47, O2 97% on room air. Hemogram are blood cell count 13.6, hemoglobin 13.3, hematocrit 43.1, MCV 102.1 , neutrophil percent 72.3 Chemistry panel: Sodium 152, potassium 4.8, chloride 106, carbon dioxide 32H, BUN 22, creatinine 0.98, glucose 1:15, lactic acid 3.6, AST 82, troponin 0.117, albumin 2.7. PT/INR, 108.4/9.67 UA: Dark yellow, hazy, few bacteria, hyaline casts, mucus present area Pain Evaluation: Pain not Controlled VTE Prophylaxis: Theraputic Anticoag with Warfarin (Super therapeutic INR) Resuscitation Status: CPR: Attempt Resuscitation Attending Statement Pt seen and examined by myself and agree with above plan. Olvin Suarez DO Jun 15, 2016 01:07 Pretty Villa MD Jun 15, 2016 06:25
[2016-06-15] MEDS ORDERED: Vancomycin Serum Trough XX ONE (02:50)
--- NOTE | 2016-06-15 03:07 | PCM.CONPHA ---
Subjective Date of Service: Jun 15, 2016 Requesting Provider: Olvin Suarez DO Elevated INR, bleeding wound on back Reason for Pharmacy Consult: Vancomycin Dosing Objective Vital Signs Date Time Temp Pulse Resp B/P Pulse Ox O2 Delivery O2 Flow Rate FiO2 06/15/16 01:46 Supplement Oxygen 06/15/16 00:34 38.1 115 28 89/55 92 Nasal Cannula 2.00 06/15/16 00:09 137 26 90/57 97 Room Air 2 06/14/16 22:58 125 28 87/47 99 Nasal Cannula 2 06/14/16 22:45 138 18 90/55 98 Nasal Cannula 2 06/14/16 22:29 145 18 98/57 98 Nasal Cannula 2 06/14/16 21:14 132 26 106/72 95 Nasal Cannula 2 06/14/16 20:48 37.0 132 28 112/79 95 Room Air Intake and Output 06/13/16 06/14/16 06/15/16 00:00 00:00 00:00 Intake Total 3000 ml Output Total 400 ml Balance 2600 ml Weight (Kilograms): 97.200 Height (Feet): 5 Height (Inches): 6.00 Test 06/14/16 20:43 06/14/16 20:45 06/14/16 21:19 06/14/16 22:04 Hold Blue Top Tube Received (Received) Hold Red Top Tube Received (Received) Hold Cardoza Top Tube Received (Received) White Blood Count 13.6th/mm3 (3.8-10.1) Red Blood Count 4.22mil/mm3 (4.40-5.80) Hemoglobin 13.3g/dL (13.8-17.2) Hematocrit 43.1% (41.0-50.0) Mean Corpuscular Volume 102.1fL (81-100) Mean Corpuscular Hemoglobin 31.5pg (27.0-35.0) Mean Corpuscular Hemoglobin Concent 30.9% (32.0-37.0) Red Cell Distribution Width 14.9% (12.3-15.4) Platelet Count 246bil/L (150-400) Neutrophils (%) (Auto) 72.3% (40-74) Lymphocytes (%) (Auto) 16.3% (14-46) Monocytes (%) (Auto) 9.6% (4-12) Eosinophils (%) (Auto) 1.0% (0-5) Basophils (%) (Auto) 0.4% (0-3) Prothrombin Time 108.4sec (8.1-12.5) Prothromb Time International Ratio 9.67ratio Sodium Level 152mEq/L (134-144) Potassium Level 4.8mEq/L (3.5-5.2) Chloride Level 106mEq/L (97-108) Carbon Dioxide Level 32mmol/L (18-29) Blood Urea Nitrogen 22mg/dL (8-27) Creatinine 0.98mg/dL (0.76-1.27) Estimat Glomerular Filtration Rate 82mL/min (>59) Glucose Level 115mg/dL (60-99) Calcium Level 8.6mg/dL (8.5-10.1) Magnesium Level 2.2mg/dL (1.6-2.6) Total Bilirubin 0.9mg/dL (0.0-1.2) Aspartate Amino Transf (AST/SGOT) 82U/L (0-50) Alanine Aminotransferase (ALT/SGPT) 32U/L (0-44) Alkaline Phosphatase 119U/L (25-160) Troponin T 0.117ug/L (0.0-0.011) Total Protein 7.2g/dL (6.4-8.4) Albumin 2.5g/dL (3.4-5.0) Procalcitonin 0.47ng/mL (0.00-0.08) Hold Purple Top Tube Received (Received) Hold [place] Top Tube Received (Received) Urine Color Dark yellow (YELLOW) Urine Appearance Hazy (CLEAR,HAZY) Urine pH 5.0 (5.0-8.0) Urine Specific [place] 1.015 (1.003-1.035) Urine Protein Negativemg/dL (NEG,TRACE) Urine Glucose (UA) Negativemg/dL (NEGATIVE) Urine Ketones Negativemg/dL (NEGATIVE) Urine Occult Blood Negative (NEGATIVE) Urine Nitrite Negative (NEGATIVE) Urine Bilirubin Negative (NEGATIVE) Urine Urobilinogen 1.0mg/dL (NORMAL) Urine Leukocyte Esterase Negative (NEGATIVE) Urine RBC 3-10/hpf (0-2) Urine WBC 0-5/hpf (0-5) Urine Epithelial Cells Moderate/hpf (NONE-MOD) Urine Crystals None seen (NONE SEEN) Urine Bacteria Few/hpf (NONE-FEW) Urine Hyaline Casts 5/20/lpf (NONE) Urine Granular Casts None seen (NONE SEEN) Urine Waxy Casts None seen (NONE SEEN) Urine Red Blood Cell Casts None seen (NONE SEEN) Urine White Blood Cell Casts None seen (NONE SEEN) Urine Mucus Present (None Seen) Urine Trichomonas None seen (NONE SEEN) Urine Yeast None (NONE SEEN) Urinalysis Comment None Urine Culture Reflexed Not indicated Assessment/Plan Assessment/Plan A: * Vancomycin dosing by pharmacy for 65 y/o man * The patient received a 1500 mg IV vancomycin dose in the ED * He is also being started on Zosyn * Estimated CrCl is 82 mL/min (Cockcroft & Gault using AdjBW) * Estimated vancomycin half-life and estimated Vd is 68 liters P: * Starting vancomycin 1500 mg IV every 12 hours * Target vancomycin trough range of 15 - 20 mcg/mL * Drawing a trough level prior to the fourth dose Thank you. Pharmacy will continue to follow. Danica Spain, PharmD Danica Spain Jun 15, 2016 03:07
--- NOTE | 2016-06-15 05:23 | NUR ---
Admission Pt arrived to room 3020 alert to self only, c/o pain, and refusing to cooperate with staff. Pts only form of communicating is to reply "No!" or "Why!" or "leave me alone!" when staff attempt to interact with PT. Pt was placed in p-500 KIM bed and has been turned side to side Q2 hours since arrival. Pressure ulcer protocol initiated. Dressing to bleeding open skin area on his upper back changed on arrival, was saturated with blood. Per Mds wishes pt was placed on contact precautions for Hx: or MRSA and nose was swabbed.
[2016-06-15 06:39] LABS: Mean Corpuscular Hemoglobin 30.8 pg (27.0-35.0); Mean Corpuscular Volume 103.1 fL (81-100)
[2016-06-15 07:11] LABS: Magnesium 1.9 mg/dL (1.6-2.6)
[2016-06-15 07:43] LABS: TROPONIN T 0.085 ug/L (0.0-0.011)
[2016-06-15] MEDS: Sodium Chloride LOK Flush 10 mL Syringe IVFLUSH SCH ×2 (07:55→16:30)
[2016-06-15] MEDS: Vancomycin Inj 1,500 MG in 0.9% Sodium Chloride 500 ML IV SCH ×2 (07:59→21:24)
[2016-06-15] MEDS: Venlafaxine XR 75 mg ER24 Capsule PO SCH (08:09)
--- NOTE | 2016-06-15 08:10 | NUR ---
AM meds AM PO meds held, pt not alert enough to safely take PO, answers only "too damn early" too all questions, will not open eyes,
[2016-06-15 08:27] LABS: INR 1.56 ratio
[2016-06-15] MEDS: Nystatin 100,000 Unit/mL 59 mL Suspension PO SCH ×2 (08:30→14:30)
[2016-06-15] MEDS: Budesonide 0.5 mg/2 mL Inhalation Solution INHALATION SCH (08:30)
[2016-06-15] MEDS: Piperacillin-Tazo 3.375 Gm Inj 3.375 GM in Dextrose 5% Minibag Plus 50 ML IV SCH ×2 (13:11→17:44)
--- NOTE | 2016-06-15 15:50 | NUR ---
NUTRITION ASSESSMENT: ASSESS: 65 YO male admitted with over anticoagulation and bleeding wound on back. Noted pt to be on a heart healthy diet right now, but pt was on a Pureed diet + 1 dysphagia mechanical texture meat/protein item on recent admit. RD spoke with MD regarding the diet issues and MD to make pt NPO and order an ST eval. Per past admit, pt does not like pureed foods very much. PMHX: Chronic venous stasis changes, Afib, CHF, COPD, Neurofibromatosis, Emphysema (per pt) LABS: Reviewed. Na 154, Ca 7.4, Alb 2.1 MEDS: Reviewed. GI: No BM reported yet. SKIN: Current Wound Clinic pt w/ peripheral venous stasis ulcers on bilateral legs CURRENT WT: 97.2 kg IBW: 75.4 kg DIET: Heart Healthy, No po intake reported, but pt will likely be NPO until ST eval has been completed. DIET PER PREVIOUS ADMIT: Pureed w/ NTL diet + 1 dysphagia mechanical texture meat item + pureed fruit + mashed potatoes with protein powder, + NT ensure. EST. NEEDS (BMI 30-40): Kcals: 6838-6795 kcal/day (22-25 kcal/kg BW) Pro: 95-115 g/day (1.0-1.2 g/kg BW) NUTRITION DIAGNOSIS: 1.) Likely chew/swallow difficulties related to ill fitting dentures as evidence by need for altered diet texture per ST. NUTRITION INTERVENTION: 1.) Diet adjustment per ST recommendation. 2.) Will add supplements if po intake is inadequate to meet pt est. needs. MONITOR / EVAL: PO intake, labs, ST eval, GI, nutrition status, POC. Continue to monitor per high nutritional risk guidelines.
--- NOTE | 2016-06-15 16:22 | NUR ---
Social Work: Initial Assessment Attempted Pt not appropriate for assessment. SAUSAGE CUTTER called Bree for information, no answer, SAUSAGE CUTTER left a message. SAUSAGE CUTTER will attempt again at a later time. KANDIS Gilbert
--- NOTE | 2016-06-15 17:25 | PCM.PNMED ---
Subjective Date of Service Jun 15, 2016 Subjective Patient refuses to answer any questions, patient responds 'go away" to every question. Able to obtain any kind of information the patient this morning Per nursing overnight patient was not cooperative with care and was minimally interactive. Exam Vital Signs Vital Sign - Last Date Time Temp Pulse Resp B/P Pulse Ox O2 Delivery O2 Flow Rate FiO2 06/15/16 11:21 37.2 115 26 95/62 96 Nasal Cannula 2.00 Intake and Output 06/14/16 06/14/16 06/15/16 Cumulative From/Thru 15:00 23:00 07:00 06/14/16 20:48 - 06/15/16 06:24 Intake Total 3000 ml 1516 ml 4516 ml Output Total 400 ml 400 ml Balance 3000 ml 1116 ml 4116 ml IV Total 3000 ml 1516 ml 4516 ml Output Urine Total 400 ml 400 ml Exam General: Extremely somnolent obese male lying supine in bed, appears older than stated age, Extremities: Diffuse nodules secondary to neurofibromatosis on face and entire body. Bilateral lower extremities with chronic venous stasis changes, and numerous wounds in various stages of healing. Patient is reported to have a wound on his back, but would not allow me to examine it. Psychiatric: Patient is somnolent and very agitated when woken. Patient refuses to answer any questions stating "A" to every question. Patient also swings arms when attempting physical exam. Full physical exam was not able to be completed secondary to the patient's mentation and agitation. IVs and Medications Medications Reviewed: Medications were reviewed in detail Lab and Diagnostics Result Diagram: 06/15/1662306/15/[id number] X-Rays, CTs and MRIs Date of Service: 06/14/162057 PROCEDURE: X-RAY CHEST ONE VIEW, PORTABLE ([id number]) INDICATIONS: possible sepsis TECHNIQUE: One view of the chest was acquired. COMPARISON: [facility], CR, XR CHEST 1VW (PORTABLE), 05/22/2016, 20: 16. [facility], CR, XR CHEST 1VW (PORTABLE), 05/22/2016, 22:38. FINDINGS: Surgical changes and devices: None. Lungs and pleura: Bilateral perihilar infiltrates suspicious for pneumonia. No pleural effusions or pneumothorax. Mediastinum: Mediastinal contours appear normal. Heart size is normal. Bones and chest wall: No suspicious bony lesions. Overlying soft tissues appear unremarkable. IMPRESSION: Bilateral pneumonia. Dictated by: Ninoska Caal M.D. on 06/14/2016 at 21:33 Approved by: Ninoska Caal M.D. on 06/14/2016 at 21:36 Assessment & Plan 1. Severe sepsis, present on admission, ongoing -Sepsis is likely secondary to numerous wounds on the legs or back. -Severe sepsis met due to tachycardia 137, tachypnea 28, lactic acid 3.6, hypotension 87/47 -MRSA screen ordered today, patient has history of MRSA colonization -If MRSA screen is negative we will discontinue the vancomycin -Currently treating with vancomycin and Zosyn and azithromycin -Blood cultures pending -Infectious disease to be consulted 2. Multiple lower extremity wounds with chronic venous stasis changes and back wound, present on admission, ongoing -Wound care has been consulted, and are assisting with the care -These wounds at the possible source of sepsis -No culture of wounds have been taken at this time -Continue IV antibiotics as above 3. Health care associated pneumonia, present on admission -CXR demonstrated bilateral perihilar infiltrates suspicious for pneumonia -Antibiotics as above -Chest x-ray to be repeated in the morning -We will continue to monitor pro-calcitonin 4. Supratherapeutic INR with active bleeding, present on admission, improving -On admission INR greater than 9, currently INR 1.56 -Patient is currently on warfarin secondary to chronic atrial fibrillation -When appropriate to restart Coumadin, we will have pharmacy assist with dosing -And to monitor for sources of bleeding -Daily labs 5. Acute hypernatremia, present on admission, ongoing -Starting patient on 05/01 NS at 100 mils per hour -We will recheck labs in a.m. -Patient continues to be hyponatremic will calculate free water deficit, and start patient on D5W 6.Dehydration, present on admission, active - IV Fluids as stated above -Patient not taking appropriate oral intake at this time 7.Elevated troponin of unknown significance, present on admission, active - Troponin 0.117 on admission -Likely secondary to chronic kidney disease - Trending troponins, however expect them to be elevated - Continuous cardiac monitoring with telemetry 8. Afib with RVR, present on admission, active - Up all IV 2.5 mg every 8, will hold if heart rate is less than 70 - Patient on telemetry -Digoxin converted to IV format given patient's somnolence and inability to take by mouth meds 9. Hypotension, present on admission, ongoing -Patient received fluids in the ER -1/2 NS at 100 mils per hour maintenance -Bolus and S as needed -Continue to monitor Chronic issues Urinary retention -Burnett in place Emphysema Neurofibromatosis, chronic stable History of MRSA colonization Chronic pain -Patient takes oxycodone 5 mg every 4 hours when necessary as outpatient -Patient received 2 X 5/325 mg Percocet in the ED Depression - Patient takes venlafaxine, will continue this medication Disposition: Admitted to in patient service with expected length of stay greater than 2 days, secondary to severity of presenting symptoms, treatment plan, complexity of clinical work up, and risk of adverse events. CODE STATUS: Full code VTE Prophylaxis: Theraputic Anticoag with Warfarin (Super therapeutic INR) Resuscitation Status: CPR: Attempt Resuscitation Melissa Mcmahon DO Jun 15, 2016 17:25
--- NOTE | 2016-06-15 18:14 | NUR ---
Wound PUP received, pt with multiple skin issues and pressure injuries. 65 yo male admitted from [place] [facility] with sepsis. Pt presents with an unstageable PU (POA) on his right medial heel measuring 6 cm L x 5 cm W. Stage 2 at sacrum 2 cm L x 2 cm W x 0.1 cm D(POA). Also an abrasion at his right buttock 2 cm L x 2 cm W x 0.1 cm D. Recommend adhesive sacral dressing at sacral PU, no dressing needed at heel on right but heel boot is placed, pt is on a P 500 bed. Right montague ulcer 4 cm L x 2 cm W x 0.2 cm D. Left ant montague distal 2cm x 2cm, proximal 3 cm x 2 cm. Leg ulcers cleaned with saline and gauze redressed with Vaseline gauze, kerlix wrap and spandage. 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 Dressings can be changed by nursing q 48 hrs.
[2016-06-15] MEDS ORDERED: 0.9% Sodium Chloride 100 ML ONE (18:43)
[2016-06-15] MEDS: MeTOProlol 1 mg/mL 5 mL Inj IVPUSH SCH (18:44)
[2016-06-15] MEDS: Nystatin 100,000 Unit/mL 5 mL Suspension PO SCH (20:46)
[2016-06-15] MEDS: Acetaminophen IV 1,000 MG in IV Premix 1 EACH IV PRN (20:47)
[2016-06-16] VITALS (9 sets, daily range): BP systolic 81–102; BP diastolic 46–58; PULSE 87–101; RESP 20–28; O2SAT 93–99
[2016-06-16] MEDS: MeTOProlol 1 mg/mL 5 mL Inj IVPUSH SCH ×3 (00:30→16:30)
[2016-06-16] MEDS: Piperacillin-Tazo 3.375 Gm Inj 3.375 GM in Dextrose 5% Minibag Plus 50 ML IV SCH ×3 (01:53→16:51)
[2016-06-16] MEDS: Sodium Chloride LOK Flush 10 mL Syringe IVFLUSH SCH ×3 (01:53→16:51)
--- NOTE | 2016-06-16 02:45 | NUR ---
Dressing Change Dressing changed on patients upper back between his shoulders. Spot was irrigated with 5mLs of normal saline. Serosanguineous drainage present on old dressing, but was not currently draining. ABD pad applied over weeping spot. Patient moaned during dressing change. Will continue to monitor for drainage and patients comfort.
[2016-06-16 07:06] LABS: EOSINOPHILS % (AUTO) 6.5 % (0-5); MONOCYTES % (AUTO) 9.4 % (4-12); Mean Corpuscular Hemoglobin 30.6 pg (27.0-35.0); Mean Corpuscular Volume 104.6 fL (81-100); NEUTROPHILS % (AUTO) 70.5 % (40-74); Platelet Count 169 bil/L (150-400)
[2016-06-16] MEDS ORDERED: Vancomycin Serum Trough XX ONE (08:00)
[2016-06-16] MEDS: Venlafaxine XR 75 mg ER24 Capsule PO SCH (08:30)
[2016-06-16] MEDS: Nystatin 100,000 Unit/mL 5 mL Suspension PO SCH ×3 (08:30→20:27)
[2016-06-16] MEDS: Vancomycin Inj 1,500 MG in 0.9% Sodium Chloride 500 ML IV SCH (08:30)
[2016-06-16] MEDS: Budesonide 0.5 mg/2 mL Inhalation Solution INHALATION SCH (08:30)
[2016-06-16] MEDS: Azithromycin Inj 500 MG in Dextrose 5% w/Vial Mate 250 ML IV SCH (08:34)
[2016-06-16] MEDS: Digoxin 0.25 mg/mL 2 mL Inj IV SCH (08:39)
[2016-06-16 09:22] LABS: INR 1.18 ratio
[2016-06-16] MEDS: Dextrose 5% 1,000 ML IV SCH ×2 (10:01→20:27)
[2016-06-16] MEDS ORDERED: Potassium Chloride 20 mEq SR Tablet PO SCH (11:00)
--- NOTE | 2016-06-16 11:12 | DRSVH ---
PROCEDURE: X-RAY CHEST ONE VIEW, PORTABLE ([id number]) INDICATIONS: SHORTNESS OF BREATH TECHNIQUE: One view of the chest was acquired. COMPARISON: [facility], CR, XR CHEST 1VW (PORTABLE), 06/14/2016, 20:55. FINDINGS: Surgical changes and devices: None. Lungs and pleura: Bilateral interstitial opacities redemonstrated with perihilar predominance. There also is been interval increase in airspace opacity within the left lung base. No pleural effusion o r pneumothorax. Mediastinum: Mediastinal contours appear normal. Heart size is normal. Bones and chest wall: No suspicious bony lesions. Overlying soft tissues appear unremarkable. IMPRESSION: Mild edema and/or pneumonia involving the perihilum bilaterally as well as new density wi thin the left lung base. Recommend clinical correlation. Dictated by: Kyle DAHL Interpreted: Lianne Irene MD on 06/16/2016 at 11:10 Transcribed by: JJ on 06/16/2016 at 11:12 Approved by: Lianne Irene M.D. on 06/16/2016 at 16:06
[2016-06-16] MEDS: Acetaminophen IV 1,000 MG in IV Premix 1 EACH IV PRN (12:23)
--- NOTE | 2016-06-16 12:31 | PCM.CONPHA ---
Assessment/Plan Assessment/Plan ANTICOAGULATION MANAGEMENT BY PHARMACY -INDICATION: AFIB -HOME DOSE: 6.5 MG? -CONCURRENT ANTICOAGULATION: NONE -CRCL: 74.7 ML/MIN -COAG TRENDS: -May 1.18 -[id number] SCORE: 3 PLAN: UNSURE WHAT HOME DOSE IS PATIENT REPORTED 6.5 MG BUT HE CAME IN WITH AN INR OF OVER 9 ORIGINALLY WHICH WAS A POSSIBLE LAB ERROR BC 10 HOURS LATER HIS INR WAS 1.596. WILL GIVE A OT DOSE TONIGHT OF 5 MG AND CONTINUE TO FOLLOW AND DOSE BASED ON SUBSEQUENT INRS. Pharmacy appreciates consult and will continue to monitor. THANKS! Marcy Bermudez PharmD Jun 16, 2016 12:31
--- NOTE | 2016-06-16 13:40 | NUR ---
Evaluation completed. Please go to "Notes" then click on "Assessments and Notes" (bottom left corner of screen). Then select appropriate discipline tab on top of screen.
--- NOTE | 2016-06-16 14:04 | NUR ---
NUTRITION FOLLOW-UP: ASSESS: 65 YO male admitted with over anticoagulation and bleeding wound on back. ST has placed pt on Pureed diet + 1 dysphagia mechanical texture meat/protein item, which is what pt was receiving during last admit. Per RN, pt is refusing all care. Pt has refused all meals so far but this may have also been related to pt receiving normal texture foods. PMHX: Chronic venous stasis changes, Afib, CHF, COPD, Neurofibromatosis, Emphysema (per pt) LABS: Reviewed. Na 145, K 3.2, Cl 114, Contract Forester 1.29, Ca 7.1, Alb 1.9 MEDS: Reviewed. GI: BMx2 06/15 SKIN: Stg 2 PU on Sacrum, unstageable PU on heel, rt shoulder wound CURRENT WT: 99.9 kg, BMI 35.5kg/m2 IBW: 64.5kg, admit wt: 97.2kg DIET: Pureed w/ NTL diet + 1 dysphagia mechanical texture meat item + pureed fruit + mashed potatoes with protein powder, + NT ensure. EST. NEEDS (BMI, wounds) Kcals: 8979-0411 kcal/day (22-25 kcal/kg BW) Pro: 100-115 g/day (1.5-1.8 g/kg IBW) NUTRITION DIAGNOSIS: 1.) Chew/swallow difficulties related weakness,ill fitting dentures and mentation as evidence by history of needing altered diet texture per ST. 2.) Increased nutrient needs related to increased demand for healing as evidence by pt with multiple wounds. 3.) Inadequate oral intake related to refusal of care/mentation as evidence by pt refusing all meals x1 day NUTRITION INTERVENTION: 1.) Diet adjustment per ST recommendation. 2.) Will add pureed fruit on all trays and mashed potatoes w/gravy mixed w/protein powder on L&D as pt seemed to like this during last admit MONITOR / EVAL: PO intake, labs, ST, GI, nutrition status, POC. Continue to monitor per high nutritional risk guidelines.
[2016-06-16] MEDS ORDERED: MeTOProlol 1 mg/mL 5 mL Inj IVPUSH ONE (14:30)
[2016-06-16] MEDS ORDERED: Potassium Chloride 20 mEq SR Tablet PO ONE (14:30)
[2016-06-16] MEDS ORDERED: 0.9% Sodium Chloride 250 ML ONE (16:45)
--- NOTE | 2016-06-16 17:35 | NUR ---
Student Nurse Shift Note Patient taken off contact precautions after MRSA nasal swab came back negative. Patient was uncooperative with care in the morning, refusing to turn, take oral medications, or answer questions. Patient received IV Acetaminophen (Tylenol) 1,000mg at 1223 for pain and was subsequently calmer and more cooperative with staff. Patient's K+ was 3.3 this morning so he received 40mEq Potassium Chloride supplement. Taking oral medications crushed with applesauce or pudding per speech therapy. Patient continues to have difficulty answering questions, often responding with "not yet" to yes or no questions. Patient A-Fib 96bpm per monitor worker at 1730. Metoprolol was held throughout the day; patient has been hypotensive.Dressings on lower extremities are CDI. Right heel boot in place. Patient remains unalert, confused, and slightly agitated. Bed low and locked, call light within reach.
--- NOTE | 2016-06-16 17:57 | NUR ---
Shift: Student assessments/charting observed and reviewed. MAP 50s-60s all day, MD aware. INR WNL, Warfarin given per orders. Pt refusing care for most of shift, did allow repositioning three times. Care ongoing.
--- NOTE | 2016-06-16 21:15 | PCM.PNMED ---
Subjective Date of Service Jun 16, 2016 Subjective Patient is more responsive this morning. He reports that his back and his legs are hurting. Pt also reports that he is not feeling well today. Pt reports that he is hungry. Pt denies any shortness of breath or chest pain. Was able to speak with Kiya SULLIVAN at [facility], who reports patient is at his baseline mentation. She states he is slightly more agitated in the hospital , but reports he generally spends his days in bed. Exam Vital Signs Vital Sign - Last Date Time Temp Pulse Resp B/P Pulse Ox O2 Delivery O2 Flow Rate FiO2 06/16/16 20:45 36.7 95 28 102/57 99 Room Air 06/15/16 17:10 2.00 Intake and Output 06/15/16 06/15/16 06/16/16 Cumulative From/Thru 15:00 23:00 07:00 06/14/16 20:48 - 06/16/16 06:28 Intake Total 0 ml 0 ml 2915 ml 7431 ml Output Total 1100 ml 600 ml 250 ml 2350 ml Balance -1100 ml -600 ml 2665 ml 5081 ml Intake Oral 0 ml 0 ml 0 ml 0 ml IV Total 2915 ml 7431 ml Output Urine Total 1100 ml 600 ml 250 ml 2350 ml # Bowel Movements 0 0 0 Exam General: Extremely somnolent obese male lying supine in bed, appears older than stated age, Neck: Supple with full range of motion. Cardiovascular: Regular rate and rhythm with no murmurs, rubs, or gallops appreciated Pulmonary: Clear to auscultation bilaterally with no crackles, wheezes, or rhonchi. Normal respiratory effort with no use of accessory muscles. Abdomen: Bowel tones present. Soft, nontender, nondistended. Extremities: Diffuse nodules secondary to neurofibromatosis on face and entire body. Bilateral lower extremities with chronic venous stasis changes, and numerous wounds in various stages of healing. Psychiatric: Patient is more interactive this morning, and is willing to answer questions. Pt is still quite somnolent, but seems more aware this morning. IVs and Medications Medications Reviewed: Medications were reviewed in detail Lab and Diagnostics Result Diagram: 06/16/1662806/16/16628 X-Rays, CTs and MRIs Date of Service: 06/14/162057 PROCEDURE: X-RAY CHEST ONE VIEW, PORTABLE ([id number]) INDICATIONS: possible sepsis TECHNIQUE: One view of the chest was acquired. COMPARISON: [facility], CR, XR CHEST 1VW (PORTABLE), 05/22/2016, 20: 16. [facility], CR, XR CHEST 1VW (PORTABLE), 05/22/2016, 22:38. FINDINGS: Surgical changes and devices: None. Lungs and pleura: Bilateral perihilar infiltrates suspicious for pneumonia. No pleural effusions or pneumothorax. Mediastinum: Mediastinal contours appear normal. Heart size is normal. Bones and chest wall: No suspicious bony lesions. Overlying soft tissues appear unremarkable. IMPRESSION: Bilateral pneumonia. Dictated by: Ninoska Caal M.D. on 06/14/2016 at 21:33 Approved by: Ninoska Caal M.D. on 06/14/2016 at 21:36 Assessment & Plan 1. Severe sepsis, present on admission, ongoing -Sepsis is likely secondary to numerous wounds on the legs or back. -Severe sepsis was met due to tachycardia 137, tachypnea 28, lactic acid 3.6, hypotension 87/47 -MRSA screen negative -Discontinue the vancomycin -Currently treating with Zosyn and azithromycin -Blood cultures with no growth to date 2. Multiple lower extremity wounds with chronic venous stasis changes and back wound, present on admission, ongoing -Wound care has been consulted, and are assisting with the care -These wounds are the possible source of sepsis -No culture of wounds have been taken at this time -Continue IV antibiotics as above 3. Health care associated pneumonia, present on admission -CXR demonstrated bilateral perihilar infiltrates suspicious for pneumonia -Antibiotics as above -Chest x-ray to be repeated in the morning -Procalcitonin repeated today was 0.46 4. Supratherapeutic INR with active bleeding, present on admission, improving -On admission INR greater than 9, currently INR 1.56 -Patient is currently on warfarin secondary to chronic atrial fibrillation -Pharmacy to assist with dosing of warfarin -Daily labs 5. Acute hypernatremia, present on admission, ongoing -Calculated free water deficit to be 6.4L, and rate to be 213mls/hr of D5W for 30 hours -Per attending physician recommendation, pt started on D5w at rate of 100mls/hr -We will recheck labs in a.m. 6.Dehydration, present on admission, active - IV Fluids as stated above -Patient not taking appropriate oral intake at this time 7. Poor oral intake. chronic, ongoing -Per Kiya SULLIVAN at [facility], pt does not eat much at baseline -Speech thereapy has been consulted, and we appreciate thier time in assessing what is safe for patient. 8.Elevated troponin of unknown significance, present on admission, active - Troponin 0.117 on admission -Likely secondary to chronic kidney disease - Trending troponins, however expect them to be elevated - Continuous cardiac monitoring with telemetry 9. Afib with RVR, present on admission, active - Up all IV 2.5 mg every 8, will hold if heart rate is less than 70 - Patient on telemetry -Digoxin converted to IV format given patient's somnolence and inability to take by mouth meds 10. Hypotension, present on admission, ongoing -Patient received fluids in the ER -1/2 NS at 100 mils per hour maintenance -Bolus and S as needed -Continue to monitor 11. Non-compliance with care -Will discuss with patient what is wishes are regarding care -May consult Palliative Care to assist in discussing code status and general goals of care with patient, given his repeat hospitalizations, and continued worsening overall. Chronic issues 12Urinary retention -Burnett in place 13Emphysema 14Neurofibromatosis, chronic stable 15History of MRSA colonization 16Chronic pain -Patient takes oxycodone 5 mg every 4 hours when necessary as outpatient -Patient received 2 X 5/325 mg Percocet in the ED 17Depression - Patient takes venlafaxine, will continue this medication Disposition: Admitted to in patient service with expected length of stay greater than 2 days, secondary to severity of presenting symptoms, treatment plan, complexity of clinical work up, and risk of adverse events. CODE STATUS: Full code VTE Prophylaxis: Theraputic Anticoag with Warfarin (Super therapeutic INR) Resuscitation Status: CPR: Attempt Resuscitation Attending Statement The patient was seen and examined together with Dr. Mcmahon on 06-16-16 and I agree with the history, exam and plan as outlined in the note above. Melissa Mcmahon DO Jun 16, 2016 21:15 Taylor Chase MD Jun 17, 2016 08:31
[2016-06-17] VITALS (9 sets, daily range): BP systolic 79–97; BP diastolic 39–67; PULSE 83–104; RESP 14–28; O2SAT 93–97
[2016-06-17] MEDS: MeTOProlol 1 mg/mL 5 mL Inj IVPUSH SCH ×3 (00:30→16:30)
[2016-06-17] MEDS: Sodium Chloride LOK Flush 10 mL Syringe IVFLUSH SCH ×3 (00:30→16:30)
[2016-06-17] MEDS: Piperacillin-Tazo 3.375 Gm Inj 3.375 GM in Dextrose 5% Minibag Plus 50 ML IV SCH ×3 (00:54→16:46)
[2016-06-17] MEDS: Dextrose 5% 1,000 ML IV SCH ×2 (05:48→14:59)
--- NOTE | 2016-06-17 06:28 | NUR ---
LOW BP BP very low this night. SUP[employer]Y [employer] MANAGER automatic cuff reading 70s over 39. Retaken with manual cuff and was 98/56. HR averaging low 90s when asleep and low 100s when awake. On ped monitor in room. Pt won't admit that he is in pain until he is REALLY hurting. Gave oxycodone once with tylenol as pt very uncomfortable and pt asleep all night since then.
[2016-06-17 08:30] LABS: INR 1.2 ratio
[2016-06-17] MEDS: Budesonide 0.5 mg/2 mL Inhalation Solution INHALATION SCH (08:30)
[2016-06-17] MEDS: Azithromycin Inj 500 MG in Dextrose 5% w/Vial Mate 250 ML IV SCH (08:42)
--- NOTE | 2016-06-17 08:50 | DRSVH ---
PROCEDURE: X-RAY CHEST ONE VIEW, PORTABLE ([id number]) INDICATIONS: pna TECHNIQUE: One view of the chest was acquired. COMPARISON: [facility], CR, XR CHEST 1VW (PORTABLE), 06/16/2016, 10:32. FINDINGS: Surgical changes and devices: None. Lungs and pleura: There is a persistent appearance of bilateral patchy opacities most prominent in th e left base and retrocardiac region. Mediastinum: Mediastinal contours appear normal. Heart size is normal. Bones and chest wall: No suspicious bony lesions. Overlying soft tissues appear unremarkable. IMPRESSION: Unchanged appearance of pulmonary opacities as above suggestive of pneumonia. Underlying areas of edema cannot be excluded. Dictated by: Lianne Irene M.D. on 06/17/2016 at 8:48 Approved by: Lianne Irene M.D. on 06/17/2016 at 8:48
--- NOTE | 2016-06-17 09:00 | NUR ---
Social Work: Initial Assessment Data: Pt is a 65 y/o male admitted for over anticoagulation, bleeding from [place]. Pt's PCP is Dr Gonzales, pt's insurance is Medicare with [facility] supp. EMR reviewed. Readmit score is 4, high. Pt not appropriate for assessment as he has dementia. Pt is a LTC pt at [facility]. PHD INTERN spoke with [facility] who states that pt does not have an AD or DPOA, they are working on guardianship for him. Neither Izabela's or PHD INTERN have had success contact brother listed as NOK. Pt has no stairs, uses a wheelchair at baseline, does not drive, has no hx of HH, no LTC insurance or VA benefits, and is not a caregiver. PHD INTERN confirmed with [facility] that they plan to accept pt back at d/c, but they need notice as soon as possible. PHD INTERN let them know that yesterday the MD estimated Sunday, but PHD INTERN will update them if anything is different. PHD INTERN will continue to follow. Assessment: Pt with dementia at baseline. Plan: Pt will d/c back to [facility] via BLS when medically stable for d/c. PHD INTERN will continue to follow. KANDIS Gilbert Addendum: 06/17/16 at 0904 by DANITA IRVING SS Amended: Links added.
--- NOTE | 2016-06-17 09:11 | PCM.PHAPRO ---
Progress Date of Service: Jun 17, 2016 Requesting Provider: Melissa Mcmahon DO Elevated INR, bleeding wound on back INR GOAL 2-3 INR today 1.2 continue 5mg [facility] Jun 17, 2016 09:11
[2016-06-17 09:34] LABS: BASOPHILS % (AUTO) 1.1 % (0-3); EOSINOPHILS % (AUTO) 7.9 % (0-5); MONOCYTES % (AUTO) 7.1 % (4-12); Mean Corpuscular Volume 102.1 fL (81-100); NEUTROPHILS % (AUTO) 66.6 % (40-74); Platelet Count 201 bil/L (150-400)
[2016-06-17] MEDS: Venlafaxine XR 75 mg ER24 Capsule PO SCH (10:29)
[2016-06-17] MEDS: Nystatin 100,000 Unit/mL 5 mL Suspension PO SCH ×3 (10:29→21:33)
[2016-06-17] MEDS: Digoxin 0.25 mg/mL 2 mL Inj IV SCH (10:33)
[2016-06-17] MEDS ORDERED: Potassium Phos (mEq) Inj 40 MEQ in Dextrose 5% 500 ML IV ONE (11:40)
--- NOTE | 2016-06-17 13:05 | PCM.PNMED ---
Subjective Date of Service Jun 17, 2016 Subjective This morning patient reports that he is doing well. He states that he continues to have pain in his back and in his legs. Patient denies any chest pain, shortness of breath, nausea, vomiting or diarrhea. Patient reports that he is tired of being in the hospital. Discussed CODE STATUS with patient and he states that he would like compressions and cardioversion but no intubation. Patient also reports that he does not have a DPOA, and states that he is his own decision maker. Exam Vital Signs Vital Sign - Last Date Time Temp Pulse Resp B/P Pulse Ox O2 Delivery O2 Flow Rate FiO2 06/17/16 10:33 86 06/17/16 10:05 20 93 Room Air 06/17/16 09:50 36.7 93/57 06/15/16 17:10 2.00 Intake and Output 06/16/16 06/16/16 06/17/16 Cumulative From/Thru 14:59 22:59 06:59 06/14/16 20:48 - 06/17/16 06:31 Intake Total 1599 ml 666 ml 9696 ml Output Total 700 ml 500 ml 3550 ml Balance 899 ml 166 ml 6146 ml Intake Oral 0 ml 0 ml 0 ml IV Total 1579 ml 666 ml 9676 ml Tube Irrigant 20 ml 20 ml Output Urine Total 700 ml 500 ml 3550 ml # Bowel Movements 0 0 Exam General: Obese male lying supine in bed, appears older than stated age, appropriately interactive and alert Neck: Supple with full range of motion. Cardiovascular: Regular rate and rhythm with no murmurs, rubs, or gallops appreciated Pulmonary: Clear to auscultation bilaterally with no crackles, wheezes, or rhonchi. Normal respiratory effort with no use of accessory muscles. Abdomen: Bowel tones present. Soft, nontender, nondistended. Extremities: Diffuse nodules secondary to neurofibromatosis on face and entire body. Bilateral lower extremities with chronic venous stasis changes, and numerous wounds in various stages of healing. Psychiatric: Patient answering questions appropriately. Discussed his noncompliance with care, and his desire for full treatment. Patient is not interested in hospice and informs us he has been on hospice previously. IVs and Medications IV Fluids D5W Medications Reviewed: Medications were reviewed in detail Lab and Diagnostics Result Diagram: 06/17/[id number]/17/16924 X-Rays, CTs and MRIs Date of Service: 06/14/162057 PROCEDURE: X-RAY CHEST ONE VIEW, PORTABLE ([id number]) INDICATIONS: possible sepsis TECHNIQUE: One view of the chest was acquired. COMPARISON: [facility], CR, XR CHEST 1VW (PORTABLE), 05/22/2016, 20: 16. [facility], CR, XR CHEST 1VW (PORTABLE), 05/22/2016, 22:38. FINDINGS: Surgical changes and devices: None. Lungs and pleura: Bilateral perihilar infiltrates suspicious for pneumonia. No pleural effusions or pneumothorax. Mediastinum: Mediastinal contours appear normal. Heart size is normal. Bones and chest wall: No suspicious bony lesions. Overlying soft tissues appear unremarkable. IMPRESSION: Bilateral pneumonia. Dictated by: Ninoska Caal M.D. on 06/14/2016 at 21:33 Approved by: Ninoska Caal M.D. on 06/14/2016 at 21:36 PROCEDURE: X-RAY CHEST ONE VIEW, PORTABLE ([id number]) INDICATIONS: SHORTNESS OF BREATH TECHNIQUE: One view of the chest was acquired. COMPARISON: [facility], CR, XR CHEST 1VW (PORTABLE), 06/14/2016, 20: 55. FINDINGS: Surgical changes and devices: None. Lungs and pleura: Bilateral interstitial opacities redemonstrated with perihilar predominance. There also is been interval increase in airspace opacity within the left lung base. No pleural effusion or pneumothorax. Mediastinum: Mediastinal contours appear normal. Heart size is normal. Bones and chest wall: No suspicious bony lesions. Overlying soft tissues appear unremarkable. IMPRESSION: Mild edema and/or pneumonia involving the perihilum bilaterally as well as new density within the left lung base. Recommend clinical correlation. Dictated by: Kyle To Kenneth Interpreted: Lianne Irene MD on 06/16/2016 at 11: 10 Transcribed by: JJ on 06/16/2016 at 11:12 Approved by: Lianne Irene M.D. on 06/16/2016 at 16:06 PROCEDURE: X-RAY CHEST ONE VIEW, PORTABLE ([id number]) INDICATIONS: pna TECHNIQUE: One view of the chest was acquired. COMPARISON: [facility], CR, XR CHEST 1VW (PORTABLE), 06/16/2016, 10: 32. FINDINGS: Surgical changes and devices: None. Lungs and pleura: There is a persistent appearance of bilateral patchy opacities most prominent in the left base and retrocardiac region. Mediastinum: Mediastinal contours appear normal. Heart size is normal. Bones and chest wall: No suspicious bony lesions. Overlying soft tissues appear unremarkable. IMPRESSION: Unchanged appearance of pulmonary opacities as above suggestive of pneumonia. Underlying areas of edema cannot be excluded. Dictated by: Lianne Irene M.D. on 06/17/2016 at 8:48 Approved by: Lianne Irene M.D. on 06/17/2016 at 8:48 Assessment & Plan 1. Severe sepsis, present on admission, resolved -Sepsis was likely secondary to numerous wounds on the legs or back. -Severe sepsis was met due to tachycardia 137, tachypnea 28, lactic acid 3.6, hypotension 87/47 -MRSA screen negative -Currently treating with Zosyn and azithromycin -Blood cultures with no growth to date -White blood count has normalized 2. Multiple lower extremity wounds with chronic venous stasis changes and back wound, present on admission, ongoing -Wound care has been consulted, and are assisting with the care -These wounds are the possible source of sepsis -No culture of wounds have been taken at this time -Continue IV antibiotics as above 3. Health care associated pneumonia, present on admission, resolved -Patient has had multiple chest x-rays, most recent demonstrating "Unchanged appearance of pulmonary opacities as above suggestive of pneumonia. Underlying areas of edema cannot be excluded." -Patient has been afebrile after the first 24 hours of hospitalization -She does not currently have an elevated white count -Antibiotics as above -Chest x-ray to be repeated in the morning -Procalcitonin with no significant change 4. Supratherapeutic INR with active bleeding, present on admission, resolving -On admission INR greater than 9, currently INR 1.56 -Patient is currently on warfarin secondary to chronic atrial fibrillation -Pharmacy to assist with dosing of warfarin -Daily labs 5. Acute hypernatremia, present on admission, ongoing -Calculated free water deficit to be 6.4L, and rate to be 213mls/hr of D5W for 30 hours -Per attending physician recommendation, pt started on D5w at rate of 100mls/hr on 2/17/17. -Patient continues to be hyponatremic we will continue with D5W -We will recheck labs in a.m. 6. Acute hypo-kalemia, not present on admission, ongoing -We will provide patient with 40 mEq KCl IV -Patient will likely require daily by mouth potassium supplementation -We will recheck labs in a.m. 7.Dehydration likely secondary to sepsis, present on admission, resolved - IV Fluids as stated above -Patient not taking appropriate oral intake at this time 8. Poor oral intake. chronic, ongoing -Per Kiya SULLIVAN at [facility], pt does not eat much at baseline -Speech therapy evaluated the patient, and recommend "baseline diet of puree/ nectar with one dysphagia mechanical item per tray, meds in applesauce" -Continue to monitor for aspiration events 9.Elevated troponin of unknown significance, present on admission, active - Troponin 0.117 on admission -Likely secondary to chronic kidney disease - Trending troponins, however expect them to be elevated - Continuous cardiac monitoring with telemetry 10. Afib with RVR, present on admission, active - Up all IV 2.5 mg every 8, will hold if heart rate is less than 70 - Patient on telemetry -Digoxin converted to IV format given patient's somnolence and inability to take by mouth meds 11. Hypotension, present on admission, ongoing -Patient received fluids in the ER -1/2 NS at 100 mils per hour maintenance -Bolus and S as needed -Continue to monitor 12. Non-compliance with care -Will discuss with patient what is wishes are regarding care -May consult Palliative Care to assist in discussing code status and general goals of care with patient, given his repeat hospitalizations, and continued worsening overall. Chronic issues 13Urinary retention -Burnett in place 14Emphysema 15Neurofibromatosis, chronic stable 16History of MRSA colonization 17Chronic pain -Patient takes oxycodone 5 mg every 4 hours when necessary as outpatient -Patient received 2 X 5/325 mg Percocet in the ED 18Depression - Patient takes venlafaxine, will continue this medication Disposition: Admitted to in patient service with expected length of stay greater than 2 days, secondary to severity of presenting symptoms, treatment plan, complexity of clinical work up, and risk of adverse events. CODE STATUS: Compression and cardioversion okay. DO NOT INTUBATE VTE Prophylaxis: Theraputic Anticoag with Warfarin (Super therapeutic INR) Resuscitation Status: CPR: Attempt Resuscitation Attending Statement The patient was seen and examined together with Dr. Mcmahon on 06-17-16 and I agree with the history, exam and plan as outlined in the note above. Melissa Mcmahon DO Jun 17, 2016 13:05 Taylor Chase MD Jun 18, 2016 16:46
[2016-06-18] VITALS (10 sets, daily range): BP systolic 99–106; BP diastolic 56–72; PULSE 83–98; RESP 16–27; O2SAT 95–99
[2016-06-18] MEDS: MeTOProlol 1 mg/mL 5 mL Inj IVPUSH SCH ×2 (00:30→07:50)
[2016-06-18] MEDS: Sodium Chloride LOK Flush 10 mL Syringe IVFLUSH SCH ×3 (00:30→16:03)
[2016-06-18] MEDS: Piperacillin-Tazo 3.375 Gm Inj 3.375 GM in Dextrose 5% Minibag Plus 50 ML IV SCH ×4 (01:06→23:59)
[2016-06-18] MEDS: Dextrose 5% 1,000 ML IV SCH ×2 (01:07→06:38)
[2016-06-18 06:20] LABS: INR 1.55 ratio
[2016-06-18 06:40] LABS: BASOPHILS % (AUTO) 0.8 % (0-3); EOSINOPHILS % (AUTO) 6.4 % (0-5); MONOCYTES % (AUTO) 9.5 % (4-12); Mean Corpuscular Hemoglobin 30.8 pg (27.0-35.0); Mean Corpuscular Volume 100.3 fL (81-100); NEUTROPHILS % (AUTO) 61.4 % (40-74); Platelet Count 215 bil/L (150-400)
[2016-06-18] MEDS ORDERED: KCl 40 mEq/D5W 500 mL 40 MEQ in IV Premix 500 EACH IV ONE (06:55)
[2016-06-18] MEDS: Nystatin 100,000 Unit/mL 5 mL Suspension PO SCH ×3 (07:48→20:17)
[2016-06-18] MEDS: Venlafaxine XR 75 mg ER24 Capsule PO SCH (07:48)
[2016-06-18] MEDS: Azithromycin Inj 500 MG in Dextrose 5% w/Vial Mate 250 ML IV SCH (07:48)
[2016-06-18] MEDS: Digoxin 0.25 mg/mL 2 mL Inj IV SCH (07:52)
[2016-06-18] MEDS: Budesonide 0.5 mg/2 mL Inhalation Solution INHALATION SCH (08:30)
--- NOTE | 2016-06-18 08:35 | NUR ---
ARIANE signed KANDIS Gilbert
--- NOTE | 2016-06-18 09:14 | PCM.PHAPRO ---
Progress Date of Service: Jun 18, 2016 Requesting Provider: Melissa Mcmahon DO Elevated INR, bleeding wound on back inr goal 2-3 continue 5mg warfarin today [facility] Jun 18, 2016 09:14
--- NOTE | 2016-06-18 15:18 | PCM.PNMED ---
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 Hospital day #5. Overnight: There were no acute events. Telemetry overnight was atrial fibrillation, heart rate 80 to low 100's, with occasional PVCs. The patient is resting in bed comfortably and in no acute distress. He denies headache, cough, shortness of breath, chest pain, abdominal pain, nausea, vomiting, fever, chills, dysuria, diarrhea or constipation. He endorses lower extremity pain. He is voiding and eliminating without difficulty. He is bedbound. . Exam Vital Signs Vital Sign - Last Date Time Temp Pulse Resp B/P Pulse Ox O2 Delivery O2 Flow Rate FiO2 06/18/16 13:21 36.4 93 20 102/60 98 Room Air 06/15/16 17:10 2.00 Intake and Output 06/17/16 06/17/16 06/18/16 Cumulative From/Thru 15:00 23:00 07:00 06/14/16 20:48 - 06/18/16 06:12 Intake Total 2454 ml 1425 ml 50388 ml Output Total 1100 ml 2225 ml 6875 ml Balance 1354 ml -800 ml 6700 ml Intake Oral 708 ml 0 ml 708 ml IV Total 1746 ml 1425 ml 00216 ml Tube Irrigant 20 ml Output Urine Total 1100 ml 2225 ml 6875 ml # Bowel Movements 1 1 2 Exam General: Obese male lying in bed and in no acute distress, appears older than stated age, well-developed, well-nourished, appropriately interactive appropriately interactive and alert. HEENT: Normocephalic, atraumatic. External ears without defect. Pupils equal, round, and reactive to light. Anicteric sclerae, moist conjunctivae, and no lid lag. Oropharynx free of erythema and cobble stoning with moist mucosa. Neck: Supple with full range of motion. No jugular venous distension. No bruits. No lymphadenopathy or thyromegaly. Cardiovascular: Irregularly irregular rhythm without murmurs, rubs, or gallops appreciated Pulmonary: Clear to auscultation bilaterally with no crackles, wheezes, or rhonchi. Normal respiratory effort with no use of accessory muscles. Abdomen: Soft, nontender, nondistended, bowel sounds present. No hepatosplenomegaly or masses appreciated. Extremities: Diffuse nodules secondary to neurofibromatosis on face and entire body. Bilateral lower extremities with chronic venous stasis changes, and numerous wounds in various stages of healing. Skin: Normal temperature, turgor, and texture; no rash, ulcers, or subcutaneous nodules appreciated. Neurological: Cranial nerves grossly intact. Normal muscle strength, tone, and bulk. Reflexes, coordination, and sensory function within normal limits. No known gait impairment. Psychiatric: Normal mood and affect. Poor historian. Alert and oriented to person. . IVs and Medications Medications Reviewed: Medications were reviewed in detail Lab and Diagnostics Item Value Date Time Calcium Level 7.9 mg/dL L 06/18/16 0516 Total Bilirubin 0.5 mg/dL 06/18/16 0516 Aspartate Amino Transf (AST/SGOT) 29 U/L 06/18/16 0516 Alanine Aminotransferase (ALT/SGPT) 16 U/L 06/18/16 0516 Alkaline Phosphatase 89 U/L 06/18/16 0516 Total Protein 5.3 g/dL L 06/18/16 0516 Albumin 1.9 g/dL L 06/18/16 0516 Result Diagram: 06/18/16 0516 06/18/16 0516 Microbiology Blood cultures 2 show no growth after 2 days. MRSA screen negative. . X-Rays, CTs and MRIs X-RAY CHEST ONE VIEW, PORTABLE IMPRESSION: Bilateral pneumonia. Dictated by: Ninoska Caal M.D. on 06/14/2016 at 21:33 Approved by: Ninoska Caal M.D. on 06/14/2016 at 21:36 X-RAY CHEST ONE VIEW, PORTABLE IMPRESSION: Mild edema and/or pneumonia involving the perihilum bilaterally as well as new density within the left lung base. Recommend clinical correlation. Dictated by: Kyle DAHL Interpreted: Lianne Irene MD on 06/16/2016 at 11: 10 Transcribed by: JJ on 06/16/2016 at 11:12 Approved by: Lianne Irene M.D. on 06/16/2016 at 16:06 X-RAY CHEST ONE VIEW, PORTABLE IMPRESSION: Unchanged appearance of pulmonary opacities as above suggestive of pneumonia. Underlying areas of edema cannot be excluded. Dictated by: Lianne Irene M.D. on 06/17/2016 at 8:48 Approved by: Lianne Irene M.D. on 06/17/2016 at 8:48 . 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 Hospital day #5. 1. Health care associated pneumonia, present on admission. Resolving. - Patient has had multiple chest x-rays, most recent demonstrating unchanged appearance of pulmonary opacities suggestive of pneumonia with underlying areas of edema cannot be excluded, as above. - Patient has been afebrile after the first 24 hours of hospitalization. - No longer has a leukocytosis. - MRSA screen negative. - Blood cultures with no growth to date. - Continue azithromycin and Zosyn, day # 3 and 4 respectively. 2. Multiple lower extremity wounds with chronic venous stasis changes and back wound, present on admission. Ongoing. - Wound care has been consulted and are assisting with care. - Possible source of sepsis. - No culture of wounds have been taken at this time. - Continue to encourage PO intake of fluids. 3. Severe sepsis, present on admission. Resolved. - SIRS criteria met include: was met due to tachycardia 137, tachypnea 28, lactic acid 3.6, hypotension 87/47 with probable source multiple wounds and lower extremities. - Early goal-directed therapy mat including: IV fluid resuscitation and broad- spectrum antibiotics. 4. Acute coagulopathy with active bleeding, present on admission. Resolved. - Initial INR greater than 9. Currently INR 1.55. - Patient is currently on warfarin secondary to chronic atrial fibrillation. - Warfarin dosing per pharmacy. - Continue monitor INR daily. 5. Acute hypernatremia, present on admission. Resolving. - The patient had a calculated free water deficit of 6.4L during early part of hospitalization. - IV fluids discontinued once fluid resuscitated and thought to be taking in adequate PO fluids. - Continue to monitor daily. 6. Acute hypokalemia, not present on admission. Ongoing. - Ordered KCl 40 mEq IV. - Will start daily PO potassium supplementation with potassium chloride 20 mEq daily tomorrow. - Continue to monitor daily. 7. Dehydration likely secondary to sepsis, present on admission. Resolved. - IV fluids discontinued once fluid resuscitated and thought to be taking in adequate PO fluids. - Continue to encourage PO intake of fluids. 8. Poor oral intake, chronic. Stable. - Per Kiya SULLIVAN at [facility] the patient does not eat much at baseline. - Speech therapy evaluated the patient, and recommend "baseline diet of puree/ nectar with one dysphagia mechanical item per tray, meds in applesauce" - Continue to monitor for aspiration events. 9. Elevated troponin of unknown significance, present on admission. Stable. - Troponin 0.117 on admission. - Likely secondary to chronic kidney disease. - Trending troponins, however, expect them to be elevated. - Continue to monitor closely on telemetry. 10. Chronic atrial fibrillation with RVR, present on admission. Stable. - Discontinue metoprolol IV 2.5 mg every 8 hours. Restart her metoprolol tartrate 50 mg twice a day this afternoon. - Restarted by mouth digoxin 0.125 g daily. - Continue to monitor on telemetry. 11. Hypotension, present on admission. Stable. - Patient received fluids in the ER. IV fluids discontinued after adequate fluid resuscitation. - Continue to monitor PO intake and encourage fluid intake. 12. Non-compliance with care, chronic. - May consider Palliative Care consult to assist in discussing code status and general goals of care with patient, given his repeat hospitalizations, and continued worsening overall. 13. Urinary retention, chronic. - Burnett catheter in place. - Continue to monitor I's and O's. 14. Emphysema, chronic. - Continue Pulmicort 0.5 inhaled daily. 15. Neurofibromatosis, chronic. 16. Chronic pain with opiate habituation. - Continue oxycodone 5 mg every 4 hours as needed for pain. 17. Depression, chronic. - Continue venlafaxine. 18. History of MRSA colonization. PRN antiemetics: Zofran and Maalox. PRN bowel regimen: Senna and MiraLAX. PRN analgesics: Tylenol. Disposition: Likely to return to [facility] tomorrow depending upon clinical course. . VTE Prophylaxis: Theraputic Anticoag with Warfarin (Super therapeutic INR) Resuscitation Status: CPR: Attempt Resuscitation Attending Statement The patient was seen and examined together with Dr. Perez on 06-18-16 and I agree with the history, exam and plan as outlined in the note above. Suzanne Perez DO Jun 18, 2016 15:18 Taylor Chase MD Jun 19, 2016 07:45
[2016-06-18] MEDS ORDERED: 0.9% Sodium Chloride 250 ML ONE (15:25)
[2016-06-19] VITALS (7 sets, daily range): BP systolic 95–117; BP diastolic 54–65; PULSE 80–95; RESP 20–26; O2SAT 94–98
[2016-06-19] MEDS: Sodium Chloride LOK Flush 10 mL Syringe IVFLUSH SCH ×2 (00:19→08:06)
--- NOTE | 2016-06-19 05:26 | NUR ---
NOC/Turning and skin care Pt denies chest pain, sob, n/v or abd discomfort. Pt has been on PU protocol and on p500 KIM. q2 turning with 2 person assist provided. Right heel on foam boots. Currently on mp30 and running on Reduxio 86 per monitor gopi. Will continue to monitor.
[2016-06-19] MEDS ORDERED: 0.9% Sodium Chloride 250 ML ONE (07:21)
[2016-06-19] MEDS ORDERED: Potassium Chloride 20 mEq SR Tablet PO SCH (08:00)
[2016-06-19] MEDS: Azithromycin Inj 500 MG in Dextrose 5% w/Vial Mate 250 ML IV SCH (08:02)
[2016-06-19] MEDS: Piperacillin-Tazo 3.375 Gm Inj 3.375 GM in Dextrose 5% Minibag Plus 50 ML IV SCH (08:03)
[2016-06-19 08:04] LABS: Mean Corpuscular Hemoglobin 30.7 pg (27.0-35.0)
[2016-06-19] MEDS: Nystatin 100,000 Unit/mL 5 mL Suspension PO SCH ×2 (08:04→14:36)
[2016-06-19] MEDS: Venlafaxine XR 75 mg ER24 Capsule PO SCH (08:04)
[2016-06-19 08:08] LABS: BASOPHILS % (AUTO) 1.1 % (0-3); EOSINOPHILS % (AUTO) 6.4 % (0-5); MONOCYTES % (AUTO) 9.7 % (4-12); Mean Corpuscular Volume 101.2 fL (81-100); NEUTROPHILS % (AUTO) 62.2 % (40-74); Platelet Count 236 bil/L (150-400)
[2016-06-19 08:18] LABS: INR 2.27 ratio
[2016-06-19] MEDS: Budesonide 0.5 mg/2 mL Inhalation Solution INHALATION SCH (10:16)
--- NOTE | 2016-06-19 10:46 | NUR ---
Called and left message for [place] admissions that patient is planning to return today. [facility] needs approval from state for return waiting on update. Updated CHEMICAL EDUCATOR
--- NOTE | 2016-06-19 11:49 | PCM.PHAPRO ---
Progress Date of Service: Jun 19, 2016 Elevated INR, bleeding wound on back INR = 2.27, hgb/hct = 10.5/34.6. Pt continues on warfarin therapy for afib. INR has increased from 1.55 to 2.27 between yesterday and today. Will lower dose from 5mg, which the pt has received the past 3 days, to 2.5mg today. INRs are ordered. Pharmacy will continue to follow this patient's warfarin therapy. Ana Trujillo S PharmD Jun 19, 2016 11:49
--- NOTE | 2016-06-19 11:57 | DRSVH ---
PROCEDURE: X-RAY CHEST ONE VIEW, PORTABLE ([id number]) INDICATIONS: pna resolution assess TECHNIQUE: One view of the chest was acquired. COMPARISON: [facility], CR, XR CHEST 1VW (PORTABLE), 06/17/2016, 7:46. FINDINGS: Surgical changes and devices: None. Lungs and pleura: Interstitium is prominent and persistent bibasilar airspace opacities redemonstrate d. Mediastinum: Mediastinal contours appear normal. Heart size is normal. Bones and chest wall: No suspicious bony lesions. Overlying soft tissues appear unremarkable. IMPRESSION: Prominent interstitium redemonstrated as well as bibasilar airspace opacity consistent wi th atelectasis, pneumonia or areas of patchy pulmonary edema. Dictated by: Kyle DAHL Interpreted: Lianne Irene MD on 06/19/2016 at 11:56 Transcribed by: JJ on 06/19/2016 at 11:56 Approved by: Lianne Irene M.D. on 06/19/2016 at 16:35
--- NOTE | 2016-06-19 13:44 | PCM.DIMED ---
Nancy Pak DO 06/19/16 1344: Discharge Instructions Date of Service Jun 19, 2016 Dates of Hospitalization Jun 14, 2016 at 23:24 Discharge Diagnosis Discharge Diagnosis 1. Health care associated pneumonia, resolved 2. Multiple lower extremity wounds with chronic venous stasis changes and back wound, Stable 3. Severe sepsis, resolved 4. Acute coagulopathy with active bleeding, resolved 5. Acute hypernatremia, resolved 6. Acute hypokalemia,resolved 7. Dehydration likely secondary to sepsiss. resolved 8. Poor oral intake, stable 9. Elevated troponin of unknown significance, stable 10. Chronic atrial fibrillation with RVR, stable 11. Hypotension, stable 12. Non-compliance with care, ongoing 13. Urinary retention, stable 14. Emphysema, stable 15. Neurofibromatosis, stable 16. Chronic pain with opiate habituation, stable 17. Depression, stable 18. History of MRSA colonization, stable Medication Instructions Resume all home medications. No changes. Diet Heart Healthy, Renal Diet Activity Other (As tolerated per prior care at [facility]) Call your provider Fever or Chills, Shortness of breath, Chest pain, Weakness (unilateral) Patient Instructions Patient to discharge back to [facility] with Dr. Gonzales to follow. Will call the office. Follow-up Provider: Heidi Gonzales MD Follow-up with PCP in: 1 week Provider: Kiya Daley D Geoffrey MD 06/20/16 1638: Discharge Instructions Attending's Statement The patient was seen and examined together with Dr. Pak on 06-19-16 and I agree with the history, exam and plan as outlined in the note above. Nancy Pak DO Jun 19, 2016 13:44 Taylor Chase MD Jun 20, 2016 16:38
--- NOTE | 2016-06-19 13:48 | NUR ---
NUTRITION FOLLOW-UP ASSESS: 65 YO male admitted with over anticoagulation and bleeding wound on back. Pt has multiple chronic leg wounds, and is being followed by WC. ST has placed pt on Pureed diet + 1 dysphagia mechanical texture meat/protein item, which is what pt was receiving during last admit. Pt PO intake is improving. Pt stated willing to try Gelatein to increase protein and calorie intake. PMHX: Chronic venous stasis changes, Afib, CHF, COPD, Neurofibromatosis, Emphysema (per pt) LABS: Reviewed. Na 146, K 3.3, Cl 110, Vinyl Top Installer 0.66, Gluc 1.2, Ca 7.9, Alb 1.9, Procalcitonin 0.46 MEDS: Reviewed. Potassium Chloride, Sodium Chloride, Coumadin GI: BMx1 (06/18) SKIN: Marco 11 - Stg 2 PU on Sacrum, unstageable PU on heel, rt shoulder wound CURRENT WT: 101.1 kg, BMI 36.0 kg/m2 IBW: 64.5 kg, Admit Wt: 97.2 kg DIET: Pureed w/ NTL diet + 1 dysphagia mechanical texture meat item + pureed fruit + mashed potatoes with protein powder, + NT ensure. Ave. PO intake 45% EST. NEEDS (BMI, wounds) Kcals: 0434-7455 kcal/day (22-25 kcal/kg Admit BW) Pro: 95-115 g/day (1.5-1.8 g/kg IBW) NUTRITION DIAGNOSIS: 1.) Chew/swallow difficulties related weakness, ill-fitting dentures and mentation as evidence by history of needing altered diet texture per ST. ---PERSISTS PT CONTINUES ON PUREED DIET 2.) Increased nutrient needs related to increased demand for healing as evidence by pt with multiple wounds.---PERSISTS 3.) Inadequate oral intake related to refusal of care/mentation as evidence by pt refusing all meals x1 day.---IMPROVING W/ AVE PO INTAKE 45% NUTRITION INTERVENTION: 1.) Continue following diet adjustment per ST recommendation. 2.) Continue adding pureed fruit on all trays and mashed potatoes w/gravy mixed w/protein powder on L&D as pt seemed to like this during last admit. 3.) Add Gelatein Plus to L&D trays to help ensure adequate calorie and protein intake. MONITOR / EVAL: PO intake, labs, ST, GI, nutrition status, POC. Continue to monitor per high nutritional risk guidelines. Addendum: 06/19/16 at [address] Auxiliary student documentation reviewed. I agree with above documentation. Svetlana Abernathy, AXEL, CD
[2016-06-19] MEDS ORDERED: OXYC5TAB72 PO (13:49)
--- NOTE | 2016-06-19 14:09 | NUR ---
Faxed [facility] form for transportation to [facility] and asked for 1500 burr picker. Patient is returning to [place]. Updated PHARMACEUTICAL DETAILER and [place]
--- NOTE | 2016-06-19 14:11 | NUR ---
Social Work Discharge: Plan is SNF return to [facility] today. Patient demented and unable to participate in planning. [facility] attempted to contact emergency contact listed [place], , number is not a active number. Previous SW notes reflect that rehab center was working on guardianship on patient's behalf. [facility] faxed discharge paperwork to [place] and rep Sabi confirmed receipt of fax. UR specialist to coordinate transport via [facility] [employer] for picking tech at 3pm today. No other anticipated discharge needs at this time. [facility] will continue to follow PLAN: Return [facility] today at 3pm. [facility] will continue to follow Taylor MARQUIS Addendum: 06/19/16 at 1659 by KURTIS RAMIREZ SS [facility] coordinated transport via ambulance for picking tech at 510pm. Taylor MARQUIS
--- NOTE | 2016-06-19 17:58 | NUR ---
Discharge: Patient discharged to [facility] @ approx 1730. IV d/c'd intact, telemetry removed, network/telecom engineer notified. Report called to Ryan @ approx 1500. No personal belongings during admission. Packet sent with transport. Transport provided by [facility] via stretcher.
--- NOTE | 2016-06-19 19:49 | PCM.DC.MED ---
Discharge Summary Date of Service Jun 19, 2016 Dates of Hospitalization Date of Hospital Admission Jun 14, 2016 at 23:24 Date of Discharge: Jun 19, 2016 Providers: Admitting Physician: Pretty Villa MD Primary Care Physician: Heidi Gonzales MD Attending Physician: Pretty Villa MD Diagnosis at Time of Discharge Diagnosis at Time of Discharge 1. Health care associated pneumonia, resolved 2. Multiple lower extremity wounds with chronic venous stasis changes and back wound, Stable 3. Severe sepsis, resolved 4. Acute coagulopathy with active bleeding, resolved 5. Acute hypernatremia, resolved 6. Acute hypokalemia,resolved 7. Dehydration likely secondary to sepsiss. resolved 8. Poor oral intake, stable 9. Elevated troponin of unknown significance, stable 10. Chronic atrial fibrillation with RVR, stable 11. Hypotension, stable 12. Non-compliance with care, ongoing 13. Urinary retention, stable 14. Emphysema, stable 15. Neurofibromatosis, stable 16. Chronic pain with opiate habituation, stable 17. Depression, stable 18. History of MRSA colonization, stable Procedures XRay, CTs & MRIs X-RAY CHEST ONE VIEW, PORTABLE IMPRESSION: Bilateral pneumonia. Dictated by: Ninoska Caal M.D. on 06/14/2016 at 21:33 Approved by: Ninoska Caal M.D. on 06/14/2016 at 21:36 X-RAY CHEST ONE VIEW, PORTABLE IMPRESSION: Mild edema and/or pneumonia involving the perihilum bilaterally as well as new density within the left lung base. Recommend clinical correlation. Dictated by: Kyle To RRA Interpreted: Lianne Irene MD on 06/16/2016 at 11: 10 Transcribed by: JJ on 06/16/2016 at 11:12 Approved by: Lianne Irene M.D. on 06/16/2016 at 16:06 X-RAY CHEST ONE VIEW, PORTABLE IMPRESSION: Unchanged appearance of pulmonary opacities as above suggestive of pneumonia. Underlying areas of edema cannot be excluded. Dictated by: Lianne Irene M.D. on 06/17/2016 at 8:48 Approved by: Lianne Irene M.D. on 06/17/2016 at 8:48 Date of Service: 06/19/16 0902 X-RAY CHEST ONE VIEW, PORTABLE IMPRESSION: Prominent interstitium redemonstrated as well as bibasilar airspace opacity consistent with atelectasis, pneumonia or areas of patchy pulmonary edema. Dictated by: Kyle DAHL Interpreted: Lianne Irene MD on 06/19/2016 at 11: 56 . ECG 12 Lead ECG Interpretation: A-fib at a rate of 141 Inferior infarct, old Time: 21:11 Interpreted by: ED physician Brief History From Dr. Suarez's History and Physical dated 06/15/16: This is a 65 Y/O M with a complex medical history of chronic venous stasis changes, septic shock, atrial fibrillation (anticoagulated on Coumadin), emphysema, chronic wounds to left lower extremity presenting to the emergency department via EMS from [facility] due to bleeding wound on upper back as reported by staff. In the ED, patient responded to interview with , "everything hurts." Interview and history is limited to due patient condition. Recent admission from 05/22-06/06/2016 for AMS. Vital signs in ED: Temperature 37.0, pulse 137, respiratory rate 28, blood pressure 90/57 with a low of 87/47, O2 97% on room air. Hemogram are blood cell count 13.6, hemoglobin 13.3, hematocrit 43.1, MCV 102.1 , neutrophil percent 72.3 Chemistry panel: Sodium 152, potassium 4.8, chloride 106, carbon dioxide 32H, BUN 22, creatinine 0.98, glucose 1:15, lactic acid 3.6, AST 82, troponin 0.117, albumin 2.7. PT/INR, 108.4/9.67 UA: Dark yellow, hazy, few bacteria, hyaline casts, mucus present area. Chest x-ray showed bilateral pneumonias . Hospital Course Gary Mendez is a 65-year-old male who is a poor historian and has a past medical history significant for atrial fibrillation anticoagulated on warfarin, CHF, emphysema, dementia, and chronic wounds to the left lower extremity who presented to [facility] via EMS from [facility] due to bleeding wound on upper back and healthcare acquired pneumonia. Hospital day #5. 1. Health care associated pneumonia, present on admission. Resolved. - Patient has had multiple chest x-rays, most recent demonstrating unchanged appearance of pulmonary opacities suggestive of pneumonia with underlying areas of edema cannot be excluded, as above. - Patient has been afebrile after the first 24 hours of hospitalization. - No longer has a leukocytosis. - MRSA screen negative. - Blood cultures with no growth to date. - Had azithromycin and Zosyn, day # 3 and 4 respectively. Was not discharged on antibiotics. 2. Multiple lower extremity wounds with chronic venous stasis changes and back wound, present on admission. Ongoing. - Wound care assisted with care. - Possibly initially source of sepsis. - No culture of wounds have been taken at this time. - Encouraged PO intake of fluids. 3. Severe sepsis, present on admission. Resolved. - SIRS criteria met include: was met due to tachycardia 137, tachypnea 28, lactic acid 3.6, hypotension 87/47 with probable source multiple wounds and lower extremities. - Early goal-directed therapy including: IV fluid resuscitation and broad- spectrum antibiotics were utilized. 4. Acute coagulopathy with active bleeding, present on admission. Resolved. - Initial INR greater than 9. Currently INR 1.55. - Patient is currently on warfarin secondary to chronic atrial fibrillation. - Warfarin dosing per pharmacy. - Monitored INR daily. - Continue warfarin and monitoring in the outpatient setting. 5. Acute hypernatremia, present on admission. Resolving. - The patient had a calculated free water deficit of 6.4L during early part of hospitalization. - IV fluids discontinued once fluid resuscitated and thought to be taking in adequate PO fluids. - Continued to monitor daily. 6. Acute hypokalemia, not present on admission. Resolved. - KCl 40 mEq IV and PO potassium supplementation - Continued to monitor daily. 7. Dehydration likely secondary to sepsis, present on admission. Resolved. - IV fluids discontinued once fluid resuscitated and thought to be taking in adequate PO fluids. - Continued to encourage PO intake of fluids. 8. Poor oral intake, chronic. Stable. - Per Kiya SULLIVAN at [facility] the patient does not eat much at baseline. - Speech therapy evaluated the patient, and recommend "baseline diet of puree/ nectar with one dysphagia mechanical item per tray, meds in applesauce" - Continued to monitor for aspiration events (there were none). 9. Elevated troponin of unknown significance, present on admission. Stable. - Troponin 0.117 on admission. - Likely secondary to chronic kidney disease. - Trending troponins, however, expect them to be elevated. - Continued to monitor closely on telemetry. 10. Chronic atrial fibrillation with RVR, present on admission. Stable. - Discontinue metoprolol IV 2.5 mg every 8 hours. Restarted her metoprolol tartrate 50 mg twice a day - Restarted by mouth digoxin 0.125 g daily. - Continued to monitor on telemetry. 11. Hypotension, present on admission. Stable. - Patient received fluids in the ER. IV fluids discontinued after adequate fluid resuscitation. - Continued to monitor PO intake and encourage fluid intake. 12. Non-compliance with care, chronic. - Considered Palliative Care consult to assist in discussing code status and general goals of care with patient, given his repeat hospitalizations, and continued worsening overall. Did not consult after all. 13. Urinary retention, chronic. - Burnett catheter in place. - Continued to monitor I's and O's. 14. Emphysema, chronic. - Continued Pulmicort 0.5 inhaled daily. 15. Neurofibromatosis, chronic. 16. Chronic pain with opiate habituation. - Continued oxycodone 5 mg every 4 hours as needed for pain. 17. Depression, chronic. - Continued venlafaxine. 18. History of MRSA colonization. PRN antiemetics: Zofran and Maalox. PRN bowel regimen: Senna and MiraLAX. PRN analgesics: Tylenol. Exam Vital Signs (Last) Date Time Temp Pulse Resp B/P Pulse Ox O2 Delivery O2 Flow Rate FiO2 06/19/16 12:00 88 06/19/16 10:16 20 94 Room Air 06/19/16 09:39 36.1 100/63 06/15/16 17:10 2.00 Test 06/14/16 20:43 06/14/16 21:19 06/14/16 22:04 06/15/16 02:30 Hold Blue Top Tube Received (Received) Hold Red Top Tube Received (Received) Hold Purple Top Tube Received (Received) Hold [place] Top Tube Received (Received) Urine Color Dark yellow (YELLOW) Urine Appearance Hazy (CLEAR,HAZY) Urine pH 5.0 (5.0-8.0) Urine Specific Addis 1.015 (1.003-1.035) Urine Protein Negativemg/dL (NEG,TRACE) Urine Glucose (UA) Negativemg/dL (NEGATIVE) Urine Ketones Negativemg/dL (NEGATIVE) Urine Occult Blood Negative (NEGATIVE) Urine Nitrite Negative (NEGATIVE) Urine Bilirubin Negative (NEGATIVE) Urine Urobilinogen 1.0mg/dL (NORMAL) Urine Leukocyte Esterase Negative (NEGATIVE) Urine RBC 3-10/hpf (0-2) Urine WBC 0-5/hpf (0-5) Urine Epithelial Cells Moderate/hpf (NONE-MOD) Urine Crystals None seen (NONE SEEN) Urine Bacteria Few/hpf (NONE-FEW) Urine Hyaline Casts 09/16/lpf (NONE) Urine Granular Casts None seen (NONE SEEN) Urine Waxy Casts None seen (NONE SEEN) Urine Red Blood Cell Casts None seen (NONE SEEN) Urine White Blood Cell Casts None seen (NONE SEEN) Urine Mucus Present (None Seen) Urine Trichomonas None seen (NONE SEEN) Urine Yeast None (NONE SEEN) Urinalysis Comment None Urine Culture Reflexed Not indicated Lactic Acid Level 1.5mmol/L (0.4-2.0) Digoxin Level 0.4nG/mL (0.9-2.0) Test 06/15/16 06:24 06/15/16 17:35 06/16/16 08:40 06/19/16 07:40 Hemoglobin A1c 5.3% (4.8-5.6) Magnesium Level 1.9mg/dL (1.6-2.6) Hold Cardoza Top Tube Received (Received) Troponin T 0.061ug/L (0.0-0.011) Vancomycin Level Trough 22.1mcg/mL White Blood Count 8.5th/mm3 (3.8-10.1) Red Blood Count 3.42mil/mm3 (4.40-5.80) Hemoglobin 10.5g/dL (13.8-17.2) Hematocrit 34.6% (41.0-50.0) Mean Corpuscular Volume 101.2fL (81-100) Mean Corpuscular Hemoglobin 30.7pg (27.0-35.0) Mean Corpuscular Hemoglobin Concent 30.3% (32.0-37.0) Red Cell Distribution Width 14.3% (12.3-15.4) Platelet Count 236bil/L (150-400) Neutrophils (%) (Auto) 62.2% (40-74) Lymphocytes (%) (Auto) 19.4% (14-46) Monocytes (%) (Auto) 9.7% (4-12) Eosinophils (%) (Auto) 6.4% (0-5) Basophils (%) (Auto) 1.1% (0-3) Prothrombin Time 24.7sec (8.1-12.5) Prothromb Time International Ratio 2.27ratio Sodium Level 148mEq/L (134-144) Potassium Level 4.0mEq/L (3.5-5.2) Chloride Level 112mEq/L (97-108) Carbon Dioxide Level 26mmol/L (18-29) Blood Urea Nitrogen 6mg/dL (8-27) Creatinine 0.59mg/dL (0.76-1.27) Estimat Glomerular Filtration Rate 147mL/min (>59) Glucose Level 85mg/dL (60-99) Calcium Level 7.8mg/dL (8.5-10.1) Total Bilirubin 0.6mg/dL (0.0-1.2) Aspartate Amino Transf (AST/SGOT) 30U/L (0-50) Alanine Aminotransferase (ALT/SGPT) 17U/L (0-44) Alkaline Phosphatase 99U/L (25-160) Total Protein 4.8g/dL (6.4-8.4) Albumin 2.1g/dL (3.4-5.0) Procalcitonin 0.26ng/mL (0.00-0.08) Microbiology Results Blood cultures 2 show no growth after 2 days. MRSA screen negative. . Discharge Medications Discharge Medications Aclidinium [place] (Tudorza Pressair) 400 Mcg Aer.pow.ba 400 MCG IH DAILY ( Reported) Ascorbic Acid (Vitamin C) 500 Mg Capsule.er 500 MG PO DAILY (Reported) Budesonide Neb Soln (Budesonide Neb Soln) 0.5 Mg/2 Ml Neb 0.5 MG INHALATION DAILY (Reported) Digoxin (Digoxin) 125 Mcg Tablet 125 MCG PO DAILY (Reported) Fexofenadine (Fexofenadine) 180 Mg Tablet 180 MG PO DAILY (Reported) Metoprolol Tartrate (Metoprolol Tartrate) 50 Mg Tablet 50 MG PO BID Prescribed by: CHAVEZ AGUILAR MD Multivitamin (Multi Vitamin Daily) 1 Each Tablet 1 EACH PO DAILY (Reported) Nystatin (Nystatin) 100,000 Unit/1 Ml Oral.susp 100,000 UNIT PO TID (Reported) Tamsulosin (Flomax) 0.4 Mg Capsule 0.4 MG PO DAILY (Reported) Torsemide (Torsemide) 20 Mg Tablet 40 MG PO DAILY (Reported) Venlafaxine ER (Effexor XR) 75 Mg Capsule 75 MG PO DAILY (Reported) Warfarin Sodium (Warfarin Sodium) 6 Mg Tablet 6.5 MG PO DAILY (Reported) As needed Acetaminophen (Acetaminophen) 325 Mg Tablet 650 MG PO Q4H PRN PRN For Pain ( Reported) oxyCODONE (oxyCODONE) 5 Mg Tablet 5 MG PO Q4H PRN PRN For Pain Prescribed by: PAUL ZAMARRIPA DO Additional med instructions Resume all home medications. No changes. Followup Plan Disposition: To [facility] Follow-up plan I was able to call Dr. Gonzales's office and speak to the triage nurse, Nargis, regarding the patient's hospital course. She stated that she would pass the information to Dr. Gonzales. This note will be copied to both Dr. Gonzales and NATE Santos for their review. Discharge Diet: Heart Healthy, Renal Diet Discharge Activity: Other (As tolerated per prior care at [facility]) Patient Instructions Patient to discharge back to [facility] with Dr. Gonzales to follow. Will call the office. Follow-up Provider: Heidi Gonzales MD Follow-up with PCP in: 1 week Provider: Kiya Daley Follow-up in: 1 week Attending Statement The patient was seen and examined together with Dr. Zamarripa on 06-19-16 and I agree with the history, exam and plan as outlined in the note above. copies to: Kiya Daley; Heidi Gonzales MD, Janice M DO Jun 19, 2016 19:31 Taylor Chase MD Jun 20, 2016 16:39
== END 2016-06-19 17:45 | DRG 871 ==
LOC: SED 20:26 → MPC 23:24
PROVIDERS: ADMIT Specialist; ATTEND Specialist
DX: A41.9 Sepsis, unspecified organism (principal); J18.9 Pneumonia, unspecified organism; I24.8 Other forms of acute ischemic heart disease; E87.0 Hyperosmolality and hypernatremia; E87.2 Acidosis; F11.20 Opioid dependence, uncomplicated; L97.829 Non-pressure chronic ulcer of other part of left lower leg with unspecified severity; L97.819 Non-pressure chronic ulcer of other part of right lower leg with unspecified severity; D68.9 Coagulation defect, unspecified; Z79.01 Long term (current) use of anticoagulants; E86.0 Dehydration; Z86.14 Personal history of Methicillin resistant Staphylococcus aureus infection; G89.29 Other chronic pain; F32.9 Major depressive disorder, single episode, unspecified; I95.9 Hypotension, unspecified; Z91.19 Patient's noncompliance with other medical treatment and regimen; R33.9 Retention of urine, unspecified; E87.6 Hypokalemia; J43.9 Emphysema, unspecified; L89.152 Pressure ulcer of sacral region, stage 2; L89.610 Pressure ulcer of right heel, unstageable; R74.8 Abnormal levels of other serum enzymes; I48.2 Chronic atrial fibrillation; Q85.00 Neurofibromatosis, unspecified

== ENCOUNTER 2016-07-02 00:22 | Observation (INO) | payer MEDICARE, MEDICAID ==
[~2016-07-02] VITALS: Ht 170.2 cm; Wt 92.7 kg
[~2016-07-02 00:22] MED LIST changes: +ACET325T51 PO; +NYST1000 PO; +OXYC5TAB72 PO
--- NOTE | 2016-07-02 00:28 | ED.REPORT ---
HPI-Trauma Minor / Fall Date of Service Jul 02, 2016 ED Provider: Payam Cano MD History of Present Illness: Patient was declaired a standby trauma based on EMS report of declining mental status, head trauma, and anticoagulated status A demented 65 year old male with a history of CHF, COPD, dysphasia, HTN, and neurofibromatosis is presented to the ED from [facility] via EMS with AMS.Per EMS, the patient fell from his bed and hit his head. He has generalized pain. He was recently hospitalized for sepsis situation. He is currently taking Coumadin. Per retirement records, yesterday he was super therapeutic with INR 4.4. He was recently discharged from hospitalization. When asked, he does not remember what happened and repeats "I hope not." Patient mental status makes history intake difficult. Nursing Notes Stated Complaint: FALL FROM BED Nursing Notes Reviewed: Yes (Zazengo, Codenvy not reconciled) Allergies: Coded Allergies: No Known Allergies (Unverified , 06/14/16) Scheduled Aclidinium [place] (Tudorza Pressair) 400 Mcg Aer.pow.ba 400 MCG IH DAILY Ascorbic Acid (Vitamin C) 500 Mg Capsule.er 500 MG PO DAILY Budesonide Neb Soln (Budesonide Neb Soln) 0.5 Mg/2 Ml Neb 0.5 MG INHALATION DAILY Digoxin (Digoxin) 125 Mcg Tablet 125 MCG PO DAILY Fexofenadine (Fexofenadine) 180 Mg Tablet 180 MG PO DAILY Metoprolol Tartrate (Metoprolol Tartrate) 50 Mg Tablet 50 MG PO BID Multivitamin (Multi Vitamin Daily) 1 Each Tablet 1 EACH PO DAILY Nystatin (Nystatin) 100,000 Unit/1 Ml Oral.susp 100,000 UNIT PO TID Tamsulosin (Flomax) 0.4 Mg Capsule 0.4 MG PO DAILY Torsemide (Torsemide) 20 Mg Tablet 40 MG PO DAILY Venlafaxine ER (Effexor XR) 75 Mg Capsule 75 MG PO DAILY Warfarin Sodium (Warfarin Sodium) 6 Mg Tablet 6.5 MG PO DAILY Scheduled PRN Acetaminophen (Acetaminophen) 325 Mg Tablet 650 MG PO Q4H PRN PRN For Pain oxyCODONE (oxyCODONE) 5 Mg Tablet 5 MG PO Q4H PRN PRN For Pain General Time Seen by MD: 00:25 Chief Complaint Fall, Head injury, Other (Altered mental status) Hx Obtained From: EMS Unable to Obtain Hx: Mental status (Chronic, patient not-cooperative) Arrived By: Ambulance Onset Occurred: 1 - 4 hours ago Symptom Duration: Duration unknown Recent Healthcare: Recent doctor visit Similar Sx Previous: No Past Medical History Past Medical History Notes: Recent admission June 14-2016 for healthcare associated pneumonia and sepsis Notes from [facility] indicates patient was supratherapeutic with an INR 4.4 yesterday 06/30/2026 Past Medical History Chronic venous stasis changes. Sees wound clinic regularly for chronic wounds on his LLE. Emphysema (per pt) COPD HTN Dysphasia neurofibromatosis Neck atrial fibrillation, on warfarin She had noncompliance with care History of MRSA colonization Past Surgical History none per EMR Smoking History Never Smoker Social History Size at [facility], has a POLST form indicating limited interventions Alcohol Use: Denies alcohol use Other Social History: Lives in retirement Ambulatory Status Wheelchair Review of Systems Unable to Obtain ROS Mental status Physical Exam Initial Vital Signs See Trauma Flow Sheet Initial VS: Reviewed, Vital signs normal (Rate controlled Afib) General/Constitutional: Awake Alertness: Positive: Confused (+ Dementia, patient can not provide any hx. ) Appearance / Presentation: Positive: Obese Initial phone report was patient altered w/change from baseline, however at bedside report is that patient IS at baseline (and description from admit in recent weeks also matches) but that workforce staffing advisor were concerned patient *might* decline due to anticoagulated status Neck: Atraumatic No clinical signs of injury, but difficult to evaluate Head / Eyes: Normocephalic, PERRL, EOMI forehead contusion and nasal abrasion Head and skin covered with tubercles c/w neurofibromatosis ENT: Airway patent, Mucous membranes moist Dental / Gums: Positive: Decay extensive nose abrasion. Respiratory / Chest: Atraumatic, Breath sounds NL, Breath sounds = bilat, No respiratory distress, No rales, No rhonchi No signs of chest trauma evident Cardiovascular: Heart rate NL, Regular rhythm, Heart sounds NL, No gallop, No murmurs, No rubs Heart Rate / Rhythm: Positive: Irreg irregular rhythm (Rate controlled Afib) Abdomen: Atraumatic, No guarding, No rebound No signs of trauma to the abdomen evident clinically bruise on left arm. Multiple tubercles on skin, large one on L elbow Wrist / Hand: Atraumatic, Full range of motion contractions of the leg. Is in heel protectors. Chronic venous stasis change on the lower legs. allows ROM of hip without clinical signs of fx/dislocation Ankle / Foot: Atraumatic venous stasis Skin: Warm, Dry lots of tubercles from neurofibromatosis Moves upper extremities symmetrically. Refuses to follow commands (When asked to open eyes he says "no" and closes them tightly - but otherwise opens and looks around. Intermittantly hostile. Has no insight or judgement. No facial droops Contractures of LE limit LE eval Easily agitated (particularly with attempts to get him to lie flat and still for CT imaging) Abnormal Mood/Affect: Positive: Labile Abnormal Thinking / Perception: Positive: Insight abnormal, Judgment abnormal + Dementia Interpretation & Diagnostics Lab Results Interpretation Result Diagram: 07/02/1611407/02/165 Test 07/02/16 01:15 07/02/16 02:20 White Blood Count 11.2th/mm3 (3.8-10.1) Red Blood Count 3.97mil/mm3 (4.40-5.80) Hemoglobin 11.9g/dL (13.8-17.2) Hematocrit 38.5% (41.0-50.0) Mean Corpuscular Volume 97.0fL (81-100) Mean Corpuscular Hemoglobin 30.0pg (27.0-35.0) Mean Corpuscular Hemoglobin Concent 30.9% (32.0-37.0) Red Cell Distribution Width 15.3% (12.3-15.4) Platelet Count 283bil/L (150-400) Neutrophils (%) (Auto) 65.5% (40-74) Lymphocytes (%) (Auto) 19.6% (14-46) Monocytes (%) (Auto) 11.3% (4-12) Eosinophils (%) (Auto) 2.2% (0-5) Basophils (%) (Auto) 1.0% (0-3) Prothrombin Time 29.0sec (8.1-12.5) Prothromb Time International Ratio 2.66ratio Sodium Level 144mEq/L (134-144) Potassium Level 4.2mEq/L (3.5-5.2) Chloride Level 99mEq/L (97-108) Carbon Dioxide Level 32mmol/L (18-29) Blood Urea Nitrogen 24mg/dL (8-27) Creatinine 0.73mg/dL (0.76-1.27) Estimat Glomerular Filtration Rate 115mL/min (>59) Glucose Level 108mg/dL (60-99) Calcium Level 9.1mg/dL (8.5-10.1) Total Bilirubin 1.0mg/dL (0.0-1.2) Aspartate Amino Transf (AST/SGOT) 30U/L (0-50) Alanine Aminotransferase (ALT/SGPT) 16U/L (0-44) Alkaline Phosphatase 125U/L (25-160) Total Protein 7.3g/dL (6.4-8.4) Albumin 3.0g/dL (3.4-5.0) Hold Cardoza Top Tube Received (Received) Urine Color Dark yellow (YELLOW) Urine Appearance Hazy (CLEAR,HAZY) Urine pH 5.5 (5.0-8.0) Urine Specific [place] 1.015 (1.003-1.035) Urine Protein Negativemg/dL (NEG,TRACE) Urine Glucose (UA) Negativemg/dL (NEGATIVE) Urine Ketones Negativemg/dL (NEGATIVE) Urine Occult Blood Negative (NEGATIVE) Urine Nitrite Negative (NEGATIVE) Urine Bilirubin Negative (NEGATIVE) Urine Urobilinogen Normalmg/dL (NORMAL) Urine Leukocyte Esterase Negative (NEGATIVE) Urine RBC 0-2/hpf (0-2) Urine WBC 0-5/hpf (0-5) Urine Epithelial Cells Few/hpf (NONE-MOD) Urine Crystals Oxalic acid crystals (NONE Urine Bacteria Few/hpf (NONE-FEW) Urine Hyaline Casts Rare/lpf (NONE) Urine Granular Casts None seen (NONE SEEN) Urine Waxy Casts None seen (NONE SEEN) Urine Red Blood Cell Casts None seen (NONE SEEN) Urine White Blood Cell Casts None seen (NONE SEEN) Urine Mucus Present (None Seen) Urine Trichomonas None seen (NONE SEEN) Urine Yeast None (NONE SEEN) Urinalysis Comment None Urine Culture Reflexed Not indicated Lab Results Interpretation: CBC mild leukocytosis CMP normal INR therapeutic-down from supratherapeutic at 4.4 yesterday going to records from [facility] pending ECG Interpretation ECG Interpretation: Atrial fibrillation. Rate is 118. No interval change compared with June 15. No acute ischemic changes. Time: 01:57 Interpreted by: ED physician CT Head Interpretation CONCLUSION: Moderate atrophy and periventricular white matter changes. Prominent ventricles suggest central atrophy. No hemorrhage or other specific acute abnormality demonstrated. This report was transmitted to the emergecny room at 07/22/2016-0059 by River Morillo M.D. Interpretation / Wet Read by: Interpret - Radiologist CT C-Spine Interpretation CONCLUSION: No fracture or other specific acute abnormality. There are degenerative changes at the cervical thoracic junction. These may be related to old trauma. This report was transmitted to the emergency room at 07/02/[id number] by River Morillo M.D. Re-Eval/Medical Decision Med Decision/Clinical Course This is a 65-year-old demented patient resides at [facility] he was found on the floor, and had visible contusion to the forehead and abrasion to the nose , and so was sent into the ED for further evaluation. She has a history of atrial fibrillation and is on warfarin. Although been some discussion recent notes about stopping the warfarin, the patient is currently still anticoagulated adequately records had an INR yesterday was found to be supratherapeutic with an INR 4.4, so is warfarin was actually held today. Anticoagulated status, given his baseline mental status which is somewhat demented, nontender cooperative he is difficult to evaluate, and certainly at risk for intracranial hemorrhage-so sent in by EMS. Given the report of a somewhat altered mental status patient with a fall is anticoagulated on standby trauma was called, although it turns out the patient is at baseline altered mental status meaning he cannot give a history, is mildly agitated while really cooperate but he demonstrated no focality, and is often like this. Patient has covered with multiple tubercles, he does have a small contusion on his forehead and abrasion on his nose, as well as a small contusion on his left arm but does not have any other signs of external evident injury. He seems to have some contractures of the lower extremities, but no clinical findings of fracture or dislocation or evident. Patient was taken directly to CT scan on arrival, and I accompanied him there as he was awake, answering questions-but cannot give any useful history, and unfortunately as soon as we tried to lay him down and have him also for a CT scan, he became mildly combative, and required some chemical sedation with haloperidol to permit imaging to be obtained. Initial CT brain and CT C-spine were negative. I do not appreciate any visible signs of trauma to the chest or abdomen. Both the chest and abdomen are entirely nontender, the patient moves without evidence of discomfort, I am not finding indication for imaging of the chest and abdomen in this setting. All clinical features, no fall out of bed, concerning for the direct trauma to the head. Blood work demonstrated stool therapeutic INR 2.66. Hospital protocol protocol for normal head CT and an INR greater than 2, consultation with hospitalist service with a consideration for admission is indicated-and in this demented patient, who is hard to follow, this required chemical sedation, the plan is an observation admission, with repeat CT scan in the morning. If doing well at that point, discharge back to the SNF may be considered. The patient is rate controlled atrial fibrillation here. Initial dose of Haldol 5 mg IM, and then was able successfully get an IV and received additional 2.5mg and is settled down with this. I contacted the patient did endorse any specific complaints. The case has been discussed and the hospitalist. Source of Hx: Old records, EMS Re-Evaluation/Progress : Time of Eval: 01:30 Re-Evaluation/Progress Note: Rechecked patient and performed physical. Consultation : Referral / Consult Name: Aleshia Willams DO Call Returned at: 02:06 Pulley Maintainer: Agrees with eval, Agrees with plan, Accepts admit Note: Discussed patient case with Dr. Willams who accepts patient admit. Comorbidities: Anticoagulation therapy, Dementia, Disability Counseled Regarding: Need for admission Discharge & Departure Impression: Primary Impression: Blunt head trauma Encounter type: initial encounter Qualified Code: S09.8XXA - Other specified injuries of head, initial encounter Additional Impressions: Anticoagulated Fall from ground level Disposition: ADMITTED TO HOSPITAL Discharge Condition All VS Reviewed: Yes Condition: Stable Referrals: Heidi Gonzales MD (PCP) Jessica Attestation Portions of this note were transcribed by Kane Christopher. I, Dr. Cano personally performed the history, physical exam and medical decision-making; I reviewed and confirmed the accuracy of the information in the transcribed note. Signed by: Jessica Augustin, 07/02/2016and 0230. copies to: Heidi Gonzales MD, Matthew F MD Jul 02, 2016 00:28 Kane Christopher Jul 02, 2016 00:39
[2016-07-02] MEDS ORDERED: Haloperidol 5 mg/mL Inj IVPUSH ONE ×2 (00:40→01:15)
[2016-07-02] MEDS ORDERED: Haloperidol 5 mg/mL Inj ONE (00:41)
[2016-07-02 01:29] LABS: EOSINOPHILS % (AUTO) 2.2 % (0-5)
[2016-07-02 01:30] LABS: MONOCYTES % (AUTO) 11.3 % (4-12); NEUTROPHILS % (AUTO) 65.5 % (40-74)
[2016-07-02 01:47] LABS: Platelet Count 283 bil/L (150-400)
[2016-07-02 01:51] LABS: INR 2.66 ratio
[2016-07-02] MEDS ORDERED: Ondansetron 2 mg/mL 2 mL Inj IVPUSH PRN (02:10)
[2016-07-02] MEDS ORDERED: Alum-Mag Hydrox-Simeth 30 mL Suspension PO PRN (02:10)
[2016-07-02] MEDS ORDERED: Polyethylene Glycol (PEG) 17 Gm Powder PO PRN (02:10)
[2016-07-02 02:33] LABS: APPEARANCE,URINE HAZY (CLEAR,HAZY); COLOR,URINE DARK YELLOW (YELLOW); OCCULT BLOOD,URINE NEGATIVE (NEGATIVE); PH,URINE 5.5 (5.0-8.0); UROBILINOGEN,URINE NORMAL (NORMAL)
[2016-07-02 02:52] VITALS: BP 114/65; PULSE 78; RESP 20; O2SAT 97
[2016-07-02] MEDS ORDERED: WARF3TAB7 PO (03:53)
--- NOTE | 2016-07-02 05:08 | PCM.HPMED ---
Subjective Date of Service Jul 02, 2016 Primary Provider: Admitting Physician: Aleshia Willams DO Primary Care Physician: Heidi Gonzales MD Attending Physician: Aleshia Willams DO Chief Complaint: Unwitnessed fall History of Present Illness: Patient is a 65 year old male with a history of neurofibromatosis and dementia. He presented to [facility] on 07/02/16 after an unwitnessed fall out of bed. Patient unable to give any history at time of this H&P. History obtained from half-way notes, EMS report and ED notes. Patient is a resident at [facility]. He was found down by staff tonight with an abrasion on his forehead. As he is on coumadin there was a concern for bleeding into his brain. Questionable change in mental status as patient has dementia at baseline. PT/INR worksheet provided by [facility] shows INR 6.4 on 06/28/16 and INR 4.4 on 06/30/16. In the ED the patient was afebrile with a heart rate of 78, respiratory rate of 20, blood pressure 114/65, and O2 saturation of 97% on room air. Labs were remarkable for WBC 11.2, Hgb 11.9, INR 2.6. CT scan of the head and neck were done. Haldol was necessary for the patient to hold still during exam. Due to concerns of supratherapeutic INR and likely new head injury, patient admitted for additional observation. Review of Systems: Review of systems could not be done as the patient was not communicative at time of exam. Allergies Coded Allergies: No Known Allergies (Unverified , 06/14/16) Home Medications Per med rec from SNF: Tylenol 325 mg 1-2 tab PO Q4 PRN mild pain Tudorza 400 mcg 1 puff daily Ascorbic acid 500 mg daily Budesonide neb 0.5 mg/2mL daily Warfarin 3 mg daily Digoxin 125 mcg daily Fentanyl patch 12mcg Q3Days Fexofenadine 180 mg daily Imodium 2 mg Q8 PRN Metoprolol tartrate 50 mg BID Multivitamin daily Nystatin swish and swallow until 07/04/16 Oxycodone 5 mg Q4 PRN pain Tamsulosin 0.4 mg daily Torsemide 40 mg daily Venlafaxine 75 mg daily PMH Neurofibromatosis Hx of MRSA BPH Peripheral edema Chronic wound of left lower extremity Hypertension Hx of atrial fibrillation Depression COPD Surgical History Unable to illicit at this time Family History Unable to illicit at this time Social History Hx Alcohol Use: No Hx Substance Use: No Hx Tobacco Use: No Smoking Status: Never Smoker Living Arrangement: [facility] Facility Exam Vital Signs Vital Sign - Last Date Time Temp Pulse Resp B/P Pulse Ox O2 Delivery O2 Flow Rate FiO2 07/02/16 02:52 36.7 78 20 114/65 97 Room Air Exam Patient does not awaken during exam to verbal or tactile stimulus Head with mild abrasion on the forehead, tubercles of neurofibromatosis notable on the face Patient did not open eyes at all during exam Mucus membranes dry, no oral thrush observed but difficult to see back of mouth in uncooperative patient No cervical lymphadenopathy, neck supple, nontender No JVD noted Cardiac tones regular rate and rhythm with no murmur appreciated Lungs clear to auscultation bilaterally with adequate respiratory effort ( anteriorly) No abdominal tenderness, non-distended, normoactive bowel tones, soft Burnett absent Radial pulses normal and equivalent bilaterally, dorsalis pedis pulses difficult to appreciate bilaterally No cyanosis, clubbing; moderate pitting edema in bilateral lower extremities Covered chronic wound on left lower extremity, dressings CDI and not removed Neuro exam could not be done in uncooperative patient Lab and Diagnostics Result Diagram: 07/02/16 01107/02/16 011 X-Rays, CTs and MRIs CT head CONCLUSION: Moderate atrophy and periventricular white matter changes. Prominent ventricles suggest central atrophy. No hemorrhage or other specific acute abnormality demonstrated. [facility] radiologist: River Morillo MD 07/02/16 12:[address] cervical spine CONCLUSION: No fracture of other specific acute abnormality. There are degenerative changes at the cervical thoracic junction. These may be related to old trauma. [facility] radiologist: River Morillo MD 07/02/16 0148 Assessment & Plan Patient is a 65 year old male with a history of neurofibromatosis and dementia. He presented to [facility] on 07/02/16 after an unwitnessed fall out of bed and new head injury. INR supratherapeutic at 4.4 yesterday. Concern for possible bleeding in brain. Initial CT scan negative. Patient admitted for observation and repeat CT. 1. Fall from bed with head injury, acute, present on admission. - Concern for brain bleed with supratherapeutic INR and new head injury. - Repeat head CT w/o contrast at 12:30 PM. - Hold warfarin at this time. - If repeat CT scan normal, consider discharge back to [facility]. 2. COPD, chronic, presume stable. - Continue home meds: Tudorza 400 mcg daily, budesonide neb daily. 3. History of atrial fibrillation, chronic, presume stable. - Holding warfarin as above in #1. - Continue digoxin 125 mcg daily and metoprolol tartrate 50 mg BID. 4. 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 - Continue torsemide 40 mg daily. 5. Depression, chronic, presume stable. - Continue venlafaxine 75 mg daily. 6. Chronic pain, presume stable. - Patient uses fentanyl patch 12.5 mcg Q3days. If admitted longer than obs, re- order patch. 7. BPH, chronic, presume stable. - Continue tamsulosin 0.4 mg daily. 8. Oral thrush, acute, improving. - Continue nystatin swish and swallow until 07/04/16. 9. Chronic left lower extremity wound, presume stable. - Wound covered at time of admission. - Consider wound care consultation if patient remains admitted beyond obs. 10. Code status: - Could not discuss with patient. - POLST indicates limited interventions - NO INTUBATION - Antiemetic available PRN. - Bowel regimen available PRN. - Antacid available PRN. - Tylenol available PRN mild pain, fever. Patient admitted under observation status with expected length of stay less than 2 midnights for severity of present symptoms, complexities of treatment plan and risk for adverse events. VTE Prophylaxis Indicated: Contraindicated Resuscitation Status: Limited Interventions (No intubation) Attending Statement The patient was seen and examined together with house staff on 07/02/2016 and I agree with the history, exam and plan as outlined in the note above. Cate Christianson DO Jul 02, 2016 04:22 Aleshia Willams DO Jul 02, 2016 06:48
[2016-07-02 05:20] VITALS: PULSE 101
--- NOTE | 2016-07-02 05:58 | NUR ---
Admit Patient arrived to room at 0245 on a P500 bed. Patient had a fall at [facility]. Patient has dementia and he was not able to provide history or answer any questions. Patient not able to follow directions for care. Patient medications and care provided by [facility]. Patient has many skin issues and is being seen by wound care.
[2016-07-02 06:19] VITALS: BP 107/64; PULSE 60; RESP 18; O2SAT 91
--- NOTE | 2016-07-02 07:20 | DRSVH ---
PROCEDURE: CT BRAIN WITHOUT CONTRAST ([id number]) INDICATIONS: 65 year-old male with fall on Coumadin. TECHNIQUE: Noncontrast 4.5 mm thick angled axial sections acquired from the foramen magnum to the vertex, with c oronal reformats. COMPARISON: [facility], MR, BRAIN W/O CONTRAST, 12/15/2011, 12:25. FINDINGS: Image quality: Several images are degraded by patient motion. CSF spaces: Basal cisterns are patent. No extra-axial fluid collections. The ventricles remain sym metrically prominent in size and shape. Brain: No intracranial bleeds or masses. There are mild periventricular white matter chronic small vessel ischemic changes. Skull and face: Calvarium and visualized facial bones appear intact, without suspicious lesions. Sinuses: There is persistent asymmetric left maxillary sinus mucosal thickening. Other visualized sin uses and mastoids are clear. IMPRESSION: 1. No acute intracranial abnormalities after fall. 2. Chronic ventriculomegaly appears unchanged since 2011, and may represent central cerebral volume l oss, versus normal pressure hydrocephalus in the appropriate clinical setting. No significant discrepancy with preliminary [facility] report. Dictated by: Zain Adames M.D. on 07/02/2016 at 7:14 Approved by: Zain Adames M.D. on 07/02/2016 at 7:19
[2016-07-02] MEDS ORDERED: 0.9% Sodium Chloride 1,000 ML IV SCH (07:25)
--- NOTE | 2016-07-02 07:26 | DRSVH ---
PROCEDURE: CT CERVICAL SPINE WITHOUT CONTRAST ([id number]) INDICATIONS: 65 year-old male status post fall, on Coumadin. TECHNIQUE: Noncontrast 3 mm thick sections acquired from the skull base to the T6-T7 level. Sagittal and zabala l reformats were then constructed. For radiation dose reduction, the following was used: automated exposure control, adjustment of mA and/or kV according to patient size. COMPARISON: None. FINDINGS: Preliminary interpretation rendered by [facility]. Image quality: Excellent. Bones: No fractures or dislocations. There is moderate C6-C7 disc degeneration, with anterior and p osterior disc osteophyte complex. Visualized superior ribs are intact. Soft tissues: Prevertebral soft tissues are normal in thickness. No paravertebral hematomas. No ap ical pneumothoraces. IMPRESSION: No acute bony injuries of the cervical and upper thoracic spine. Moderate C6-C7 disc degeneration. No significant discrepancy with preliminary [facility] report. Dictated by: Zain Adames M.D. on 07/02/2016 at 7:19 Approved by: Zain Adames M.D. on 07/02/2016 at 7:25
[2016-07-02] MEDS ORDERED: Venlafaxine XR 75 mg ER24 Capsule PO SCH (08:30)
[2016-07-02] MEDS ORDERED: Tiotropium 18mcg/Cap 5 Capsule Inhaler Kit INHALATION SCH (08:30)
[2016-07-02] MEDS ORDERED: Budesonide 0.5 mg/2 mL Inhalation Solution INHALATION SCH (08:30)
[2016-07-02] MEDS ORDERED: FENT1PAT6 TRANSDERM (09:42)
[2016-07-02] MEDS ORDERED: AMIN30LI45 PO (09:44)
[2016-07-02 09:47] VITALS: BP 129/53; PULSE 91; RESP 22; O2SAT 91
[2016-07-02 09:58] LABS: INR 2.18 ratio
[2016-07-02 10:02] VITALS: PULSE 89
[2016-07-02] MEDS: Nystatin 100,000 Unit/mL 5 mL Suspension PO SCH ×2 (12:41→14:12)
--- NOTE | 2016-07-02 13:15 | DRSVH ---
PROCEDURE: CT BRAIN WITHOUT CONTRAST ([id number]) INDICATIONS: 65-year-old male status post ground level fall on Coumadin. TECHNIQUE: Noncontrast 4.5 mm thick angled axial sections acquired from the foramen magnum to the vertex, with c oronal reformats. COMPARISON: [facility], CT, CT BRAIN WO CON, 07/02/2016, 0:31. FINDINGS: Image quality: Excellent. CSF spaces: Basal cisterns are patent. No extra-axial fluid collections. Ventricles are symmetrica lly prominent size and shape. Brain: No midline shift. No intracranial masses or hemorrhage. Mild periventricular white matter c hronic small vessel ischemic changes again noted. Skull and face: Calvarium and visualized facial bones are intact, without suspicious lesions. Sinuses: Visualized sinuses and mastoids are clear. IMPRESSION: 1. No intracranial bleed is identified. 2. Moderate ventriculomegaly as before, consistent with central cerebral volume loss, versus normal pressure hydrocephalus in the appropriate clinical setting. Dictated by: Zain Adames M.D. on 07/02/2016 at 13:10 Approved by: Zain Adames M.D. on 07/02/2016 at 13:13
[2016-07-02 13:20] VITALS: BP 86/51; PULSE 77; RESP 20; O2SAT 94
--- NOTE | 2016-07-02 13:56 | NUR ---
Case Management D: Pt unable to understand observation status information. I attempted to contact his brother at phone number listed. This does not seem to be a valid number. Still needs HINOJOSA
--- NOTE | 2016-07-02 14:19 | PCM.DIMED ---
Suzanne Perez DO 07/02/16 1419: Discharge Instructions Date of Service Jul 02, 2016 Dates of Hospitalization Jul 02, 2016 at 02:26 Discharge Diagnosis Discharge Diagnosis Fall from bed with head injury, acute, present on admission. Resolved. COPD, chronic. Presumed stable. History of atrial fibrillation, chronic. Presumed stable. 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 Presumed stable. Depression, chronic, presumed stable. Chronic pain. Presumed stable. BPH, chronic. Presumed stable. Oral thrush, acute. Treating. Chronic left lower extremity wound. Presumed stable. Medication Instructions Per med rec from SNF: Tylenol 325 mg 1-2 tab PO Q4 PRN mild pain Tudorza 400 mcg 1 puff daily Ascorbic acid 500 mg daily Budesonide neb 0.5 mg/2mL daily Warfarin 3 mg daily Digoxin 125 mcg daily Fentanyl patch 12mcg Q3Days Fexofenadine 180 mg daily Imodium 2 mg Q8 PRN Metoprolol tartrate 50 mg BID Multivitamin daily Nystatin swish and swallow until 07/04/16 Oxycodone 5 mg Q4 PRN pain Tamsulosin 0.4 mg daily Torsemide 40 mg daily Venlafaxine 75 mg daily . Diet Heart Healthy Activity No restrictions Call your provider Shortness of breath, Bleeding, Chest pain, Weakness (unilateral) Patient Instructions Discharged back to [facility]. . Lucero Cabral DO 07/15/16 1539: Discharge Instructions Attending's Statement The patient was seen and examined together with Dr. Perez on 07/02/16 and I have added additional information to the note above. Suzanne Perez DO Jul 02, 2016 14:19 Lucero Cabral DO Jul 15, 2016 15:39
--- NOTE | 2016-07-02 14:21 | NUR ---
Social Work: Initial Assessment / Readiness for d/c Data: Pt is a 65 y/o male admitted for blunt head trauma, therapeudic INR. Pt's PCP is Dr Gonzales. Pt's insurance is Medicare with [facility] supp. EMR reviewed. DIESEL RETROFIT INSTALLER called [facility] where pt is a LTC pt. Pt is a wheelchair at baseline with ruth lift transfers. Pt receives assistance with all ADL's accept for feeding. [facility] does not have any DPOA paperwork on file. Pt does not have LTC insurance. Pt has brother Selwyn Mendez listed with phone number [phone], however this phone number seems to not be in service any longer. DIESEL RETROFIT INSTALLER called [facility] who plans to take pt back when medically stable, likely today per MD in rounds. DIESEL RETROFIT INSTALLER will continue to follow. Assessment: Pt from LTC SNF. Plan: Pt will d/c back to [facility] LTC when medically stable, likely today. DIESEL RETROFIT INSTALLER will continue to follow. KANDIS Gilbert Addendum: 07/02/16 at 1424 by DANITA IRVING Amended: Links added.
[2016-07-02] MEDS ORDERED: OXYC5TAB72 PO (14:33)
--- NOTE | 2016-07-02 14:56 | NUR ---
Social Work: Discharge Data: Pt is on day 1 of hospitalization. EMR reviewed. D/C orders are in. NEW CAR INSPECTOR notified [facility] and set up BLS transportation through [facility] for 4:00pm. NEW CAR INSPECTOR notified RN, pt, UA, and MD. No further d/c planning needs at this time. NEW CAR INSPECTOR will continue to follow if needs arise. Assessment: Pt who is LTC pt at SNF. Plan: Pt will d/c back to [facility] SNF at 4:00pm via BLS with [facility]. No further d/c planning needs at this time. NEW CAR INSPECTOR will continue to follow if needs arise. KANDIS Gilbert
--- NOTE | 2016-07-02 15:13 | NUR ---
skin assessment Pt has two pressure ulcers bilaterally on upper buttocks cheeks, no drainage, mepolex dressing applied, right cheek:35cm long and 12cm wide, pink in color. Pressure ulcer with minimal serosanguineous drainage on left hip. Right heel has either an unstageable ulcer or DTI that is hard, black and measures 65cm long and 58cm wide, no drainage, no dressing, foot in foam boot. Bilateral lower extremities edematous and wrapped in gauze with multiple skin tears, dressing CDI. Pt is on P500 and Q2 turns.
--- NOTE | 2016-07-02 16:30 | NUR ---
Discharge pt transferred back to [facility] via S. Report given to Gretchen. Iv removed. pt left displaying no s/s of distress
--- NOTE | 2016-07-02 19:50 | PCM.DC.MED ---
Discharge Summary Date of Service Jul 02, 2016 Dates of Hospitalization Date of Hospital Admission Jul 02, 2016 at 02:26 Date of Discharge: Jul 02, 2016 Providers: Admitting Physician: Aleshia Willams DO Primary Care Physician: Heidi Gonzales MD Attending Physician: Aleshia Willams DO Diagnosis at Time of Discharge Diagnosis at Time of Discharge Fall from bed with head injury, acute, present on admission. Resolved. COPD, chronic. Presumed stable. History of atrial fibrillation, chronic. Presumed stable. 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 Presumed stable. Depression, chronic, presumed stable. Chronic pain. Presumed stable. BPH, chronic. Presumed stable. Oral thrush, acute. Treating. Chronic left lower extremity wound. Presumed stable. Procedures XRay, CTs & MRIs CT BRAIN WITHOUT CONTRAST IMPRESSION: 1. No intracranial bleed is identified. 2. Moderate ventriculomegaly as before, consistent with central cerebral volume loss, versus normal pressure hydrocephalus in the appropriate clinical setting. Dictated by: Zain Adames M.D. on 07/02/2016 at 13:10 Approved by: Zain Adames M.D. on 07/02/2016 at 13:13 CT BRAIN WITHOUT CONTRAST IMPRESSION: 1. No acute intracranial abnormalities after fall. 2. Chronic ventriculomegaly appears unchanged since 2011, and may represent central cerebral volume loss, versus normal pressure hydrocephalus in the appropriate clinical setting. No significant discrepancy with preliminary [facility] report. Dictated by: Zain Adames M.D. on 07/02/2016 at 7:14 Approved by: Zain Adames M.D. on 07/02/2016 at 7:19 CT CERVICAL SPINE WITHOUT CONTRAST IMPRESSION: No acute bony injuries of the cervical and upper thoracic spine. Moderate C6-C7 disc degeneration. No significant discrepancy with preliminary [facility] report. Dictated by: Zain Adames M.D. on 07/02/2016 at 7:19 Approved by: Zain Adames M.D. on 07/02/2016 at 7:[address] Christianson's HPI on 07/01/16: Patient is a 65 year old male with a history of neurofibromatosis and dementia. He presented to [facility] on 07/02/16 after an unwitnessed fall out of bed. Patient unable to give any history at time of this H&P. History obtained from assisted notes, EMS report and ED notes. Patient is a resident at [facility]. He was found down by staff tonight with an abrasion on his forehead. As he is on coumadin there was a concern for bleeding into his brain. Questionable change in mental status as patient has dementia at baseline. PT/INR worksheet provided by [facility] shows INR 6.4 on 06/28/16 and INR 4.4 on 06/30/16. In the ED the patient was afebrile with a heart rate of 78, respiratory rate of 20, blood pressure 114/65, and O2 saturation of 97% on room air. Labs were remarkable for WBC 11.2, Hgb 11.9, INR 2.6. CT scan of the head and neck were done. Haldol was necessary for the patient to hold still during exam. Due to concerns of supratherapeutic INR and likely new head injury, patient admitted for additional observation. . Hospital Course Patient is a 65 year old male with a history of neurofibromatosis and dementia. He presented to [facility] on 07/02/16 after an unwitnessed fall out of bed and new head injury. INR supratherapeutic at 4.4 yesterday. Concern for possible bleeding in brain. Initial CT scan negative. Patient admitted for observation and repeat CT. 1. Fall from bed with head injury, acute, present on admission. - Concern for brain bleed with reported supratherapeutic INR the previous day per SNF and new head injury. - Repeat head CT w/o contrast showed no acute intracranial bleed. - Discharged on warfarin even though high fall risk patient is bed bound and does not ambulate. Recommend fall precautions in place at SNF. 2. COPD, chronic. Presume stable. - Continued home meds: Tudorza 400 mcg daily, budesonide neb daily. 3. History of atrial fibrillation, chronic, presume stable. - Restarted warfarin at time of discharge. - Continued digoxin 125 mcg daily and metoprolol tartrate 50 mg BID. 4. 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 - Continued torsemide 40 mg daily. 5. Depression, chronic, presume stable. - Continued venlafaxine 75 mg daily. 6. Chronic pain, presume stable. - Continued fentanyl patch 12.5 mcg Q3days. 7. BPH, chronic, presume stable. - Continued tamsulosin 0.4 mg daily. 8. Oral thrush, acute, improving. - Continued nystatin swish and swallow until 07/04/16. 9. Chronic left lower extremity wound, presume stable. - Wound covered at time of admission. - Recommend continuing to follow with wound clinic as an outpatient. . Exam Vital Signs (Last) Date Time Temp Pulse Resp B/P Pulse Ox O2 Delivery O2 Flow Rate FiO2 07/02/16 13:20 36.7 77 20 86/51 94 Room Air Exam General: Obese male lying in bed and in no acute distress, appears older than stated age, well-developed, well-nourished, appropriately interactive appropriately interactive and alert. HEENT: Normocephalic. Traumatic with mild abrasion on the forehead. Tubercles of neurofibromatosis notable on the face. External ears without defect. Pupils equal, round, and reactive to light. Anicteric sclerae, moist conjunctivae, and no lid lag. Mucus membranes dry, no oral thrush observed but difficult to see back of mouth in uncooperative patient. Neck: Supple with full range of motion. No jugular venous distension. No bruits. No lymphadenopathy or thyromegaly. Cardiovascular: Regular rhythm and rate without murmurs, rubs, or gallops appreciated Pulmonary: Clear to auscultation anteriorly without crackles, wheezes, or rhonchi. Normal respiratory effort with no use of accessory muscles. Abdomen: Soft, nontender, nondistended, bowel sounds present. No hepatosplenomegaly or masses appreciated. Extremities: Diffuse nodules secondary to neurofibromatosis on face and entire body. Bilateral lower extremities with chronic venous stasis changes, and numerous wounds in various stages of healing. Covered chronic wound on left lower extremity, dressings CDI and not removed Neurological: Exam could not be done in uncooperative patient. . Test 07/02/16 01:15 07/02/16 02:20 07/02/16 09:10 White Blood Count 11.2th/mm3 (3.8-10.1) Red Blood Count 3.97mil/mm3 (4.40-5.80) Hemoglobin 11.9g/dL (13.8-17.2) Hematocrit 38.5% (41.0-50.0) Mean Corpuscular Volume 97.0fL (81-100) Mean Corpuscular Hemoglobin 30.0pg (27.0-35.0) Mean Corpuscular Hemoglobin Concent 30.9% (32.0-37.0) Red Cell Distribution Width 15.3% (12.3-15.4) Platelet Count 283bil/L (150-400) Neutrophils (%) (Auto) 65.5% (40-74) Lymphocytes (%) (Auto) 19.6% (14-46) Monocytes (%) (Auto) 11.3% (4-12) Eosinophils (%) (Auto) 2.2% (0-5) Basophils (%) (Auto) 1.0% (0-3) Sodium Level 144mEq/L (134-144) Potassium Level 4.2mEq/L (3.5-5.2) Chloride Level 99mEq/L (97-108) Carbon Dioxide Level 32mmol/L (18-29) Blood Urea Nitrogen 24mg/dL (8-27) Creatinine 0.73mg/dL (0.76-1.27) Estimat Glomerular Filtration Rate 115mL/min (>59) Glucose Level 108mg/dL (60-99) Calcium Level 9.1mg/dL (8.5-10.1) Total Bilirubin 1.0mg/dL (0.0-1.2) Aspartate Amino Transf (AST/SGOT) 30U/L (0-50) Alanine Aminotransferase (ALT/SGPT) 16U/L (0-44) Alkaline Phosphatase 125U/L (25-160) Total Protein 7.3g/dL (6.4-8.4) Albumin 3.0g/dL (3.4-5.0) Hold Cardoza Top Tube Received (Received) Urine Color Dark yellow (YELLOW) Urine Appearance Hazy (CLEAR,HAZY) Urine pH 5.5 (5.0-8.0) Urine Specific [place] 1.015 (1.003-1.035) Urine Protein Negativemg/dL (NEG,TRACE) Urine Glucose (UA) Negativemg/dL (NEGATIVE) Urine Ketones Negativemg/dL (NEGATIVE) Urine Occult Blood Negative (NEGATIVE) Urine Nitrite Negative (NEGATIVE) Urine Bilirubin Negative (NEGATIVE) Urine Urobilinogen Normalmg/dL (NORMAL) Urine Leukocyte Esterase Negative (NEGATIVE) Urine RBC 0-2/hpf (0-2) Urine WBC 0-5/hpf (0-5) Urine Epithelial Cells Few/hpf (NONE-MOD) Urine Crystals Oxalic acid crystals (NONE Urine Bacteria Few/hpf (NONE-FEW) Urine Hyaline Casts Rare/lpf (NONE) Urine Granular Casts None seen (NONE SEEN) Urine Waxy Casts None seen (NONE SEEN) Urine Red Blood Cell Casts None seen (NONE SEEN) Urine White Blood Cell Casts None seen (NONE SEEN) Urine Mucus Present (None Seen) Urine Trichomonas None seen (NONE SEEN) Urine Yeast None (NONE SEEN) Urinalysis Comment None Urine Culture Reflexed Not indicated Prothrombin Time 23.7sec (8.1-12.5) Prothromb Time International Ratio 2.18ratio Discharge Medications Discharge Medications Aclidinium Rupert (Tudorza Pressair) 400 Mcg Aer.pow.ba 400 MCG IH DAILY ( Reported) Ascorbic Acid (Vitamin C) 500 Mg Capsule.er 500 MG PO DAILY (Reported) Budesonide Neb Soln (Budesonide Neb Soln) 0.5 Mg/2 Ml Neb 0.5 MG INHALATION DAILY (Reported) Digoxin (Digoxin) 125 Mcg Tablet 125 MCG PO DAILY (Reported) Fentanyl 12.5 mcg/hr Patch (Fentanyl 12.5 mcg/hr Patch) 1 Each Patch.td72 1 PATCH TRANSDERM Q3D (Reported) Fexofenadine (Fexofenadine) 180 Mg Tablet 180 MG PO DAILY (Reported) Metoprolol Tartrate (Metoprolol Tartrate) 50 Mg Tablet 50 MG PO BID Prescribed by: CHAVEZ AGUILAR MD Multivitamin (Multi Vitamin Daily) 1 Each Tablet 1 EACH PO DAILY (Reported) Nystatin (Nystatin) 100,000 Unit/1 Ml Oral.susp 100,000 UNIT PO TID (Reported) Tamsulosin (Flomax) 0.4 Mg Capsule 0.4 MG PO DAILY (Reported) Torsemide (Torsemide) 20 Mg Tablet 40 MG PO DAILY (Reported) Venlafaxine ER (Effexor XR) 75 Mg Capsule 75 MG PO DAILY (Reported) Warfarin Sodium (Warfarin Sodium) 3 Mg Tablet 3 MG PO DAILY (Reported) As needed Acetaminophen (Acetaminophen) 325 Mg Tablet 650 MG PO Q4H PRN PRN For Pain ( Reported) oxyCODONE (oxyCODONE) 5 Mg Tablet 5 MG PO Q4H PRN PRN For Pain Prescribed by: ADAN SIMMS DO Miscellaneous Medications Amino Acids/Protein Hydrolys (Liquacel 100 Liquid Packet) 15 Gram-100 Kcal/30 Ml Liquid.pkt 30 ML PO (Reported) Additional med instructions Per med rec from SNF: Tylenol 325 mg 1-2 tab PO Q4 PRN mild pain Tudorza 400 mcg 1 puff daily Ascorbic acid 500 mg daily Budesonide neb 0.5 mg/2mL daily Warfarin 3 mg daily Digoxin 125 mcg daily Fentanyl patch 12mcg Q3Days Fexofenadine 180 mg daily Imodium 2 mg Q8 PRN Metoprolol tartrate 50 mg BID Multivitamin daily Nystatin swish and swallow until 07/04/16 Oxycodone 5 mg Q4 PRN pain Tamsulosin 0.4 mg daily Torsemide 40 mg daily Venlafaxine 75 mg daily . Followup Plan Disposition: Discharged back to [facility] with Dr. Gonzales to follow. . Discharge Diet: Heart Healthy Discharge Activity: No restrictions Patient Instructions Discharged back to [facility]. . Time spent Greater than 35 minutes Attending Statement The patient was seen and examined together with Dr. Simms on 07/02/16 and I agree with the history, exam and plan as outlined in the note above. copies to: Heidi Gonzales MD, [place] M DO Jul 02, 2016 15:39 Lucero Cabral DO Jul 15, 2016 15:41
== END 2016-07-02 16:23 ==
LOC: EDBD 00:22 → SED 00:22 → MPC 02:26
PROVIDERS: ADMIT Internal Medicine; ATTEND Internal Medicine
DX: S00.81XA Abrasion of other part of head, initial encounter (principal); W06.XXXA Fall from bed, initial encounter; Z91.81 History of falling; Y93.89 Activity, other specified; Y92.122 Bedroom in nursing home as the place of occurrence of the external cause; J44.9 Chronic obstructive pulmonary disease, unspecified; I48.2 Chronic atrial fibrillation; I50.42 Chronic combined systolic (congestive) and diastolic (congestive) heart failure; I11.0 Hypertensive heart disease with heart failure; R60.1 Generalized edema; F32.9 Major depressive disorder, single episode, unspecified; G89.4 Chronic pain syndrome; F45.42 Pain disorder with related psychological factors; N40.0 Benign prostatic hyperplasia without lower urinary tract symptoms; B37.0 Candidal stomatitis; S81.802A Unspecified open wound, left lower leg, initial encounter; Q85.00 Neurofibromatosis, unspecified; F03.90 Unspecified dementia, unspecified severity, without behavioral disturbance, psychotic disturbance, mood disturbance, and anxiety; Z86.14 Personal history of Methicillin resistant Staphylococcus aureus infection; Z79.01 Long term (current) use of anticoagulants; Z79.51 Long term (current) use of inhaled steroids
CPT/HCPCS: 36415; 70450; 72125; 80053; 81000; 83690; 85025; 85610; 93005; 96372; 96374; 99285; G0378; J1630; J7030

== ENCOUNTER 2016-08-02 09:28 | Inpatient (IN) | payer MEDICARE, MEDICAID ==
[2016-08-02] VITALS (8 sets, daily range): BP systolic 83–149; BP diastolic 38–136; PULSE 125–146; RESP 15–27; O2SAT 91–100
[~2016-08-02] VITALS: Ht 182.9 cm; Wt 92.6 kg
[~2016-08-02 09:28] MED LIST changes: +AMIN30LI45 PO; +FENT1PAT6 TRANSDERM; +WARF3TAB7 PO; -WARF6TAB6 PO
[2016-08-02] MEDS ORDERED: 0.9% Sodium Chloride 1,000 ML IV ONE (09:55)
[2016-08-02 10:15] LABS: BASOPHILS % (AUTO) 1.2 % (0-3); Mean Corpuscular Hemoglobin 28.3 pg (27.0-35.0)
[2016-08-02] MEDS ORDERED: MeTOProlol 1 mg/mL 5 mL Inj IVPUSH ONE (10:15)
[2016-08-02 10:18] LABS: EOSINOPHILS % (AUTO) 0.5 % (0-5); MONOCYTES % (AUTO) 9.1 % (4-12); Mean Corpuscular Volume 100.4 fL (81-100); NEUTROPHILS % (AUTO) 65.5 % (40-74); Platelet Count 230 bil/L (150-400)
[2016-08-02 10:47] LABS: Magnesium 2.8 mg/dL (1.6-2.6)
[2016-08-02 10:50] LABS: TROPONIN T 0.39 ug/L (0.0-0.011)
[2016-08-02] MEDS ORDERED: Piperacillin-Tazo 3.375 Gm Inj 3.375 GM in Dextrose 5% Minibag Plus 50 ML IV ONE (11:05)
[2016-08-02] MEDS ORDERED: Vancomycin Dose per Pharmacist XX SCH (11:05)
[2016-08-02 11:08] LABS: INR 1.4 ratio
[2016-08-02] MEDS: 0.9% Sodium Chloride 1,000 ML IV SCH ×6 (11:12→16:46)
[2016-08-02] MEDS ORDERED: Vancomycin Dose per Pharmacist XX ONE ×2 (11:16→13:10)
[2016-08-02] MEDS ORDERED: Vancomycin Inj 1,750 MG in 0.9% Sodium Chloride 500 ML IV ONE (11:20)
--- NOTE | 2016-08-02 11:36 | DRSVH ---
PROCEDURE: X-RAY CHEST ONE VIEW, PORTABLE ([id number]) INDICATIONS: COPD, possible sepsis. TECHNIQUE: One view of the chest was acquired. COMPARISON: [facility], CR, XR CHEST 1VW (PORTABLE), 06/19/2016, 9:48. FINDINGS: Surgical changes and devices: None. Lungs and pleura: Interstitial prominence is present throughout the lungs, primarily seen within the perihilar regions. No focal consolidation, effusion, or pneumothorax is evident. Mediastinum: Mediastinal contours appear normal. Heart size is normal. Bones and chest wall: No suspicious bony lesions. Degenerative changes of the bilateral shoulders a nd spine are noted. Overlying soft tissues appear unremarkable. IMPRESSION: Perihilar interstitial prominence may be chronic. However, developing pulmonary edema or atypical interstitial pneumonia cannot be entirely excluded and clinical correlation is recommended. Dictated by: Abdirashid Kearns M.D. on 08/02/2016 at 10:31 Approved by: Abdirashid Kearns M.D. on 08/02/2016 at 10:34
[2016-08-02 11:38] LABS: APPEARANCE,URINE CLEAR (CLEAR,HAZY); COLOR,URINE YELLOW (YELLOW); OCCULT BLOOD,URINE NEGATIVE (NEGATIVE); PH,URINE 5.5 (5.0-8.0); UROBILINOGEN,URINE NORMAL (NORMAL)
[2016-08-02] MEDS ORDERED: Ketamine 10 mg/mL 20 mL Inj IV ONE (11:45)
[2016-08-02 11:46] LABS: ICTOTEST,URINE POSITIVE (Negative)
[2016-08-02] MEDS ORDERED: Alum-Mag Hydrox-Simeth 30 mL Suspension PO PRN ×2 (12:25→13:10)
[2016-08-02] MEDS ORDERED: Ondansetron 2 mg/mL 2 mL Inj IVPUSH PRN ×2 (12:25→13:10)
[2016-08-02] MEDS ORDERED: levoFLOXacin Inj 750 MG in IV Premix 1 EACH IV ONE (12:30)
--- NOTE | 2016-08-02 12:36 | DRSVH ---
PROCEDURE: X-RAY CHEST ONE VIEW, PORTABLE ([id number]) INDICATIONS: central line TECHNIQUE: One view of the chest was acquired. COMPARISON: [facility], CR, XR CHEST 1VW (PORTABLE), 08/02/2016, 11:03. [facility], CR, XR CHEST 1VW (PORTABLE), 06/19/2016, 9:48. FINDINGS: Surgical changes and devices: There has been interval placement of a right-sided central line cathete r with the tip overlying the low superior vena cava. Lungs and pleura: The aeration of the lungs appears to have improved slightly in the interim with con tinued perihilar interstitial prominence. No lobar consolidation is evident. No pneumothorax is purvi dent and Mediastinum: Mediastinal contours appear normal. Heart size is normal. Bones and chest wall: No suspicious bony lesions. Overlying soft tissues appear unremarkable. IMPRESSION: 1. Right-sided central line catheter is positioned with the tip overlying the low superior vena cava . 2. No pneumothorax. Dictated by: Abdirashid Kearns M.D. on 08/02/2016 at 11:27 Approved by: Abdirashid Kearns M.D. on 08/02/2016 at 11:35
[2016-08-02] MEDS ORDERED: 0.9% Sodium Chloride 1,000 ML IV SCH (13:09)
[2016-08-02] MEDS ORDERED: Polyethylene Glycol (PEG) 17 Gm Powder PO PRN (13:10)
--- NOTE | 2016-08-02 13:20 | DRSVH ---
PROCEDURE: CT BRAIN WITHOUT CONTRAST ([id number]) INDICATIONS: AMS, on coumadin TECHNIQUE: Noncontrast 4.5 mm thick angled axial sections acquired from the foramen magnum to the vertex, with c oronal reformats. COMPARISON: [facility], CT, CT BRAIN WO CON, 07/02/2016, 12:51. FINDINGS: Image quality: Diagnostic. Mild motion artifact is present. Suboptimal positioning of the head in t he gantry is present. Brain: There is no acute intra-axial or extra-axial hemorrhage. No extra-axial fluid collection is i dentified. There is no midline shift or mass effect. The orbits are grossly unremarkable. No large areas of diffusely decreased attenuation are evident within the brain to suggest diffuse cer ebral edema. Extensive areas of periventricular low attenuation are identified within the supratento rial brain. These are similar to the prior study. The ventricles and cortical sulci are prominently enlarged, more pronounced involving the lateral otilia tricles. Bones: Calvarium and visualized facial bones are grossly intact. There is a small air-fluid level w ithin the left maxillary sinus. Both maxillary sinuses are small in size. Otherwise, the remainder of the imaged paranasal sinuses and mastoid air cells are clear. IMPRESSION: 1. No acute intracranial hemorrhage. 2. Extensive chronic small vessel ischemic changes. 3. Moderate parenchymal volume loss. 4. Nonspecific enlargement of the lateral ventricles and the 3rd ventricle. In the correct clinical setting, this appearance may be seen with normal pressure hydrocephalus. Please correlate clinicall y. Dictated by: Abdirashid Kearns M.D. on 08/02/2016 at 12:16 Approved by: Abdirashid Kearns M.D. on 08/02/2016 at 12:19
[2016-08-02] MEDS ORDERED: METO25TA6 PO (13:32)
[2016-08-02] MEDS ORDERED: OXYC5TAB72 PO (13:32)
[2016-08-02] MEDS ORDERED: DIPH25CA6 PO (13:32)
[2016-08-02] MEDS ORDERED: LACT1CAP65 PO (13:32)
[2016-08-02] MEDS ORDERED: WARF1TAB6 PO (13:32)
[2016-08-02] MEDS ORDERED: ADV250INH IH (13:32)
--- NOTE | 2016-08-02 13:32 | DRSVH ---
PROCEDURE: CT ABDOMEN AND PELVIS WITH CONTRAST ([id number]) INDICATIONS: severe sepsis TECHNIQUE: After the administration of oral and intravenous contrast, 5 mm thick sections acquired from the diap hragms to the symphysis. 5 mm thick coronal and sagittal reformats were performed. For radiation do se reduction, the following was used: automated exposure control, adjustment of mA and/or kV accordi ng to patient size. COMPARISON: None. FINDINGS: Image quality: Excellent. ABDOMEN: Lung bases: There is mild scarring at the lung bases. The heart is slightly prominent in size. Ther e is no significant pericardial effusion. Aortic valve calcifications and coronary artery atheroscle rosis appears to be present. Solid organs: The liver is normal in size. No definite liver lesions are appreciated. There is mild to moderate intrahepatic biliary dilatation and possible mild amounts of the common bile duct, which appears to measure up to approximately 8 mm. The gallbladder is markedly enlarged and measures up t o approximately 12 x 5 cm. No definite surrounding inflammation is appreciated. The portal vein is patent. The spleen, adrenals, and pancreas are within normal limits. The kidneys are normal in size . Multiple bilateral renal cysts are evident. There is no hydronephrosis. No obvious solid renal l esions are appreciated. Peritoneum and bowel: The stomach, duodenum, and remainder of the small bowel loops are nondilated. A large amount of stool is identified throughout the colon. No bowel obstruction is evident. The ap pendix is not definitely seen. No significant diverticulosis is evident. No bowel wall inflammation is appreciated. No free fluid, loculated fluid collection or free air is evident within the abdomen or pelvis. Nodes and vessels: No retroperitoneal or mesenteric adenopathy. Aorta and inferior vena cava are no rmal in caliber. There is aortic atherosclerosis. Miscellaneous: There is an age indeterminate prominent L1 compression deformity with approximately 90 % anterior vertebral height loss. There is an S-shaped scoliotic deformity of the imaged thoracolumb ar spine. No suspicious osseous lesions are evident. PELVIS: Pelvic soft tissues: There is a Burnett catheter within the urinary bladder. Mild prominence of the ur inary bladder wall may be exaggerated by incomplete distention. No free fluid, loculated fluid colle ction or free air is evident within the pelvis. There is no pelvic lymphadenopathy. No inguinal her nias are evident. Subcutaneous edema within the gluteal regions and proximal thighs appears to be pr esent bilaterally. There are small bilateral inguinal lymph nodes present, which do not appear to be pathologically enlarged. Bones: Moderate degenerative changes of the hips are present. An old avulsion injury involving the a nterosuperior aspect of the right superior iliac spine is evident at the rectus femoris tendon insert ion on the right. There also degenerative changes of the sacroiliac joints and pubis symphysis. No suspicious osseous lesions are evident. IMPRESSION: 1. No definite signs of infection within the abdomen or pelvis. There are no abscesses. 2. Enlarged gallbladder with mild biliary dilatation. While nonspecific, this appearance may be see n in the setting of acalculus cholecystitis. The need for better evaluation utilizing a gallbladder ultrasound may be determined clinically. 3. Large amount of stool throughout the colon is suggestive of constipation. 4. No abdominal or pelvic hematomas. 5. Subcutaneous edema involving the bilateral thigh/gluteal regions (left greater than right) withou t a definite loculated fluid collection appreciated. 6. Urinary bladder wall prominence is likely exaggerated by incomplete distention related to the Fol ey catheter. Please correlate clinically to exclude cystitis. Additional findings: -Renal cysts without hydronephrosis. -Aortic atherosclerosis. -Age indeterminate L1 compression deformity. -Prominent degenerative changes of the lumbosacral spine and bilateral hips. Dictated by: Abdirashid Kearns M.D. on 08/02/2016 at 12:19 Approved by: Abdirashid Kearns M.D. on 08/02/2016 at 12:30
[2016-08-02] MEDS ORDERED: POTA20PA12 PO (13:35)
[2016-08-02] MEDS ORDERED: TIOT18CA3 IH (13:35)
[2016-08-02] MEDS ORDERED: SPIR25TA3 PO (13:35)
--- NOTE | 2016-08-02 13:57 | ED.REPORT ---
HPI-Altered Mental Status Date of Service Aug 02, 2016 ED Provider: Zachary Rachel DO Patient is a 65-year-old gentleman with neurofibromatosis, dementia, history of atrial fibrillation currently anticoagulated, presented to [facility] emergency department via EMS from [facility] with reported fever overnight, apparent shortness of breath, and low blood pressures in the 90s. Patient is unable to answer questions, history taken from EMS, ER records , and prior hospital admissions. He has multiple decubitus ulcers for which he is undergoing wound care treatment. Nursing Notes Stated Complaint: SEPSIS Chief Complaint: Neuro Symptoms/ Deficits Allergies: Coded Allergies: No Known Allergies (Unverified , 08/02/16) Scheduled Ascorbic Acid (Vitamin C) 500 Mg Capsule.er 500 MG PO DAILY Digoxin (Digoxin) 125 Mcg Tablet 62.5 MCG PO DAILY Fexofenadine (Fexofenadine) 180 Mg Tablet 180 MG PO DAILY Fluticasone/Salmeterol (Advair 250-50 Diskus) 60 Puff/Inh Disk 1 PUFF IH BID Lactobacillus Acidophilus (Probiotic) 1 Each Capsule 1 EACH PO DAILY Metoprolol Tartrate (Metoprolol Tartrate) 25 Mg Tablet 12.5 MG PO BID Multivitamin (Multi Vitamin Daily) 1 Each Tablet 1 EACH PO DAILY Nystatin (Nystatin) 100,000 Unit/1 Ml Oral.susp 100,000 UNIT PO QID Potassium Chloride (Potassium Chloride Powder) 20 Meq Packet 80 MEQ PO DAILY DISSOVE CONTENTS OF PACKET IN FULL GLASS OF WATER AND DRINK ONCE DAILY. TAKE WITH FOOD Spironolactone (Spironolactone) 25 Mg Tablet 25 MG PO DAILY Tamsulosin (Flomax) 0.4 Mg Capsule 0.4 MG PO HS Tiotropium [place] (Spiriva) 18 Mcg Cap.w.dev 18 MCG IH DAILY Torsemide (Torsemide) 20 Mg Tablet 40 MG PO DAILY Venlafaxine ER (Effexor XR) 75 Mg Capsule 75 MG PO TID Warfarin Sodium (Warfarin Sodium) 1 Mg Tablet 1 MG PO DAILY Scheduled PRN Acetaminophen (Acetaminophen) 325 Mg Tablet 650 MG PO Q4H PRN PRN For Pain diphenhydrAMINE HCl (Benadryl) 25 Mg Capsule 50 MG PO QID PRN PRN allergic r-n oxyCODONE (oxyCODONE) 5 Mg Tablet 5-10 MG PO Q4H PRN PRN For Pain General Time Seen by MD: 09:41 Chief Complaint Other Hx Obtained From: EMS Arrived By: Ambulance Sudden in Onset?: Yes Onset Occurred: 17 - 20 hours ago Context of Onset: Fever Past Medical History Past Medical History Notes: Was seen in early June for witnessed fall while supratherapeutic INR. There is no evidence of brain bleed at the time. Past Medical History Chronic venous stasis changes. Sees wound clinic regularly for chronic wounds on his LLE. Emphysema (per pt) COPD HTN Dysphasia neurofibromatosis Neck atrial fibrillation, on warfarin She had noncompliance with care History of MRSA colonization Past Surgical History none per EMR Smoking History Never Smoker Social History Resides at [place], has a POLST form indicating limited interventions No intubation. Alcohol Use: Denies alcohol use Other Social History: Lives in [facility] Ambulatory Status Wheelchair Review of Systems Review of Systems Note: Patient was unable to convey appropriate responses secondary to underlying dementia. Physical Exam General: Laying in bed, in moderate distress. HEENT: Normocephalic, atraumatic, EOMI grossly, mucous membranes dry tongue appears to have debris, however do not appreciate thrush. No JVD. Numerous flesh-colored papules of varying size diffuse over her head and neck Cardiovascular: Irregularly irregular, tachycardic, no clicks murmurs or rubs appreciated, sound charted by wheezing. Pulmonary: Expiratory wheezes, chest excursion equal bilaterally, Abdominal: Soft to palpation, bowel sounds present 4, no hepatosplenomegaly. Negative rebound- exam performed within the limits of patient's mentation Extremities: No edema appreciated. Purple discoloration from proximal pretibial area down, there are numerous wounds including lateral malleoli of left leg, medial malleoli right leg. Gauze in place, legs are tender to palpation. Wounds are weeping, no purulence, they are erythematous. Neuro: Is able to move upper extremities, and lower extremities, however certain barriers are guarded. Patient's mental status does not allow comprehensive her logic examination. Skin: Numerous papules over head and neck, torso, consistent with neurofibromatosis. There is a 1 cm x 1.5 cm wound to supra-sacral area, there is weeping and some purulence and exposure of underlying tissue. MSK: Upper extremity strength is 5 out of 5, lower extremity strength is unable to be evaluated. Border Measurer strength unable to be evaluated due to patient's inability to follow instructions. Initial Vital Signs Vital Signs (First) Date Time Temp Pulse Resp B/P Pulse Ox O2 Delivery O2 Flow Rate FiO2 08/02/16 09:47 146 15 104/68 08/02/16 10:08 39.2 91 Nasal Cannula 3 Initial VS: Reviewed, Vital signs abnormal Interpretation & Diagnostics Lab Results Interpretation Result Diagram: 08/02/16 0955 08/02/16 1233 Test 08/02/16 09:55 08/02/16 10:30 08/02/16 10:47 08/02/16 12:33 White Blood Count 17.2th/mm3 (3.8-10.1) Red Blood Count 4.70mil/mm3 (4.40-5.80) Hemoglobin 13.3g/dL (13.8-17.2) Hematocrit 47.2% (41.0-50.0) Mean Corpuscular Volume 100.4fL (81-100) Mean Corpuscular Hemoglobin 28.3pg (27.0-35.0) Mean Corpuscular Hemoglobin Concent 28.2% (32.0-37.0) Red Cell Distribution Width 18.7% (12.3-15.4) Platelet Count 230bil/L (150-400) Neutrophils (%) (Auto) 65.5% (40-74) Lymphocytes (%) (Auto) 23.1% (14-46) Monocytes (%) (Auto) 9.1% (4-12) Eosinophils (%) (Auto) 0.5% (0-5) Basophils (%) (Auto) 1.2% (0-3) Prothrombin Time 15.1sec (8.1-12.5) Prothromb Time International Ratio 1.40ratio Magnesium Level 2.8mg/dL (1.6-2.6) Total Bilirubin 1.4mg/dL (0.0-1.2) Aspartate Amino Transf (AST/SGOT) 43U/L (0-50) Alanine Aminotransferase (ALT/SGPT) 27U/L (0-44) Alkaline Phosphatase 192U/L (25-160) Pro-B-Type Natriuretic Peptide 3546pg/mL (0-376) Total Protein 8.7g/dL (6.4-8.4) Albumin 3.4g/dL (3.4-5.0) Procalcitonin 0.69ng/mL (0.00-0.08) Urine Legionella pneumophilia Ag Negative (Negative) Urine Color Yellow (YELLOW) Urine Appearance Clear (CLEAR,HAZY) Urine pH 5.5 (5.0-8.0) Urine Specific [place] 1.020 (1.003-1.035) Urine Protein Tracemg/dL (NEG,TRACE) Urine Glucose (UA) Negativemg/dL (NEGATIVE) Urine Ketones Negativemg/dL (NEGATIVE) Urine Occult Blood Negative (NEGATIVE) Urine Nitrite Negative (NEGATIVE) Urine Bilirubin Small (NEGATIVE) Urine Ictotest Positive (Negative) Urine Urobilinogen Normalmg/dL (NORMAL) Urine Leukocyte Esterase Negative (NEGATIVE) Urine RBC 0-2/hpf (0-2) Urine WBC 0-5/hpf (0-5) Urine Epithelial Cells Few/hpf (NONE-MOD) Urine Crystals None seen (NONE SEEN) Urine Bacteria Few/hpf (NONE-FEW) Urine Hyaline Casts 5/20/lpf (NONE) Urine Granular Casts None seen (NONE SEEN) Urine Waxy Casts None seen (NONE SEEN) Urine Red Blood Cell Casts None seen (NONE SEEN) Urine White Blood Cell Casts None seen (NONE SEEN) Urine Mucus Present (None Seen) Urine Trichomonas None seen (NONE SEEN) Urine Yeast None (NONE SEEN) Urinalysis Comment None Urine Culture Reflexed Not indicated Sodium Level 158mEq/L (134-144) Potassium Level 4.9mEq/L (3.5-5.2) Chloride Level 122mEq/L (97-108) Carbon Dioxide Level 23mmol/L (18-29) Blood Urea Nitrogen 31mg/dL (8-27) Creatinine 1.40mg/dL (0.76-1.27) Estimat Glomerular Filtration Rate 54mL/min (>59) Glucose Level 100mg/dL (60-99) Calcium Level 8.2mg/dL (8.5-10.1) Lab Results Interpretation: Lactic acidosis Leukocytosis Hypernatremia, hyperchloremia, hyperkalemia, acute kidney injury Elevated troponin ECG Interpretation ECG Interpretation: Atrial fibrillation with RVR Rate 152 Left anterior fascicular block Time: 10:00 Re-Eval/Medical Decision Med Decision/Clinical Course Patient with altered mental status possibly at baseline from dementia presented to the emergency department with tachycardia, reported hypotension with blood pressure in the 90s, and fever overnight. Thought was for sepsis, EKG showed atrial fibrillation with RVR, and lactic acid returned elevated. He was given 5 mg IV metoprolol. He received 3 L IV saline, and a central line was placed to his right internal jugular vein. Due to the numerous electrolyte dyscrasias, signs of acute kidney injury, and multiple fluid boluses without substantial decreased his heart rate, patient was admitted for sepsis with presumed source of cutaneous wounds. Attending note: Patient presents with severe sepsis and dehydration significant electrolyte abnormalities, possible sources include possible pneumonia, decubitus ulcers, lower extremity wounds, broad-spectrum antibiotics are initiated. Central line was placed under sterile maximum barrier precautions with ultrasound guidance for fluid resuscitation. Patient will be admitted. Source of Hx: Old records, EMS Patient Discharge & Departure Impression: Primary Impression: Severe sepsis Additional Impression: ULCER OF OTHER PART OF LOWER LIMB Disposition: ADMITTED TO HOSPITAL Discharge Condition All VS Reviewed: Yes Condition: Improved Referrals: Heidi Gonzales MD (PCP) Crit Care Except Billable Proc Time Spent: 30-74 minutes Services Performed: Patient management by me, Time spent at bedside, Reviewing test results Critical Care Notes: See MDM, Attending Statement The patient was seen and examined together with Dr. Eason on 08/02/2016 and I have added additional information to the note above. copies to: Heidi Gonzales MD, Noah M DO Aug 02, 2016 10:37 Zachary Rachel DO Aug 02, 2016 13:52
--- NOTE | 2016-08-02 14:16 | NUR ---
Patient comes from [place] and is likely to return there when ready. Gave access and faxed facesheet. Updated G[employer] HELPER
[2016-08-02] MEDS ORDERED: Tiotropium 18mcg/Cap 5 Capsule Inhaler Kit INHALATION SCH (14:20)
[2016-08-02] MEDS ORDERED: diphenhydrAMINE 25 mg Capsule PO PRN (14:20)
[2016-08-02] MEDS ORDERED: Sodium Chloride LOK Flush 10 mL Syringe IVFLUSH PRN ×2 (14:45)
--- NOTE | 2016-08-02 14:54 | PCM.HPMED ---
Subjective Date of Service Aug 02, 2016 Primary Provider: Admitting Physician: Jose De Jesus Levi MD Primary Care Physician: Heidi Gonzales MD Attending Physician: Jose De Jesus Levi MD Admit Status: From the Emergency Department Chief Complaint: Sepsis History of Present Illness: Mr. Mendez is a 65-year-old gentleman with a past medical history of neurofibromatosis, dementia, atrial fibrillation currently anticoagulated who presented to [facility] via EMS from [facility] on 08/02/2016 secondary to reported hyperthermia 1 day with coming shortness of breath and hypotension. Secondary to an underlying dementia patient is unable to answer questions appropriately, and it is unknown if current mental status is patient' s baseline or not. Patient is currently undergoing wound care treatment for multiple decubitus ulcers in his buttocks and lower extremities. Patient has recent hospital admission in April 2016 for sepsis and again in May 2016 for an elevated troponin. Patient admitted to inpatient team secondary to suspected sepsis unknown source. In the ED temp was 39.2, blood pressure is highly labile anywhere from 100s over 60s to 200s over 100s, pulse rate 146, respiratory rate 15-27. WBC 17.2, sodium 158, potassium 5.7, creatinine 1.52, lactic acid 4.9, troponin 0.39, magnesium 2.8 and pro calcitonin 0.69. CXR showed a possible developing pulmonary edema or atypical interstitial pneumonia. Review of systems: Patient unable to answer review of systems secondary to dementia at baseline, currently A/O x0. Allergies Coded Allergies: No Known Allergies (Unverified , 08/02/16) Home Medications Per med rec home meds include: Acetaminophen 325 every 4 when necessary Aclidinium [place] 400 MCG IHD daily Liquacel 30 ml daily Ascorbic acid 500 mg daily Budesonide nebulized solution 0.5 mg daily Digoxin 125 g daily Fentanyl 12.5 g per hour patch every 3-D Fexofenadine 180 mg by mouth daily Toprol tartrate 50 mg by mouth twice a day Multivitamin 1 tab daily Nystatin 100,000 units by mouth 3 times a day Oxycodone 5 mg by mouth every 4 when necessary Tamsulosin 0.4 mg by mouth daily Torsemide 40 mg by mouth daily Venlafaxine 75 mg by mouth daily Warfarin 3 mg by mouth daily PMH Per last admission (07/02/2016) H&P: Neurofibromatosis Hx of MRSA BPH Peripheral edema Chronic wound of left lower extremity Hypertension Hx of atrial fibrillation Depression COPD Surgical History Unable to ascertain Family History Unable to ascertain Social History Hx Alcohol Use: No Hx Substance Use: No Hx Tobacco Use: No Smoking Status: Never Smoker Living Arrangement: [facility] Exam Vital Signs Vital Sign - Last Date Time Temp Pulse Resp B/P Pulse Ox O2 Delivery O2 Flow Rate FiO2 08/02/16 12:17 36.8 125 27 137/103 100 Simple Mask 6 Exam General: Patient laying in hospital bed in 2. restraints, in no acute distress. Opens eyes to voice though unable to verbalize intelligible answers to questions. HEENT: Tubercles of neurofibromatosis diffusely over face. PERRL. Anicteric sclerae, moist conjunctivae, and no lid lag. Oropharynx free of erythema and cobble stoning with moist mucosa. Neck: Supple nontender to palpation. Right IJ in place, bandage is intact. Cardiovascular: Tachycardic rate with regular rhythm with no murmurs appreciated. Pulmonary: Clear to auscultation bilaterally with no crackles, difficult to appreciate secondary to background noise in emergency department. Abdomen: Soft to palpation 4 quadrants. No guarding, no rigidity and no rebound tenderness. Extremities: Multiple wounds throughout lower extremities bilaterally. Bandages in place and weeping. Skin: No clubbing Neurological: Cranial nerves grossly intact. Psychiatric: Unable to answer questions appropriately Lab and Diagnostics Result Diagram: 08/02/16 0955 08/02/16 1233 Microbiology Blood cultures pending, culture sacral decubitus ulcer pending X-Rays, CTs and MRIs X-RAY CHEST ONE VIEW, PORTABLE IMPRESSION: Perihilar interstitial prominence may be chronic. However, developing pulmonary edema or atypical interstitial pneumonia cannot be entirely excluded and clinical correlation is recommended. Dictated by: Abdirashid Kearns M.D. on 08/02/2016 at 10:31 X-RAY CHEST ONE VIEW, PORTABLE IMPRESSION: 1. Right-sided central line catheter is positioned with the tip overlying the low superior vena cava. 2. No pneumothorax. Dictated by: Abdirashid Kearns M.D. on 08/02/2016 at 11:27 CT BRAIN WITHOUT CONTRAST IMPRESSION: 1. No acute intracranial hemorrhage. 2. Extensive chronic small vessel ischemic changes. 3. Moderate parenchymal volume loss. 4. Nonspecific enlargement of the lateral ventricles and the 3rd ventricle. In the correct clinical setting, this appearance may be seen with normal pressure hydrocephalus. Please correlate clinically. Dictated by: Abdirashid Kearns M.D. on 08/02/2016 at 12:16 CT ABDOMEN AND PELVIS WITH CONTRAST IMPRESSION: 1. No definite signs of infection within the abdomen or pelvis. There are no abscesses. 2. Enlarged gallbladder with mild biliary dilatation. While nonspecific, this appearance may be seen in the setting of acalculus cholecystitis. The need for better evaluation utilizing a gallbladder ultrasound may be determined clinically. 3. Large amount of stool throughout the colon is suggestive of constipation. 4. No abdominal or pelvic hematomas. 5. Subcutaneous edema involving the bilateral thigh/gluteal regions (left greater than right) without a definite loculated fluid collection appreciated. 6. Urinary bladder wall prominence is likely exaggerated by incomplete distention related to the Burnett catheter. Please correlate clinically to exclude cystitis. Additional findings: -Renal cysts without hydronephrosis. -Aortic atherosclerosis. -Age indeterminate L1 compression deformity. -Prominent degenerative changes of the lumbosacral spine and bilateral hips. Dictated by: Abdirashid Kearns M.D. on 08/02/2016 at 12:19 Assessment & Plan Mr. Mendez is a 65-year-old gentleman with a past medical history of neurofibromatosis, dementia, atrial fibrillation currently anticoagulated and admitted for sepsis and possible pneumonia. 1. Severe Sepsis. Present on admission. Ongoing. - Criteria are met on admission with temperature 39.2 (rectal), pulse 140, respiratory rate 24, WBC 17.2, lactic acid 4.9. - Multiple possible sources of infection possible including a pneumonia, cellulitis or cholecystitis. - Patient received 3 L IV fluid in ED - Zosyn, Vanc and levofloxacin given in ED - Metoprolol given in ED - Ketamine given in ED 2. Possible pneumonia, present on admission. Ongoing - Etiologies include hospital-acquired as patient was discharged 30 days ago and aspiration - Pro calcitonin 0.69 - CXR showed a possible developing pneumonia - White count as in #1 - Antibiotics started as in #1 - Stop vancomycin and Start a Linezolid secondary to renal function concerns - Continue Zosyn for now - Appropriate cultures and serologies pending - ID consult pending 3. Lower extremity cellulitis. Present on admission. Ongoing - CT showed subcutaneous edema involving the bilateral thigh/gluteal regions - Pertinent lab values is #1, lactic acid trending down - Sacral decubitus ulcer culture pending - Antibiotics as an #2 4. Atrial fibrillation. Present on admission. Ongoing - Patient has history of atrial fibrillation and is on warfarin - Heart rate has been in the 140s since admit. - Metoprolol 5 mg IV every 5 minutes for heart rate greater than 120 - Restart home metoprolol and digoxin - Continue Coumadin, pharmacy to dose - Echo pending 5. Hypernatremia. Present on admission. Ongoing - Patient has many other electrolyte imbalances as well - On admission sodium 158, potassium 5.7, chloride 1:15, magnesium 2.8. - With fluid administration potassium has normalized the sodium chloride remains elevated (patient given NS) - We will continue to monitor 6. Possible cholecystitis. Present on admission. Ongoing - Enlarged gallbladder with mild biliary dilatation possibly acalculous cholecystitis. - Total bilirubin 1.4, alkaline phosphatase 192 - Ultrasound of the gallbladder pending 7. Hypertension. Present on admission. Ongoing - Continue home spironolactone 25 mg daily 8. Acute on chronic renal failure. Present on admission. Improving. - On admission creatinine 1.5 - Continue IV fluids 9. Encephalopathy due to chronic dementia, possibly exacerbated by infectious etiology. Present on admission. Ongoing - Soft restraints in place. - Continue to treat underlying disorder - Hold venlafaxine secondary to #8 Patient Status: Patient was admitted under inpatient status with expected length of stay greater than two midnights due to severity of presenting symptoms , risk of adverse event, and complexity of treatment plan. Pain Evaluation: Adequate Pain Control VTE Prophylaxis: Theraputic Anticoag with Warfarin Resuscitation Status: Limited Interventions Time spent Greater than 45 minutes of critical care time was provided for patient stabilization. . Attending Statement The patient was seen and examined together with Dr. Gracia on 08/02/2016 and I agree with the history, exam and plan as outlined in the note above. . copies to: Heidi Gonzales MD, GILES A DO Aug 02, 2016 13:18 Jose De Jesus Levi MD Aug 05, 2016 08:54
--- NOTE | 2016-08-02 15:18 | NUR ---
Wound Care 65 yo male, has been treated at the wound center as recently as 08/01/16. Presents to [facility] from SNF with admission diagnosis of sepsis. Patient has multiple unstageable pressure ulcers and stasis ulcerations. Patient is confused and unable to give any coherent history today. Assessment and treatment today yield the following ulcers by measurement. Stasis ulcers- L lateral ankle 3.2 cm L x 2.8 cm W x 0.1 cm D. L lateral LL 3.2 cm L x 2.8 cm W x o.1 cm D. L ant. LL 0.8 cm L x 1.3 cm W x 0.1 cm D. R post. Calf 2.3 cm L x 4.3 cm W x 0.1 cm D. R Lat LL (cluster) 12.5 cm L x 4.5 cm W x 0.1 cm D. Leg dressings- xeroform, kerlix and coban change q 48 hrs. Pressure Ulcers- Coccyx (POA) Unstageable 1 cm L x 2 cm W x 0.5 cm D. L Buttock (POA) Unstageable 5.2 cm L x 6 cm W x 0.1 cm D. R Buttock (POA) Unstageable 3 cm L x 3 cm W x 0.1 cm D. PU dressings- Adhesive foam dressings change q 48 hrs or PRN for soiling. Multiple skin issues for this unfortunate gentleman, currently he is on a CCU bed, the worst of his ulcers is the unstageable at his right heel which has a dry eschar which if removed I would think likely goes to the calcaneus. Patient is too agitated and fidgety to tolerate heel boots. Recommend frequent repositioning and dressing changes by nursing as noted here. Wound healing prognosis guarded at best. Addendum: 08/02/16 at 1537 by JJ KNOWLES None of these wounds appear clinically infected at this time.
[2016-08-02] MEDS: MeTOProlol 1 mg/mL 5 mL Inj IVPUSH SCH ×2 (15:19→17:06)
--- NOTE | 2016-08-02 16:41 | NUR ---
Evaluation completed. Please go to "Notes" then click on "Assessments and Notes" (bottom left corner of screen). Then select appropriate discipline tab on top of screen.
[2016-08-02] MEDS: Nystatin 100,000 Unit/mL 5 mL Suspension PO SCH ×2 (16:45→22:51)
[2016-08-02] MEDS: Fluticasone-Salmererol 250-50 Inhaler INHALATION SCH ×2 (16:45→20:30)
[2016-08-02] MEDS: Sodium Chloride LOK Flush 10 mL Syringe IVFLUSH SCH ×2 (16:46)
--- NOTE | 2016-08-02 16:50 | DRSVH ---
PROCEDURE: US ABDOMEN, LIMITED ([id number]) INDICATIONS: Poss Cholecystitis TECHNIQUE: Real-time focused scanning was performed of the abdomen, with image documentation. COMPARISON: None. FINDINGS: Gallbladder sludge is present. No definite wall thickening. No pericholecystic fluid or son ographic Jurado sign. Limited evaluation given difficulties with patient positioning. No definite ext rahepatic bile duct dilatation. IMPRESSION: Gallbladder sludge. No other sonographic criteria for acute cholecystitis however limited examination due to patient posi tioning difficulties. Therefore, please correlate clinically and with LFTs. Dictated by: Germain Prabhakar M.D. on 08/02/2016 at 16:46 Approved by: Germain Prabhakar M.D. on 08/02/2016 at 16:48
[2016-08-02] MEDS: Piperacillin-Tazo 3.375 Gm Inj 3.375 GM in Dextrose 5% Minibag Plus 50 ML IV SCH (17:06)
--- NOTE | 2016-08-02 18:59 | NUR ---
Tele/Pain/Mental status Tele AFIB 120s-140s prior to medication, 10mg IV metoprolol administered total per MD orders, HR now 110s-120s. Patient is quite agitated, yelling out "help" and "ow" constantly while flexing/shaking--BP varying from 130s-230s systolic and 80s-130s diastolic -- MD aware. RR varies from mid 20s-high 30s, irregular. Patient vocalizing pain constantly, difficult to assess breath sounds. No cough noted. SPO2on 4L oxymask 95%.Unable to assess for n/v/d/c or abdominal, no increase in vocalizations with light abdominal palpation. Burnett patent, draining pale lida urine to gravity. Patient incontinent of stool at baseline. Patient oriented to self only, alert and very restless with constant vocalizations of pain and "help". Administered 5mg PO Roxicodone x1 and 1mg IV morphine -- patient still agitated however he has moments of resting.
[2016-08-02] MEDS ORDERED: Famotidine Inj 20 MG in IV Premix 1 EACH IV SCH (20:30)
[2016-08-02] MEDS: Linezolid Inj 600 MG in IV Premix 1 EACH IV SCH (20:45)
--- NOTE | 2016-08-02 21:09 | NUR ---
Mentation Pt is not awake enough to take meds. He does not open his eyes. He does not follow commands He simply says "ow" when touched and then is quiet.
--- NOTE | 2016-08-02 23:00 | NUR ---
Hypotension BP 83/38. HR 138. AFib Paged MD via [employer] paging with above vital signs. NS infusing at 125cc/hr. Afebrile Care ongoing
[2016-08-02] MEDS ORDERED: Lactated Ringer's 500 ML IV ONE (23:45)
[2016-08-03] VITALS (11 sets, daily range): BP systolic 82–113; BP diastolic 39–70; PULSE 82–142; RESP 14–26; O2SAT 95–100
[2016-08-03] MEDS: Lactated Ringer's 1,000 ML IV SCH ×2 (00:10→02:15)
[2016-08-03] MEDS: Sodium Chloride LOK Flush 10 mL Syringe IVFLUSH SCH ×7 (00:30→20:35)
[2016-08-03] MEDS: Piperacillin-Tazo 3.375 Gm Inj 3.375 GM in Dextrose 5% Minibag Plus 50 ML IV SCH ×3 (00:38→16:31)
[2016-08-03] MEDS ORDERED: Lactated Ringer's 250 ML IV ONE (02:10)
--- NOTE | 2016-08-03 02:19 | NUR ---
Hypotension Recent VS (systolic 85/40, HR 130, CVP 3) reported to MD as well as urine output (300cc since 1929) Orders received for LR 1000cc bolus and then recheck CVP/BP Bolus infusing Will cont to monitor
[2016-08-03] MEDS ORDERED: Lactated Ringer's 1,000 ML IV ONE (02:50)
--- NOTE | 2016-08-03 03:49 | NUR ---
Bolus complete. BP 98/50 HR 130 CVP 7 Reported above findings to
[2016-08-03 04:10] LABS: EOSINOPHILS % (AUTO) 1.2 % (0-5)
[2016-08-03 04:12] LABS: BASOPHILS % (AUTO) 1.1 % (0-3); MONOCYTES % (AUTO) 8.9 % (4-12); Mean Corpuscular Hemoglobin 28.3 pg (27.0-35.0); Mean Corpuscular Volume 100.3 fL (81-100); Platelet Count 160 bil/L (150-400)
[2016-08-03 04:52] LABS: Magnesium 2.1 mg/dL (1.6-2.6); Phosphorus 3.3 mg/dL (2.5-4.9)
[2016-08-03 04:58] LABS: TROPONIN T 0.284 ug/L (0.0-0.011)
[2016-08-03] MEDS ORDERED: Dextrose 5% Lactated Ringer's 1,000 ML IV SCH (05:05)
--- NOTE | 2016-08-03 06:24 | NUR ---
Febrile Temp is 39C Given tylenol earlier Ice paks now to armpits. Fan on high. CVP 7; BP 82/50. HR 140. 95% on 3Loxymask Addendum: 08/03/16 at 0704 by MAYLIN OROURKE RN Above vitals reported to MD Peres Received orders for LR 500cc IV
[2016-08-03] MEDS: Nystatin 100,000 Unit/mL 5 mL Suspension PO SCH ×4 (06:30→20:35)
[2016-08-03] MEDS ORDERED: Lactated Ringer's 500 ML IV ONE (06:55)
[2016-08-03] MEDS ORDERED: Dextrose 5% 1,000 ML ONE (07:45)
[2016-08-03] MEDS ORDERED: Dextrose 5% 500 ML IV ONE (08:00)
[2016-08-03] MEDS: Linezolid Inj 600 MG in IV Premix 1 EACH IV SCH ×2 (08:23→21:32)
[2016-08-03] MEDS: Esmolol 2,500 mg/250 mL NS 2,500,000 MCG in IV Premix 1 EACH IV SCH ×2 (08:24→16:31)
[2016-08-03] MEDS: Budesonide 0.5 mg/2 mL Inhalation Solution NEB SCH ×2 (08:30→21:13)
[2016-08-03] MEDS: Arformoterol 15 mCg/2 mL Inhalation Solution NEB SCH ×2 (08:30→21:13)
[2016-08-03] MEDS ORDERED: Esmolol 2,500 mg/250 mL NS 2,500,000 MCG in IV Premix 1 EACH IV SCH (09:20)
[2016-08-03] MEDS: HYDROmorphone 0.5 mg/0.5 mL iSecure Syringe IVPUSH PRN ×5 (09:34→23:11)
--- NOTE | 2016-08-03 10:21 | NUR ---
Pt is not safe for PO trials at this time. Recommend NPO, meds via IV. Discussed with RN. NUCLE[employer]EL[employer] RECLAMATION ENGINEER will follow.
--- NOTE | 2016-08-03 10:48 | NUR ---
Palliative Care Palliative Care received verbal order from Dr Levi 08/03/16 to assist with goals of care. Patient is a 65 year old man with neurofibromatosis, dementia, COPD. He was admitted 08/02/16. Selwyn Mendez (brother) [phone] Marcia Frazier (friend) [phone] Palliative Care to follow. Hilaria Eckert
[2016-08-03] MEDS ORDERED: Norepinephrine 8,000 mCg/250 mL NS Premix IV ONE (11:19)
--- NOTE | 2016-08-03 11:34 | NUR ---
NUTRITION ASSESSMENT ASSESS: 65 YO male admitted w/ severe sepsis, AMS and pneumonia. Pt was transferred to CCU due to hypotension. He was placed on stimulation diet per ST 4/, but was re-evaluated by ST today and made NPO as he is not safe for PO at this time. Palliative is to follow for goals of care. Wound care is following as pt has multiple unstageable PU on buttock and lower extremities. Wt is down 5kg x1 month. PMHX: Dementia, Chronic venous stasis changes, Afib, CHF, COPD, Neurofibromatosis, Emphysema LABS: Reviewed. Na 159, Cl 121, Bun 28, Oiling Machine Operator 1.44, Ca 8.3, Alb 2.6 MEDS: Reviewed. GI: No BMs noted SKIN: Marco 13 - current Wound [facility] pt w/ multiple unstageable PU on buttock/legs CURRENT WT: 87.3 kg BMI: 26.1 kg/m2 IBW: 75.4 kg. UBW ~98kg per previous admits. DIET: NPO per ST EST. NEEDS: Wounds, CKD Kcals: 2185-3056kcal/day (25-35kcal/kg) Pro: 90-105 g/day (1.0-1.2 g/kg BW) Fluid: 2500 ml/day (~1 ml/kcal/day) NUTRITION DIAGNOSIS: 1.) Inadequate oral intake related to decreased ability to consume sufficient energy as evidenced by current NPO status per ST. 2.) Increased nutrient needs related to increased demand for healing as evidence by pt with multiple lower extremity wounds. 3). Chew/ swallow difficulty related to AMS and chronic dysphagia as evidence by pt with dementia and need for texture modification per ST NUTRITION INTERVENTION: 1.) Advance diet when medically appropriate per ST. Will monitor NPO status and goals of care. MONITOR / EVAL: NPO, ST, labs, wt, GI, POC. Will continue to monitor per high nutritional risk guidelines.
--- NOTE | 2016-08-03 11:48 | NUR ---
Social Work: Initial Assessment D: Per EMR review, pt is a 65 year old male admitted for acute sepsis, AMS. Pt is Medicare with [facility]. PCP is Hipolito Gonzales MD. NOK is Selwyn Mendez, brother, . Advanced directives not completed- POLST completed. Readmit score is high, 7/8. 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 [facility] hospital staff have not been able to reach pt's family. [facility] has also made numerous attempts to reach pt's family however all numbers are non-working numbers. Information to complete initial assessment obtained by [facility] staff. t/c to admission worker, Kaur, at [facility]; Pt is wheelchair bound at baseline and uses a ruth for transfers. Pt is completely dependent for all care except for feeding. They are aware of the issues getting in touch with pt's family and are in the process of trying to obtain guardianship. They have run into several barriers, mostly financially based. Pt's [facility] worker is Celina Barragan ([phone]). [facility] can accept the pt back with Dr. Gonzales to follow when medically appropriate. t/c to Celina Barragan ([phone]) is discuss barriers with guardianship. She is aware of these issues but is minimally involved with the pt's case as he has been stably homed at [facility] for many years. LEAF STAMPER explained pt's changing medical status and need for a legal decision maker. She understands and will call [facility] to discuss the barriers and consult with their assistant attorney general. She has LEAF STAMPER contact information and will call back with an update. LEAF STAMPER has alerted Case Management Administrators to the aforementioned issues. A: Pt who requires LTC P: Pt to discharge back to [facility] with Dr. Gonzales to follow once medically appropriate. LEAF STAMPER to continue to follow. KANDIS Martinez Addendum: 08/03/16 at 1220 by [place] Amended: Links added.
--- NOTE | 2016-08-03 11:51 | PCM.CONPAL ---
Date of Service Aug 03, 2016 Date of Hospital Admission: Aug 02, 2016 at 13:11 Date of Palliative Consult: Aug 03, 2016 Requesting Provider: Jose De Jesus Levi MD Reason Palliative Care Consult: Pain, Other Symptoms, Goals of Care Discussion Hospital Unit @time of consult: Critical Care Palliative Care Recommendation 65-year-old male with long-standing history of lower extremity skin ulcers and recurrent cellulitis/sepsis, as well as neurofibromatosis, COPD, atrial fibrillation, dementia, etc. with further history of steady deterioration over approximately the last 6 months (during which time he has been hospitalized multiple times) including significant cognitive deterioration to the point where he has been deemed non-decisional for the last 4-6 months. Admitted again with sepsis, multiple possible etiologies, including pneumonia, cellulitis, cholecystitis, as well as marked hypernatremia, elevated troponins, etc. Palliative medicine consulted to assist patient in determination of goals of care. Unfortunately, it appears that the patient has nobody to speak for him or take responsibility. I have personally spoken with nursing facility personnel several times this morning, his PCP, and also have attempted to contact [facility] personnel who were listed as potential contacts (left message on voicemail). We are also in the process of obtaining records from his last admission at [facility]. Other family contact phone numbers are disconnected, and SNF personnel and his PCP note that the patient never has visitors or phone calls, and online search found a Selwyn Mendez (the name of the patient's only known contact- a brother) as in 2016. snf staff told me that guardianship process is underway but incomplete. Addendum: I spoke by phone with Marcia Frazier at [facility] offices- she knew and worked patient a number of years ago but has no current contact. She reviewed her records but had no further information regarding other family contacts either. Summary of palliative recommendations: -Symptom management (Pain/other)- continue Dilaudid as ordered 0.5-1.0 mg IV Q2 hr. prn. Monitor and adjust medications for comfort as needed, consistent with safety in light of his other ongoing medical conditions. -DPOA/Advanced Directives/POLST- patient's care facility sent a copy of POLST completed by the patient and his PCP on 06/13/16. It indicated wishes for CPR but not intubation (which of course is problematic in of itself). Patient's decisional status at that time uncertain. He has clearly continued to deteriorate in the interim and is definitely non-decisional at this point. All outpatient caregivers that I spoke with today related that the patient has shown steady deterioration over the 4-6 months (during which time he has had multiple hospitalizations without significant recovery of previous level of function in the wake of each hospitalization). After careful review of his records from this and his previous hospitalizations , and after extensive discussion and consideration of his current clinical status with his medical team, my impression is that aggressive terminal interventions such as CPR/defibrillation/intubation and mechanical ventilation are potentially inappropriate, as being unlikely to contribute to his survival and return to his previous independent status. Therefore, in this setting, it would seem appropriate to continue medical treatment short of those terminal interventions, but in the event of cardiopulmonary arrest, not to proceed with CPR/defibrillation/intubation and mechanical ventilation. Consistent with these considerations, I have adjusted CODE STATUS to DO NOT RESUSCITATE/DO NOT INTUBATE. -Family/emotional support- no family or known contacts whatsoever -Spiritual support- I will review with hospital ending machine operator; I have no history regarding the patient's spirituality Additional Medical Diagnoses with primary management by Hospitalist team include : 1. Severe Sepsis. Present on admission. Ongoing. 2. Possible pneumonia, present on admission. Ongoing 3. Lower extremity cellulitis. Present on admission. Ongoing 4. Atrial fibrillation. Present on admission. Ongoing 5. Hypernatremia. Present on admission. Ongoing 6. Possible cholecystitis. Present on admission. Ongoing 7. Hypertension. Present on admission. Ongoing 8. Acute on chronic renal failure. Present on admission. Improving. 9. Encephalopathy due to chronic dementia, possibly exacerbated by infectious etiology. Present on admission. Ongoing Problems: End of Life Preferences As above Resuscitation Status Resuscitation Status: DNR/DNI:Do Not Resuscitate/Intubate POLST Updates/Changes Previous POLST?: Yes POLST Review Outcome: Form Voided . Advanced Care Planning Address: POLST, Code status change Pain: Mild Symptom management: Dyspnea, Pain, Delirium Pt History History of Present Illness Per admission H&P: 65-year-old gentleman with a past medical history of neurofibromatosis, dementia , atrial fibrillation currently anticoagulated who presented to [facility] via EMS from [facility] on 08/02/2016 secondary to reported hyperthermia 1 day with coming shortness of breath and hypotension. Secondary to an underlying dementia patient is unable to answer questions appropriately, and it is unknown if current mental status is patient's baseline or not. Patient is currently undergoing wound care treatment for multiple decubitus ulcers in his buttocks and lower extremities. Patient has recent hospital admission in April 2016 for sepsis and again in May 2016 for an elevated troponin. Patient admitted to inpatient team secondary to suspected sepsis unknown source. In the ED temp was 39.2, blood pressure is highly labile anywhere from 100s over 60s to 200s over 100s, pulse rate 146, respiratory rate 15-27. WBC 17.2, sodium 158, potassium 5.7, creatinine 1.52, lactic acid 4.9, troponin 0.39, magnesium 2.8 and pro calcitonin 0.69. CXR showed a possible developing pulmonary edema or atypical interstitial pneumonia. Patient admitted to critical care unit, started on broad-spectrum IV antibiotics after cultures obtained, receiving IV fluid appropriate to his severe hypernatremia and other appropriate resuscitation efforts. Progressive hypotension through the morning necessitating initiation of norepinephrine drip. Throughout, patient has remained delirious when not unresponsive. Palliative medicine consulted to assist in determination of goals of care. Prior to visiting patient, I reviewed his records in the EMR in great detail, for this and his previous admissions. Contacted and spoke with personnel at his SNF twice, attempted to contact [facility] agent was listed on his intake documents (no answer but I left a voicemail message) and spoke as well with his PCP, Dr. Gonzales. Multiple attempts to contact other family members have been unsuccessful, neither SNF or PCP have any additional contact information (and they note that the patient never receives phone calls her visitors). Review of patient's records shows multiple hospitalizations and ER visits over the last several months. His PCP reported that he also was hospitalized recently at [facility] (we are attempting to obtain those records now). During these hospitalizations he has been treated for multiple episodes of sepsis, secondary to UTI and pneumonia, recurrent atrial fibrillation with RVR, acute on chronic encephalopathy with dementia (not well characterized), various electrolyte abnormalities, elevated troponins and sub- and supra-therapeutic anticoagulation issues, etc. When I arrived to see patient, he is lying in bed, at times restless, but is unresponsive, not following commands or interacting meaningfully. Nurses indicate that his discomfort appears much improved with IV Dilaudid as ordered. Norepinephrine drip was just being started due to slow decline in blood pressure. Past Medical History Significant PMH Noted: Chronic venous stasis with sacral and bilateral lower extremity ulcerations Atrial fibrillation with RVR on chronic coumadin anticoagulation CHF/HFpEF COPD/emphysema Neurofibromatosis Depression Dementia (not well documented) Chronic renal failure, stage II Moderate aortic stenosis Social History Occupation: Medically disabled Family Members Issues: No family members available Social Support: Limited to caregivers at his facility Living Situation: Long-term resident at [facility] Spiritual Support Spiritual Support Unknown Palliative Performance Scale PPS Patient Status: Baseline PPS Ambulation: Mainly Sit/Lie PPS Activity: Unable to do most activity PPS Self-Care: Total Care PPS Intake: Normal or reduced PPS Conscious Level: Full or confusion Performance Scale: 30% ADLs ADL Patient Status: Baseline ADL Ambulation: Mainly Sit/Lie ADL Dressing: Total care ADL Feeding: Considerable assistance required ADL Hygene/bathing: Total care ADL Transfers: Total care POLST at Time of Admission Previous POLST?: Yes Cardiopulmonary Resuscitation: CPR: Attempt Resuscitation Medical Interventions: Limited Additional Interventions Antibiotics: Use ABX if can Prolong Life Artificially Admin Nutrition: Trial Period Tube Feeding POLST Status: See plan Allergy Allergies Reviewed: Yes Medications Current Medications: Current Medications Sodium Chloride 1,000 ml @ 0 mls/hr Q0M IV Last administered on 08/02/16 11:17 ; Admin Dose 0 MLS/HR; Start 08/02/16 at 10:50; Stop 08/03/16 at 07:55; Status DC Pharmacy Consult 1 ea 1 ea DAILY XX; Start 08/02/16 at 11:05; Stop 08/02/16 at 11: 16; Status DC Sodium Chloride 1,000 ml @ 250 mls/hr Q4H IV Last administered on 08/02/16 13: 02; Admin Dose 250 MLS/HR; Start 08/02/16 at 12:25; Stop 08/02/16 at 17:07; Status DC Al Hydrox/Mg Hydrox/Simethicone 30 ml Q6 PRN PO; Start 08/02/16 at 12:25; Stop 08/02/16 at 15:18; Status DC Ondansetron HCl Dose range: 4 mg to 8 mg Q4H PRN IVPUSH; Start 08/02/16 at 12:25 ; Stop 08/02/16 at 15:18; Status DC Acetaminophen 975 mg 975 mg Q6H PRN PO; Start 08/02/16 at 12:25; Stop 08/02/16 at 15:18; Status DC Sodium Chloride 1,000 ml @ 0 mls/hr Q0M IV; Start 08/02/16 at 13:09; Stop at 07:56; Status DC Piperacillin Sod/ Tazobactam Sod 3.375 gm/Dextrose/ Water 50 ml @ 12.5 mls/hr Q8 IV Last administered on 08/03/16 08:23; Admin Dose 12.5 MLS/HR; Start at 16:30 Famotidine/Sodium Chloride/Premix 50 ml @ 400 mls/hr Q12 IV; Start 08/02/16 at 20:30; Stop 08/02/16 at 20:30; Status DC Al Hydrox/Mg Hydrox/Simethicone 30 ml Q6H PRN PO; Start 08/02/16 at 13:10 Ondansetron HCl 4-8 mg Q4H PRN IVPUSH; Start 08/02/16 at 13:10 Senna 17.2 mg BID PRN PO; Start 08/02/16 at 13:10 Polyethylene Glycol 17 gm DAILY PRN PO; Start 08/02/16 at 13:10 Acetaminophen 650 mg Q4H PRN PO; Start 08/02/16 at 13:10; Stop 08/02/16 at 15:18 ; Status DC Sodium Chloride 10 ml 10 ml NIRAJ IVFLUSH Last administered on 08/02/16 16:46; Admin Dose 10 ML; Start 08/02/16 at 16:30 Sodium Chloride 1,000 ml @ 125 mls/hr Q8H IV Last administered on 08/02/16 16: 46; Admin Dose 125 MLS/HR; Start 08/02/16 at 13:09; Stop 08/03/16 at 01:26; Status DC Sodium Chloride 10 ml 10 ml NIRAJ IVFLUSH Last administered on 08/03/16 00:38; Admin Dose 10 ML; Start 08/02/16 at 16:30 Linezolid/Premix 300 ml @ 300 mls/hr Q12 IV Last administered on 08/03/16 08:23 ; Admin Dose 300 MLS/HR; Start 08/02/16 at 20:30 Metoprolol Tartrate 5 mg Q5MIN IVPUSH Last administered on 08/02/16 17:06; Admin Dose 5 MG; Start 08/02/16 at 14:20; Stop 08/03/16 at 07:56; Status DC Acetaminophen 650 mg Q4H PRN PO; Start 08/02/16 at 14:20 Digoxin 0.0625 mg DAILY PO Last administered on 08/02/16 16:46; Admin Dose 0.0625 MG; Start 08/02/16 at 14:20; Stop 08/03/16 at 07:56; Status DC Diphenhydramine HCl 50 mg QID PRN PO; Start 08/02/16 at 14:20; Stop 08/03/16 at 07:56; Status DC Salmeterol Xinafoate/ Fluticasone 1 puff BID INHALATION Last administered on 08/02 16:45; Admin Dose 1 PUFF; Start 08/02/16 at 14:20; Stop 08/03/16 at 07:56; Status DC Metoprolol Tartrate 12.5 mg BID PO Last administered on 08/02/16 16:45; Admin Dose 12.5 MG; Start 08/02/16 at 14:20; Stop 08/03/16 at 07:56; Status DC Nystatin 500,000 unit QID PO Last administered on 08/02/16 22:51; Admin Dose 500 ,000 UNIT; Start 08/02/16 at 16:30 Oxycodone HCl May give PRN after complet... Q4H PRN PO Last administered on 08/02 16:45; Admin Dose 5 MG; Start 08/02/16 at 14:20 Spironolactone 25 mg DAILY PO; Start 08/03/16 at 08:30; Stop 08/03/16 at 08:30; Status DC Tamsulosin HCl 0.4 mg HS PO; Start 08/02/16 at 21:00 Tiotropium [place] 18 mcg DAILY INHALATION; Start 08/02/16 at 14:20; Stop at 07:56; Status DC Torsemide 40 mg DAILY PO Last administered on 08/02/16 16:45; Admin Dose 40 MG; Start 08/02/16 at 14:20; Stop 08/03/16 at 07:56; Status DC Morphine Sulfate 1-2 mg Q4 PRN Q4H PRN IVPUSH; Start 08/02/16 at 17:00; Stop 08/02/16 at 17:08; Status DC Morphine Sulfate 1-2 mg Q2H PRN IVPUSH Last administered on 08/03/16 07:52; Admin Dose 1 MG; Start 08/02/16 at 17:08 Acetaminophen 650 mg 650 mg Q6H PRN RECTAL Last administered on 08/03/16 04:44 ; Admin Dose 650 MG; Start 08/02/16 at 18:30 Lactated Ringer's 1,000 ml @ 125 mls/hr Q8H IV Last administered on 08/03/16 02 :15; Admin Dose 125 MLS/HR; Start 08/03/16 at 00:10; Stop 08/03/16 at 04:20; Status DC Dextrose/Lactated Ringer's 1,000 ml @ 125 mls/hr Q8H IV; Start 08/03/16 at 05:05 ; Stop 08/03/16 at 07:56; Status DC Esmolol HCl [id number] mcg/Premix 250 ml @ 26.19 mls/ hr Q9H33M IV Last administered on 08/03/16 08:24; Admin Dose 26.19 MLS/HR; Start 08/03/16 at 07:55 Dextrose/Water 1,000 ml @ 100 mls/hr Q10H IV; Start 08/03/16 at 08:00 Budesonide 0.5 mg BID NEB; Start 08/03/16 at 08:30 Arformoterol Tartrate 15 mcg BID NEB; Start 08/03/16 at 08:30 Albuterol/ Ipratropium 3 ml 3 ml Q6 PRN NEB; Start 08/03/16 at 08:00 Esmolol HCl/Premix 250 ml @ 26.19 mls/ hr Q9H33M IV; Start 08/03/16 at 09:20; Status UNV Hydromorphone HCl Give 0.5 to 1 mg IV push... Q2HWA PRN IVPUSH Last administered on 08/03/16 09:34; Admin Dose 0.5 MG; Start 08/03/16 at 09:20 Scheduled Ascorbic Acid (Vitamin C) 500 Mg Capsule.er 500 MG PO DAILY Digoxin (Digoxin) 125 Mcg Tablet 62.5 MCG PO DAILY Fexofenadine (Fexofenadine) 180 Mg Tablet 180 MG PO DAILY Fluticasone/Salmeterol (Advair 250-50 Diskus) 60 Puff/Inh Disk 1 PUFF IH BID Lactobacillus Acidophilus (Probiotic) 1 Each Capsule 1 EACH PO DAILY Metoprolol Tartrate (Metoprolol Tartrate) 25 Mg Tablet 12.5 MG PO BID Multivitamin (Multi Vitamin Daily) 1 Each Tablet 1 EACH PO DAILY Nystatin (Nystatin) 100,000 Unit/1 Ml Oral.susp 100,000 UNIT PO QID Potassium Chloride (Potassium Chloride Powder) 20 Meq Packet 80 MEQ PO DAILY DISSOVE CONTENTS OF PACKET IN FULL GLASS OF WATER AND DRINK ONCE DAILY. TAKE WITH FOOD Spironolactone (Spironolactone) 25 Mg Tablet 25 MG PO DAILY Tamsulosin (Flomax) 0.4 Mg Capsule 0.4 MG PO HS Tiotropium Longview (Spiriva) 18 Mcg Cap.w.dev 18 MCG IH DAILY Torsemide (Torsemide) 20 Mg Tablet 40 MG PO DAILY Venlafaxine ER (Effexor XR) 75 Mg Capsule 75 MG PO TID Warfarin Sodium (Warfarin Sodium) 1 Mg Tablet 1 MG PO DAILY Scheduled PRN Acetaminophen (Acetaminophen) 325 Mg Tablet 650 MG PO Q4H PRN PRN For Pain diphenhydrAMINE HCl (Benadryl) 25 Mg Capsule 50 MG PO QID PRN PRN allergic r-n oxyCODONE (oxyCODONE) 5 Mg Tablet 5-10 MG PO Q4H PRN PRN For Pain Current Treatments Ventilator: No Oxygen: Yes IV Fluids: Yes Antibiotics: Yes Restraints: Yes Telemetry: Yes Critical Care Unit: Yes Objective Findings Exam Vital Sign - Last Date Time Temp Pulse Resp B/P Pulse Ox O2 Delivery O2 Flow Rate FiO2 08/03/16 08:00 39.0 135 26 92/39 98 OxyMask 3.00 Intake and Output 08/02/16 08/02/16 08/03/16 Cumulative From/Thru 15:00 23:00 07:00 08/02/16 09:47 - 08/03/16 05:15 Intake Total 3050 ml 1726 ml 4350 ml 9126 ml Output Total 800 ml 1300 ml 2100 ml Balance 3050 ml 926 ml 3050 ml 7026 ml Intake Oral 60 ml 0 ml 60 ml IV Total 3050 ml 1666 ml 4350 ml 9066 ml Output Urine Total 800 ml 1300 ml 2100 ml # Bowel Movements 0 0 Objective Restless gentleman lying in bed. Does not respond to voice or command. Vital signs noted. Blood pressures lower and norepinephrine started. Skin is warm and moist, with neurofibromatosis changes noted diffusely. Neck supple. Lungs clear anterolaterally, heart sounds irregularly irregular with 2/6 murmur systolic heard across precordium. Abdomen without apparent tenderness or peritoneal signs. Extremities with wound care dressings in place over the feet and up to the knees bilaterally. Moves upper extremities spontaneously but no movement noted in the lower extremities. Lab/Diagnostics Lab and Imaging results reviewed in detail in EMR. Time spent Total time 100 minutes; >50% face to face with patient multiple caregivers, SNF personnel, etc., providing counselling regarding plans and recommendations, and in care coordination with his medical teams. Over the above total time, 55minutes counseling for advanced care planning with the patient's various caregivers. Jim Dyer MD Aug 03, 2016 11:51
--- NOTE | 2016-08-03 12:45 | NUR ---
Palliative care note D/A: Referral for PC consult received today from Addendum: 08/03/16 at 1255 by ASHELY DOE SS PC note amendment D/A: Gurmeet for goals of care. It is noted various times in the EMR that pt relatives phone numbers are no longer up to date. Pt has a brother listed as Selwyn Mendez at [phone]. (Note that this number is not correct.) Dr. Dyer calls [facility] where pt resides and is told that [place] was [place]." Unclear exactly where that might be. Note that [address] [facility] and parts of [facility]. Unable to find Selwyn Mendez in [facility] but do find a Selwyn Mendez in [place]. (Address is [address] [place] [address]. and phone is [phone].) Note that this worker also finds obituary for what appears to be above gentleman who 02/12 after complications of esophageal cancer. It appears that spouse may still be alive, but it is not confirmed that this is pt brother/roverto. Unknown if pt has other sibs or children. Dr. Dyer has also found the following name/number. Florence Roserheaharry at [phone]. He has left message and her voicemail indicates that she has a guardianship business. [facility] has verified that they are pursuing guardianship but unclear if this is still in process or settled. P: Palliative care to follow. Rosario Doe [facility], [facility]
--- NOTE | 2016-08-03 13:05 | DRSVH ---
[facility] [address] [place] [address] Echocardiogram Report Name: KELLY MELENDREZ MStudy Date : 08/03/2016 Height: 72 in Hospital Exam Location: [facility] Weight: 193 lb Gender: Male BSA: 2.1 m2 : 1950 Age: 65 yrs BP: 82/50 mmHg Reason For Study: ASSESS CARDIAC FUNCTION Ordering Physician: HOSPITALIST [facility] Performed By: Adis Joseph Referring Physician: DORON STALEY Interpretation Summary Technically difficult study. The patient was in atrial fibrillation with rapid ventricular response during the exam with a heart rate exceeding 100 bpm. Borderline concentric left ventricular hypertrophy with ejection fraction 65- 70%. Severely dilated both atria. Probably severe aortic stenosis. Mild mitral regurgitation. Comparison is made with the echocardiogram of 05/24/16, aortic stenosis has progressed. Procedure: A two-dimensional transthoracic echocardiogram with color flow and Doppler was performed. The study quality was technically difficult. Comparison is made with the echocardiogram of 05/24/16. The patient was in atrial fibrillation with rapid ventricular response during the exam with a heart rate exceeding 100 bpm. ECG could not be obtained through entire exam due to movement by patient. Left Ventricle: The left ventricle is normal in size. There is borderline concentric left ventricular hypertrophy. The ejection fraction is estimated to be 65-70%. There are no focal wall motion abnormalities. Diastolic function could not be accurately assessed due to atrial fibrillation. Right Ventricle: The right ventricle is normal size. The right ventricular systolic function is normal. Atria: Both atria are severely dilated. There is no Doppler evidence for an atrial septal defect. Mitral Valve: The anterior mitral valve leaflet is mildly calcified. There is borderline prolapse of the AMVL. There is mild mitral regurgitation. Aortic Valve: The aortic valve is moderately calcified. The aortic valve is not well visualized. The peak aortic velocity is 2.5 m/sec. The aortic valve mean gradient is 16 mmHg. By 2D, aortic valve opening appears tighter than what the CW would suggest. The measurement is likely underestimated the severity of aortic stenosis. There is mild aortic regurgitation. Tricuspid Valve: The tricuspid valve is not well visualized, but is grossly normal. Pulmonary artery pressures cannot be estimated because of the lack of a measurable TR jet velocity. Pulmonic Valve: The pulmonic valve is not well visualized. Great Vessels: The aortic root is normal size. The ascending aorta could not be visualized. The pulmonary artery is normal size. The IVC is dilated (diameter is greater than 2.1 cm) yet it collapses greater than 50% with a sniff. This suggests a right atrial pressure of 8 mm Hg. Pericardium/ Pleura There is no pericardial effusion. There is no pleural effusion. MMode/2D Measurements & Calculations LVIDd: 4.1 cm RA long axis LVOT diam LVIDs: 3.3 cm LA A2 area: 32.4 cm FS: 19.1 % LA A4 area: 30.3 cm RA area Ao root diam EPSS: 0.24 cm LA length (vol): 6.6 cm : 3.6 cm IVSd: 0.97 cm LA vol: 126.3 ml : 32.2 cm LVPWd: 0.98 cm LA vol index RA vol : 144.ml RA IVC diam: 3.1 cm : 68.9 mm2 LV coleman. diameter/BSA LV sys. diameter/BSA (cm/m^2): 1.9 (cm/m^2): 1.6 Doppler Measurements & Calculations Ao V2 max MV E max kevin Med Peak E' Kevin MV V2 mean : 252.1 cm/sec : 104.3 cm/sec : 88.4 cm/sec Ao max PG MVA(VTI): 2.9 cm2 E/E' med: 11.4 MV mean PG : 25.4 mmHg Lat Peak E' Kevin Ao mean PG MV V2 VTI : 15.7 mmHg E/E' lat: 7.8 : 25.3 cm LVOT Max Kevin E/e' average: 9.6 : 78.1 cm/sec LOLIS(I,D): 1.7 cm sev ratio Ao V2 mean LV V1 max PG LOLIS indexed to BSA : 189.8 cm/sec (cm^2/m^2): 0.80 Ao V2 VTI: 43.4 cmLV V1 VTI: 15.7 cm LOLIS(V,D): 1.4 cm2 Electronically signed by: Catarina Nj on Reading Physician:08/03/2016 01:04 PM
--- NOTE | 2016-08-03 14:37 | PCM.PNMED ---
Subjective Date of Service Aug 03, 2016 Subjective Mr. Mendez is a 65 gentleman with past medical history significant for neurofibromatosis, dementia and A. fib on anticoagulation admitted for sepsis. Overnight: Patient was not able to follow commands repetitively expressed that he was in pain by saying "L". Morphine given with affect. Patient remained hypotensive throughout the night and tachycardic in A. fib. Given additional fluid boluses without noticeable effect. Patient developed fever temperature of 39 Tylenol given. Today: Patient remained hypotensive despite fluid resuscitation and tachycardic refractive to beta chirag therapy. Patient was initiated on an as wall drip given additional fluid boluses and upgraded to CCU status. Patient needed administration of Levophed at low dose to maintain adequate blood pressure support as well as a continuation of his esmolol. Exam Vital Signs Vital Sign - Last Date Time Temp Pulse Resp B/P Pulse Ox O2 Delivery O2 Flow Rate FiO2 08/03/16 06:13 39.0 140 20 82/50 95 OxyMask 3.00 Intake and Output 08/02/16 08/02/16 08/03/16 Cumulative From/Thru 14:59 22:59 06:59 08/02/16 09:47 - 08/03/16 05:15 Intake Total 3050 ml 1726 ml 4350 ml 9126 ml Output Total 800 ml 1300 ml 2100 ml Balance 3050 ml 926 ml 3050 ml 7026 ml Intake Oral 60 ml 0 ml 60 ml IV Total 3050 ml 1666 ml 4350 ml 9066 ml Output Urine Total 800 ml 1300 ml 2100 ml # Bowel Movements 0 0 Exam General: Patient laying in hospital bed in 2 point soft restraints in no acute distress. Opens eyes to voice though unable to verbalize intelligible answers to questions. HEENT: Tubercles of neurofibromatosis diffusely over face. PERRL. oximetry mask in place. Neck: Supple nontender to palpation. Right IJ in place, bandage is intact. Cardiovascular: Tachycardic rate with irregular rhythm with no murmurs appreciated. Pulmonary: Clear to auscultation bilaterally with no crackles, difficult to appreciate secondary to background noise in emergency department. Abdomen: Soft to palpation 4 quadrants. No guarding, no rigidity and no rebound tenderness. Extremities: Multiple wounds throughout lower extremities bilaterally. Bandages in place and weeping. Skin: No clubbing no edema appreciated Neurological: Cranial nerves grossly intact. Psychiatric: Unable to answer questions appropriately IV lines: Right IJ, left AC, right wrist IV drips: Levophed 0.1 mcg/kg/hr IVs and Medications Medications Reviewed: Medications were reviewed in detail Lab and Diagnostics Result Diagram: 08/03/1639908/03/16399 Microbiology Blood cultures pending, culture sacral decubitus ulcer pending X-Rays, CTs and MRIs X-RAY CHEST ONE VIEW, PORTABLE IMPRESSION: Perihilar interstitial prominence may be chronic. However, developing pulmonary edema or atypical interstitial pneumonia cannot be entirely excluded and clinical correlation is recommended. Dictated by: Abdirashid Kearns M.D. on 08/02/2016 at 10:31 X-RAY CHEST ONE VIEW, PORTABLE IMPRESSION: 1. Right-sided central line catheter is positioned with the tip overlying the low superior vena cava. 2. No pneumothorax. Dictated by: Abdirashid Kearns M.D. on 08/02/2016 at 11:27 CT BRAIN WITHOUT CONTRAST IMPRESSION: 1. No acute intracranial hemorrhage. 2. Extensive chronic small vessel ischemic changes. 3. Moderate parenchymal volume loss. 4. Nonspecific enlargement of the lateral ventricles and the 3rd ventricle. In the correct clinical setting, this appearance may be seen with normal pressure hydrocephalus. Please correlate clinically. Dictated by: Abdirashid Kearns M.D. on 08/02/2016 at 12:16 CT ABDOMEN AND PELVIS WITH CONTRAST IMPRESSION: 1. No definite signs of infection within the abdomen or pelvis. There are no abscesses. 2. Enlarged gallbladder with mild biliary dilatation. While nonspecific, this appearance may be seen in the setting of acalculus cholecystitis. The need for better evaluation utilizing a gallbladder ultrasound may be determined clinically. 3. Large amount of stool throughout the colon is suggestive of constipation. 4. No abdominal or pelvic hematomas. 5. Subcutaneous edema involving the bilateral thigh/gluteal regions (left greater than right) without a definite loculated fluid collection appreciated. 6. Urinary bladder wall prominence is likely exaggerated by incomplete distention related to the Burnett catheter. Please correlate clinically to exclude cystitis. Additional findings: -Renal cysts without hydronephrosis. -Aortic atherosclerosis. -Age indeterminate L1 compression deformity. -Prominent degenerative changes of the lumbosacral spine and bilateral hips. Dictated by: Abdirashid Kearns M.D. on 08/02/2016 at 12:19 Cardiac Echo Impressions . Echocardiogram Report Interpretation Summary: Technically difficult study. The patient was in atrial fibrillation with rapid ventricular response during the exam with a heart rate exceeding 100 bpm. Borderline concentric left ventricular hypertrophy with ejection fraction 65- 70 %. Severely dilated both atria. Probably severe aortic stenosis. Mild mitral regurgitation. Comparison is made with the echocardiogram of 05/24/16, aortic stenosis has progressed. Electronically signed by: Catarina Nj Additional Diagnostics . US ABDOMEN, LIMITED IMPRESSION: Gallbladder sludge. No other sonographic criteria for acute cholecystitis however limited examination due to patient positioning difficulties. Therefore, please correlate clinically and with LFTs. Dictated by: Germain Prabhakar M.D. on 08/02/2016 at 16:46 Assessment & Plan Mr. Mendez is a 65-year-old gentleman with a past medical history of neurofibromatosis, dementia, atrial fibrillation currently anticoagulated and admitted for sepsis and possible pneumonia. 1. Severe Sepsis, septic shock. Present on admission. Ongoing - Patient continues to meet sepsis criteria with hyperthermia, tachycardia, tachypnea, leukocytosis and hypotension which has been refractory to fluid resuscitation. The lactic acid has normalized - Multiple possible sources of infection possible including a pneumonia, cellulitis or cholecystitis. - Patient received 3 L IV fluid in ED - Zosyn, Vanc and levofloxacin given in ED - Stop vancomycin and Start a Linezolid secondary to renal function concerns - Continue Zosyn and Linezolid - Esmolol drip - Levophed 0.1 2. Possible pneumonia, present on admission. Ongoing - Etiologies include hospital-acquired as patient was discharged 30 days ago and aspiration - Pro calcitonin trended up from 0.69 to 0.77 - CXR showed a possible developing pneumonia - White count has trended down to 12 from 17 - Antibiotics as in #1 - Appropriate cultures and serologies pending - MRSA positive, respiratory PCR negative 3. Lower extremity cellulitis. Present on admission. Ongoing - CT showed subcutaneous edema involving the bilateral thigh/gluteal regions - Lactic acid normalized - Sacral decubitus ulcer culture pending - Antibiotics as an #1 - Wound care following 4. Atrial fibrillation. Present on admission. Ongoing - Patient has history of atrial fibrillation and is on warfarin - Heart rate has been in the 140s since admit. - Hold home metoprolol and digoxin - digoxin level normal - Esmolol as in #1 - Continue Coumadin, pharmacy to dose - Echo EF 65-70% with bilateral severe dilation of atria, severe aortic stenosis with progression 5. Hypernatremia. Present on admission. Improving - Most likely secondary to dehydration - Patient has many other electrolyte imbalances as well - On admission sodium 158, potassium 5.7, chloride 115, magnesium 2.8. - With fluid administration potassium has normalized the sodium chloride remains elevated (patient given NS) - We will continue to monitor 6. Possible cholecystitis. Present on admission. Unlikely - Enlarged gallbladder with mild biliary dilatation possibly acalculous cholecystitis. - Ultrasound did not show evidence of cholecystitis - Total bilirubin normalized - Alkaline phosphatase normalized - Ultrasound of the gallbladder pending 7. Hypertension. Present on admission. Ongoing - Hold home spironolactone 25 mg daily 8. Acute on chronic renal failure. Present on admission. Improving. - On admission creatinine 1.5, has normalized - Continue IV fluids 9. Encephalopathy due to chronic dementia, possibly exacerbated by infectious etiology. Present on admission. Ongoing - Soft restraints in place. - Continue to treat underlying disorder - Hold venlafaxine secondary to #8 10. Troponin elevation. Present on admission. Ongoing - Elevated in the setting of acute on chronic renal failure - Troponin have trended down - ECG showed Atrial fibrillation with RVR, Rate 152, Left anterior fascicular block. No ST segment abnormalities noted - Echo showed no wall motion abnormalities 11. CODE STATUS changed to DNR/DNI. Per palliative care consultation "CPR/ defibrillation/intubation and mechanical ventilation are potentially inappropriate, as being unlikely to contribute to his survival and return to his previous independent status. Therefore, in this setting, it would seem appropriate to continue medical treatment short of those terminal interventions , but in the event of cardiopulmonary arrest, not to proceed with CPR/ defibrillation/intubation and mechanical ventilation. " Dr. Dyer. Medical team myself Dr. Calvin Gracia as well as my attending physician Dr. Jose De Jesus Medel both agree with this assessment. Disposition: Patient CCU status. Pain Evaluation: Adequate Pain Control VTE Prophylaxis: Theraputic Anticoag with Warfarin Resuscitation Status: DNR/DNI:Do Not Resuscitate/Intubate Attending Statement The patient was seen and examined together with Dr. Gracia on 08/03/2016 and I agree with the history, exam and plan as outlined in the note above. . CALVIN GRACIA DO Aug 03, 2016 06:48 Jose De Jesus Levi MD Aug 05, 2016 09:01
[2016-08-03] MEDS ORDERED: KCl 40 mEq/100 mL Premix (K 3 - 3.7 & Creat < 2) IV ONE (14:45)
--- NOTE | 2016-08-03 15:29 | CONS ---
[address] [address] CONSULTATION REPORT PATIENT: KELLY MELENDREZ : 1950 MR#: [id number] ADMIT: 08/02/2016 JOB ID: [id number] DATE OF SERVICE: 08/03/2016 INFECTIOUS DISEASE CONSULTATION: I thank Dr. Levi for this timely consult. REASON FOR CONSULTATION: Septic shock. HISTORY OF PRESENT ILLNESS: The patient is an unfortunate 65-year-old gentleman with neurofibromatosis and dementia who is known to me from an earlier admission to this facility. He lives in a care home facility and has chronic decubitus ulcers on his buttocks and lower extremities for which he has been followed in Wound Care for a long time. He was admitted last to this hospital for infection in April and in May for possible cardiac event. This time he was readmitted from the care home facility with altered mental status, high fevers, leukocytosis, lactic acidosis and overall rapid decline. The exact timing of this decline is unclear to me as the patient is currently sedated and agitated. He has not been intubated even though he is on vasopressor agents, but he is not really communicative and this is similar to during his last admission when I had a chance to see this patient. He responds with one-word answers usually "ouch" or "no" when he is asked a question or touched and is not able to provide any additional useful history himself. PAST MEDICAL HISTORY: 1. Neurofibromatosis. 2. Dementia. 3. Hydrocephalus. 4. Recurrent and chronic bilateral lower extremity ulcers including the legs, coccyx, which have grown a wide variety of organisms including MRSA and sick gram-negatives such as Klebsiella and Pseudomonas. 5. Organic heart disease: a. CHF. b. Atrial fib. 6. COPD. 7. Immobility. SOCIAL HISTORY: Records and my previous consult from April reflect that he is a nonsmoker, nondrinker but we have no way to independently confirm this. The patient has never been and has no children. FAMILY HISTORY: Not available at this time though there are some older notes that suggest perhaps hypertension. REVIEW OF SYSTEMS: Not possible as the patient is quite ill at this time and combative with underlying dementia and really cannot provide any data about anything. PHYSICAL EXAMINATION: Reveals a gentleman lying on his side in the ICU. He is quite agitated and had to be restrained and sedated. He is not intubated and apparently does not wish to be, but he is on low-dose vasopressor agents to maintain his blood pressure. His current vital signs include temperature 39 degrees axillary, pulse ranging from 100-150. Respiratory rate in the mid 20s. Blood pressure is currently in the 90s but he is on vasopressors as mentioned. He is wearing face mask oxygen and saturating 98%. As noted, he is agitated, restrained and not able to communicate. His eyes show no conjunctivitis or scleral icterus. Oral cavity is dry. Mucous membranes: He will not fully open his mouth so I cannot completely examine him. Neck seems supple without adenopathy or JVD. Lungs relatively clear anteriorly. Cardiac tones: Very tachycardic in an irregular rate and rhythm at this point, and I did not appreciate a murmur but his heart is going so fast I am not sure that I would. His abdomen is soft and without focal tenderness, organomegaly or ascites. Burnett catheter is present and there is no obvious penile or scrotal abnormalities. The skin is notable for innumerable nodules of neurofibromatosis which almost cover his body. His skin examination is quite difficult at this point, because he is agitated, does not want to move and is difficult to move. He yells out in pain when things are touched. Below the knees, his legs are wrapped and my understanding from the Wound Care team is that these are relatively shallow and apparently uninfected looking on the legs. The plan is to change these complex dressings every 48 hours. On his coccyx, he has a 1 x 2 cm wound which is about 0.5 cm deep. On the left buttock, there is a 5 x 6 cm wound which is very shallow. That is on the left buttock and on the right buttock a 3 x 3 cm shallow wound. He also has a significant lesion on his right lateral thigh which is about 2 cm eschar surrounded by cellulitis. When this is squeezed, the patient complains greatly. Neurologically, he moves all four but beyond that I cannot say much as he does not interact or follow any commands. There is no apparent skin rash present over his neurofibromatosis changes and he does not have significant peripheral edema. His extremities are currently warm and reasonably well perfused. LABORATORIES: Include white count which is 12,000 today without notable left shift. His creatinine 1.44 today, was similar yesterday. His lactic acid 1.7 which has normalized. LFTs normal. BNP 2600. Albumin 2.6. Procalcitonin 0.77. Urinalysis has no white cells and urine Legionella and pneumococcal antigens are negative. Micro studies include a MRSA screen of the nares which is positive. Nasopharyngeal PCR study which is negative. Urine which is no growth at 24 hours. Blood cultures which are negative at 24 hours and a culture done from the sacral ulcer which has some early growth which is as of yet uncharacterized. IMAGING: Includes a chest x-ray done yesterday which shows perihilar interstitial prominence without any real consolidation. An abdominal CT has been done which shows no definite infection in the abdomen or pelvis. His gallbladder is a bit enlarged and an ultrasound was done to better visualize that. It did not show evidence of cholecystitis. IMPRESSION: This unfortunate gentleman again presents with what appears to be septic shock. I do not see much on his chest x-ray to suggest that he has pneumonia and he is saturating very well with fairly low-flow face mask oxygen without any appreciable cough and I really do not think he has a pulmonary process. Likewise, his urinalysis is benign appearing and the ultrasound of his gallbladder is quite reassuring. 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 RECOMMENDATIONS: 1. Our primary antibiotic therapy should be aimed at cutaneous sources at this point, and I note that he is receiving linezolid as well as Zosyn. I think these are reasonable choices in this gentleman. Our experience with linezolid for bacteremic skin and soft tissue infections has not been great, but for non bacteremic skin and soft tissue infections, it appears to be as good or perhaps better than any other available agent. It also is convenient in that can be switched to an oral agent after the patient improves significantly. 2. I would avoid the use of vancomycin with its attendant nephrotoxicity in this patient. 3. We await the pending blood cultures as well as urine and the skin cultures. 4. I would anticipate a fairly rapid turnaround and if that is the case, the patient could probably switch to oral linezolid if in fact, any isolates we obtain are Staph or strep and are susceptible. 5. Note that I will be out of town the next three days, returning August 07 on Sunday morning. I can be reached on my cell phone at any time for any questions and Dr. Painting will be rounding in my stead tomorrow on our patients and communicating updates so I may be able to give some input that way. Thank you very much for this consult. MINDY
--- NOTE | 2016-08-03 17:25 | NUR ---
Wound Care Rechecked patient today as it was reported there was also a right thigh ulcer on this patient that i missed yesterday. Right thigh ulcer is circular and 4 cms in diameter and has a sharif eschar over it, this was not debrided and was dressed with an adhesive mepilex foam dressing which can be changed q 48 hrs or PRN by nursing.
[2016-08-03] MEDS: Dextrose 5% 1,000 ML IV SCH ×2 (17:36→21:31)
--- NOTE | 2016-08-03 18:16 | NUR ---
Hemodyamics/agitation This AM, pt HR 130-140s afib, BP have to be taken manually because of pt's constant activity and restlessness. BPs in the 80-90s systolically (see CCU flow sheet). Running D5W wide open per Md order as well as Gave 1mg IV morphine with little effect, Notified MD who ordered IV dilaudid, which had an excellent response. HR decreased to afib in the 80s-90s, BP still hypotensive with MAP in the 50s. Started pt on levophed, with MAPs now in the 60-70s. Q2h turns and frequent rounding and oral care continue. Noticed a half dollar size spot on his upper lateral left side that looked perfectly round, almost a "cookie cutter" tatitlek. Notified Dev in wound care who came and assessed it and put mepilex on it.
[2016-08-03] MEDS: Albuterol-Ipratropium 3 mL Inhalation Solution NEB PRN (21:13)
[2016-08-04] VITALS (8 sets, daily range): BP systolic 97–122; BP diastolic 57–78; PULSE 86–117; RESP 14–21; O2SAT 94–100
--- NOTE | 2016-08-04 00:12 | NUR ---
Restless/Pain/Dressing Dilaudid given for pain with some effectiveness noted. Ativan for restlessness x1. Turn q2h. Buttock dressing changed tonight. SBP in 120s/80s. Norepinephrine gtt at 0.1 mcg/kg/min. Transfer care to [facility].
[2016-08-04] MEDS: Sodium Chloride LOK Flush 10 mL Syringe IVFLUSH SCH ×5 (01:19→15:26)
[2016-08-04] MEDS: Piperacillin-Tazo 3.375 Gm Inj 3.375 GM in Dextrose 5% Minibag Plus 50 ML IV SCH ×3 (01:19→15:40)
[2016-08-04] MEDS: HYDROmorphone 0.5 mg/0.5 mL iSecure Syringe IVPUSH PRN ×6 (01:58→23:47)
[2016-08-04] MEDS: Norepineph 8,000 mCg/250 mL NS 8,000 MCG in IV Premix 1 EACH IV SCH ×2 (02:15→18:01)
[2016-08-04] MEDS: Esmolol 2,500 mg/250 mL NS 2,500,000 MCG in IV Premix 1 EACH IV SCH ×3 (03:01→22:07)
[2016-08-04 05:04] LABS: BASOPHILS % (AUTO) 0.7 % (0-3); EOSINOPHILS % (AUTO) 6.7 % (0-5); MONOCYTES % (AUTO) 6.8 % (4-12); Mean Corpuscular Hemoglobin 28.5 pg (27.0-35.0); Mean Corpuscular Volume 98.9 fL (81-100); NEUTROPHILS % (AUTO) 70.9 % (40-74); Platelet Count 151 bil/L (150-400)
[2016-08-04 05:37] LABS: Magnesium 1.8 mg/dL (1.6-2.6)
[2016-08-04] MEDS ORDERED: KCl 40 mEq/100 mL Premix (K 3 - 3.7 & Creat < 2) IV ONE (05:55)
--- NOTE | 2016-08-04 06:30 | NUR ---
Pt remained stable through the night. Levophed remains at 0.1 mcg with last pressure of 107/53 (66). pt continues to have tremors which makes for difficult for accurate blood pressures. Dilaudid given for pain. Ativan given for restlessness with some effectiveness. Able to decrease o2 to 2 lpm via oxymask. HR remains a-fib with some tachycardia with restlessness. Will continue to monitor pt.
[2016-08-04] MEDS: Nystatin 100,000 Unit/mL 5 mL Suspension PO SCH ×4 (06:39→21:06)
[2016-08-04] MEDS: Dextrose 5% 1,000 ML IV SCH ×2 (07:30→18:01)
[2016-08-04] MEDS: Arformoterol 15 mCg/2 mL Inhalation Solution NEB SCH ×2 (07:53→20:30)
[2016-08-04] MEDS: Budesonide 0.5 mg/2 mL Inhalation Solution NEB SCH ×2 (07:54→20:30)
[2016-08-04] MEDS: Linezolid Inj 600 MG in IV Premix 1 EACH IV SCH ×2 (08:13→21:06)
--- NOTE | 2016-08-04 11:16 | DRSVH ---
PROCEDURE: X-RAY CHEST ONE VIEW, PORTABLE ([id number]) INDICATIONS: pneumonia TECHNIQUE: One view of the chest was acquired. COMPARISON: [facility], CR, XR CHEST 1VW (PORTABLE), 08/02/2016, 12:07. FINDINGS: Surgical changes and devices: Some form of catheter like device overlies the lower right neck and ext ends into the expected position of the distal SVC. Lungs and pleura: No pleural effusions or pneumothorax. Lungs are mildly abnormal with slight stran ding at the left lung base stable over time. Mediastinum: Mediastinal contours appear normal. Heart size is normal. Bones and chest wall: No suspicious bony lesions. Overlying soft tissues appear unremarkable. IMPRESSION: What appeared to be a central line from a right-sided approach extends over the right med iastinum 2 the expected position of the distal SVC. No pneumothorax. This was previously present. Mild persistent pneumonia retrocardiac left lower lobe. Reduced inspiratory volume. Dictated by: Miller Machado M.D. on 08/04/2016 at 11:14 Approved by: Miller Machado M.D. on 08/04/2016 at 11:15
--- NOTE | 2016-08-04 12:31 | PCM.PALLBR ---
Palliative Care Recommendation 65-year-old male with long-standing history of lower extremity skin ulcers and recurrent cellulitis/sepsis, as well as neurofibromatosis, COPD, atrial fibrillation, dementia, etc. with further history of steady deterioration over approximately the last 6 months (during which time he has been hospitalized multiple times) including significant cognitive deterioration to the point where he has been deemed non-decisional for the last 4-6 months. Admitted again with sepsis, multiple possible etiologies, including pneumonia, cellulitis, cholecystitis, as well as marked hypernatremia, elevated troponins, etc. Palliative medicine consulted to assist patient in determination of goals of care. Unfortunately, it appears that the patient has nobody to speak for him or take responsibility. Multiple phone calls to his care facility, previous caregivers and other potential contacts on 08/03 and 08/04 without any success in identifying responsible related individuals. His only known blood relative, his brother , has been unreachable for some time (according to the patient's care facility and PCP) and may, in fact, have . Apparently, efforts at securing guardianship are underway but as yet are incomplete. Summary of palliative recommendations: -Symptom management (Pain/other)- continue Dilaudid and lorazepam prn as ordered. Monitor and adjust medications for comfort as needed, consistent with safety in light of his other ongoing medical conditions. -DPOA/Advanced Directives/POLST- patient's care facility sent a copy of POLST completed by the patient and his PCP on 06/13/16. It indicated wishes for CPR but not intubation (which is problematic in of itself). Patient's decisional status at that time uncertain. He has clearly continued to deteriorate in the interim and is definitely non-decisional at this point. All outpatient caregivers that I spoke with today related that the patient has shown steady deterioration over the 4-6 months (during which time he has had multiple hospitalizations without significant recovery of previous level of function in the wake of each hospitalization). After careful review of his records from this and his previous hospitalizations , and after extensive discussion and consideration of his current clinical status with his medical team, my impression is that aggressive terminal interventions such as CPR/defibrillation/intubation and mechanical ventilation are potentially inappropriate, as being unlikely to contribute to his survival and return to his previous independent status. Therefore, in this setting, it would seem appropriate to continue medical treatment short of those terminal interventions, but in the event of cardiopulmonary arrest, not to proceed with CPR/defibrillation/intubation and mechanical ventilation. Consistent with these considerations, I have adjusted CODE STATUS to DO NOT RESUSCITATE/DO NOT INTUBATE on the likelihood of such interventions being potentially inappropriate and non-beneficial. -Family/emotional support- no family or known contacts whatsoever -Spiritual support- I will review with hospital nurse instructor; I have no history regarding the patient's spirituality Additional Medical Diagnoses with primary management by Hospitalist team include : 1. Severe Sepsis. Present on admission. Ongoing. 2. Possible pneumonia, present on admission. Ongoing 3. Lower extremity cellulitis. Present on admission. Ongoing 4. Atrial fibrillation. Present on admission. Ongoing 5. Hypernatremia. Present on admission. Ongoing 6. Possible cholecystitis. Present on admission. Ongoing 7. Hypertension. Present on admission. Ongoing 8. Acute on chronic renal failure. Present on admission. Improving. 9. Encephalopathy due to chronic dementia, possibly exacerbated by infectious etiology. Present on admission. Ongoing Problems: End of Life Preferences DO NOT RESUSCITATE/DO NOT INTUBATE/limited interventions okay Disposition To be determined Resuscitation Status Resuscitation Status: DNR/DNI:Do Not Resuscitate/Intubate (on the basis of non- beneficence) POLST Updates/Changes Previous POLST?: Yes Antibiotics: Use ABX if can Prolong Life Artificially Admin Nutrition: Trial Period Tube Feeding POLST Review Outcome: Form Voided . Pain: Mild Symptom management: Drowsiness/sleepiness, Agitation, Pain, Delirium Total time 45 minutes; >50% face to face with patient, providing counselling regarding plans and recommendations, and in care coordination with his medical teams. Palliative Brief Note Date of Service Aug 04, 2016 . Returned to reevaluate patient in CCU. Prior to visiting, reviewed his updated records in the EMR in detail. Spoke with his bedside nurse and with his medical /critical care teams on morning CCU rounds. Also reviewed his situation with VOLUNTEER SPECIALIST, continuing to try to locate somebody responsible for him. He was sedated on my arrival, in no obvious distress. Nurses continue to use fentanyl and/or lorazepam for his comfort. On exam, vital signs noted. Continues on IV norepinephrine. Skin is warm and dry. HEENT exam without acute changes. Neck without masses or adenopathy. Lungs clear anterolaterally, heart sounds irregularly irregular with controlled rate in the 90s. Abdomen is rounded and without evidence of tenderness or peritoneal signs. Lower extremities with dressings from midfoot to knees bilaterally. Toes distally with chronic skin scalene and venous stasis changes , mildly dusky but stable in appearance. Seen to move his upper extremities spontaneously. No response to commands or verbal stimulation. Labs and imaging studies reviewed in detail. Jim Dyer MD Aug 04, 2016 12:31
--- NOTE | 2016-08-04 13:27 | NUR ---
NUTRITION FOLLOW-UP: ASSESS: 65 YO male transferred to CCU with septic shock and hypotension, with multiple possible etiologies, including pneumonia, cellulitis, cholecystitis, as well as marked hypernatremia, and elevated troponins. Per care facility, pt. has had a steady deterioration over approximately the last 6 months, during which time he has been hospitalized multiple times, including significant cognitive deterioration to the point where he has been deemed non-decisional for the last 4-6 months. Palliative medicine consulted to assist patient in determination of goals of care. Unfortunately, it appears that the patient has nobody to speak for him or take responsibility. Speech Therapy ordered a stimulation diet for him 08/02 but downgraded him to NPO status yesterday due to somnolence and delayed swallow. Wound care is following, as pt has multiple unstageable pressure injuries on buttock and lower extremities. Wt is down 5kg x1 month. PMHX: Dementia, Chronic venous stasis changes, Afib, CHF, COPD, Neurofibromatosis, Emphysema LABS: Na 146, Chloride 110, Ca 8.3, Total Bili 1.4, Alb 2.3. MEDS: Levophed, dilaudid, ativan. GI: BM x 1 (08/03). SKIN: Marco 13 - current Wound [facility] pt w/ multiple unstageable pressure injuries on buttock/legs; also a right thigh ulcer noted yesterday. WT: 91.5 kg, BMI 27.0 kg/m2. Admit weight: 87.3 kg BMI: 26.1 kg/m2 IBW: 75.4 kg. UBW ~98kg per previous admits. DIET: NPO per ST. EST. NEEDS: Wounds, CKD Kcals: 2185-3056kcal/day (25-35kcal/kg) Pro: 90-105 g/day (1.0-1.2 g/kg BW) Fluid: 2500 ml/day (~1 ml/kcal/day) NUTRITION DIAGNOSIS: 1) Inadequate oral intake related to decreased ability to consume sufficient energy as evidenced by current NPO status per ST - PERSISTS. 2) Increased nutrient needs related to increased demand for healing as evidence by pt with multiple lower extremity wounds - PERSISTS. 3) Chew/ swallow difficulty related to AMS and chronic dysphagia as evidence by pt with dementia and need for texture modification per ST - PERSISTS. NUTRITION INTERVENTION: 1) Enteral feeding recommendation follows, unsigned orders in chart for provider authorization. Initiate Jevity 1.5 at 15 ml/hr x 12 hr. Once tolerance established, recommend advance 10 ml every 6 hr to goal rate 75 ml/hr. Flush dose 40 ml H2O every 4 hr. Enteral feeding at goal would provide 2475 kcal, 105 g protein, sufficient to meet 100% nutrient needs. MONITOR / EVAL: NPO status, orders for nutrition support, diet advance, labs, wt, GI, POC. Will continue to monitor per high nutritional risk guidelines.
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
--- NOTE | 2016-08-04 17:13 | PCM.PNMED ---
Subjective Date of Service Aug 04, 2016 Subjective Overnight: Age remained in A. fib with heart rate in the 80s. Requiring 2 L on oxygen mask. Ativan and Dilaudid both given for pain and agitation. He has had 2 bowel movements. He has put out 300 mL of lida-colored urine. Today: Patient remains sedated and minimally responsive. Will open eyes to voice, though will not follow commands. Exam Vital Signs Vital Sign - Last Date Time Temp Pulse Resp B/P Pulse Ox O2 Delivery O2 Flow Rate FiO2 08/04/16 04:30 Supplement Oxygen 08/04/16 04:30 36.5 98 18 101/57 99 2.00 Intake and Output 08/03/16 08/03/16 08/04/16 Cumulative From/Thru 15:00 23:00 07:00 08/02/16 09:47 - 08/04/16 06:28 Intake Total 5005 ml 2193 ml 21244 ml Output Total 600 ml 625 ml 3325 ml Balance 4405 ml 1568 ml 03856 ml Intake Oral 60 ml IV Total 5005 ml 2193 ml 43311 ml Output Urine Total 600 ml 625 ml 3325 ml # Bowel Movements 1 0 1 Exam General: Patient laying in hospital bed sleeping in 2 point soft restraints. Opens eyes to voice though unable to verbalize intelligible answers to questions or follow commands. HEENT: Tubercles of neurofibromatosis diffusely over face. Oximetry mask in place. Neck: Right IJ in place, bandage is intact. Cardiovascular: Regular rate with irregular irregular rhythm with no murmurs appreciated. Pulmonary: Clear to auscultation bilaterally with no crackles. Abdomen: Soft to palpation 4 quadrants. No guarding, no rigidity and no rebound tenderness. Extremities: Multiple wounds throughout lower extremities bilaterally. Bandages in place and intact Skin: No clubbing no edema appreciated Neurological: Cranial nerves grossly intact. Psychiatric: Unable to answer questions appropriately IV lines: Right IJ, left AC, right wrist IV drips: Levophed 0.1 mcg/kg/hr, D5 normal saline 100 mL an hour IVs and Medications Medications Reviewed: Medications were reviewed in detail Lab and Diagnostics Result Diagram: 08/04/165 08/04/16454 Microbiology Blood cultures pending, culture sacral decubitus ulcer pending X-Rays, CTs and MRIs X-RAY CHEST ONE VIEW, PORTABLE IMPRESSION: Perihilar interstitial prominence may be chronic. However, developing pulmonary edema or atypical interstitial pneumonia cannot be entirely excluded and clinical correlation is recommended. Dictated by: Abdirashid Kearns M.D. on 08/02/2016 at 10:31 X-RAY CHEST ONE VIEW, PORTABLE IMPRESSION: 1. Right-sided central line catheter is positioned with the tip overlying the low superior vena cava. 2. No pneumothorax. Dictated by: Abdirashid Kearns M.D. on 08/02/2016 at 11:27 CT BRAIN WITHOUT CONTRAST IMPRESSION: 1. No acute intracranial hemorrhage. 2. Extensive chronic small vessel ischemic changes. 3. Moderate parenchymal volume loss. 4. Nonspecific enlargement of the lateral ventricles and the 3rd ventricle. In the correct clinical setting, this appearance may be seen with normal pressure hydrocephalus. Please correlate clinically. Dictated by: Abdirashid Kearns M.D. on 08/02/2016 at 12:16 CT ABDOMEN AND PELVIS WITH CONTRAST IMPRESSION: 1. No definite signs of infection within the abdomen or pelvis. There are no abscesses. 2. Enlarged gallbladder with mild biliary dilatation. While nonspecific, this appearance may be seen in the setting of acalculus cholecystitis. The need for better evaluation utilizing a gallbladder ultrasound may be determined clinically. 3. Large amount of stool throughout the colon is suggestive of constipation. 4. No abdominal or pelvic hematomas. 5. Subcutaneous edema involving the bilateral thigh/gluteal regions (left greater than right) without a definite loculated fluid collection appreciated. 6. Urinary bladder wall prominence is likely exaggerated by incomplete distention related to the Burnett catheter. Please correlate clinically to exclude cystitis. Additional findings: -Renal cysts without hydronephrosis. -Aortic atherosclerosis. -Age indeterminate L1 compression deformity. -Prominent degenerative changes of the lumbosacral spine and bilateral hips. Dictated by: Abdirashid Kearns M.D. on 08/02/2016 at 12:19 X-RAY CHEST ONE VIEW, PORTABLE IMPRESSION: What appeared to be a central line from a right-sided approach extends over the right mediastinum 2 the expected position of the distal SVC. No pneumothorax. This was previously present. Mild persistent pneumonia retrocardiac left lower lobe. Reduced inspiratory volume. Dictated by: Miller Machado M.D. on 08/04/2016 at 11:14 Cardiac Echo Impressions . Echocardiogram Report Interpretation Summary: Technically difficult study. The patient was in atrial fibrillation with rapid ventricular response during the exam with a heart rate exceeding 100 bpm. Borderline concentric left ventricular hypertrophy with ejection fraction 65- 70 %. Severely dilated both atria. Probably severe aortic stenosis. Mild mitral regurgitation. Comparison is made with the echocardiogram of 05/24/16, aortic stenosis has progressed. Electronically signed by: Catarina Nj [facility] . US ABDOMEN, LIMITED IMPRESSION: Gallbladder sludge. No other sonographic criteria for acute cholecystitis however limited examination due to patient positioning difficulties. Therefore, please correlate clinically and with LFTs. Dictated by: Germain Prabhakar M.D. on 08/02/2016 at 16:46 Assessment & Plan Mr. Mendez is a 65-year-old gentleman with a past medical history of neurofibromatosis, dementia, atrial fibrillation currently anticoagulated and admitted for sepsis and possible pneumonia. 1. Severe Sepsis, septic shock. Present on admission. Improving - Patient continues to meet sepsis criteria with hyperthermia, tachycardia, tachypnea, leukocytosis and hypotension which has been refractory to fluid resuscitation. The lactic acid has normalized - Multiple possible sources of infection possible including a pneumonia, cellulitis - White count and Pro calcitonin continue to trend down, lactic acid normalized - Afebrile, regular respiratory and heart rate. Hemodynamically stable at this time - Continue fluid administration - Continue Zosyn and Linezolid - Esmolol drip, when necessary - Levophed 0.1 2. Possible pneumonia, present on admission. Ongoing - Etiologies include hospital-acquired and aspiration - Pro calcitonin 0.48 - CXR shows mild persistent pneumonia left lower lobe - White count continues to trend down, 11.1 today - Antibiotics as in #1 - MRSA positive, respiratory PCR negative 3. Lower extremity cellulitis. Present on admission. Ongoing - CT showed subcutaneous edema involving the bilateral thigh/gluteal regions - Lactic acid normalized - Sacral decubitus ulcer culture negative to date - Antibiotics as an #1 - Wound care following 4. Atrial fibrillation. Present on admission. Ongoing - Heart rate trending down - Hold home metoprolol and digoxin - digoxin level normal - Esmolol as in #1 - Continue Coumadin, pharmacy to dose - Echo EF 65-70% with bilateral severe dilation of atria, severe aortic stenosis with progression 5. Hypernatremia. Present on admission. Improving - Most likely secondary to dehydration - Patient has many other electrolyte imbalances as well - On admission sodium 158, potassium 5.7, chloride 115, magnesium 2.8. - With fluid administration potassium has normalized the sodium chloride remains elevated - We will continue to monitor 6. Hypertension. Not Present on admission. Ongoing - Hold home spironolactone 25 mg daily, secondary to hypotension - Patient hemodynamically stable - Continue to monitor 7. Acute on chronic renal failure. Present on admission. Resolved - On admission creatinine 1.5, has normalized - Continue IV fluids 8. Encephalopathy due to chronic dementia, possibly exacerbated by infectious etiology. Present on admission. Ongoing - Soft restraints in place. - Continue to treat underlying disorder - Hold venlafaxine 11. Troponin elevation. Present on admission. Ongoing - Elevated in the setting of acute on chronic renal failure - Troponin have trended down - ECG showed Atrial fibrillation with RVR, Rate 152, Left anterior fascicular block. No ST segment abnormalities noted - Echo showed no wall motion abnormalities 12. CODE STATUS changed to DNR/DNI. Per palliative care consultation "CPR/ defibrillation/intubation and mechanical ventilation are potentially inappropriate, as being unlikely to contribute to his survival and return to his previous independent status. Therefore, in this setting, it would seem appropriate to continue medical treatment short of those terminal interventions , but in the event of cardiopulmonary arrest, not to proceed with CPR/ defibrillation/intubation and mechanical ventilation. " Dr. Dyer. Medical team myself Dr. Calvin Gracia as well as my attending physician Dr. Jose De Jesus Medel both agree with this assessment. Disposition: Patient remains CCU status. Pain Evaluation: Adequate Pain Control VTE Prophylaxis: Theraputic Anticoag with Warfarin Resuscitation Status: DNR/DNI:Do Not Resuscitate/Intubate Attending Statement The patient was seen and examined together with Dr. Gracia on 08/04/2016 and I agree with the history, exam and plan as outlined in the note above. . CALVIN GRACIA DO Aug 04, 2016 06:45 Jose De Jesus Levi MD Aug 05, 2016 09:02
--- NOTE | 2016-08-04 19:38 | DRSVH ---
PROCEDURE: X-RAY CHEST ONE VIEW, PORTABLE ([id number]) INDICATIONS: POST NG TUBE PLACEMENT TECHNIQUE: One view of the chest was acquired. COMPARISON: [facility], CR, XR CHEST 1VW (PORTABLE), 08/04/2016, 4:58. FINDINGS: Surgical changes and devices: Enteric tube is seen with the tip projecting in the stomach. Right-side d internal jugular central venous catheter appears unchanged Lungs and pleura: There is mildly increased retrocardiac consolidative opacity since earlier same day . No pneumothorax. Blunting of the left costophrenic angle. No definite pleural effusion. Mediastinum: Mediastinal contours appear normal. Heart size is normal. Bones and chest wall: No suspicious bony lesions. Overlying soft tissues appear unremarkable. Late ral curvature of the spine IMPRESSION: Enteric tube with the tip projecting in the stomach. Mildly increased consolidative retrocardiac left basilar opacities suspicious for atelectasis/aspirat ion. Recommend continued radiographic followup. Dictated by: Germain Prabhakar M.D. on 08/04/2016 at 19:33 Approved by: Germain Prabhakar M.D. on 08/04/2016 at 19:36
[2016-08-05] VITALS (8 sets, daily range): BP systolic 88–115; BP diastolic 49–76; PULSE 99–119; RESP 16–30; O2SAT 95–100
[2016-08-05] MEDS: Sodium Chloride LOK Flush 10 mL Syringe IVFLUSH SCH ×6 (00:21→15:51)
[2016-08-05] MEDS: Dextrose 5% 1,000 ML IV SCH ×2 (00:21→10:39)
[2016-08-05] MEDS: Piperacillin-Tazo 3.375 Gm Inj 3.375 GM in Dextrose 5% Minibag Plus 50 ML IV SCH ×3 (00:21→16:10)
[2016-08-05] MEDS: HYDROmorphone 0.5 mg/0.5 mL iSecure Syringe IVPUSH PRN ×3 (02:51→19:53)
[2016-08-05 05:28] LABS: BASOPHILS % (AUTO) 0.5 % (0-3); EOSINOPHILS % (AUTO) 9.7 % (0-5); MONOCYTES % (AUTO) 5.7 % (4-12); Mean Corpuscular Hemoglobin 28.8 pg (27.0-35.0); Mean Corpuscular Volume 97.2 fL (81-100); NEUTROPHILS % (AUTO) 67.8 % (40-74); Platelet Count 159 bil/L (150-400)
--- NOTE | 2016-08-05 05:32 | NUR ---
Pt restless on/off through the night. Vital remain stable. Attempted to wean levophed down with little success. Pt afebrile. Repositioned Q2H. HR remains a-fib, slightly tachy with activity. Pt continues to have tremors. Small mepilex drsg changed. Moderate BM. Tolerating tube feeds well, running at 15 ml with residuals of 10 ml. supplemental o2 at 2 lpm with sats in the mid to high 90's. Dilaudid for pain, ativan for anxiety given. Will continue to monitor closely.
[2016-08-05] MEDS: Nystatin 100,000 Unit/mL 5 mL Suspension PO SCH ×4 (06:05→21:23)
[2016-08-05 06:08] LABS: Magnesium 1.8 mg/dL (1.6-2.6)
[2016-08-05] MEDS ORDERED: KCl 40 mEq/100 mL Premix (K 3 - 3.7 & Creat < 2) IV ONE ×2 (06:20→16:30)
[2016-08-05] MEDS: Norepineph 8,000 mCg/250 mL NS 8,000 MCG in IV Premix 1 EACH IV SCH ×2 (06:47→20:03)
[2016-08-05] MEDS: Esmolol 2,500 mg/250 mL NS 2,500,000 MCG in IV Premix 1 EACH IV SCH ×2 (07:33→16:10)
--- NOTE | 2016-08-05 07:52 | DRSVH ---
PROCEDURE: X-RAY CHEST ONE VIEW, PORTABLE ([id number]) INDICATIONS: pneumonia TECHNIQUE: One view of the chest was acquired. COMPARISON: [facility], CR, XR CHEST 1VW (PORTABLE), 08/04/2016, 18:45. FINDINGS: Surgical changes and devices: There is an NG tube into the stomach. There is a right internal jugular central line at the junction of the superior vena cava and right atrium. ehs specialist leads are s een over the chest. Oxygen tubing is present. Lungs and pleura: No pleural effusions or pneumothorax. There is improved aeration at the left base compared to the previous film there continues to be some bibasilar subsegmental atelectasis. Mediastinum: Mediastinal contours appear normal. Heart size is normal. Bones and chest wall: No suspicious bony lesions. Overlying soft tissues appear unremarkable. IMPRESSION: No change in tubes or lines since the previous day. Improved aeration of the lung lópez with bibasilar subsegmental atelectasis still present. Dictated by: Randolph Noel M.D. on 08/05/2016 at 7:45 Approved by: Randolph Noel M.D. on 08/05/2016 at 7:51
[2016-08-05] MEDS: Arformoterol 15 mCg/2 mL Inhalation Solution NEB SCH ×2 (08:50→21:27)
[2016-08-05] MEDS: Budesonide 0.5 mg/2 mL Inhalation Solution NEB SCH ×2 (08:51→21:27)
[2016-08-05] MEDS: Linezolid Inj 600 MG in IV Premix 1 EACH IV SCH ×2 (13:04→20:03)
--- NOTE | 2016-08-05 14:04 | NUR ---
NUTRITION FOLLOW-UP: ASSESS: 65 YO male transferred to CCU with septic shock and hypotension, with multiple possible etiologies, including pneumonia, cellulitis, cholecystitis, as well as marked hypernatremia, and elevated troponins. Per care facility, pt. has had a steady deterioration over approximately the last 6 months, during which time he has been hospitalized multiple times, including significant cognitive deterioration to the point where he has been deemed non-decisional for the last 4-6 months. Per palliative care consultation and agreement with providers involved in patient's care, "CPR/defibrillation/intubation and mechanical ventilation are potentially inappropriate, as being unlikely to contribute to his survival and return to his previous independent status. Therefore, in this setting, it would seem appropriate to continue medical treatment short of those terminal interventions, but in the event of cardiopulmonary arrest, not to proceed with CPR/defibrillation/intubation and mechanical ventilation. Speech Therapy ordered a stimulation diet for him 08/02 but downgraded him to NPO status 08/03 due to somnolence and delayed swallow. Enteral feeding initiated yesterday and is advancing toward goal rate today. Per request from Dr. Levi, D5W discontinued, with 52 ml/hr free water flush dose added to enteral feeding orders. Wound care is following, as pt has multiple unstageable pressure injuries on buttock and lower extremities. Wt is down 5kg x1 month. PMHX: Dementia, Chronic venous stasis changes, Afib, CHF, COPD, Neurofibromatosis, Emphysema LABS: Na 146, Chloride 110, Cr 0.60, Glu 108, Total Bili 1.4, Alb 2.2. MEDS: Levophed, dilaudid, ativan, coumadin. DIET: NPO. ENTERAL FEEDING: Jevity 1.5 current rate 30 ml/hr, advancing 10 ml every 6 hr to goal rate 75 ml/hr. Flush dose 52 ml H2O every hr, as D5W discontinued. Enteral feeding at goal will provide 2475 kcal, 105 g protein, sufficient to meet 100% nutrient needs. GI: BM x 1 today. SKIN: Marco 11 - current Wound Clinic pt w/ multiple unstageable pressure injuries on buttock/legs; also a right thigh injury noted 08/03. WT: 89.4 kg, BMI 26.0 kg/m2. Admit weight: 87.3 kg BMI: 26.1 kg/m2 IBW: 75.4 kg. UBW ~98kg per previous admits. DIET: NPO per ST. EST. NEEDS: Wounds, CKD Kcals: 2185-3056kcal/day (25-35kcal/kg) Pro: 90-105 g/day (1.0-1.2 g/kg BW) Fluid: 2500 ml/day (~1 ml/kcal/day) NUTRITION DIAGNOSIS: 1) Inadequate oral intake related to decreased ability to consume sufficient energy as evidenced by current NPO status per ST - IMPROVED WITH ENTERAL FEEDING. 2) Increased nutrient needs related to increased demand for healing as evidence by pt with multiple lower extremity wounds - PERSISTS. 3) Chew/ swallow difficulty related to AMS and chronic dysphagia as evidence by pt with dementia and need for texture modification per ST - PERSISTS. NUTRITION INTERVENTION: 1) No additional recommendation at this time. MONITOR / EVAL: NPO status, diet advance, enteral feeding advance / tolerance, labs, wt, GI, POC. Will continue to monitor per high nutritional risk guidelines.
--- NOTE | 2016-08-05 15:20 | PCM.PNMED ---
Subjective Date of Service Aug 05, 2016 Subjective Overnight: Patient continued to receive Ativan and Dilaudid secondary to perceived agitation and pain. Remained in A. fib throughout the night. Sinus tach in the 110s with a few episodes of oxygen desaturation. Today: Patient remains sedated no more responsive than previous. He will open his eyes to voice and be able to answer questions and short sentence responses though mostly unintelligible. When asked if in pain he denies. Exam Vital Signs Vital Sign - Last Date Time Temp Pulse Resp B/P Pulse Ox O2 Delivery O2 Flow Rate FiO2 08/05/16 12:58 36.8 109 30 112/56 95 Nasal Cannula 2.00 Intake and Output 08/04/16 08/04/16 08/05/16 Cumulative From/Thru 15:00 23:00 07:00 08/02/16 09:47 - 08/05/16 05:54 Intake Total 1679 ml 2178 ml 38897 ml Output Total 1400 ml 1650 ml 6375 ml Balance 279 ml 528 ml 76076 ml Intake Oral 60 ml IV Total 1679 ml 1943 ml 24619 ml Tube Feeding 155 ml 155 ml Tube Irrigant 80 ml 80 ml Output Urine Total 1400 ml 1650 ml 6375 ml # Bowel Movements 1 2 Exam General: Patient laying in hospital bed sleeping in 2 point soft restraints. Opens eyes to voice though unable to verbalize intelligible answers to questions or follow commands. HEENT: Tubercles of neurofibromatosis diffusely over face. Nasal cannula in place. NG tube in place Neck: Right IJ in place, bandage is intact. Cardiovascular: Tachycardic rate with irregular irregular rhythm with no murmurs appreciated. Pulmonary: Clear to auscultation bilaterally with no crackles. Abdomen: Soft to palpation 4 quadrants. No guarding, no rigidity and no rebound tenderness. Extremities: Multiple wounds throughout lower extremities bilaterally. Bandages remain in place and intact Skin: No clubbing no edema appreciated Neurological: Cranial nerves grossly intact. Psychiatric: Unable to answer questions appropriately IV lines: Right IJ, left AC, right wrist IV drips: Levophed 0.1 mcg/kg/hr. IVs and Medications Medications Reviewed: Medications were reviewed in detail Lab and Diagnostics Result Diagram: 08/05/1651408/05/16514 Microbiology Blood cultures pending, culture sacral decubitus ulcer pending X-Rays, CTs and MRIs X-RAY CHEST ONE VIEW, PORTABLE IMPRESSION: Perihilar interstitial prominence may be chronic. However, developing pulmonary edema or atypical interstitial pneumonia cannot be entirely excluded and clinical correlation is recommended. Dictated by: Abdirashid Kearns M.D. on 08/02/2016 at 10:31 X-RAY CHEST ONE VIEW, PORTABLE IMPRESSION: 1. Right-sided central line catheter is positioned with the tip overlying the low superior vena cava. 2. No pneumothorax. Dictated by: Abdirashid Kearns M.D. on 08/02/2016 at 11:27 CT BRAIN WITHOUT CONTRAST IMPRESSION: 1. No acute intracranial hemorrhage. 2. Extensive chronic small vessel ischemic changes. 3. Moderate parenchymal volume loss. 4. Nonspecific enlargement of the lateral ventricles and the 3rd ventricle. In the correct clinical setting, this appearance may be seen with normal pressure hydrocephalus. Please correlate clinically. Dictated by: Abdirashid Kearns M.D. on 08/02/2016 at 12:16 CT ABDOMEN AND PELVIS WITH CONTRAST IMPRESSION: 1. No definite signs of infection within the abdomen or pelvis. There are no abscesses. 2. Enlarged gallbladder with mild biliary dilatation. While nonspecific, this appearance may be seen in the setting of acalculus cholecystitis. The need for better evaluation utilizing a gallbladder ultrasound may be determined clinically. 3. Large amount of stool throughout the colon is suggestive of constipation. 4. No abdominal or pelvic hematomas. 5. Subcutaneous edema involving the bilateral thigh/gluteal regions (left greater than right) without a definite loculated fluid collection appreciated. 6. Urinary bladder wall prominence is likely exaggerated by incomplete distention related to the Burnett catheter. Please correlate clinically to exclude cystitis. Additional findings: -Renal cysts without hydronephrosis. -Aortic atherosclerosis. -Age indeterminate L1 compression deformity. -Prominent degenerative changes of the lumbosacral spine and bilateral hips. Dictated by: Abdirashid Kearns M.D. on 08/02/2016 at 12:19 X-RAY CHEST ONE VIEW, PORTABLE IMPRESSION: What appeared to be a central line from a right-sided approach extends over the right mediastinum 2 the expected position of the distal SVC. No pneumothorax. This was previously present. Mild persistent pneumonia retrocardiac left lower lobe. Reduced inspiratory volume. Dictated by: Miller Machado M.D. on 08/04/2016 at 11:14 X-RAY CHEST ONE VIEW, PORTABLE IMPRESSION: No change in tubes or lines since the previous day. Improved aeration of the lung lópez with bibasilar subsegmental atelectasis still present. Dictated by: Randolph Noel M.D. on 08/05/2016 at 7:45 Cardiac Echo Impressions . Echocardiogram Report Interpretation Summary: Technically difficult study. The patient was in atrial fibrillation with rapid ventricular response during the exam with a heart rate exceeding 100 bpm. Borderline concentric left ventricular hypertrophy with ejection fraction 65- 70 %. Severely dilated both atria. Probably severe aortic stenosis. Mild mitral regurgitation. Comparison is made with the echocardiogram of 05/24/16, aortic stenosis has progressed. Electronically signed by: Catarina Nj [facility] . US ABDOMEN, LIMITED IMPRESSION: Gallbladder sludge. No other sonographic criteria for acute cholecystitis however limited examination due to patient positioning difficulties. Therefore, please correlate clinically and with LFTs. Dictated by: Germain Prabhakar M.D. on 08/02/2016 at 16:46 Assessment & Plan Mr. Mendez is a 65-year-old gentleman with a past medical history of neurofibromatosis, dementia, atrial fibrillation currently anticoagulated and admitted for sepsis and possible pneumonia. Hospital day 4 1. Severe Sepsis, septic shock. Present on admission. Improving - Patient now afebrile, though remains 2 And tachycardic. Lactic acid 1.3. White count 7.9. Patient remains on Levothroid 0.01. - Multiple possible sources of infection possible including a pneumonia, cellulitis - White count and Pro calcitonin continue to trend down, lactic acid normalized - IV fluids stopped - Continue Zosyn and Linezolid - Esmolol drip, when necessary - Levophed 0.1 2. Possible pneumonia, present on admission. Ongoing - Etiologies include hospital-acquired and aspiration - Pro calcitonin trending down - CXR shows mild persistent pneumonia left lower lobe - White count continues to trend down, 7.9 today 08/05/2016 - Antibiotics as in #1 - MRSA positive, respiratory PCR negative 3. Lower extremity cellulitis. Present on admission. Ongoing - CT showed subcutaneous edema involving the bilateral thigh/gluteal regions - Lactic acid normalized - Sacral decubitus ulcer culture negative to date - Antibiotics as an #1 - Wound care following 4. Atrial fibrillation. Present on admission. Ongoing - Heart rate trending down - Hold home metoprolol and digoxin - digoxin level normal - Esmolol as in #1 - Continue Coumadin, pharmacy to dose - Echo EF 65-70% with bilateral severe dilation of atria, severe aortic stenosis with progression 5. Hypernatremia. Present on admission. Improving - Most likely secondary to dehydration - Patient has many other electrolyte imbalances as well - On admission sodium 158, potassium 5.7, chloride 115, magnesium 2.8. - With fluid administration potassium has normalized the sodium chloride remains elevated - Sodium level remains elevated at 146 - We will continue to monitor 6. Hypertension. Not Present on admission. Ongoing - Hold home spironolactone 25 mg daily, secondary to hypotension - Patient remains tachycardic and somewhat tachypneic - Continue to monitor 7. Acute on chronic renal failure. Present on admission. Resolved - On admission creatinine 1.5, has normalized - Held IV fluids 8. Encephalopathy due to chronic dementia, possibly exacerbated by infectious etiology. Present on admission. Ongoing - Soft restraints in place. - Continue to treat underlying disorder - Hold venlafaxine 11. Troponin elevation. Present on admission. Ongoing - Elevated in the setting of acute on chronic renal failure - Troponin have trended down - ECG showed Atrial fibrillation with RVR, Rate 152, Left anterior fascicular block. No ST segment abnormalities - Echo showed no wall motion abnormalities 12. CODE STATUS changed to DNR/DNI. Per palliative care consultation "CPR/ defibrillation/intubation and mechanical ventilation are potentially inappropriate, as being unlikely to contribute to his survival and return to his previous independent status. Therefore, in this setting, it would seem appropriate to continue medical treatment short of those terminal interventions , but in the event of cardiopulmonary arrest, not to proceed with CPR/ defibrillation/intubation and mechanical ventilation. " Dr. Dyer. Medical team myself Dr. Calvin Gracia as well as my attending physician Dr. Jose De Jesus Medel both agree with this assessment. Disposition: Patient remains CCU status. We will most likely need placement of a PEG tube before discharge as nutritional requirements are not being met as evidenced by nutritional state upon admission. Pain Evaluation: Adequate Pain Control VTE Prophylaxis: Theraputic Anticoag with Warfarin Resuscitation Status: DNR/DNI:Do Not Resuscitate/Intubate Attending Statement Persistent hypernatremia secondary to ongoing free water deficit. This will be supplemented through tube feeds. The patient was seen and examined together with Dr. Gracia on 08/05/2016 and I agree with the history, exam and plan as outlined in the note above. . CALVIN GRACIA DO Aug 05, 2016 15:20 Jose De Jesus Levi MD Aug 06, 2016 09:15
--- NOTE | 2016-08-05 19:35 | NUR ---
Mentation/Agitation: P: patient able to answer simple yes/no questions and denied any pain throughout shift. Pt becomes restless/agitated with any stimulation. At about 1530 pt started to get restless and attempting to pull at lines. I: Ativan 0.5mg IVP was administered. Frequent reorientation. E: pt was able to rest and RN was able to provide care. Frequent rounding and orientation performed throughout shift.
[2016-08-06] VITALS (8 sets, daily range): BP systolic 91–106; BP diastolic 56–71; PULSE 100–132; RESP 20–32; O2SAT 96–100
[2016-08-06] MEDS: Piperacillin-Tazo 3.375 Gm Inj 3.375 GM in Dextrose 5% Minibag Plus 50 ML IV SCH ×3 (00:30→16:19)
[2016-08-06] MEDS: Sodium Chloride LOK Flush 10 mL Syringe IVFLUSH SCH ×6 (00:30→16:10)
[2016-08-06] MEDS: Esmolol 2,500 mg/250 mL NS 2,500,000 MCG in IV Premix 1 EACH IV SCH ×3 (02:46→21:45)
[2016-08-06] MEDS: HYDROmorphone 0.5 mg/0.5 mL iSecure Syringe IVPUSH PRN ×4 (03:42→22:15)
[2016-08-06 04:31] LABS: EOSINOPHILS % (AUTO) 7.6 % (0-5); MONOCYTES % (AUTO) 8.2 % (4-12); Mean Corpuscular Hemoglobin 28.7 pg (27.0-35.0); Mean Corpuscular Volume 96.7 fL (81-100); NEUTROPHILS % (AUTO) 66.4 % (40-74); Platelet Count 177 bil/L (150-400)
--- NOTE | 2016-08-06 04:34 | NUR ---
Pt's night was uneventful. Vitals remain stable. Levophed at 0.09 mcg. Attempts to wean off levophed not successful. HR a-fib with increase into the 130's with activity/agitation. Suppl. o2 continues at 2 lpm via NC with sats in the high 90's. Lung sound more course but have cleared with cough. Pt had a moist productive cough, swallowed. TF increased through the night and are now at 50 ml/hr with residuals of 5. Moderate size BM. Complete bath and linen change done. Mepilex's remain intact as do bilat. leg drsgs. Mepilex applied to right hand skin tear for protection from restraint. Restraint continue, pt pulls at lines/tubes. Will continue to monitor.
[2016-08-06] MEDS ORDERED: KCl 40 mEq/100 mL Premix (K 3 - 3.7 & Creat < 2) IV ONE (05:35)
[2016-08-06] MEDS: Dextrose 5% 1,000 ML IV SCH ×2 (06:00→15:52)
[2016-08-06] MEDS: Nystatin 100,000 Unit/mL 5 mL Suspension PO SCH ×4 (06:17→21:44)
--- NOTE | 2016-08-06 07:17 | DRSVH ---
PROCEDURE: X-RAY CHEST ONE VIEW, PORTABLE ([id number]) INDICATIONS: pneumomnia TECHNIQUE: One view of the chest was acquired. COMPARISON: [facility], CR, XR CHEST 1VW (PORTABLE), 08/05/2016, 4:37. FINDINGS: Surgical changes and devices: Enteric tube with the tip projecting in the stomach. Right-sided centra l venous catheter with the tip projecting in the lower SVC, unchanged. Lungs and pleura: No pleural effusions or pneumothorax. There are bibasilar patchy opacities likely atelectasis. No definite new or focal consolidation Mediastinum: Mediastinal contours appear normal. Heart size is normal. Bones and chest wall: No suspicious bony lesions. Overlying soft tissues appear unremarkable. IMPRESSION: Stable support equipment. No new consolidation. Scattered atelectasis as before Dictated by: Germain Prabhakar M.D. on 08/06/2016 at 7:14 Approved by: Germain Prabhakar M.D. on 08/06/2016 at 7:16
[2016-08-06] MEDS: Linezolid Inj 600 MG in IV Premix 1 EACH IV SCH ×2 (07:54→21:44)
[2016-08-06] MEDS: Arformoterol 15 mCg/2 mL Inhalation Solution NEB SCH ×2 (08:29→21:22)
[2016-08-06] MEDS: Budesonide 0.5 mg/2 mL Inhalation Solution NEB SCH ×2 (08:29→21:22)
[2016-08-06] MEDS: Norepineph 8,000 mCg/250 mL NS 8,000 MCG in IV Premix 1 EACH IV SCH (11:57)
--- NOTE | 2016-08-06 12:20 | NUR ---
Bilateral Lower Extremity wounds: P: Dressing instructions indicate to change q24hrs last date changed unknown. Last WC note 08/03/16. I: Patient is very restless/agitated with stimulation and was premedicated with Ativan 0.5mg IVP. All wounds were redressed as indicated and marked with date and time of change. E: Dressings C/D/I.
--- NOTE | 2016-08-06 20:56 | PCM.PNMED ---
Subjective Date of Service Aug 06, 2016 Subjective Patient is a 65-year-old gentleman with neurofibromatosis, dementia, atrial fibrillation currently anticoagulated admitted for sepsis and possible pneumonia. No overnight events. The patient continues to be on norepinephrine at 0.09mcg with drops in blood pressure when rate is decreased. Patient able to answer yes- no questions. He denies pain or shortness of breath. Exam Vital Signs Vital Sign - Last Date Time Temp Pulse Resp B/P Pulse Ox O2 Delivery O2 Flow Rate FiO2 08/06/16 20:37 36.8 109 32 100/56 96 Room Air 08/06/16 16:21 2.00 Intake and Output 08/05/16 08/05/16 08/06/16 Cumulative From/Thru 15:00 23:00 07:00 08/02/16 09:47 - 08/06/16 05:17 Intake Total 2053 ml 1934 ml 30048 ml Output Total 1550 ml 1300 ml 9225 ml Balance 503 ml 634 ml 33174 ml Intake Oral 0 ml 60 ml IV Total 1655 ml 1096 ml 31967 ml Tube Feeding 283 ml 473 ml 911 ml Tube Irrigant 115 ml 365 ml 560 ml Output Urine Total 1550 ml 1300 ml 9225 ml # Bowel Movements 0 1 3 Exam General: Patient supine in 2-point soft restraints. Opens eyes to voice. HEENT: Tubercles of neurofibromatosis diffusely over face. Nasal cannula in place. NG tube in place Neck: Right IJ in place, dressing intact Cardiovascular: Tachycardic rate with irregular irregular rhythm with no murmurs appreciated. Pulmonary: Clear to auscultation bilaterally with no crackles. Abdomen: Soft. No guarding, no rigidity and no rebound tenderness. Extremities: Multiple wounds throughout lower extremities bilaterally. Bandages remain in place and intact Skin: No clubbing no edema appreciated Neurological: Cranial nerves grossly intact. Psychiatric: Answers yes/no questions. Does not seem to be oriented to time or place. IVs and Medications Medications Reviewed: Medications were reviewed in detail Lab and Diagnostics Result Diagram: 08/06/16 0410 08/06/16 1151 Microbiology Blood cultures pending, culture sacral decubitus ulcer pending X-Rays, CTs and MRIs X-RAY CHEST ONE VIEW, PORTABLE IMPRESSION: Perihilar interstitial prominence may be chronic. However, developing pulmonary edema or atypical interstitial pneumonia cannot be entirely excluded and clinical correlation is recommended. Dictated by: Abdirashid Kearns M.D. on 08/02/2016 at 10:31 X-RAY CHEST ONE VIEW, PORTABLE IMPRESSION: 1. Right-sided central line catheter is positioned with the tip overlying the low superior vena cava. 2. No pneumothorax. Dictated by: Abdirashid Kearns M.D. on 08/02/2016 at 11:27 CT BRAIN WITHOUT CONTRAST IMPRESSION: 1. No acute intracranial hemorrhage. 2. Extensive chronic small vessel ischemic changes. 3. Moderate parenchymal volume loss. 4. Nonspecific enlargement of the lateral ventricles and the 3rd ventricle. In the correct clinical setting, this appearance may be seen with normal pressure hydrocephalus. Please correlate clinically. Dictated by: Abdirashid Kearns M.D. on 08/02/2016 at 12:16 CT ABDOMEN AND PELVIS WITH CONTRAST IMPRESSION: 1. No definite signs of infection within the abdomen or pelvis. There are no abscesses. 2. Enlarged gallbladder with mild biliary dilatation. While nonspecific, this appearance may be seen in the setting of acalculus cholecystitis. The need for better evaluation utilizing a gallbladder ultrasound may be determined clinically. 3. Large amount of stool throughout the colon is suggestive of constipation. 4. No abdominal or pelvic hematomas. 5. Subcutaneous edema involving the bilateral thigh/gluteal regions (left greater than right) without a definite loculated fluid collection appreciated. 6. Urinary bladder wall prominence is likely exaggerated by incomplete distention related to the Burnett catheter. Please correlate clinically to exclude cystitis. Additional findings: -Renal cysts without hydronephrosis. -Aortic atherosclerosis. -Age indeterminate L1 compression deformity. -Prominent degenerative changes of the lumbosacral spine and bilateral hips. Dictated by: Abdirashid Kearns M.D. on 08/02/2016 at 12:19 X-RAY CHEST ONE VIEW, PORTABLE IMPRESSION: What appeared to be a central line from a right-sided approach extends over the right mediastinum 2 the expected position of the distal SVC. No pneumothorax. This was previously present. Mild persistent pneumonia retrocardiac left lower lobe. Reduced inspiratory volume. Dictated by: Miller Machado M.D. on 08/04/2016 at 11:14 X-RAY CHEST ONE VIEW, PORTABLE IMPRESSION: No change in tubes or lines since the previous day. Improved aeration of the lung lópez with bibasilar subsegmental atelectasis still present. Dictated by: Randolph Noel M.D. on 08/05/2016 at 7:45 Cardiac Echo Impressions . Echocardiogram Report Interpretation Summary: Technically difficult study. The patient was in atrial fibrillation with rapid ventricular response during the exam with a heart rate exceeding 100 bpm. Borderline concentric left ventricular hypertrophy with ejection fraction 65- 70 %. Severely dilated both atria. Probably severe aortic stenosis. Mild mitral regurgitation. Comparison is made with the echocardiogram of 05/24/16, aortic stenosis has progressed. Electronically signed by: Catarina N[facility] . US ABDOMEN, LIMITED IMPRESSION: Gallbladder sludge. No other sonographic criteria for acute cholecystitis however limited examination due to patient positioning difficulties. Therefore, please correlate clinically and with LFTs. Dictated by: Germain Prabhakar M.D. on 08/02/2016 at 16:46 Assessment & Plan Mr. Mendez is a 65-year-old gentleman with a past medical history of neurofibromatosis, dementia, atrial fibrillation currently anticoagulated and admitted for sepsis and possible pneumonia. Hospital day 5 1. Severe Sepsis, septic shock. Present on admission. Improving - Criteria met with tachycardia (146), temperature (39.2), WBC (17.2) and suspected source of infection being pulmonary or cellulitis - Patient now afebrile, though remains tachycardic. Lactic acid 1.3. White count 7.9 - White count and procalcitonin continue to trend down, lactic acid normalized - IV fluids stopped - Continue Zosyn and Linezolid - Levophed 0.09 2. Possible pneumonia, present on admission. Ongoing - Etiologies include hospital-acquired and aspiration - Procalcitonin trending down - CXR shows mild persistent pneumonia left lower lobe - White count continues to trend down - Antibiotics as in #1 - MRSA positive, respiratory PCR negative 3. Lower extremity cellulitis. Present on admission. Ongoing - CT showed subcutaneous edema involving the bilateral thigh/gluteal regions - Lactic acid normalized - Sacral decubitus ulcer culture negative to date - Antibiotics as an #1 - Wound care following 4. Atrial fibrillation. Present on admission. Ongoing - Heart rate trending down - Hold home metoprolol - digoxin level normal - Continue Coumadin, pharmacy to dose - Echo EF 65-70% with bilateral severe dilation of atria, severe aortic stenosis with progression 5. Hypernatremia, acute. Present on admission. Improving - Most likely secondary to dehydration - Patient has many other electrolyte imbalances as well - On admission sodium 158, potassium 5.7, chloride 115, magnesium 2.8. - With fluid administration potassium has normalized the sodium chloride remains elevated - Sodium level remains elevated at 146 - We will continue to monitor 6. Hypertension, chronic. Not Present on admission. Ongoing - Hold home spironolactone 25 mg daily, secondary to hypotension - Patient remains tachycardic and somewhat tachypneic - Continue to monitor 7. Acute on chronic renal failure. Present on admission. Resolved - On admission creatinine 1.5, has normalized 8. Encephalopathy due to chronic dementia, possibly exacerbated by infectious etiology. Present on admission. Ongoing - Soft restraints in place. - Continue to treat underlying disorder - Hold venlafaxine 11. Troponin elevation. Present on admission. Ongoing - Elevated in the setting of acute on chronic renal failure - Troponin have trended down - ECG showed Atrial fibrillation with RVR, Rate 152, Left anterior fascicular block. No ST segment abnormalities - Echo showed no wall motion abnormalities 12. CODE STATUS changed to DNR/DNI. Per palliative care consultation "CPR/ defibrillation/intubation and mechanical ventilation are potentially inappropriate, as being unlikely to contribute to his survival and return to his previous independent status. Therefore, in this setting, it would seem appropriate to continue medical treatment short of those terminal interventions , but in the event of cardiopulmonary arrest, not to proceed with CPR/ defibrillation/intubation and mechanical ventilation. " Dr. Dyer. Medical team myself Dr. Calvin Gracia as well as my attending physician Dr. Jose De Jesus Medel both agree with this assessment. Disposition: Patient remains CCU status. We will most likely need placement of a PEG tube before discharge as nutritional requirements are not being met as evidenced by nutritional state upon admission. Pain Evaluation: Adequate Pain Control VTE Prophylaxis: Theraputic Anticoag with Warfarin Resuscitation Status: DNR/DNI:Do Not Resuscitate/Intubate Attending Statement The patient was seen and examined together with Dr. Carrillo on 08/06/2016 and I agree with the history, exam and plan as outlined in the note above. . Feliberto Carrillo DO Aug 06, 2016 20:56 Jose De Jesus Levi MD Aug 07, 2016 10:43
[2016-08-07] VITALS (8 sets, daily range): BP systolic 89–109; BP diastolic 48–66; PULSE 97–125; RESP 12–29; O2SAT 96–100
[2016-08-07] MEDS: Piperacillin-Tazo 3.375 Gm Inj 3.375 GM in Dextrose 5% Minibag Plus 50 ML IV SCH ×3 (00:16→16:42)
[2016-08-07] MEDS: Sodium Chloride LOK Flush 10 mL Syringe IVFLUSH SCH ×6 (00:17→16:30)
[2016-08-07] MEDS: Dextrose 5% 1,000 ML IV SCH ×3 (00:17→22:00)
[2016-08-07] MEDS: HYDROmorphone 0.5 mg/0.5 mL iSecure Syringe IVPUSH PRN ×4 (01:06→22:30)
[2016-08-07] MEDS: Norepineph 8,000 mCg/250 mL NS 8,000 MCG in IV Premix 1 EACH IV SCH (03:54)
[2016-08-07 04:02] LABS: Mean Corpuscular Hemoglobin 28.7 pg (27.0-35.0)
--- NOTE | 2016-08-07 05:13 | NUR ---
Mentation / BP Patient does not respond to yes or no questions, dose not follow commands. Patient appears to be in pain when repositioned, occasionally groans in pain spontaneously. Medicated with Dilaudid for comfort. Restraints remain in place; patient does reach towards the NGT when he is able to. Levophed titrated down to 0.05mcgs/kg/min, MAP 65. No drop in BP noted with pain medications.
[2016-08-07] MEDS: Nystatin 100,000 Unit/mL 5 mL Suspension PO SCH ×4 (06:39→22:41)
[2016-08-07] MEDS: Esmolol 2,500 mg/250 mL NS 2,500,000 MCG in IV Premix 1 EACH IV SCH ×2 (07:11→16:20)
[2016-08-07] MEDS: Linezolid Inj 600 MG in IV Premix 1 EACH IV SCH ×2 (07:54→22:42)
[2016-08-07] MEDS: Budesonide 0.5 mg/2 mL Inhalation Solution NEB SCH ×2 (07:58→20:35)
[2016-08-07] MEDS: Arformoterol 15 mCg/2 mL Inhalation Solution NEB SCH ×2 (08:33→20:35)
--- NOTE | 2016-08-07 10:19 | NUR ---
NUTRITION FOLLOW-UP: ASSESS: 65 YO M transferred to CCU with septic shock and hypotension, with multiple possible etiologies, including pneumonia, cellulitis, cholecystitis, as well as hypernatremia, and elevated troponin. Per care facility, pt has deteriorated over the last 6 months with significant cognitive deterioration; he has been deemed non-decisional for the last 4-6 months. As pt has no guardian to make decisions, palliative care and providers involved in patient's care made the pt DNI/DNR. Pt remains NPO per speech therapy. Enteral feeding continues at goal rate. Pt keeps trying to pull out feeding tube, requiring restraints. During rounds, question if tube feeding/PEG tube would benefit pt senior living. Pt currently unresponsive per CCU rounds. PMHX: Dementia, Chronic venous stasis changes, Afib, CHF, COPD, Neurofibromatosis, Emphysema LABS: Na 148, BUN 6, Cr 0.53, Glu 121, Ca 8.1, AST 69, Alk Phos 290, Alb 2.2 MEDS: Pressor DIET: NPO. ENTERAL FEEDING: Jevity 1.5 @ goal 75 ml/hr; providing 2475 kcal, 105 g protein, meeting 100% calorie/protein needs. Flush dose 52 ml H2O every hr, as D5W discontinued. GI: BM x 2 (08/06). SKIN: Marco 11 - current [facility] pt w/ multiple unstageable pressure injuries on buttock/legs; also a right thigh injury. WT: 88.8 kg, BMI 26.6 kg/m2. Admit weight: 87.3 kg, BMI: 26.1 kg/m2, IBW: 75.4 kg. UBW ~98 kg per previous admits. DIET: NPO per ST. ESTIMATED NEEDS: Wounds, CKD Calories: 9151-5603 kcal/day (25-35 kcal/kg BW) Protein: 90-105 g/day (1.0-1.2 g/kg BW) Fluid: 2500 ml/day (~1 ml/kcal/day) NUTRITION DIAGNOSIS: 1) Inadequate oral intake related to decreased ability to consume sufficient energy as evidenced by current NPO status per ST - IMPROVED WITH ENTERAL FEEDING. 2) Increased nutrient needs related to increased demand for healing as evidence by pt with multiple lower extremity wounds - PERSISTS. 3) Chew/ swallow difficulty related to AMS and chronic dysphagia as evidence by pt with dementia and need for texture modification per ST - PERSISTS. NUTRITION INTERVENTION: 1) Continue enteral feedings as ordered. 2) Diet advance per speech therapy. MONITOR/EVALUATE: NPO status, diet advance, enteral feeding tolerance, labs, wt, GI, POC. Follow per high nutrition risk guidelines.
--- NOTE | 2016-08-07 10:27 | PROG NOTE ---
[address] [address] PROGRESS NOTE PATIENT: KELLY MELENDREZ : 1950 MR#: [id number] ADMIT: 08/02/2016 JOB ID: [id number] DATE: 08/07/2016 REASON FOR FOLLOW UP: Sepsis in a patient with dementia, neurofibromatosis, presumably due to MRSA infection. INTERVAL HISTORY: Overnight, the patient has remained quite ill in the ICU. Despite this, he is not been intubated and continues to oxygenate fairly well, even on room air. The patient's mental status has been a continued problem, as he really is not awake at all and just moans and groans when he is rolled over or manipulated in any way. Apparently some times during the weekend, he was more awake and is actually a bit worse this morning. No additional history is available from the patient obviously, and this case was discussed extensively with nursing as well as the ICU staff. PHYSICAL EXAMINATION: Reveals a gentleman with dramatic neurofibromatosis, who is literally covered with lesions. He, as mentioned, just moans when he is moved. Otherwise is not interactive in any way and keeps his eyes tightly closed. Temperature 36.8. He has been afebrile since his first 48 hours in the hospital when he had high spiking fevers above 39 degrees. This morning, 36.8. Pulse 110, respiratory rate 24, blood pressure 109/66. He is saturating 96% on room air, amazingly. An NG tube is present for feeding, as the patient is not awake enough obviously to eat on his own. He is restrained so he does not pull out the feeding tube. Examination of the eyes is not possible as it is really difficult to open his eyes at this point. He has a feeding tube present in the nose. Oral cavity is not easy to examine either, as his mouth is closed. His lungs are relatively clear bilaterally. Cardiac tones a bit tachycardic and distant but otherwise without change. Abdomen is soft and nontender. Lower extremities without new abnormality. We rolled the patient over and carefully examined his wounds. He has about a 1 cm long and about 0.5 cm deep wound over his sacrum. This does not appear to extend all the way to the bone, but of course, there is very little overlying tissue there and it comes close. That wound is without surrounding erythema or cellulitis. There are two very shallow grade 2 ulcers over the buttocks bilaterally. These were examined and are free of infection. The anal area is free of infection. LABORATORIES: Include a white count which is normalized. It started off at 17,000, now 7300, hematocrit 35, platelet 166. Creatinine 0.53. AST is 69, and stable. Alk phos is up a bit to 290. Procalcitonin is not valuable in this case as it is just bouncing around, 0.5, really. Urinalysis was without pyuria. Urine Legionella and pneumococcal antigens are negative. Sputum was not available. Blood cultures are negative. A culture of the sacral ulcer yielded MRSA but only in light growth. Anaerobes have so far not been isolated. A nasopharyngeal PCR panel negative, and nasal MRSA culture negative. IMAGING: Includes a chest x-ray from the which shows scattered atelectasis. IMPRESSION: This is an unfortunate, 65-year-old gentleman, with neurofibromatosis, dementia and recurrent lower extremity ulcers, including the sacrum, buttocks and the lower extremities below the knees. He also has chronic obstructive pulmonary disease. The patient presented with what appears to be septic shock. At this point, he has been weaned down to very low dose in norepinephrine, but has still not been completely stopped. Overall, he is considerably improved, as his white count and fevers have basically resolved with our current therapy. The etiology of his apparent septic shock remains uncertain and, though it seems like methicillin-resistant Staphylococcus aureus (MRSA) is the most likely culprit given that we have isolated both from his nose and his sacral decubitus, but it is worth noting it was present in fairly small quantities from the sacral decubitus, certainly at risk for many other infections including aspiration type pneumonia or an intra-abdominal process. RECOMMENDATIONS: 1. I continue with Zosyn to complete a five day course. 2. We continue with linezolid to complete a 10 day course, though it could be switched to oral at any time, and given either actually by mouth or down the NG tube as needed. 3. The ultimate disposition of this case remains unclear. The patient resides in a chcf and has relatively poor nutritional status. He is certainly at high risk for aspiration if eating by the oral route, but it is unclear how much he would benefit from prolonged nasogastric feeding or the possibility of placing a PEG tube. This case was discussed extensively during ICU rounds with multiple services including the Palliative team.
--- NOTE | 2016-08-07 11:49 | NUR ---
Spoke with Kaur Hagen history instructor at [employer], she gave detailed information on Guardianship process for this patient. Patient has lived in their facility for 4 years and initially had a brother (Selwyn Walker) who was involved, as of 6-8 months ago brother decided he could no longer be involved. Per Izbaela [facility]PER[facility] notes Guardianship process started closer to beginning of 2016. Patient is NATHAN primary patient and $1300 was needed upfront in order to start process. Izabela submitted this paperwork to [facility] to find assistance for this amount. Then on 06/20/16 Izabela also reached out to [facility] to see if patient would get any assistance from them for this payment needed. [facility] could not provide any help. On 07/31/16 Izabela called [employer], this was follow up on process noted above. This process was started because acknowledgement of overall decline of patient was happening. Patient mentation was changing and there were significant changes in participation and daily living routine. Kaur also noted patient has been on decline for about a year, and is not continuing to do [place]. Patient has been refusing most things for the past year. He was also being seen for outpatient wound care regularly starting in June 2016. Kaur will also fax over notes from her social work team for us to add to patient chart. Updated [facility]
[2016-08-07] MEDS ORDERED: oxyCODONE 1 mg/mL 5 mL Liquid TUBE SCH (12:30)
--- NOTE | 2016-08-07 13:33 | PCM.PALLBR ---
Palliative Care Recommendation 65-year-old male with long-standing history of lower extremity skin ulcers and recurrent cellulitis/sepsis, as well as neurofibromatosis, COPD, atrial fibrillation, dementia, etc. with further history of steady deterioration over approximately the last 6 months (during which time he has been hospitalized multiple times) including significant cognitive deterioration to the point where he has been deemed non-decisional for the last 4-6 months. Admitted again with sepsis, multiple possible etiologies, including pneumonia, cellulitis, cholecystitis, as well as marked hypernatremia, elevated troponins, etc. Palliative medicine consulted to assist patient in determination of goals of care. Unfortunately, it appears that the patient has nobody to speak for him or take responsibility. Multiple phone calls to his care facility, previous caregivers and other potential contacts on 08/03 and 08/04 without any success in identifying responsible related individuals. His only known blood relative, his brother , has been unreachable for some time (according to the patient's care facility and PCP) and may, in fact, have . Apparently, efforts at securing guardianship are underway but as yet are incomplete. Summary of palliative recommendations: -Symptom management (Pain/other)- continue Dilaudid and lorazepam prn as ordered. Monitor and adjust medications for comfort as needed, consistent with safety in light of his other ongoing medical conditions. --Patient daily use of HM per IV is now 5.5 mg/24 hours. This is equivalent to 60 mg a day of oxycodone. Start routine dosing of oxycodone at 5 mg q 4 hours per tube will start to try to attain a background level of pain control. Monitor for sedation--may hold doses if patient is more lethargic than normal. -DPOA/Advanced Directives/POLST- Per Dr. Walls 08/04/16: "patient's care facility sent a copy of POLST completed by the patient and his PCP on 06/13/16. It indicated wishes for CPR but not intubation (which is problematic in of itself). Patient's decisional status at that time uncertain. He has clearly continued to deteriorate in the interim and is definitely non- decisional at this point. All outpatient caregivers that I spoke with today related that the patient has shown steady deterioration over the 4-6 months ( during which time he has had multiple hospitalizations without significant recovery of previous level of function in the wake of each hospitalization). After careful review of his records from this and his previous hospitalizations , and after extensive discussion and consideration of his current clinical status with his medical team, my impression is that aggressive terminal interventions such as CPR/defibrillation/intubation and mechanical ventilation are potentially inappropriate, as being unlikely to contribute to his survival and return to his previous independent status. Therefore, in this setting, it would seem appropriate to continue medical treatment short of those terminal interventions, but in the event of cardiopulmonary arrest, not to proceed with CPR/defibrillation/intubation and mechanical ventilation. Consistent with these considerations, I have adjusted CODE STATUS to DO NOT RESUSCITATE/DO NOT INTUBATE on the likelihood of such interventions being potentially inappropriate and non-beneficial." 08/07/16: Called to patient's bedside by RN who states patient has been more lucid this afternoon. Spend additional 20 min (total 35 min) attempting to elicit patient understanding of his condition, his prognosis and assess his decision-making capacity. The patient did answer some questions appropriately and had brief interactions that showed an alert and somewhat jovial man, who is able to express his pain and ask for pain medication. He then, however, was very quiet with no verbal responses to the rest of my questioning. I did use this opportunity to explain the patient's situation to him, and the need to have him let us know if he would want any thing other than all the current therapies and care. HE did open his eyes during this, but did not verbally acknowledge that he heard or understood this. Will return/try again tomorrow.l -Family/emotional support- no family or known contacts whatsoever -Spiritual support- I will review with hospital wound nurse; I have no history regarding the patient's spirituality Additional Medical Diagnoses with primary management by Hospitalist team include : 1. Severe Sepsis. Present on admission. Ongoing. 2. Possible pneumonia, present on admission. Ongoing 3. Lower extremity cellulitis. Present on admission. Ongoing 4. Atrial fibrillation. Present on admission. Ongoing 5. Hypernatremia. Present on admission. Ongoing 6. Possible cholecystitis. Present on admission. Ongoing 7. Hypertension. Present on admission. Ongoing 8. Acute on chronic renal failure. Present on admission. Improving. 9. Encephalopathy due to chronic dementia, possibly exacerbated by infectious etiology. Present on admission. Ongoing Problems: End of Life Preferences DO NOT RESUSCITATE/DO NOT INTUBATE/limited interventions okay Disposition To be determined Resuscitation Status Resuscitation Status: DNR/DNI:Do Not Resuscitate/Intubate POLST Updates/Changes Previous POLST?: Yes Antibiotics: Use ABX if can Prolong Life Artificially Admin Nutrition: Trial Period Tube Feeding POLST Review Outcome: Form Voided . Advanced Care Planning Address: Code status change Pain: Mild Total time 45 minutes; >50% face to face with patient and/or family, providing counselling regarding plans and recommendations, and in care coordination with his/her medical teams. Palliative Brief Note Date of Service Aug 07, 2016 . Spoke with multiple members of medical team at rounds and after regarding patient status. While patient has stabilized somewhat in terms of his organ function, he continues to be mostly unresponsive and unable to take part in decision-making. After extensive efforts were made to find a surrogate decision -maker (see prior notes 08/03- by Dr. Jim Dyer), the medical team agreed to sign an order for DNR that would ensure that he not receive aggressive and harmful non-beneficial care. Case management is communicating with [facility], and with his long-term care facility , [facility], regarding plans to assign a guardian. The patient's inability to tolerate/accept tube feeding without sedation and/or restraint continues to be a concern in his current plan of care. Despite specific skin findings which may have warranted the APS report, the team agrees that this man' s worsening wounds related to his poor nutritional state is part of a general picture of decline for which palliative, rather than more invasive, interventions would be most appropriate. In fact, the team agrees that the patient would be most comfortable if he were allowed to take food and drink in whatever portion is desired by him without artificial means or intervention, and that palliative or hospice care be employed to ensure that his comfort needs are met. It is unclear how to proceed toward this goal without a clear decision-maker. Meanwhile, interventions will continue with limits to include no escalation to CPR or vent support. Keenan Del Rio Aug 07, 2016 13:33
[2016-08-07] MEDS: oxyCODONE 1 mg/mL 5 mL Liquid TUBE SCH ×2 (16:43→22:32)
--- NOTE | 2016-08-07 16:54 | NUR ---
spiritual care: routine caring visit. pt very sleepy, made slight facial grimace to conversational tone. 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 Spiritual care available to follow as needed.
--- NOTE | 2016-08-07 17:51 | NUR ---
LOC/HEMODYNAMICS/PAIN Patient continues to be drowsy, only waking intermittently, but not able to hold attention for long before falling asleep again. Still requiring Levophed at 0.035 to maintain MAP >60, but BPs occasionally drop to 80s/40s, do not sustain. Palliative care adjusted pain medication today, as he is in quite a bit of pain, especially w/ direct care/turns. He now has scheduled Oxycodone 10 mg PO Q4H along w/ Dilaudid 0.5-1 mg Q2H if needed. Will continue to monitor mental status, hemodynamics and vitals, and pain level.
--- NOTE | 2016-08-07 18:02 | PCM.PNMED ---
Subjective Date of Service Aug 07, 2016 Subjective Patient is a 65-year-old gentleman with neurofibromatosis, dementia, atrial fibrillation currently anticoagulated admitted for sepsis and possible pneumonia. Overnight: Patient's mental status deteriorated to the point where he did not respond to questions or commands. Dilaudid was continued for pain management. Levothroid titrated to 0.05 with a map 65. No decrease in blood pressure with medication administration. Last 24 hours she was total positive approximately 1 L. Today: Patient laying in bed [address] diaphoretic. Able to open eyes to voice though does not respond verbally to questions. Exam Vital Signs Vital Sign - Last Date Time Temp Pulse Resp B/P Pulse Ox O2 Delivery O2 Flow Rate FiO2 08/07/16 16:48 37.0 109 29 92/48 97 Room Air 08/06/16 16:21 2.00 Intake and Output 08/06/16 08/06/16 08/07/16 Cumulative From/Thru 14:59 22:59 06:59 08/02/16 09:47 - 08/07/16 05:27 Intake Total 2041 ml 2019 ml 73308 ml Output Total 950 ml 900 ml 00009 ml Balance 1091 ml 1119 ml 54521 ml Intake Oral 0 ml 60 ml IV Total 820 ml 583 ml 30974 ml Tube Feeding 727 ml 914 ml 2552 ml Tube Irrigant 494 ml 522 ml 1576 ml Output Urine Total 950 ml 900 ml 95598 ml # Bowel Movements 1 4 Exam General: Patient supine in 2-point soft restraints. Opens eyes to voice. Does not verbalize answers to questions HEENT: Tubercles of neurofibromatosis diffusely over face. Nasal cannula in place. NG tube in place Neck: Right IJ in place, dressing intact Cardiovascular: Tachycardic rate with irregular irregular rhythm with no murmurs appreciated. Pulmonary: Clear to auscultation bilaterally with no crackles. Abdomen: Soft. No guarding, no rigidity and no rebound tenderness. Extremities: Multiple wounds throughout lower extremities bilaterally. Skin: No clubbing no edema appreciated. Diaphoresis over face Psychiatric: Opens eyes to voice, does not vocalize response to questions IVs and Medications Medications Reviewed: Medications were reviewed in detail Lab and Diagnostics Result Diagram: 08/07/16 03408/07/16 034 Microbiology Blood cultures pending, culture sacral decubitus ulcer pending X-Rays, CTs and MRIs X-RAY CHEST ONE VIEW, PORTABLE IMPRESSION: Perihilar interstitial prominence may be chronic. However, developing pulmonary edema or atypical interstitial pneumonia cannot be entirely excluded and clinical correlation is recommended. Dictated by: Abdirashid Kearns M.D. on 08/02/2016 at 10:31 X-RAY CHEST ONE VIEW, PORTABLE IMPRESSION: 1. Right-sided central line catheter is positioned with the tip overlying the low superior vena cava. 2. No pneumothorax. Dictated by: Abdirashid Kearns M.D. on 08/02/2016 at 11:27 CT BRAIN WITHOUT CONTRAST IMPRESSION: 1. No acute intracranial hemorrhage. 2. Extensive chronic small vessel ischemic changes. 3. Moderate parenchymal volume loss. 4. Nonspecific enlargement of the lateral ventricles and the 3rd ventricle. In the correct clinical setting, this appearance may be seen with normal pressure hydrocephalus. Please correlate clinically. Dictated by: Abdirashid Kearns M.D. on 08/02/2016 at 12:16 CT ABDOMEN AND PELVIS WITH CONTRAST IMPRESSION: 1. No definite signs of infection within the abdomen or pelvis. There are no abscesses. 2. Enlarged gallbladder with mild biliary dilatation. While nonspecific, this appearance may be seen in the setting of acalculus cholecystitis. The need for better evaluation utilizing a gallbladder ultrasound may be determined clinically. 3. Large amount of stool throughout the colon is suggestive of constipation. 4. No abdominal or pelvic hematomas. 5. Subcutaneous edema involving the bilateral thigh/gluteal regions (left greater than right) without a definite loculated fluid collection appreciated. 6. Urinary bladder wall prominence is likely exaggerated by incomplete distention related to the Burnett catheter. Please correlate clinically to exclude cystitis. Additional findings: -Renal cysts without hydronephrosis. -Aortic atherosclerosis. -Age indeterminate L1 compression deformity. -Prominent degenerative changes of the lumbosacral spine and bilateral hips. Dictated by: Abdirashid Kearns M.D. on 08/02/2016 at 12:19 X-RAY CHEST ONE VIEW, PORTABLE IMPRESSION: What appeared to be a central line from a right-sided approach extends over the right mediastinum 2 the expected position of the distal SVC. No pneumothorax. This was previously present. Mild persistent pneumonia retrocardiac left lower lobe. Reduced inspiratory volume. Dictated by: Miller Machado M.D. on 08/04/2016 at 11:14 X-RAY CHEST ONE VIEW, PORTABLE IMPRESSION: No change in tubes or lines since the previous day. Improved aeration of the lung lópez with bibasilar subsegmental atelectasis still present. Dictated by: Randolph Noel M.D. on 08/05/2016 at 7:45 X-RAY CHEST ONE VIEW, PORTABLE IMPRESSION: Stable support equipment. No new consolidation. Scattered atelectasis as before Dictated by: Germain Prabhakar M.D. on 08/06/2016 at 7:14 Cardiac Echo Impressions . Echocardiogram Report Interpretation Summary: Technically difficult study. The patient was in atrial fibrillation with rapid ventricular response during the exam with a heart rate exceeding 100 bpm. Borderline concentric left ventricular hypertrophy with ejection fraction 65- 70 %. Severely dilated both atria. Probably severe aortic stenosis. Mild mitral regurgitation. Comparison is made with the echocardiogram of 05/24/16, aortic stenosis has progressed. Electronically signed by: Catarina Nj [facility] . US ABDOMEN, LIMITED IMPRESSION: Gallbladder sludge. No other sonographic criteria for acute cholecystitis however limited examination due to patient positioning difficulties. Therefore, please correlate clinically and with LFTs. Dictated by: Germain Prabhakar M.D. on 08/02/2016 at 16:46 Assessment & Plan Mr. Mendez is a 65-year-old gentleman with a past medical history of neurofibromatosis, dementia, atrial fibrillation currently anticoagulated and admitted for sepsis and possible pneumonia. Hospital day 5 1. Severe Sepsis, septic shock requiring pressor support . Present on admission. Improving - Criteria met with tachycardia (146), temperature (39.2), WBC (17.2) and suspected source of infection being pulmonary or decubitus ulcer/cellulitis - Patient now afebrile, though remains tachycardic. Lactic acid 1.3. White count 7.9 - White count and procalcitonin continue to trend down, lactic acid normalized - Infectious disease following we appreciate the recommendations - IV fluids stopped - Continue Zosyn to complete 5 day course - Continue Linezolid to complete 10 day course - Levophed 0.09 2. Possible pneumonia, present on admission. Ongoing - Etiologies include hospital-acquired and aspiration - Procalcitonin remains 0.37 from peak of 0.77 - CXR shows mild persistent pneumonia left lower lobe - White count normalized 7.3 - Antibiotics as in #1 - MRSA positive, respiratory PCR negative 3. Lower extremity cellulitis/extensive decubitus ulcer. Present on admission. Ongoing - CT showed subcutaneous edema involving the bilateral thigh/gluteal regions - Lactic acid normalized - Sacral decubitus ulcer MRSA positive - Antibiotics as an #1 - Wound care following 4. Atrial fibrillation. Present on admission. Ongoing - Remains tachycardic - Hold home metoprolol - Esmolol drip - digoxin level normal - Continue Coumadin, pharmacy to dose - Echo EF 65-70% with bilateral severe dilation of atria, severe aortic stenosis with progression 5. Hypernatremia, acute. Present on admission. Ongoing - Most likely secondary to dehydration - Patient has many other electrolyte imbalances as well - On admission sodium 158, potassium 5.7, chloride 115, magnesium 2.8. - With fluid administration potassium has normalized the sodium chloride remains elevated - Sodium level remains elevated at 148 - We will continue to monitor 6. Hypertension, chronic. Not Present on admission. Ongoing - Hold home spironolactone 25 mg daily, secondary to hypotension - Patient remains tachycardic and somewhat tachypneic - Continue to monitor 7. Acute on chronic renal failure. Present on admission. Resolved - On admission creatinine 1.5, has normalized to 0.5 8. Encephalopathy due to chronic dementia, possibly exacerbated by infectious etiology. Present on admission. Ongoing - Soft restraints in place. - Continue to treat underlying disorder - Hold venlafaxine 11. Troponin elevation. Present on admission. Ongoing - Elevated in the setting of acute on chronic renal failure - Troponin have trended down - ECG showed Atrial fibrillation with RVR, Rate 152, Left anterior fascicular block. No ST segment abnormalities - Echo showed no wall motion abnormalities 12. CODE STATUS changed to DNR/DNI. Per palliative care consultation "CPR/ defibrillation/intubation and mechanical ventilation are potentially inappropriate, as being unlikely to contribute to his survival and return to his previous independent status. Therefore, in this setting, it would seem appropriate to continue medical treatment short of those terminal interventions , but in the event of cardiopulmonary arrest, not to proceed with CPR/ defibrillation/intubation and mechanical ventilation. " Dr. Dyer. Medical team myself Dr. Calvin Gracia as well as my attending physician Dr. Jose De Jesus Medel both agree with this assessment. Disposition: Patient remains CCU status. We will most likely need placement of a PEG tube before discharge as nutritional requirements are not being met as evidenced by nutritional state upon admission. As patient resides in a assisted and has poor nutritional status with history of aspiration pneumonias he will need either NG or PEG tube placement for nutritional support. VTE Prophylaxis: Theraputic Anticoag with Warfarin Resuscitation Status: DNR/DNI:Do Not Resuscitate/Intubate Attending Statement The patient was seen and examined together with Dr. Gracia on 08/07/2016 and I agree with the history, exam and plan as outlined in the note above. . CALVIN GRACIA DO Aug 07, 2016 18:02 Romeo Ochoa MD Aug 07, 2016 20:39
[2016-08-08] VITALS (10 sets, daily range): BP systolic 85–109; BP diastolic 53–65; PULSE 101–130; RESP 21–25; O2SAT 96–99
[2016-08-08] MEDS: Sodium Chloride LOK Flush 10 mL Syringe IVFLUSH SCH ×6 (00:26→17:06)
[2016-08-08] MEDS: Piperacillin-Tazo 3.375 Gm Inj 3.375 GM in Dextrose 5% Minibag Plus 50 ML IV SCH ×4 (00:30→17:06)
[2016-08-08] MEDS: oxyCODONE 1 mg/mL 5 mL Liquid TUBE SCH ×6 (01:38→20:30)
[2016-08-08] MEDS: Esmolol 2,500 mg/250 mL NS 2,500,000 MCG in IV Premix 1 EACH IV SCH ×3 (02:17→20:39)
[2016-08-08] MEDS: HYDROmorphone 0.5 mg/0.5 mL iSecure Syringe IVPUSH PRN ×2 (04:54→20:31)
[2016-08-08 06:21] LABS: EOSINOPHILS % (AUTO) 8.8 % (0-5); MONOCYTES % (AUTO) 7.7 % (4-12); Mean Corpuscular Hemoglobin 28.7 pg (27.0-35.0); Mean Corpuscular Volume 97.8 fL (81-100); NEUTROPHILS % (AUTO) 59.7 % (40-74); Platelet Count 195 bil/L (150-400)
[2016-08-08 06:26] LABS: INR 0.98 ratio
[2016-08-08 07:12] LABS: Magnesium 2.1 mg/dL (1.6-2.6)
[2016-08-08] MEDS: Dextrose 5% 1,000 ML IV SCH ×2 (07:22→17:45)
[2016-08-08] MEDS: Nystatin 100,000 Unit/mL 5 mL Suspension PO SCH ×4 (07:50→20:31)
[2016-08-08] MEDS: Arformoterol 15 mCg/2 mL Inhalation Solution NEB SCH ×2 (08:14→19:50)
[2016-08-08] MEDS: Albuterol-Ipratropium 3 mL Inhalation Solution NEB PRN ×2 (08:14→19:50)
[2016-08-08] MEDS: Budesonide 0.5 mg/2 mL Inhalation Solution NEB SCH ×2 (08:14→19:50)
[2016-08-08] MEDS: Linezolid Inj 600 MG in IV Premix 1 EACH IV SCH ×2 (10:21→20:30)
--- NOTE | 2016-08-08 10:21 | NUR ---
NUTRITION FOLLOW-UP: ASSESS: 65 YO M transferred to CCU with septic shock and hypotension. Per care facility, pt has deteriorated over the last 6 months with significant cognitive deterioration. As pt has no guardian to make decisions, palliative care and providers involved in patient's care made the pt DNI/DNR. Pt remains NPO per speech therapy. Enteral feeding continues at goal rate. Pt keeps trying to pull out feeding tube, requiring restraints. Question if tube feeding/PEG tube would benefit pt shelter. Pt has been experiencing hypernatremia, MD requesting increase in free fluid flush. RN aware of free fluid flush increase. Wt has been stable throughout stay. PMHX: Dementia, Chronic venous stasis changes, Afib, CHF, COPD, Neurofibromatosis, Emphysema LABS: Reviewed. Cl 109, International Account Manager .53, Ca 8.0, AST 54, Alk phos 321, Alb 2.3 MEDS: Pressors ENTERAL FEEDING: Jevity 1.5 @ goal 75 ml/hr; providing 2475 kcal, 105 g protein, meeting 100% calorie/protein needs. Flush dose 52 ml H2O every hr, as D5W discontinued. GI: BM x 2 (08/07). SKIN: Marco 11 - current [facility]ound [facility] pt w/ multiple unstageable pressure injuries on buttock/legs; also a right thigh injury. WT: 88.8 kg, BMI 26.6 kg/m2. Admit weight: 87.3 kg, BMI: 26.1 kg/m2, IBW: 75.4 kg. UBW ~98 kg per previous admits. DIET: NPO per ST. ESTIMATED NEEDS: Wounds, CKD Calories: 3894-4954 kcal/day (25-35 kcal/kg BW) Protein: 90-105 g/day (1.0-1.2 g/kg BW) Fluid: 0144-4596 ml/day (~1 ml/kcal/kg) NUTRITION DIAGNOSIS: 1) Inadequate oral intake related to decreased ability to consume sufficient energy as evidenced by current NPO status per ST - IMPROVED WITH ENTERAL FEEDING. 2) Increased nutrient needs related to increased demand for healing as evidence by pt with multiple lower extremity wounds - PERSISTS. 3) Chew/ swallow difficulty related to AMS and chronic dysphagia as evidence by pt with dementia and need for texture modification per ST - PERSISTS. NUTRITION INTERVENTION: 1) Continue enteral feedings. MD requested increase in free fluid flush. Will increase fluid flush to 60ml H2O every hour to provide an additional 1440ml. TF+ fluid flush provides 2694ml H20/day. RN is aware. Total fluid provided from TF and fluid flushes is 3095ml 2) Diet advance per speech therapy. MONITOR/EVALUATE: NPO status, enteral feeding tolerance, fluids, labs, wt, GI, POC. Follow per high nutrition risk guidelines.
--- NOTE | 2016-08-08 10:32 | DRSVH ---
PROCEDURE: X-RAY CHEST ONE VIEW, PORTABLE ([id number]) INDICATIONS: Poss pneumonia TECHNIQUE: One view of the chest was acquired. COMPARISON: [facility], CR, XR CHEST 1VW (PORTABLE), 08/06/2016, 2:51. FINDINGS: Surgical changes and devices: Stable position a right IJ CVL and nasogastric tube. Lungs and pleura: Thorndike opacity projected over the right upper lobe measuring up to 3.5 cm, otherwis e lungs are clear. No pleural effusion or pneumothorax. Mediastinum: Mediastinal contours appear normal. Heart size is normal. Bones and chest wall: No suspicious bony lesions. Overlying soft tissues appear unremarkable. IMPRESSION: Thorndike right upper lobe density which may be related to artifact but infiltrate cannot be excluded. Recommend clinical correlation and attention on followup exam. Dictated by: Kyle DAHL Interpreted: Chanel Morrow MD on 08/08/2016 at 10:30 Transcribed by: JORDANA on 08/08/2016 at 10:31 Approved by: Chanel Morrow M.D. on 08/08/2016 at 17:10
--- NOTE | 2016-08-08 11:04 | PCM.PNMED ---
Subjective Date of Service Aug 08, 2016 Subjective Patient is a 65-year-old gentleman with neurofibromatosis, dementia, atrial fibrillation currently anticoagulated admitted for sepsis and possible pneumonia. Overnight: Patient was drowsy overnight only waking intermittently. The Levophed remained throughout the night. There were some palliative care adjustments to pain medications with effect. Esmolol drip discontinued overnight Today: Patient laying in bed [address] Patient will open eyes to voice though does not speak intelligible responses and is unable to follow commands. Exam Vital Signs Vital Sign - Last Date Time Temp Pulse Resp B/P Pulse Ox O2 Delivery O2 Flow Rate FiO2 08/08/16 08:20 130 22 98 Room Air 08/08/16 07:45 37.2 109/65 08/06/16 16:21 2.00 Intake and Output 08/07/16 08/07/16 08/08/16 Cumulative From/Thru 15:00 23:00 07:00 08/02/16 09:47 - 08/08/16 06:16 Intake Total 2154 ml 1971 ml 03191 ml Output Total 750 ml 775 ml 39611 ml Balance 1404 ml 1196 ml 79674 ml Intake Oral 60 ml IV Total 511 ml 507 ml 50541 ml Tube Feeding 1020 ml 814 ml 4386 ml Tube Irrigant 623 ml 650 ml 2849 ml Output Urine Total 750 ml 775 ml 09667 ml # Bowel Movements 2 6 Exam General: Patient supine in 2-point soft restraints. Opens eyes to voice. Does not verbalize answers to questions, does not follow commands HEENT: Tubercles of neurofibromatosis diffusely over face. Nasal cannula in place. NG tube in place Neck: Right IJ in place, dressing intact Cardiovascular: Continue Tachycardic rate with irregular irregular rhythm with no murmurs appreciated. Pulmonary: Clear to auscultation bilaterally with no crackles. Abdomen: Soft. No guarding, no rigidity and no rebound tenderness. Extremities: Multiple wounds throughout lower extremities bilaterally. Bandages in place left bandages shows weeping in the posterior calf area Skin: No clubbing no edema appreciated. Psychiatric: Opens eyes to voice, does not vocalize response to questions IVs and Medications Medications Reviewed: Medications were reviewed in detail Lab and Diagnostics Result Diagram: 08/08/16 0608/08/16 06 Microbiology MRSA-positive PCR testing, sacral ulcer also tested positive for MRSA Nasopharyngeal PCR negative, urine culture no growth Blood culture no growth 5 days Urine strep pneumo antigen screen negative Urine Legionella negative X-Rays, CTs and MRIs X-RAY CHEST ONE VIEW, PORTABLE IMPRESSION: Perihilar interstitial prominence may be chronic. However, developing pulmonary edema or atypical interstitial pneumonia cannot be entirely excluded and clinical correlation is recommended. Dictated by: Abdirashid Kearns M.D. on 08/02/2016 at 10:31 X-RAY CHEST ONE VIEW, PORTABLE IMPRESSION: 1. Right-sided central line catheter is positioned with the tip overlying the low superior vena cava. 2. No pneumothorax. Dictated by: Abdirashid Kearns M.D. on 08/02/2016 at 11:27 CT BRAIN WITHOUT CONTRAST IMPRESSION: 1. No acute intracranial hemorrhage. 2. Extensive chronic small vessel ischemic changes. 3. Moderate parenchymal volume loss. 4. Nonspecific enlargement of the lateral ventricles and the 3rd ventricle. In the correct clinical setting, this appearance may be seen with normal pressure hydrocephalus. Please correlate clinically. Dictated by: Abdirashid Kearns M.D. on 08/02/2016 at 12:16 CT ABDOMEN AND PELVIS WITH CONTRAST IMPRESSION: 1. No definite signs of infection within the abdomen or pelvis. There are no abscesses. 2. Enlarged gallbladder with mild biliary dilatation. While nonspecific, this appearance may be seen in the setting of acalculus cholecystitis. The need for better evaluation utilizing a gallbladder ultrasound may be determined clinically. 3. Large amount of stool throughout the colon is suggestive of constipation. 4. No abdominal or pelvic hematomas. 5. Subcutaneous edema involving the bilateral thigh/gluteal regions (left greater than right) without a definite loculated fluid collection appreciated. 6. Urinary bladder wall prominence is likely exaggerated by incomplete distention related to the Burnett catheter. Please correlate clinically to exclude cystitis. Additional findings: -Renal cysts without hydronephrosis. -Aortic atherosclerosis. -Age indeterminate L1 compression deformity. -Prominent degenerative changes of the lumbosacral spine and bilateral hips. Dictated by: Abdirashid Kearns M.D. on 08/02/2016 at 12:19 X-RAY CHEST ONE VIEW, PORTABLE IMPRESSION: What appeared to be a central line from a right-sided approach extends over the right mediastinum 2 the expected position of the distal SVC. No pneumothorax. This was previously present. Mild persistent pneumonia retrocardiac left lower lobe. Reduced inspiratory volume. Dictated by: Miller Machado M.D. on 08/04/2016 at 11:14 X-RAY CHEST ONE VIEW, PORTABLE IMPRESSION: No change in tubes or lines since the previous day. Improved aeration of the lung lópez with bibasilar subsegmental atelectasis still present. Dictated by: Randolph Noel M.D. on 08/05/2016 at 7:45 X-RAY CHEST ONE VIEW, PORTABLE IMPRESSION: Stable support equipment. No new consolidation. Scattered atelectasis as before Dictated by: Germain Prabhakar M.D. on 08/06/2016 at 7:14 X-RAY CHEST ONE VIEW, PORTABLE IMPRESSION: Coffeen right upper lobe density which may be related to artifact but infiltrate cannot be excluded. Recommend clinical correlation and attention on followup exam. Dictated by: Kyle To [facility] Interpreted: Chanel Morrow MD on 08/08/2016 at 10:30 Cardiac Echo Impressions . Echocardiogram Report Interpretation Summary: Technically difficult study. The patient was in atrial fibrillation with rapid ventricular response during the exam with a heart rate exceeding 100 bpm. Borderline concentric left ventricular hypertrophy with ejection fraction 65- 70 %. Severely dilated both atria. Probably severe aortic stenosis. Mild mitral regurgitation. Comparison is made with the echocardiogram of 05/24/16, aortic stenosis has progressed. Electronically signed by: Catarina Nj [facility] . US ABDOMEN, LIMITED IMPRESSION: Gallbladder sludge. No other sonographic criteria for acute cholecystitis however limited examination due to patient positioning difficulties. Therefore, please correlate clinically and with LFTs. Dictated by: Germain Prabhakar M.D. on 08/02/2016 at 16:46 Assessment & Plan Mr. Mendez is a 65-year-old gentleman with a past medical history of neurofibromatosis, dementia, atrial fibrillation currently anticoagulated and admitted for sepsis and possible pneumonia. Hospital day 7 1. Severe Sepsis, septic shock requiring pressor support . Present on admission. Improving - Criteria met with tachycardia (146), temperature (39.2), WBC (17.2) and suspected source of infection being pulmonary or decubitus ulcer/cellulitis - Patient now afebrile, though remains tachycardic. Lactic acid 1.3. White count 7.9 - White count and procalcitonin continue to trend down, lactic acid normalized - Infectious disease following we appreciate their recommendations - IV fluids stopped - Continue Zosyn to complete 5 day course - Continue Linezolid to complete 10 day course - Levophed nurse to titrate 2. Possible pneumonia, present on admission. Ongoing - Etiologies include hospital-acquired and aspiration - Procalcitonin remains 0.37 from peak of 0.77 - CXR shows mild persistent pneumonia left lower lobe, now showing oblong right upper lobe density which may be related to artifact but infiltrate cannot be excluded. - White count normalized 7.3 - Antibiotics as in #1 - Cultures and serologies as above 3. Lower extremity cellulitis/extensive decubitus ulcer. Present on admission. Ongoing - CT showed subcutaneous edema involving the bilateral thigh/gluteal regions - Lactic acid normalized - Sacral decubitus ulcer MRSA positive - Antibiotics as an #1 - Wound care following 4. Atrial fibrillation with RVR. Present on admission. Ongoing - Remains tachycardic - Hold home metoprolol - Esmolol drip continued,will consider po metoprolol once levophed is tapered off - digoxin level normal - Continue Coumadin, pharmacy to dose - Echo EF 65-70% with bilateral severe dilation of atria, severe aortic stenosis with progression 5. Hypernatremia, acute. Present on admission. Ongoing - Most likely secondary to dehydration - Patient has many other electrolyte imbalances as well - On admission sodium 158, potassium 5.7, chloride 115, magnesium 2.8. - With fluid administration potassium has normalized the sodium chloride remains elevated - Sodium level remains elevated at 144 today - Nutrition to increase free water when necessary based on sodium levels - We will continue to monitor 6. Hypertension, chronic. Not Present on admission. Ongoing - Hold home spironolactone 25 mg daily, secondary to hypotension - Patient remains tachycardic and somewhat tachypneic - Continue to monitor 7. Acute on chronic renal failure. Present on admission. Resolved - On admission creatinine 1.5, has normalized to 0.5 8. Encephalopathy due to chronic dementia, possibly exacerbated by infectious etiology. Present on admission. Ongoing - Soft restraints in place. - Continue to treat underlying disorder - Ativan when necessary for anxiety 11. Troponin elevation. Present on admission. Ongoing - Elevated in the setting of acute on chronic renal failure - Troponin have trended down - ECG showed Atrial fibrillation with RVR, Rate 152, Left anterior fascicular block. No ST segment abnormalities - Echo showed no wall motion abnormalities 12. CODE STATUS changed to DNR/DNI. Per palliative care consultation "CPR/ defibrillation/intubation and mechanical ventilation are potentially inappropriate, as being unlikely to contribute to his survival and return to his previous independent status. Therefore, in this setting, it would seem appropriate to continue medical treatment short of those terminal interventions , but in the event of cardiopulmonary arrest, not to proceed with CPR/ defibrillation/intubation and mechanical ventilation. " Dr. Dyer. Medical team myself Dr. Calvin Gracia as well as my attending physician Dr. Jose De Jesus Medel both agree with this assessment. Disposition: Patient remains CCU status. We will most likely need placement of a PEG tube before discharge as nutritional requirements are not being met as evidenced by nutritional state upon admission. As patient resides in a usp and has poor nutritional status with history of aspiration pneumonias he will need either NG or PEG tube placement for nutritional support. Palliative care closely following patient, at time of dictation risk assessment at [facility] has become involved, future decision making about patient's long -term care will include their input VTE Prophylaxis: Theraputic Anticoag with Warfarin Resuscitation Status: DNR/DNI:Do Not Resuscitate/Intubate Attending Statement The patient was seen and examined together with Dr. Gracia on 08/08/2016 and I agree with the history, exam and plan as outlined in the note above. CALVIN GRACIA DO Aug 08, 2016 11:04 Romeo Ochoa MD Aug 08, 2016 17:51
--- NOTE | 2016-08-08 12:54 | NUR ---
Palliative care note D/A: Case discussed in PC rounds. Pt to be seen Keenan Del Rio NATE today. Pt non responsive but there is some thought that he may be understanding some of what is communicated to him. She is going to attempt to communicate in a way that will allow pt to indicate if care he is receiving is not what he might wish and to communicate about this. Pt with no known family. Is from [facility] who has been attempting to work on guardianship. Note new information in EMR from CM team indicating that pt brother is Selwyn Sign and that some he decided to no longer be a part of pt care, around middle of 2015. Request from PC team to see if contact info could be obtained for Selwyn Sign. Msg left for and also able to discuss with Kaur Hagen, [employer] Program[employer] ([facility]) at [phone]. She notes that facility high school social studies tutor Akil Duncan , ext [phone]) is the staff member that has been working on this issue and has more information. Kaur notes that there is some belief that bro may have but she is not sure where this information came from and if it is confirmed. Have left message for Akil Duncan. Have also left message for [facility] to inquire about appropriateness of possible hospice referral as well as ability for hospice to follow given that pt does not have any family,friends or decision makers. P: Palliative to follow. Rosario GUILLEN, [facility]
[2016-08-08] MEDS: Norepineph 8,000 mCg/250 mL NS 8,000 MCG in IV Premix 1 EACH IV SCH (15:52)
--- NOTE | 2016-08-08 15:58 | PCM.PALLBR ---
Palliative Care Recommendation 65-year-old male with long-standing history of lower extremity skin ulcers and recurrent cellulitis/sepsis, as well as neurofibromatosis, COPD, atrial fibrillation, dementia, etc. with further history of steady deterioration over approximately the last 6 months (during which time he has been hospitalized multiple times) including significant cognitive deterioration to the point where he has been deemed non-decisional for the last 4-6 months. Admitted again with sepsis, multiple possible etiologies, including pneumonia, cellulitis, cholecystitis, as well as marked hypernatremia, elevated troponins, etc. Palliative medicine consulted to assist patient in determination of goals of care. Unfortunately, it appears that the patient has nobody to speak for him or take responsibility. Multiple phone calls to his care facility, previous caregivers and other potential contacts on 08/03 and 08/04 without any success in identifying responsible related individuals. His only known blood relative, his brother , has been unreachable for some time (according to the patient's care facility and PCP) and may, in fact, have . Apparently, efforts at securing guardianship are underway but as yet are incomplete. Summary of palliative recommendations: -Symptom management (Pain/other)- continue Dilaudid and lorazepam prn as ordered. Monitor and adjust medications for comfort as needed, consistent with safety in light of his other ongoing medical conditions. --Continue routine dosing of oxycodone at 5 mg q 4 hours per tube as this is helping with underlying pain control. Monitor for sedation--may hold doses if patient is more lethargic than normal. -DPOA/Advanced Directives/POLST- Per Dr. Walls 08/04/16: "patient's care facility sent a copy of POLST completed by the patient and his PCP on 06/13/16. It indicated wishes for CPR but not intubation (which is problematic in of itself). Patient's decisional status at that time uncertain. He has clearly continued to deteriorate in the interim and is definitely non- decisional at this point. All outpatient caregivers that I spoke with today related that the patient has shown steady deterioration over the 4-6 months ( during which time he has had multiple hospitalizations without significant recovery of previous level of function in the wake of each hospitalization). After careful review of his records from this and his previous hospitalizations , and after extensive discussion and consideration of his current clinical status with his medical team, my impression is that aggressive terminal interventions such as CPR/defibrillation/intubation and mechanical ventilation are potentially inappropriate, as being unlikely to contribute to his survival and return to his previous independent status. Therefore, in this setting, it would seem appropriate to continue medical treatment short of those terminal interventions, but in the event of cardiopulmonary arrest, not to proceed with CPR/defibrillation/intubation and mechanical ventilation. Consistent with these considerations, I have adjusted CODE STATUS to DO NOT RESUSCITATE/DO NOT INTUBATE on the likelihood of such interventions being potentially inappropriate and non-beneficial." 08/07/16: Called to patient's bedside by RN who states patient has been more lucid this afternoon. Again , this practitioner spent 20 min at bedside, talking to patient about his situation, attempting to elicit patient understanding of his condition, his prognosis and assess his decision-making capacity. The patient again had brief interactions that showed some level of alertness , he appears less able to express his pain and ask for pain medication. He again gave no verbal responses to the rest of my questioning. I did use this opportunity to explain the patient's situation to him, and the need to have him let us know if he would want any thing other than all the current therapies and care. HE did open his eyes during this, but did not verbally acknowledge that he heard or understood this. Will return/try again tomorrow. 08/08/16: Returned to try to elicit response from patient--he is awake at times but not really responsive to conversation unless it is to express his pain. -Family/emotional support- no family or known contacts whatsoever -Spiritual support- I will review with hospital infantry operations specialist; I have no history regarding the patient's spirituality Additional Medical Diagnoses with primary management by Hospitalist team include : 1. Severe Sepsis. Present on admission. Ongoing. 2. Possible pneumonia, present on admission. Ongoing 3. Lower extremity cellulitis. Present on admission. Ongoing 4. Atrial fibrillation. Present on admission. Ongoing 5. Hypernatremia. Present on admission. Ongoing 6. Possible cholecystitis. Present on admission. Ongoing 7. Hypertension. Present on admission. Ongoing 8. Acute on chronic renal failure. Present on admission. Improving. 9. Encephalopathy due to chronic dementia, possibly exacerbated by infectious etiology. Present on admission. Ongoing Problems: End of Life Preferences DO NOT RESUSCITATE/DO NOT INTUBATE/limited interventions okay Disposition To be determined Resuscitation Status Resuscitation Status: DNR/DNI:Do Not Resuscitate/Intubate POLST Updates/Changes Previous POLST?: Yes Antibiotics: Use ABX if can Prolong Life Artificially Admin Nutrition: Trial Period Tube Feeding POLST Review Outcome: Form Voided . Pain: Mild Symptom management: Pain Total time15 minutes; >50% face to face with patient and/or family, providing counselling regarding plans and recommendations, and in care coordination with his/her medical teams. I also spent an additional [ ] minutes counseling for advanced care planning with the patient/the patients family/the surrogate decision maker. Palliative Brief Note Date of Service Aug 08, 2016 . Pt was mostly sedate again today. As promised, I talked with him about wanting to involve him if possible in making decisions about ongoing care including whether to return to hospital, whether to have tube feeding (which will almost certainly require restraint) or whether he would prefer to have a plan of care where our focus was comfort and we would not intervene in his natural decline. He did not respond to any of this, keeping his eyes half-closed. He does awake and express his need for pain medication by saying 'OW" and 'yes" or "more" when offered pain med. Palliative care continues to recommend that his comfort needs would best be met by accepting the irreversible nature of his decline due to a natural diminished intake with non-healing wounds. It would be ideal if consent could be obtained , or a medical decision made based on the patient's best interest to transition to comfort goals allowing him to return to his facility with palliative care and focus on comfort through the remainder of his life. We will continue to express the logic of this course as the medical and case management teams plan for his ongoing care. Keenan Del Rio. NATE Aug 08, 2016 15:58
--- NOTE | 2016-08-08 17:12 | PROG NOTE ---
[address] [address] PROGRESS NOTE PATIENT: KELLY MELENDREZ : 1950 MR#: [id number] ADMIT: 08/02/2016 JOB ID: [id number] DATE: 08/08/2016 REASON FOR FOLLOWUP: Apparent septic shock likely of cutaneous origin. INTERVAL HISTORY: Recall this is the unfortunate 65-year-old gentleman with longstanding neurofibromatosis and now dementia, who lives in a [facility] facility. He was admitted with what appeared to be septic shock from either cutaneous source or possibly an aspiration pneumonia though we have been favoring a skin or soft tissue source. Since last night the patient has remained in a noncommunicative state. When touched he will occasionally moan or groan but does not answer any questions or follow any commands. At times, he appears to be in pain but this is almost always when his wounds are being manipulated. He remains off the ventilator though lying in an ICU bed receiving low doses of norepinephrine to support his fragile blood pressure. This case was discussed extensively and all his wounds examined at the bedside with the wound management team as well as nursing. He was also discussed during ICU rounds this morning. PHYSICAL EXAMINATION: Reveals a basically mute but occasionally moaning elderly gentleman. Temperature 37.1. He has been afebrile since the now. Pulse 116, respiratory rate in the low to mid 20s. Blood pressure right around 90 systolic but that is being supported by low dose norepinephrine. His urine output is approximately 700 cc to a liter a day. Oral cavity is hard to examine as he will not open his mouth but we see no obvious lesions. He has IgA present in his right neck which looks benign. Lungs relatively clear anteriorly. Cardiac tones distant and a bit muffled but regular irregularly irregular. Abdomen is slightly distended, soft, nontender. He does have a Burnett catheter. His sacral wounds were examined yesterday and recall there is one single deep lesion over the sacrum which does not appear terribly infected and shallow lesions over both buttocks which do not appear infected. Today, we removed this extensive lower extremity dressings and reviewed these in detail. On the right thigh he has an odd-looking, 3 cm in diameter annular lesion which is shallow and appears uninfected. On the lower extremities below the knees, there are extensive venous stasis changes as well as multiple shallow venous-stasis type ulcers. These ulcers in general appear uninfected and some of them appear to be healing. On the right heel, however, there is a prominent eschar which renders the ulcer unstageable but it is likely stage III or perhaps even more likely stage IV with osteo. LABORATORIES: Include white count stable at 9100, eosinophils 9%, creatinine 0.53. AST is falling, now 54. Alk phos still high at 321. Pro calcitonin falling. It was only 0.77 at its peak but at least it is down to 0.28 now. Cultures include the positive nasal MRSA swab and a MRSA cultured from his sacral wound/ There are no cultures available from the right heel as there is an eschar there. IMAGING: Includes a series of chest x-rays. Today's chest x-ray reveals what appears to an oblong artifact. Otherwise the lungs are clear. IMPRESSION: This patient is now into his seventh hospital day for what appears to be septic shock. I see no evidence that this arose from a pulmonary source as he is oxygenating well basically on room air and his lungs are clear on chest x-ray. Aspiration pneumonia is certainly a possibility in this patient at any time, but it does not appear to fit the clinical circumstances. More likely, I think his septic picture arose from skin breakdown which could be the sacral decubitus which is fairly well circumscribed but deep or more likely the right heel. There are also many shallow ulcerations on both lower extremities as well as the right lateral thigh which could serve as a nidus for bacterial infection. RECOMMENDATIONS: 1. We can go ahead and stop the piperacillin/tazobactam tomorrow morning as that will complete a full week. We had originally planned to stop a bit earlier but it is not unreasonable to continue through then. 2. Continue the linezolid to complete at least a 10-14 day course. This can be switched to oral at any time. 3. Will get x-ray of the right heel. 4. We are going to order a right heel x-ray to try and see whether or not this may be some underlying osteomyelitis. 5. Will continue to closely follow this complex patient with you.
--- NOTE | 2016-08-08 17:40 | NUR ---
Wound care Patient seen for reassessment of foot,leg, thigh wounds and pressure injuries, generally wounds are all improved and without signs of infection, patient has not developed any new pressure injuries since admission, lower extremity edema is improved as well. Stasis ulcers- L lateral ankle 3.2 cm L x 2.8 cm W x 0.1 cm D. L lateral LL 3.2 cm L x 2.8 cm W x o.1 cm D. L ant. LL 0.8 cm L x 1.3 cm W x 0.1 cm D. R post. Calf 2.3 cm L x 4.3 cm W x 0.1 cm D. R Lat LL (cluster) 12.5 cm L x 4.5 cm W x 0.1 cm D. R Lat thigh 4 cm x 4 cm x 0.2 cm. All leg wounds cleaned with betadine and hydrogen peroxide solution then redressed. Leg dressings- Unna wrap at top of calf, xeroform, kerlix and coban change q 48 hrs. Foam heel boots at all times. Thigh dressing- Xeroform, gauze and mepilex adhesive foam. Pressure Ulcers- Coccyx (POA) Unstageable 1 cm L x 2 cm W x 0.5 cm D. L Buttock (POA) Unstageable 5.2 cm L x 6 cm W x 0.1 cm D. R Buttock (POA) Unstageable 3 cm L x 3 cm W x 0.1 cm D. PU dressings- Adhesive foam dressings change q 48 hrs or PRN for soiling. Continue current wound care and off loading regiment, q 2hr turns and q 48 hr dressing changes by nursing. Will need significant nursing care on discharge may be good candidate for SNF like [facility].
--- NOTE | 2016-08-08 17:42 | DRSVH ---
PROCEDURE: X-RAY RIGHT FOOT COMPLETE, MINIMUM THREE VIEWS ([id number]) INDICATIONS: ? heel osteo? TECHNIQUE: 3 views of the foot were acquired. COMPARISON: None. FINDINGS: Bones: Bones are severely osteopenic. Interphalangeal joint space narrowing and calcaneal spurs are n oted. No definite fracture or dislocation. A subtle focus of cortical thinning is present along the i nferior calcaneus best visualized on oblique view. Soft tissues: No tibiotalar joint effusion. Achilles tendon appears normal. IMPRESSION: 1. Severe osteopenia. 2. Questionable cortical thinning of the calcaneus as above. If there is high clinical suspicion for acute osteomyelitis, contrast-enhanced MRI of the foot may be helpful to further characterize finding s. Dictated by: Chanel Morrow M.D. on 08/08/2016 at 17:39 Approved by: Chanel Morrow M.D. on 08/08/2016 at 17:41
--- NOTE | 2016-08-08 19:24 | NUR ---
BP/Tele: Pt continues to require Norepinephrine to maintain map above 65 (Norepi gtt currently at 0.04mcg/kg/min. MAP occasionally drops to high 50's, but does not sustain). Tele: Afib 100-120's. Esmolol gtt was started. Tele remains Afib with rate ranging from 100-120's. Report given to NOC RN to continue to titrate as needed.
[2016-08-09] VITALS (8 sets, daily range): BP systolic 80–98; BP diastolic 45–61; PULSE 103–119; RESP 15–31; O2SAT 95–99
[2016-08-09] MEDS: Sodium Chloride LOK Flush 10 mL Syringe IVFLUSH SCH ×6 (00:09→16:30)
[2016-08-09] MEDS: Piperacillin-Tazo 3.375 Gm Inj 3.375 GM in Dextrose 5% Minibag Plus 50 ML IV SCH ×2 (00:30→09:37)
[2016-08-09] MEDS: oxyCODONE 1 mg/mL 5 mL Liquid TUBE SCH ×6 (00:33→19:49)
[2016-08-09] MEDS: Dextrose 5% 1,000 ML IV SCH ×2 (04:00→13:24)
[2016-08-09] MEDS: Esmolol 2,500 mg/250 mL NS 2,500,000 MCG in IV Premix 1 EACH IV SCH ×2 (04:47→17:06)
[2016-08-09] MEDS ORDERED: Lactated Ringer's 500 ML IV ONE (05:15)
[2016-08-09 05:24] LABS: BASOPHILS % (AUTO) 0.6 % (0-3); EOSINOPHILS % (AUTO) 5.2 % (0-5); MONOCYTES % (AUTO) 7.5 % (4-12); Mean Corpuscular Hemoglobin 28.6 pg (27.0-35.0); NEUTROPHILS % (AUTO) 68.1 % (40-74); Platelet Count 199 bil/L (150-400)
[2016-08-09] MEDS: Linezolid Inj 600 MG in IV Premix 1 EACH IV SCH ×2 (08:27→19:49)
[2016-08-09] MEDS: Nystatin 100,000 Unit/mL 5 mL Suspension PO SCH ×4 (08:28→19:48)
--- NOTE | 2016-08-09 09:14 | PROG NOTE ---
[address] [address] PROGRESS NOTE PATIENT: KELLY MELENDREZ : 1950 MR#: [id number] ADMIT: 08/02/2016 JOB ID: [id number] DATE: 08/09/2016 REASON FOR FOLLOWUP: Septic shock. INTERVAL HISTORY: Recall this is a 65-year-old gentleman with longstanding neurofibromatosis, now complicated by progressive dementia, who is nonambulatory and lives in a [facility] facility. He was admitted with what appears to be septic shock either from a skin site, aspiration pneumonia or osteomyelitis. The patient continues to be non-interactive, other than when he is repositioned or even lightly touched at this point, he moans in pain. Otherwise he is completely non- interactive. He still has an NG tube in place through which he is being fed, and remains on vasopressor agents, though he is not intubated. This case was discussed extensively with the ICU attending. PHYSICAL EXAMINATION: Reveals a chronically ill-appearing gentleman with obvious severe neurofibromatosis. He is afebrile and has been now for almost one week. Pulse 119 and irregular, in atrial fibrillation on the monitor. Respiratory rate in the low 20s, blood pressure 91/58, and still requiring low-dose norepinephrine. Examination of the eyes reveals no conjunctivitis. Oral cavity cannot be examined as the patient is not cooperative. Lungs relatively clear bilaterally. Cardiac tones are regular rate and rhythm. Abdomen feels soft but the patient moans whenever it is palpated. There is no appreciable organomegaly. The leg wounds were carefully examined yesterday in great detail. Recall there are many shallow ulcerations which appear uninfected, but a deep eschar is present over the right heel. He also has the sacral lesion we examined two days ago which is deep but without surrounding cellulitis. Examining the patient is extremely difficult, and so I do not remove these dressings today so as to reduce suffering. LABORATORIES: Include white count 9500, 5% eosinophils. Creatinine 0.53. LFTs basically normal, with an alk phos slightly up at 257. Procalcitonin is bouncing around 0.3, without any real trend. Recall that his nasal MRSA screen was positive. We also have MRSA growing from the well-demarcated sacral ulcer. There are no cultures of the heel, of course, this is just a dried eschar there. Yesterday, I had ordered an x-ray of the heel, looking for osteo. It shows severe osteopenia diffusely. Calcaneal spurs are noted. A subtle focus of cortical thinning is present along the inferior calcaneus, which could be consistent with early osteo. IMPRESSION: This patient is now in his 8th hospital day for septic shock. He remains dependent on vasopressor agents, but is not intubated. I do not think that this is in any way respiratory aspiration pneumonia type process. His lungs are basically clear by chest x-ray and auscultation, and so we are going to go ahead and stop the Zosyn today. I suspect that his sepsis is more related to skin and soft tissue processes, as he has the sacral ulcer, the shallow lesions on his legs and the deep lesion present over the right heel which may be associated with osteo. The likely organism there would be MRSA. RECOMMENDATIONS: 1. Will go ahead and stop the Zosyn today. 2. I would continue with linezolid to complete at least a two week course. This could be oral or IV. Following completion of the linezolid, will reassess, but may need to continue with an anti-MRSA drug for a longer period of time for possible heel osteo. 3. Obviously, a critical part of the process here is to try and wean the patient off vasopressor agents so he can be [facility] back to the [facility] facility. 4. There seem to be emerging ethical issues here, as there is no clear power of patent prosecution attorney for this unfortunate gentleman and his life seems here, at least, to consist primarily of suffering. There is no clear way forward in terms of how to feed this gentleman and he certainly does not appear to have any significant quality of life.
[2016-08-09] MEDS: Budesonide 0.5 mg/2 mL Inhalation Solution NEB SCH ×2 (09:19→20:32)
[2016-08-09] MEDS: Arformoterol 15 mCg/2 mL Inhalation Solution NEB SCH ×2 (09:19→20:32)
--- NOTE | 2016-08-09 09:22 | NUR ---
ARIANE: There is no known NOK for this patient and all attempts have been made to locate, Izabela has been contacted and guardianship process has been started. Updated CONTRACT ADMINISTRATION MANAGER and CONTRACT ADMINISTRATION MANAGER Blade Bender Furnace Tender
--- NOTE | 2016-08-09 16:32 | PCM.PALLBR ---
Palliative Care Recommendation 65-year-old male with long-standing history of lower extremity skin ulcers and recurrent cellulitis/sepsis, as well as neurofibromatosis, COPD, atrial fibrillation, dementia, etc. with further history of steady deterioration over approximately the last 6 months (during which time he has been hospitalized multiple times) including significant cognitive deterioration to the point where he has been deemed non-decisional for the last 4-6 months. Admitted again with sepsis, multiple possible etiologies, including pneumonia, cellulitis, cholecystitis, as well as marked hypernatremia, elevated troponins, etc. Palliative medicine consulted to assist patient in determination of goals of care. Unfortunately, it appears that the patient has nobody to speak for him or take responsibility. Multiple phone calls to his care facility, previous caregivers and other potential contacts on 08/03 and 08/04 without any success in identifying responsible related individuals. His only known blood relative, his brother , has been unreachable for some time (according to the patient's care facility and PCP) and may, in fact, have . Apparently, efforts at securing guardianship are underway but as yet are incomplete. Summary of palliative recommendations: -Symptom management (Pain/other)- continue Dilaudid and lorazepam prn as ordered. Monitor and adjust medications for comfort as needed, consistent with safety in light of his other ongoing medical conditions. --Continue routine dosing of oxycodone at 5 mg q 4 hours per tube as this is helping with underlying pain control. Monitor for sedation--may hold doses if patient is more lethargic than normal. -DPOA/Advanced Directives/POLST- Per Dr. Walls 08/04/16: "patient's care facility sent a copy of POLST completed by the patient and his PCP on 06/13/16. It indicated wishes for CPR but not intubation (which is problematic in of itself). Patient's decisional status at that time uncertain. He has clearly continued to deteriorate in the interim and is definitely non- decisional at this point. All outpatient caregivers that I spoke with today related that the patient has shown steady deterioration over the 4-6 months ( during which time he has had multiple hospitalizations without significant recovery of previous level of function in the wake of each hospitalization). After careful review of his records from this and his previous hospitalizations , and after extensive discussion and consideration of his current clinical status with his medical team, my impression is that aggressive terminal interventions such as CPR/defibrillation/intubation and mechanical ventilation are potentially inappropriate, as being unlikely to contribute to his survival and return to his previous independent status. Therefore, in this setting, it would seem appropriate to continue medical treatment short of those terminal interventions, but in the event of cardiopulmonary arrest, not to proceed with CPR/defibrillation/intubation and mechanical ventilation. Consistent with these considerations, I have adjusted CODE STATUS to DO NOT RESUSCITATE/DO NOT INTUBATE on the likelihood of such interventions being potentially inappropriate and non-beneficial." 08/07/16: Called to patient's bedside by RN who states patient has been more lucid this afternoon. Again , this practitioner spent 20 min at bedside, talking to patient about his situation, attempting to elicit patient understanding of his condition, his prognosis and assess his decision-making capacity. The patient again had brief interactions that showed some level of alertness , he appears less able to express his pain and ask for pain medication. He again gave no verbal responses to the rest of my questioning. I did use this opportunity to explain the patient's situation to him, and the need to have him let us know if he would want any thing other than all the current therapies and care. HE did open his eyes during this, but did not verbally acknowledge that he heard or understood this. Will return/try again tomorrow. 08/08/16: Returned to try to elicit response from patient--he is awake at times but not really responsive to conversation unless it is to express his pain. 08/09: Hospice is willing to arrange support for him on DC with coordination of this medical team in transitioning him to comfort-focused treatments. -Family/emotional support- no family or known contacts whatsoever -Spiritual support- I will review with hospital polysomnographic technician; I have no history regarding the patient's spirituality Additional Medical Diagnoses with primary management by Hospitalist team include : 1. Severe Sepsis. Present on admission. Ongoing. 2. Possible pneumonia, present on admission. Ongoing 3. Lower extremity cellulitis. Present on admission. Ongoing 4. Atrial fibrillation. Present on admission. Ongoing 5. Hypernatremia. Present on admission. Ongoing 6. Possible cholecystitis. Present on admission. Ongoing 7. Hypertension. Present on admission. Ongoing 8. Acute on chronic renal failure. Present on admission. Improving. 9. Encephalopathy due to chronic dementia, possibly exacerbated by infectious etiology. Present on admission. Ongoing Problems: End of Life Preferences DO NOT RESUSCITATE/DO NOT INTUBATE/limited interventions okay Disposition To be determined Resuscitation Status Resuscitation Status: DNR/DNI:Do Not Resuscitate/Intubate POLST Updates/Changes Previous POLST?: Yes Antibiotics: Use ABX if can Prolong Life Artificially Admin Nutrition: Trial Period Tube Feeding POLST Review Outcome: Form Voided . Advanced Care Planning Address: Comfort care Pain: Mild Symptom management: Dyspnea, Pain Total time 15 minutes; >50% face to face with patient and/or family, providing counselling regarding plans and recommendations, and in care coordination with his/her medical teams. I Palliative Brief Note Date of Service Aug 09, 2016 . No changes, Spent a few minutes trying to explain situation and elicit response without any success. See TOUR LEADER notes regarding discussion with hospice medical instrument technician Addie Glasgow. She is willing to offer hospice services if 3 doctors will sign as to the appropriateness of that level of care. Keenan Del Rio Aug 09, 2016 16:32
[2016-08-09] MEDS: Norepineph 8,000 mCg/250 mL NS 8,000 MCG in IV Premix 1 EACH IV SCH (17:06)
[2016-08-09] MEDS: MeTOProlol XL 50 mg ER24 Tablet PO SCH (18:23)
--- NOTE | 2016-08-09 18:25 | NUR ---
spiritual care: follow up caring visit. pt made several vocalizations, and seemed to attempt to open eyes to quiet, directed conversation.
--- NOTE | 2016-08-09 18:52 | NUR ---
Afib/ Mentation: Patient continues to be in Afib with rate ranging from low 100's to 135 despite Esmolol gtt 35mcg/kg/min. MD was notified. Oral doses of Metoprolol and Digoxin were ordered and administered. Will continue to monitor vitals and titrate Norepi and Esmolol gtt. Pt appears to be more alert today than yesterday and opens eyes spontaneously, but is unable hold attention or answer questions. Pt appears very uncomfortable during turns in bed (yells out, braces and facial grimace) FELDT pain score 4/10. Roxicodone liquid given as ordered and Ativan 0.5mg IVP PRN.
--- NOTE | 2016-08-09 19:15 | PCM.PNMED ---
Subjective Date of Service Aug 09, 2016 Subjective Patient is a 65-year-old gentleman with neurofibromatosis, dementia, atrial fibrillation currently anticoagulated admitted for sepsis and possible pneumonia. Overnight: Per nurses notes and report CVP was around 4 with blood pressure in the 90s over 50s remained tachycardic. Night resident gave 500 normal saline bolus with some effect. Today: Patient laying in bed [address] Patient will open eyes to voice though does not speak intelligible responses and is unable to follow commands. Patient again diaphoretic. Exam Vital Signs Vital Sign - Last Date Time Temp Pulse Resp B/P Pulse Ox O2 Delivery O2 Flow Rate FiO2 08/09/16 18:32 38.1 08/09/16 18:23 136 08/09/16 16:46 15 98/61 99 OxyMask 2.00 Intake and Output 08/08/16 08/08/16 08/09/16 Cumulative From/Thru 14:59 22:59 06:59 08/02/16 09:47 - 08/09/16 06:16 Intake Total 2025 ml 4464 ml 58809 ml Output Total 650 ml 1650 ml 54335 ml Balance 1375 ml 2814 ml 52517 ml Intake Oral 0 ml 60 ml IV Total 540 ml 2835 ml 14077 ml Tube Feeding 890 ml 942 ml 6218 ml Tube Irrigant 595 ml 687 ml 4131 ml Output Urine Total 650 ml 1650 ml 82598 ml # Bowel Movements 0 6 Exam General: Patient supine in 2-point soft restraints. Diaphragmatic Opens eyes to voice. Does not verbalize answers to questions, does not follow commands HEENT: Tubercles of neurofibromatosis diffusely over face. Nasal cannula in place. NG tube in place Neck: Right IJ in place, dressing intact. Cardiovascular: Continued Tachycardic rate with irregular irregular rhythm with no murmurs appreciated. Pulmonary: Clear to auscultation bilaterally with no crackles. Abdomen: Soft. No guarding, no rigidity and no rebound tenderness. Extremities: Multiple wounds throughout lower extremities bilaterally. Bandages intact Skin: No clubbing no edema appreciated. Psychiatric: Opens eyes to voice, does not vocalize response to questions IVs and Medications Medications Reviewed: Medications were reviewed in detail Lab and Diagnostics Result Diagram: 08/09/16 0500 08/09/16 0500 Microbiology MRSA-positive PCR testing, sacral ulcer also tested positive for MRSA Nasopharyngeal PCR negative, urine culture no growth Blood culture no growth 5 days Urine strep pneumo antigen screen negative Urine Legionella negative X-Rays, CTs and MRIs X-RAY CHEST ONE VIEW, PORTABLE IMPRESSION: Perihilar interstitial prominence may be chronic. However, developing pulmonary edema or atypical interstitial pneumonia cannot be entirely excluded and clinical correlation is recommended. Dictated by: Abdirashid Kearns M.D. on 08/02/2016 at 10:31 X-RAY CHEST ONE VIEW, PORTABLE IMPRESSION: 1. Right-sided central line catheter is positioned with the tip overlying the low superior vena cava. 2. No pneumothorax. Dictated by: Abdirashid Kearns M.D. on 08/02/2016 at 11:27 CT BRAIN WITHOUT CONTRAST IMPRESSION: 1. No acute intracranial hemorrhage. 2. Extensive chronic small vessel ischemic changes. 3. Moderate parenchymal volume loss. 4. Nonspecific enlargement of the lateral ventricles and the 3rd ventricle. In the correct clinical setting, this appearance may be seen with normal pressure hydrocephalus. Please correlate clinically. Dictated by: Abdirashid Kearns M.D. on 08/02/2016 at 12:16 CT ABDOMEN AND PELVIS WITH CONTRAST IMPRESSION: 1. No definite signs of infection within the abdomen or pelvis. There are no abscesses. 2. Enlarged gallbladder with mild biliary dilatation. While nonspecific, this appearance may be seen in the setting of acalculus cholecystitis. The need for better evaluation utilizing a gallbladder ultrasound may be determined clinically. 3. Large amount of stool throughout the colon is suggestive of constipation. 4. No abdominal or pelvic hematomas. 5. Subcutaneous edema involving the bilateral thigh/gluteal regions (left greater than right) without a definite loculated fluid collection appreciated. 6. Urinary bladder wall prominence is likely exaggerated by incomplete distention related to the Burnett catheter. Please correlate clinically to exclude cystitis. Additional findings: -Renal cysts without hydronephrosis. -Aortic atherosclerosis. -Age indeterminate L1 compression deformity. -Prominent degenerative changes of the lumbosacral spine and bilateral hips. Dictated by: Abdirashid Kearns M.D. on 08/02/2016 at 12:19 X-RAY CHEST ONE VIEW, PORTABLE IMPRESSION: What appeared to be a central line from a right-sided approach extends over the right mediastinum 2 the expected position of the distal SVC. No pneumothorax. This was previously present. Mild persistent pneumonia retrocardiac left lower lobe. Reduced inspiratory volume. Dictated by: Miller Machado M.D. on 08/04/2016 at 11:14 X-RAY CHEST ONE VIEW, PORTABLE IMPRESSION: No change in tubes or lines since the previous day. Improved aeration of the lung lópez with bibasilar subsegmental atelectasis still present. Dictated by: Randolph Noel M.D. on 08/05/2016 at 7:45 X-RAY CHEST ONE VIEW, PORTABLE IMPRESSION: Stable support equipment. No new consolidation. Scattered atelectasis as before Dictated by: Germain Prabhakar M.D. on 08/06/2016 at 7:14 X-RAY CHEST ONE VIEW, PORTABLE IMPRESSION: [place] right upper lobe density which may be related to artifact but infiltrate cannot be excluded. Recommend clinical correlation and attention on followup exam. Dictated by: Kyle To [facility] Interpreted: Chanel Morrow MD on 08/08/2016 at 10:30 Cardiac Echo Impressions . Echocardiogram Report Interpretation Summary: Technically difficult study. The patient was in atrial fibrillation with rapid ventricular response during the exam with a heart rate exceeding 100 bpm. Borderline concentric left ventricular hypertrophy with ejection fraction 65- 70 %. Severely dilated both atria. Probably severe aortic stenosis. Mild mitral regurgitation. Comparison is made with the echocardiogram of 05/24/16, aortic stenosis has progressed. Electronically signed by: Catarina Nj [facility] . US ABDOMEN, LIMITED IMPRESSION: Gallbladder sludge. No other sonographic criteria for acute cholecystitis however limited examination due to patient positioning difficulties. Therefore, please correlate clinically and with LFTs. Dictated by: Germain Prabhakar M.D. on 08/02/2016 at 16:46 Assessment & Plan Mr. Mendez is a 65-year-old gentleman with a past medical history of neurofibromatosis, dementia, atrial fibrillation currently anticoagulated and admitted for sepsis and possible pneumonia. Hospital day 7 1. Severe Sepsis, septic shock requiring pressor support . Present on admission. Improving - Criteria met with tachycardia (146), temperature (39.2), WBC (17.2) and suspected source of infection being pulmonary or decubitus ulcer/cellulitis - Patient now afebrile, though remains tachycardic. Lactic acid 1.3. White count 7.9 - White count and procalcitonin continue to trend down, lactic acid 1.4 - Infectious disease following we appreciate their recommendations - IV fluids stopped - Zosyn completed 5 day course - Continue Linezolid to complete 10 day course - Levophed nurse to titrate -patient remains hypotensive and continues to require pressor .doubt if shock is still septic .will consider adrenal insufficiency .will send cortisol in am and consider steriods and /or midodrine if remains to require pressor 2. Possible pneumonia, present on admission. Ongoing - Etiologies include hospital-acquired and aspiration - Procalcitonin remains 0.37 from peak of 0.77 - CXR shows mild persistent pneumonia left lower lobe - White count normalized 7.3 - Antibiotics as in #1 - Cultures and serologies as above 3. Lower extremity cellulitis/extensive decubitus ulcer. Present on admission. Ongoing - CT showed subcutaneous edema involving the bilateral thigh/gluteal regions - Lactic acid normalized - Sacral decubitus ulcer MRSA positive - Antibiotics as an #1 - Wound care following 4. Atrial fibrillation with RVR. Present on admission. Ongoing - Remains tachycardic - Hold home metoprolol -Esmolol drip will be tapered down restart patient's home metoprolol and digoxin - Continue Coumadin, pharmacy to dose - Echo EF 65-70% with bilateral severe dilation of atria, severe aortic stenosis with progression 5. Hypernatremia, acute. Present on admission. Ongoing - Most likely secondary to dehydration - Patient has many other electrolyte imbalances as well - On admission sodium 158, potassium 5.7, chloride 115, magnesium 2.8. - With fluid administration potassium has normalized the sodium chloride remains elevated - Sodium level remains elevated at 142 today - Nutrition to increase free water when necessary based on sodium levels - We will continue to monitor 6. Hypertension, chronic. Not Present on admission. Ongoing - Hold home spironolactone 25 mg daily, secondary to hypotension - Patient remains tachycardic and somewhat tachypneic - Continue to monitor 7. Acute on chronic renal failure. Present on admission. Resolved - On admission creatinine 1.5, has normalized to 0.5 8. Encephalopathy due to chronic dementia, possibly exacerbated by infectious etiology. Present on admission. Ongoing - Soft restraints in place. - Continue to treat underlying disorder - Ativan when necessary for anxiety 11. Troponin elevation. Present on admission. resolved - Elevated in the setting of acute on chronic renal failure - Troponin have trended down - ECG showed Atrial fibrillation with RVR, Rate 152, Left anterior fascicular block. No ST segment abnormalities - Echo showed no wall motion abnormalities 12. CODE STATUS changed to DNR/DNI. Per palliative care consultation "CPR/ defibrillation/intubation and mechanical ventilation are potentially inappropriate, as being unlikely to contribute to his survival and return to his previous independent status. Therefore, in this setting, it would seem appropriate to continue medical treatment short of those terminal interventions , but in the event of cardiopulmonary arrest, not to proceed with CPR/ defibrillation/intubation and mechanical ventilation. " Dr. Dyer. Medical team myself Dr. Calvin Gracia as well as my attending physician Dr. Jose De Jesus Medel both agree with this assessment. Disposition: Patient remains CCU status. We will most likely need placement of a PEG tube before discharge as nutritional requirements are not being met as evidenced by nutritional state upon admission. As patient resides in a custodial and has poor nutritional status with history of aspiration pneumonias he will need either NG or PEG tube placement for nutritional support. Palliative care closely following patient, continuing discussions regarding future care. VTE Prophylaxis: Theraputic Anticoag with Warfarin Resuscitation Status: DNR/DNI:Do Not Resuscitate/Intubate Attending Statement The patient was seen and examined independently on 08/09/2016 and case discussed with Dr. Gracia . I agree with the history, exam and plan as outlined in the note above. CALVIN GRACIA DO Aug 09, 2016 19:15 Romeo Ochoa MD Aug 10, 2016 06:09
[2016-08-10] VITALS (8 sets, daily range): BP systolic 78–105; BP diastolic 55–78; PULSE 100–109; RESP 20–26; O2SAT 93–98
[2016-08-10] MEDS: Sodium Chloride LOK Flush 10 mL Syringe IVFLUSH SCH ×6 (00:24→16:09)
[2016-08-10] MEDS: oxyCODONE 1 mg/mL 5 mL Liquid TUBE SCH ×6 (00:26→20:18)
[2016-08-10] MEDS: Esmolol 2,500 mg/250 mL NS 2,500,000 MCG in IV Premix 1 EACH IV SCH ×2 (00:51→10:15)
[2016-08-10 05:14] LABS: BASOPHILS % (AUTO) 1.2 % (0-3); EOSINOPHILS % (AUTO) 5.8 % (0-5); MONOCYTES % (AUTO) 11.8 % (4-12); Mean Corpuscular Hemoglobin 28.8 pg (27.0-35.0); Mean Corpuscular Volume 98.2 fL (81-100); NEUTROPHILS % (AUTO) 58.6 % (40-74)
[2016-08-10 05:30] LABS: INR 1.05 ratio
[2016-08-10 05:41] LABS: Platelet Count 190 bil/L (150-400)
[2016-08-10] MEDS: Nystatin 100,000 Unit/mL 5 mL Suspension PO SCH ×4 (06:28→20:30)
--- NOTE | 2016-08-10 07:19 | NUR ---
Palliative care note (note for 08/10/16) D/A: Haleigh from Hospice has called and indicated that agency can serve pt at SNF. Will need two providers to sign off on plan as he does not have family or guardian. Providers will need to ascent to comfort care as medically appropriate plan of care for pt. P: Palliative care to follow. Rosario GUILLEN, CCM
[2016-08-10] MEDS: Budesonide 0.5 mg/2 mL Inhalation Solution NEB SCH (07:51)
[2016-08-10] MEDS: Arformoterol 15 mCg/2 mL Inhalation Solution NEB SCH (07:51)
[2016-08-10] MEDS: MeTOProlol XL 50 mg ER24 Tablet PO SCH (08:24)
[2016-08-10] MEDS: Linezolid Inj 600 MG in IV Premix 1 EACH IV SCH (08:27)
[2016-08-10] MEDS ORDERED: Meropenem Inj 2,000 MG in 0.9% Sodium Chloride 100 ML IV SCH (09:50)
[2016-08-10] MEDS: Dextrose 5% 1,000 ML IV SCH ×2 (10:00)
--- NOTE | 2016-08-10 10:25 | NUR ---
NUTRITION FOLLOW-UP: ASSESS: 65 YO M transferred to CCU with septic shock and hypotension. Per care facility, pt has deteriorated over the last 6 months with significant cognitive deterioration. As pt has no guardian to make decisions, palliative care and providers involved in patient's care made the pt DNI/DNR. Pt remains NPO per speech therapy. Enteral feeding continues at goal rate and is tolerating free fluid flush well. Hypernatremia has improved with increase in fluid flush. Pt keeps trying to pull out feeding tube, requiring restraints. The question at this point is quality vs quantity of life in regards to nutrition. Pt has history of aspiration. If he were allowed to eat for comfort, likely pt would aspirate however would have better quality of life. Having TF industrial psychologist would not benefit pt for quality of life. Pt would still be at high risk for aspiration and he would need to be in restraints. Palliative care is following closely. PMHX: Dementia, Chronic venous stasis changes, Afib, CHF, COPD, Neurofibromatosis, Emphysema LABS: Reviewed. Management Specialist .50, Glu 104, Ca 8.0, alk phos 193, alb 2.1 MEDS: Coumadin, ENTERAL FEEDING: Jevity 1.5 @ goal 75 ml/hr; providing 2475 kcal, 105 g protein, meeting 100% calorie/protein needs. Flush dose 60 ml H2O every hr to provide an additional 1440ml. TF+ fluid flush provides 2694ml H20/day. RN is aware. Total fluid provided from TF and fluid flushes is 3095ml GI: BM x 2 (08/09). SKIN: Marco 11 - current [facility]ound [facility] pt w/ multiple unstageable pressure injuries on buttock/legs; also a right thigh injury- Per WC 08/08, wounds are improving and no new wounds have developed WT: 92.6 kg, BMI 27.7 kg/m2. Admit weight: 87.3 kg, BMI: 26.1 kg/m2, IBW: 75.4 kg. UBW ~98 kg per previous admits. DIET: NPO per ST. ESTIMATED NEEDS: Wounds, CKD Calories: 0674-3001 kcal/day (25-35 kcal/kg BW) Protein: 90-105 g/day (1.0-1.2 g/kg BW) Fluid: 7526-7427 ml/day (~1 ml/kcal/kg) NUTRITION DIAGNOSIS: 1) Inadequate oral intake related to decreased ability to consume sufficient energy as evidenced by current NPO status per ST - IMPROVED WITH ENTERAL FEEDING. 2) Increased nutrient needs related to increased demand for healing as evidence by pt with multiple lower extremity wounds - PERSISTS. 3) Chew/ swallow difficulty related to AMS and chronic dysphagia as evidence by pt with dementia and need for texture modification per ST - PERSISTS. NUTRITION INTERVENTION: 1) Continue enteral feedings and free fluid flush as ordered. 2) Will monitor goals of care MONITOR/EVALUATE: NPO status, enteral feeding tolerance, fluids, labs, wt, GI, POC. Follow per high nutrition risk guidelines.
[2016-08-10 10:49] LABS: APPEARANCE,URINE CLEAR (CLEAR,HAZY); COLOR,URINE YELLOW (YELLOW); OCCULT BLOOD,URINE NEGATIVE (NEGATIVE); PH,URINE 5.5 (5.0-8.0); UROBILINOGEN,URINE NORMAL (NORMAL)
--- NOTE | 2016-08-10 12:54 | NUR ---
Palliative Market Basket Maker Note08/10/16 Pt. remains in CCU, on bipap and multiple life-sustaining IV medications. Pt. was admitted to [facility] on 08/02/16 for treatment of advanced wounds, severe sepsis and possible pneumonia. Medical history includes neurofibrosis, dementia, atrial fibrillation, COPD, dysphagia and hypertension. His code status was switched to DNR/DNI on 08/03/16 by the medical team due to recognized medical futility of this intervention. Currently, the medical team feels pt.'s prognosis is poor, and he meets criteria for hospice care. It is unlikely he would survive more than several weeks unless a PEGG tube is placed for nutrition. The benefits vs risks of a PEGG tube have been challenging to assess given pt.'s overall debility and recognized declining quality of life. This va underwriter spoke with several staff at [facility] about pt.'s current clinical status and to determine the course of his physical and cognitive decline that led to his current hospitalization at [facility]. Per [facility] embedded engineer, Akilah, and [facility] RN, Clara Bansal, pt. has had ongoing declines over the last several years, with a more rapid decline over the last six months. Per Javier, pt. had a POLST form completed with Dr. Gonzales in June, noting CPR, limited additional interventions. The POLST form was faxed to Palliative Care office and is now on pt.'s chart. This POLST does NOT clarify pt.'s wishes for artificial nutrition or antibiotic use. It notes pt. wants to 'avoid intensive care if possible.' As it is unclear whether pt. is meaningfully benefiting from current clinical interventions, this va underwriter contacted [facility] Risk Department and consulted with Marquez Soto who clarified that per [facility] policy, pt. can be transitioned to comfort care if two providers agree that current treatment efforts are medically futile. Marquez noted that if pt. is transitioned to comfort care and returns to [facility], this facility can determine whether to engage Hospice services for pt. Per Akilah and [facility], they are very open to having [facility] assist with pt.'s care if he is able to return to their facility. Akilah was able to confirm that pt's brother, Selwyn Mendez, is ( January,), but that pt. has a [id number], Renay Mendez, and also a sister, Nick Joy. Per Akilah, both these relatives live in the [place] area. Palliative Care staff are attempting to find contact information for these relatives to see if either of them can act as legal banking representative for pt. around medical decision making. KANDIS Sage LASW Palliative Market Basket Maker Addendum: 08/10/16 at 1356 by AVINASH Benjamin SS Addendum: 08/10/16 Palliative Care team was able to get contact information for pt.'s sister and [id number]: Sister: Nick Joy: [phone] KYLER: Renay Mendez: [phone] Both Nick and Renay stated they think transitioning pt. to comfort care is appropriate and that he would not want herioc measures taken to keep him alive. Nick noted, "I would just make him comfortable. He's my brother and I know him." This va underwriter let both sister and KYLER know [facility] staff would contact them with updates on pt.'s clinical course of care. KANDIS Sage LASW Palliative Care Services
--- NOTE | 2016-08-10 13:28 | PROG NOTE ---
[address] [address] PROGRESS NOTE PATIENT: KELLY MELENDREZ : 1950 MR#: [id number] ADMIT: 08/02/2016 JOB ID: [id number] INFECTIOUS DISEASE FOLLOWUP: DATE: 08/10/2016 REASON FOR FOLLOWUP: Septic shock. INTERVAL HISTORY: Recall, this is our gentleman with neurofibromatosis, multiple skin lesions due to his nonambulatory state, progressive dementia, and recurrent aspiration pneumonia. The patient today continues to be obtunded. Whenever the patient is stimulated by touching or attempting to examine him or calling out his name, he groans and will attempt to pull away from the examiner. Otherwise he is not interactive in any way. The nurses report this has been the situation throughout the night. He has an NG tube in place and remains on moderate dose norepinephrine for blood pressure support. PHYSICAL EXAMINATION: Reveals a gentleman covered with neurofibromatosis lesions. He is febrile this morning to 38.5 which is his first significant new fever in approximately 24 hours. Recall that he had been afebrile for five days between August 03 and August 09. Yesterday afternoon he spiked to 38.1 which was his highest temperature in that six day period. This morning he is 38.5, so he is unequivocally febrile and this is new. His pulse is currently 100. He is still on low to moderate dose norepinephrine for blood pressure support. Blood pressure 91/56. His physical examination continues to be challenging as the patient is rather contorted in bed and actively resists being moved or examined. His eyes disclose no new scleral icterus or changes. He has the nasogastric tube in place. Sinuses relatively nontender. The oral cavity cannot be examined as he does not open his mouth. His neck is without significant adenopathy, though he does have neurofibromatosis lesions essentially everywhere. Lungs relatively clear. Cardiac tones irregular rate and rhythm as before without noticeable new murmur. Abdomen: Soft and apparently nontender, though as everywhere he moans when his abdomen is touched. Burnett catheter is present. Examination of the extremities reveals shallow skin excoriations over the legs, the rather deep lesion on his right heel which is covered by an eschar and he has a sacral decub. LABORATORY DATA: Labs include white count 8200. The diff is surprisingly normal except for 6% eosinophils. His creatinine 0.5. Alk phos 193, AST and ALT normal. Albumin 2.1. Urinalysis without white cells. Nasal swab was positive for MRSA last week. It has not been repeated. Sacral ulcer also grew MRSA. Otherwise we do not have significant positive cultures. IMAGING: Of the foot on the showed some cortical thinning and possibly some heel osteo. We do not have a chest x-ray in the last few days. IMPRESSION: This patient is now in his 9 hospital day for what appears to be septic shock, and he remains on vasopressor agents, and in fact, we have had a go up a little bit in terms of his pressor support. I am still not impressed that he has much going on in the way of aspiration pneumonia, but of course, he remains a constant risk for this because of his obtundation, even though he is being fed by NG tube. Up until this morning I was not convinced that he still had an underlying infection causing his hypotension, but his new fevers strongly suggests that there is an infection still in play or perhaps a new nosocomial infection ongoing here. Whether this is due to soft tissue infection or a pulmonary process or even possibly C. difficile or some other process remains unclear at this time. Overall, the patient's condition appears to be very difficult. The patient has neurofibromatosis and baseline dementia and is currently being fed by a feeding tube due to concerns about aspiration if he were to try to eat in this obtunded state by the oral route. Placing a percutaneous endoscopic gastrostomy tube would not eliminate the risk of aspiration and would further impair his poor quality of life. At this point, there are ongoing discussions with the Palliative Care Team and I agree with the consensus that this patient, who has no [id number] or any known relatives, might reasonably be considered for hospice giving the overwhelming nature of his problems and his very poor prognosis. RECOMMENDATIONS: 1. Re-culture blood today. 2. Urinalysis will also be checked. Lipase will be checked. Procalcitonin will be rechecked. 3. Stool for C. diff. 4. Will re-examine all of his wounds, some which are covered by dressing supplied by the Wound Management Team, to see if there are signs of superinfection. 5. In terms of antibiotics, will continue the linezolid which we are using for he MRSA isolated from numerous sites, and will add meropenem pending culture results. 6. I agree with the plans to consider transition to hospice situation for this patient as he seems to have overwhelming problems in terms of his dementia, neurofibromatosis and inability to eat by the oral route. In addition, he has been in shock throughout his hospital stay here, requiring vasopressor agents and this is now worsening.
--- NOTE | 2016-08-10 14:57 | DRSVH ---
PROCEDURE: X-RAY CHEST ONE VIEW, PORTABLE ([id number]) INDICATIONS: fevers-new TECHNIQUE: One view of the chest was acquired. COMPARISON: [facility], CR, XR CHEST 1VW (PORTABLE), 08/08/2016, 4:38. FINDINGS: Surgical changes and devices: Stable position of nasogastric tube and right IJ CVL. Lungs and pleura: No pleural effusions or pneumothorax. Left basilar airspace opacity and prominent interstitium. Mediastinum: Mediastinal contours appear normal. Heart size is normal. Bones and chest wall: No suspicious bony lesions. Overlying soft tissues appear unremarkable. IMPRESSION: Mild interstitial prominence and focal air space opacity involving the left lung base con sistent with atelectasis, aspiration or pneumonia. Dictated by: Kyle To RRA Interpreted: Ngozi Agustin MD on 08/10/2016 at 14:55 Transcribed by: TUSHAR on 08/10/2016 at 14:56 Approved by: Ngozi Agustin MD, PhD on 08/10/2016 at 16:48
--- NOTE | 2016-08-10 15:51 | NUR ---
Social Work: Continued Discharge Planning D: Palliative care was able to locate a member of the pt's family, a sister, who states that she wishes for the pt to be made comfort care. [facility] tiff has agreed that they can accept the pt back and would be happy to accept hospice services to manage pt's end of life care. It remains unclear if pt is expected to within 24-48 hours without. Palliative care has referred [facility], who is following. They have not yet assigned an intake time. A: Pt who is a LTC resident at [facility]. P: Anticipate pt to either at [facility] or return to [facility] with Dr. Gonzales to follow and Hospice to provide end of life care. KANDIS Martinez
--- NOTE | 2016-08-10 17:17 | NUR ---
Wound Care Patient seen for dressing changes today with RN. Lower leg stasis ulcers and right heel unstageable PU were all cleaned with betadine moistened gauze then dressed with xeroform and wrapped with kerlix and coban, heel boots in place. Sacral and buttock PU's were cleaned and redressed with mepilex sacral and adhesive foam dressings. Wounds and PU's remain stable and uninfected. Patient slightly more arousable today during wound care but not conversant.
--- NOTE | 2016-08-10 17:21 | PCM.PALLBR ---
Palliative Care Recommendation 65-year-old male with long-standing history of lower extremity skin ulcers and recurrent cellulitis/sepsis, as well as neurofibromatosis, COPD, atrial fibrillation, dementia, etc. with further history of steady deterioration over approximately the last 6 months (during which time he has been hospitalized multiple times) including significant cognitive deterioration to the point where he has been deemed non-decisional for the last 4-6 months. Admitted again with sepsis, multiple possible etiologies, including pneumonia, cellulitis, cholecystitis, as well as marked hypernatremia, elevated troponins, etc. Palliative medicine consulted to assist patient in determination of goals of care. Unfortunately, it appears that the patient has nobody to speak for him or take responsibility. Multiple phone calls to his care facility, previous caregivers and other potential contacts on 08/03 and 08/04 without any success in identifying responsible related individuals. His only known blood relative, his brother , has been unreachable for some time (according to the patient's care facility and PCP) and may, in fact, have . Apparently, efforts at securing guardianship are underway but as yet are incomplete. Summary of palliative recommendations: 08/10/16-[facility]-This has been a challenge for this pt since he is not decisional and until today no living relative found. Angela Benjamin [facility] was able to find a sister and KYLER who confirmed that pt would not want futile treatment. Based on patients progressive deterioration over 6 months and difficulty to attempt wound healing of his leg wounds and decub ulcers without more aggressive nutrition-the present course is not sustainable. It is my opinion that based on his present debility and the need for permanent restraint to maintain FT that further intervention would be inappropriate. Further nutritional support would require surgical intervention and would cause inappropriate pain and suffering for this patient. His poor prognosis is defined based on his downhill course over time despite recurrent hospitalization and care. In consultation with the hospitalist team and calenderer team-goal will be for comfort with now nearly off his pressors. He will be transitioned to comfort with the expectation of expiring in the near future. 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 Orders will reflect this change including discontinuation of antibiotics, pressors and nonessential meds for comfort -Symptom management (Pain/other)- continue Dilaudid and lorazepam prn as ordered. Monitor and adjust medications for comfort as needed, consistent with safety in light of his other ongoing medical conditions. --Continue routine dosing of oxycodone at 5 mg q 4 hours per tube as this is helping with underlying pain control. Monitor for sedation--may hold doses if patient is more lethargic than normal. -DPOA/Advanced Directives/POLST- Per Dr. Walls 08/04/16: "patient's care facility sent a copy of POLST completed by the patient and his PCP on 06/13/16. It indicated wishes for CPR but not intubation (which is problematic in of itself). Patient's decisional status at that time uncertain. He has clearly continued to deteriorate in the interim and is definitely non- decisional at this point. All outpatient caregivers that I spoke with today related that the patient has shown steady deterioration over the 4-6 months ( during which time he has had multiple hospitalizations without significant recovery of previous level of function in the wake of each hospitalization). After careful review of his records from this and his previous hospitalizations , and after extensive discussion and consideration of his current clinical status with his medical team, my impression is that aggressive terminal interventions such as CPR/defibrillation/intubation and mechanical ventilation are potentially inappropriate, as being unlikely to contribute to his survival and return to his previous independent status. Therefore, in this setting, it would seem appropriate to continue medical treatment short of those terminal interventions, but in the event of cardiopulmonary arrest, not to proceed with CPR/defibrillation/intubation and mechanical ventilation. Consistent with these considerations, I have adjusted CODE STATUS to DO NOT RESUSCITATE/DO NOT INTUBATE on the likelihood of such interventions being potentially inappropriate and non-beneficial." 08/07/16: Called to patient's bedside by RN who states patient has been more lucid this afternoon. Again , this practitioner spent 20 min at bedside, talking to patient about his situation, attempting to elicit patient understanding of his condition, his prognosis and assess his decision-making capacity. The patient again had brief interactions that showed some level of alertness , he appears less able to express his pain and ask for pain medication. He again gave no verbal responses to the rest of my questioning. I did use this opportunity to explain the patient's situation to him, and the need to have him let us know if he would want any thing other than all the current therapies and care. HE did open his eyes during this, but did not verbally acknowledge that he heard or understood this. Will return/try again tomorrow. 08/08/16: Returned to try to elicit response from patient--he is awake at times but not really responsive to conversation unless it is to express his pain. 08/09: [facility] for him on DC with coordination of this medical team in transitioning him to comfort-focused treatments. -Family/emotional support- no family or known contacts whatsoever -Spiritual support- I will review with hospital general intern; I have no history regarding the patient's spirituality Additional Medical Diagnoses with primary management by Hospitalist team include : 1. Severe Sepsis. Present on admission. Ongoing. 2. Possible pneumonia, present on admission. Ongoing 3. Lower extremity cellulitis. Present on admission. Ongoing 4. Atrial fibrillation. Present on admission. Ongoing 5. Hypernatremia. Present on admission. Ongoing 6. Possible cholecystitis. Present on admission. Ongoing 7. Hypertension. Present on admission. Ongoing 8. Acute on chronic renal failure. Present on admission. Improving. 9. Encephalopathy due to chronic dementia, possibly exacerbated by infectious etiology. Present on admission. Ongoing Problems: End of Life Preferences DO NOT RESUSCITATE/DO NOT INTUBATE/-now comfort care Goals of Care Comfort care Disposition To here or at [facility] Resuscitation Status Resuscitation Status: DNR/DNI:Do Not Resuscitate/Intubate POLST Updates/Changes Previous POLST?: Yes Artificially Admin Nutrition: No Artifical Nutrition by Tube, Trial Period Tube Feeding POLST Discussed with: Health Care Agent (DPOAHC) (decision makers include physicians and call to sister and KYLER) POLST Review Outcome: Form Voided . Advanced Care Planning Address: Code status change, Comfort care Pain: Moderate Symptom management: Delirium Total time 70 minutes; >50% face to face with patient and/or family, providing counselling regarding plans and recommendations, and in care coordination with his/her medical teams. This has included review of chart, exam of pt, discussion with hospitalist, calenderer, ID and staff pharmacist hospital re [facility] and communication via Angela Foster to his sister and KYLER-see note. Med management included. I also spent an additional [ ] minutes counseling for advanced care planning with the patient/the patients family/the surrogate decision maker. copies to: Heidi Gonzales MD Palliative Brief Note Date of Service Aug 10, 2016 . 65 yo pt with neurofibromatosis, shelter resident of [facility] with hx of progressive weakness and deterioration due to chronic aspiration, malnutritions , leg and presacral ulcers resulting from this. He has had multiple hospital admissions but has continued to have a general decline in fxn and mentation. He was admitted this time with sepsis picture, dehydration and +MRSA in nose and wound. He has required pressors for BP support-now at a minimum and IV meds for HR control of his Afib. He has an alb of 2.1 and has been on NG tube feeding. He requires restraints to maintain this level of care. He has pain with positioning and is on oxycodone liquid for this. O: arousable but barely, not able to communicate anything except moans from pain. lungs- densely congested with rhonchi HR 90-100 and for now reg. NG tube in place as is rectal tube Daniela Mesa MD Aug 10, 2016 17:21
[2016-08-10] MEDS ORDERED: Haloperidol 5 mg/mL Inj IVPUSH PRN (17:45)
--- NOTE | 2016-08-10 17:45 | PCM.PNMED ---
Subjective Date of Service Aug 10, 2016 Subjective Patient is a 65-year-old gentleman with neurofibromatosis, dementia, atrial fibrillation currently anticoagulated admitted for sepsis and possible pneumonia. Overnight: We had titrated up slightly for blood pressure support. No other events reported Today: Patient laying in bed [address] Patient will open eyes to voice though does not speak intelligible responses and is unable to follow commands. Same as prior Exam Vital Signs Vital Sign - Last Date Time Temp Pulse Resp B/P Pulse Ox O2 Delivery O2 Flow Rate FiO2 08/10/16 16:05 Supplement Oxygen 08/10/16 16:04 36.8 106 105/78 95 08/10/16 12:42 20 2.00 Intake and Output 08/09/16 08/09/16 08/10/16 Cumulative From/Thru 15:00 23:00 07:00 08/02/16 09:47 - 08/10/16 06:21 Intake Total 2682 ml 2320 ml 07010 ml Output Total 1650 ml 1500 ml 52324 ml Balance 1032 ml 820 ml 10394 ml Intake Oral 0 ml 0 ml 60 ml IV Total 1016 ml 751 ml 03036 ml Tube Feeding 919 ml 883 ml 8020 ml Tube Irrigant 747 ml 686 ml 5564 ml Output Urine Total 1650 ml 1500 ml 88969 ml # Bowel Movements 2 1 9 Exam General: Patient supine in 2-point soft restraints. Diaphoretic, Opens eyes to voice. Does not verbalize answers to questions, does not follow commands HEENT: Tubercles of neurofibromatosis diffusely over face. Nasal cannula in place. NG tube in place Neck: Right IJ in place, dressing intact. Cardiovascular: Tachycardic rate with irregular irregular rhythm with no murmurs appreciated. Pulmonary: Clear to auscultation bilaterally with no crackles. Abdomen: Soft. No guarding, no rigidity and no rebound tenderness. Extremities: Multiple wounds throughout lower extremities bilaterally. Psychiatric: Opens eyes to voice, does not vocalize response to questions IVs and Medications Medications Reviewed: Medications were reviewed in detail Lab and Diagnostics Result Diagram: 08/10/16 0500 08/10/16 0500 Microbiology MRSA-positive PCR testing, sacral ulcer also tested positive for MRSA Nasopharyngeal PCR negative, urine culture no growth Blood culture no growth 5 days Urine strep pneumo antigen screen negative Urine Legionella negative X-Rays, CTs and MRIs X-RAY CHEST ONE VIEW, PORTABLE IMPRESSION: Perihilar interstitial prominence may be chronic. However, developing pulmonary edema or atypical interstitial pneumonia cannot be entirely excluded and clinical correlation is recommended. Dictated by: Abdirashid Kearns M.D. on 08/02/2016 at 10:31 X-RAY CHEST ONE VIEW, PORTABLE IMPRESSION: 1. Right-sided central line catheter is positioned with the tip overlying the low superior vena cava. 2. No pneumothorax. Dictated by: Abdirashid Kearns M.D. on 08/02/2016 at 11:27 CT BRAIN WITHOUT CONTRAST IMPRESSION: 1. No acute intracranial hemorrhage. 2. Extensive chronic small vessel ischemic changes. 3. Moderate parenchymal volume loss. 4. Nonspecific enlargement of the lateral ventricles and the 3rd ventricle. In the correct clinical setting, this appearance may be seen with normal pressure hydrocephalus. Please correlate clinically. Dictated by: Abdirashid Kearns M.D. on 08/02/2016 at 12:16 CT ABDOMEN AND PELVIS WITH CONTRAST IMPRESSION: 1. No definite signs of infection within the abdomen or pelvis. There are no abscesses. 2. Enlarged gallbladder with mild biliary dilatation. While nonspecific, this appearance may be seen in the setting of acalculus cholecystitis. The need for better evaluation utilizing a gallbladder ultrasound may be determined clinically. 3. Large amount of stool throughout the colon is suggestive of constipation. 4. No abdominal or pelvic hematomas. 5. Subcutaneous edema involving the bilateral thigh/gluteal regions (left greater than right) without a definite loculated fluid collection appreciated. 6. Urinary bladder wall prominence is likely exaggerated by incomplete distention related to the Burnett catheter. Please correlate clinically to exclude cystitis. Additional findings: -Renal cysts without hydronephrosis. -Aortic atherosclerosis. -Age indeterminate L1 compression deformity. -Prominent degenerative changes of the lumbosacral spine and bilateral hips. Dictated by: Abdirashid Kearns M.D. on 08/02/2016 at 12:19 X-RAY CHEST ONE VIEW, PORTABLE IMPRESSION: What appeared to be a central line from a right-sided approach extends over the right mediastinum 2 the expected position of the distal SVC. No pneumothorax. This was previously present. Mild persistent pneumonia retrocardiac left lower lobe. Reduced inspiratory volume. Dictated by: Miller Machado M.D. on 08/04/2016 at 11:14 X-RAY CHEST ONE VIEW, PORTABLE IMPRESSION: No change in tubes or lines since the previous day. Improved aeration of the lung lópez with bibasilar subsegmental atelectasis still present. Dictated by: Randolph Noel M.D. on 08/05/2016 at 7:45 X-RAY CHEST ONE VIEW, PORTABLE IMPRESSION: Stable support equipment. No new consolidation. Scattered atelectasis as before Dictated by: Germain Prabhakar M.D. on 08/06/2016 at 7:14 X-RAY CHEST ONE VIEW, PORTABLE IMPRESSION: [place] right upper lobe density which may be related to artifact but infiltrate cannot be excluded. Recommend clinical correlation and attention on followup exam. Dictated by: Kyle DAHL Interpreted: Chanel Morrow MD on 08/08/2016 at 10: 30 X-RAY CHEST ONE VIEW, PORTABLE IMPRESSION: Mild interstitial prominence and focal air space opacity involving the left lung base consistent with atelectasis, aspiration or pneumonia. Dictated by: Kyle DAHL Interpreted: Ngozi Agustin MD on 08/10/2016 at 14:55 X-RAY RIGHT FOOT COMPLETE, MINIMUM THREE VIEWS IMPRESSION: 1. Severe osteopenia. 2. Questionable cortical thinning of the calcaneus as above. If there is high clinical suspicion for acute osteomyelitis, contrast-enhanced MRI of the foot may be helpful to further characterize findings. Dictated by: Chanel Morrow M.D. on 08/08/2016 at 17:39 Cardiac Echo Impressions . Echocardiogram Report Interpretation Summary: Technically difficult study. The patient was in atrial fibrillation with rapid ventricular response during the exam with a heart rate exceeding 100 bpm. Borderline concentric left ventricular hypertrophy with ejection fraction 65- 70 %. Severely dilated both atria. Probably severe aortic stenosis. Mild mitral regurgitation. Comparison is made with the echocardiogram of 05/24/16, aortic stenosis has progressed. Electronically signed by: Catarina Nj [facility] . US ABDOMEN, LIMITED IMPRESSION: Gallbladder sludge. No other sonographic criteria for acute cholecystitis however limited examination due to patient positioning difficulties. Therefore, please correlate clinically and with LFTs. Dictated by: Germain Prabhakar M.D. on 08/02/2016 at 16:46 Assessment & Plan Mr. Mendez is a 65-year-old gentleman with a past medical history of neurofibromatosis, dementia, atrial fibrillation currently anticoagulated and admitted for sepsis and possible pneumonia. Hospital day 8 Today patient's sister Nick Joy: [phone],( we have been looking for next of kin but had been unsuccessful,Izabela provided contact info reportedly from old records) was contacted, after discussion about Mr. Mendez's current hospital stay as well as prognosis decision was made to transition patient to comfort care where he will remain while in the hospital. Diagnosis leading up to comfort care transition as follows: 1. Severe Sepsis, septic shock requiring pressor support . Present on admission. Improving - Criteria met with tachycardia (146), temperature (39.2), WBC (17.2) and suspected source of infection being pulmonary or decubitus ulcer/cellulitis - Patient now afebrile, though remains tachycardic. Lactic acid 1.3. White count 7.9 - White count and procalcitonin continue to trend down, lactic acid 1.4 - Infectious disease following we appreciate their recommendations - IV fluids stopped - Zosyn completed 5 day course - discontinue Linezolid -discontinue Levophed -patient remains hypotensive and continues to require pressor .will transition to comfort care as per sisters wishes 2. Possible pneumonia, present on admission. Ongoing - Etiologies include hospital-acquired and aspiration - Procalcitonin remains 0.37 from peak of 0.77 - CXR shows mild persistent pneumonia left lower lobe - White count normalized 7.3 - Antibiotics as in #1 - Cultures and serologies as above -will transition to comfort care as per sisters wishes 3. Lower extremity cellulitis/extensive decubitus ulcer. Present on admission. Ongoing - CT showed subcutaneous edema involving the bilateral thigh/gluteal regions - Lactic acid normalized - Sacral decubitus ulcer MRSA positive - Antibiotics as an #1 - Wound care following -will transition to comfort care as per sisters wishes 4. Atrial fibrillation with RVR. Present on admission. Ongoing - Remains tachycardic - Hold home metoprolol -Esmolol drip will be tapered down restart patient's home metoprolol and digoxin - Continue Coumadin, pharmacy to dose - Echo EF 65-70% with bilateral severe dilation of atria, severe aortic stenosis with progression -will transition to comfort care as per sisters wishes 5. Hypernatremia, acute. Present on admission. Ongoing - Most likely secondary to dehydration - Patient has many other electrolyte imbalances as well - On admission sodium 158, potassium 5.7, chloride 115, magnesium 2.8. - With fluid administration potassium has normalized the sodium chloride remains elevated - Sodium level remains elevated at 142 today - Nutrition to increase free water when necessary based on sodium levels -will transition to comfort care as per sisters wishes 6. Hypertension, chronic. Not Present on admission. Ongoing - Hold home spironolactone 25 mg daily, secondary to hypotension - Patient remains tachycardic and somewhat tachypneic - Continue to monitor 7. Acute on chronic renal failure. Present on admission. Resolved - On admission creatinine 1.5, has normalized to 0.5 8. Encephalopathy due to chronic dementia, possibly exacerbated by infectious etiology. Present on admission. Ongoing - Soft restraints in place. - Continue to treat underlying disorder - Ativan when necessary for anxiety 11. Troponin elevation. Present on admission. resolved - Elevated in the setting of acute on chronic renal failure - Troponin have trended down - ECG showed Atrial fibrillation with RVR, Rate 152, Left anterior fascicular block. No ST segment abnormalities - Echo showed no wall motion abnormalities 12. CODE STATUS changed to DNR/DNI. Per palliative care consultation "CPR/ defibrillation/intubation and mechanical ventilation are potentially inappropriate, as being unlikely to contribute to his survival and return to his previous independent status. Therefore, in this setting, it would seem appropriate to continue medical treatment short of those terminal interventions , but in the event of cardiopulmonary arrest, not to proceed with CPR/ defibrillation/intubation and mechanical ventilation. " Dr. Dyer. Medical team myself Dr. Calvin Gracia as well as my attending physician Dr. Jose De Jesus Medel both agree with this assessment. Disposition: Comfort care status VTE Prophylaxis: Theraputic Anticoag with Warfarin Resuscitation Status: DNR/DNI:Do Not Resuscitate/Intubate Attending Statement The patient was seen and examined independently on 08/10/2016 and case discussed with Dr. Gracia . I agree with the history, exam and plan as outlined in the note above. CALVIN GRACIA DO Aug 10, 2016 17:45 Romeo Ochoa MD Aug 10, 2016 17:58
--- NOTE | 2016-08-10 17:50 | NUR ---
Status Norepinephrine and esmolol gtt off. Pt continues in atrial fibrillation per transfer station operator, rate controlled in the 100s to 110s. Vital signs stable at this time. Pain adequately controlled with scheduled roxicodone per NG. Transitioning to comfort care. Will continue to monitor.
[2016-08-10] MEDS ORDERED: Glycopyrrolate 0.2 MG/ML 1mL Inj IV PRN (19:45)
[2016-08-11] VITALS (8 sets, daily range): BP systolic 114; BP diastolic 67; PULSE 94–122; RESP 20–26; O2SAT 91–96
[2016-08-11] MEDS: oxyCODONE 1 mg/mL 5 mL Liquid TUBE SCH ×3 (01:03→09:34)
[2016-08-11] MEDS: Sodium Chloride LOK Flush 10 mL Syringe IVFLUSH SCH ×2 (01:11→09:34)
--- NOTE | 2016-08-11 06:16 | NUR ---
Mentation/Pain/PCC Pt continues to use one word answers and moan and groan and say "ouch" when touching or turning pt. Pt was placed on comfort care on the previous shift. 10mg Roxicodone administered Q4 hours. Pt unable to give birthday, date or place. When asked where he was he stated "I have no idea!" Pt transferred to PCC status 0000. Tele Afib 100's to 120's.
[2016-08-11] MEDS ORDERED: LORazepam Oral Conc 2 mg/mL 30 mL Solution PO PRN (08:40)
[2016-08-11] MEDS ORDERED: Atropine 1% 5 mL Ophthalmic Solution SL PRN (08:40)
[2016-08-11] MEDS ORDERED: Morphine 20 mg/mL Oral Syringe SL/PO PRN (08:40)
[2016-08-11] MEDS: Nystatin 100,000 Unit/mL 5 mL Suspension PO SCH ×2 (09:34→12:42)
--- NOTE | 2016-08-11 10:15 | NUR ---
Social Work: Discharge D: Pt discussed in am rounds. Pt has been transitioned to comfort care. Palliative care was able to locate a family member who made the final decision to transition to comfort. Pt's NG tube is being discontinued. Pt is not expected to within 24-48 hours and will be discharged back to [facility] on Comfort Care. Pt is a LTC resident with [facility] and Medicare. [facility] is going to open for services on Sunday08/14/16. [facility] spoke with Kaur at [place]. They are prepared to accept the pt back today. Pt will need to transport via BLS. Pt is a total assistance and requires a ruth for transfers. [facility] is arranging for BLS transport. is writing orders. A: Pt who is a LTC resident at [facility] P: Anticipate pt to discharge back to [facility] with Comfort Measures at [facility] to open on Sunday. KANDIS Martinez
--- NOTE | 2016-08-11 10:19 | NUR ---
Palliative Ball[employer] Pen [employer] Machine Operator Note08/11/16 This justowriter operator called [facility] to let them know pt. will return to [facility] today, and that pt. would benefit from Hospice services at this facility. Per [facility] intake office, they can open pt. to services on August 14. [facility] will call pt.'s sister, Nick Joy, to get familial consent for pt. to start Hospice services. This justowriter operator called Akilah, binder coverstitch at [facility], to let her know pt. is stable to discharge back to [facility] today. Akilah expressed they are glad pt. can return to the facility and she told this justowriter operator that [facility] CM should contact [facility] Admissions staff to coordinate pt.'s transfer. Akilah and this justowriter operator discussed that [facility] can provide support to pt. as of next week. Akilah said she is comfortable having pt. return today, and shared that they will follow medication orders for pain medicine as determined by pt.'s [facility] attending provider. This justowriter operator then called pt.'s sister, Nick Joy ([phone]), to let her know pt. will return to [facility] and that [facility] will likely call her in the coming days to have Hospice consents signed. Nick shared she is glad to provide familial consent for pt.'s care coordination needs but does not want to be actively involved with pt.'s care. Tracy Benjamin, KANDIS, [facility] Palliative Care Services
[2016-08-11] MEDS ORDERED: HALO2ORA PO (10:21)
[2016-08-11] MEDS ORDERED: LRZ2B30 PO (10:23)
[2016-08-11] MEDS ORDERED: MORP100S5 SL/PO (10:23)
--- NOTE | 2016-08-11 10:30 | PCM.DIMED ---
DORON GRACIA DO 08/11/16 1029: Discharge Instructions Date of Service Aug 11, 2016 Dates of Hospitalization Aug 02, 2016 at 13:11 Discharge Diagnosis Discharge Diagnosis 1. Severe Sepsis, septic shock requiring pressor support 2. Possible pneumonia 3. Lower extremity cellulitis/extensive decubitus ulcer 4. Atrial fibrillation with RVR 5. Hypernatremia 6. Hypertension 7. Acute on chronic renal failure 8. Encephalopathy due to chronic dementia 11. Troponin elevation Medication Instructions Patient transitioned to comfort care and discharged to [facility] on comfort care measures. Patient given medications haloperidol, lorazepam and morphine to take when necessary to help him remain comfortable Diet No restrictions Activity No restrictions Romeo Ochoa MD 08/11/16 1612: Discharge Instructions Attending's Statement The patient was seen and examined together with Dr. Gracia on 08/11/16 and I agree with the discharge instructions as outlined in the note above. DORON GRACIA DO Aug 11, 2016 10:29 Romeo Ochoa MD Aug 11, 2016 16:12
--- NOTE | 2016-08-11 10:38 | NUR ---
Called and spoke with Kaur at [facility] and let her know plan is to send patient back today and he will open with hospice. Scheduled 1300 BLS picker and packer via [facility]. PCS form completed and copy placed on chart. Updated KEY SANDER Addendum: 08/11/16 at 1104 by LEIGH AUGUSTINE Faxed orders to [facility] and placed copy on chart. Updated KEY SANDER
[2016-08-11 11:11] LABS: INR 1.04 ratio
[2016-08-11] MEDS ORDERED: Haloperidol 5 mg/mL Inj IVPUSH PRN (11:45)
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
--- NOTE | 2016-08-14 10:08 | NUR ---
Palliative care note D/A: Phone call this am from Haleigh at [facility]. She indicates that pt sister was consulted regarding signing hospice paperwork. She declined to sign paperwork. (This was after previous conversation with her via phone where she verbally agreed to hospice services for pt.) Haleigh notes that agency is requesting that one of the palliative care providers co-sign consent paperwork. One of the hospice medical directors will be the other co-signer. Discuss with Haleigh to have Em coordinate with this worker. Em arrives with paperwork, this worker coordinates with Dr. Riggs who kindly agrees to sign paperwork. P: No further need for PC services. Rosario GUILLEN, CCM
--- NOTE | 2016-08-14 11:34 | NUR ---
received call form [facility] - pt was screened out for [facility]PS. Complaint sent to the [facility], they investigate facilities. Ref#[id number]
--- NOTE | 2016-08-15 14:02 | NUR ---
Post Discharge Phone Call Received call from Facility Complaint/[facility] Poultry Scalder Keila (P:[phone], F: [phone]). Keila requested clinicals from pt hospitalization, SW faxed clinicals as requested. Keila denied any other needs or questions. KANDIS Alvarado
--- NOTE | 2016-08-18 16:25 | NUR ---
Post Discharge Phone Call Voicemail from assigned gaming investigator, Siri Golden ([phone]); CHIPS SCREEN TENDER returned phone call and left message requesting return phone call. Case management received written notification that the investigation is in process and the reference number is [id number]. KANDIS Martinez
== END 2016-08-11 13:12 | DRG 871 ==
LOC: EDUNIT# 09:28 → SED 09:28 → EDBD 09:28 → SED 10:00 → PCC 13:11 → CCU 08-03 06:55 → PCC 08-11 00:05
PROVIDERS: ADMIT Internal Medicine; ATTEND Internal Medicine
DX: A41.9 Sepsis, unspecified organism (principal); R65.21 Severe sepsis with septic shock; J18.9 Pneumonia, unspecified organism; L03.116 Cellulitis of left lower limb; E87.0 Hyperosmolality and hypernatremia; N17.9 Acute kidney failure, unspecified; G94 Other disorders of brain in diseases classified elsewhere; Q85.00 Neurofibromatosis, unspecified; E86.0 Dehydration; F03.90 Unspecified dementia, unspecified severity, without behavioral disturbance, psychotic disturbance, mood disturbance, and anxiety; L89.150 Pressure ulcer of sacral region, unstageable; L89.610 Pressure ulcer of right heel, unstageable; L89.320 Pressure ulcer of left buttock, unstageable; L89.310 Pressure ulcer of right buttock, unstageable; I10 Essential (primary) hypertension; I48.91 Unspecified atrial fibrillation; Z79.01 Long term (current) use of anticoagulants; Z66 Do not resuscitate; Z78.1 Physical restraint status; Z22.322 Carrier or suspected carrier of Methicillin resistant Staphylococcus aureus; Z51.5 Encounter for palliative care